=== PATIENT | male | born 1940 | race Caucasian/White ===

== ENCOUNTER 2020-02-18 14:51 | Observation (INO) | payer MEDICARE, SELFPAY ==
[2020-02-18] VITALS (15 sets, daily range): BP systolic 71–138; BP diastolic 44–76; PULSE 40–62; RESP 13–18; TEMP 36.4–36.7; O2SAT 2–100; BMI 27.1; BMI 26.9; BMI 26.0
--- NOTE | 2020-02-18 15:02 | EKG12_ITS ---
Test Reason : SWATHI Blood Pressure : / mmHG Vent. Rate : 046 BPM Atrial Rate : 046 BPM P-R Int : 220 ms QRS Dur : 070 ms QT Int : 494 ms P-R-T Axes : 012 015 018 degrees QTc Int : 432 ms Sinus bradycardia with 1st degree A-V block Otherwise normal ECG Confirmed by VINH SEGUNDO, LASHAUN ([id number]), make up editor JUAN F STAHL ([id number]) on 02/20/2020 9:18:08 AM Referred By: ANABEL Confirmed By:LASHAUN JUSTICE MD
--- NOTE | 2020-02-18 15:04 | RAD_ITS ---
STUDY: X-RAY CHEST REASON FOR EXAM: Male, 79 years old. ALTERED LOC, HYPOTENSIVE, SOB TECHNIQUE: Frontal view of the chest COMPARISON: None. FINDINGS: The lungs are clear and expanded. There is no demonstrated pleural abnormality. Normal size heart. Normal mediastinum and radhika. Normal visualized pulmonary arteries. Normal visualized aortic arch and descending thoracic aorta. Normal visualized thoracic spine. Normal visualized ribs, clavicles, and shoulders. There is no demonstrated abnormality of the visualized soft tissue structures of the upper abdomen. RAD/Chest 1 View (Portable) IMPRESSION: Normal x-ray examination of the chest. Electronically Signed: Taty Millan, at 16:02 EDT Tel , Service support ,
--- NOTE | 2020-02-18 15:05 | ED.VIS.GEN ---
History of Present Illness Chief Complaint: Alt LOC Narrative: This patient is a 79-year-old male who presents with altered mental status and hypotension. Patient states he has been in his usual state of health recently but has been helping his to can tomatoes and also had moved some big rocks. He woke this morning with right lower back pain. This is similar to his usual back pain. He takes tramadol and Lyrica twice a day. He had taken his usual medications. After jose tomatoes his back pain was worse so he took extra previously prescribed medication. He initially stated that this was a steroid but later stated that he thinks it was a muscle relaxer. He is unsure what this medication was. Not long after taking the medication he states he felt loopy he felt he was unsteady and he was unable to walk. EMS was contacted. He was bradycardic and hypotensive. Patient was started on an epinephrine infusion that was then titrated down and eventually stopped on arrival here. Patient denies any pain currently. He denies recent illness such as fevers cough vomiting diarrhea. Past Medical History - Allergies and Home Meds Allergies/Adverse Reactions: Allergies Penicillins [PCN] Allergy (Verified 02/18/20 15:02) Rash terazosin Allergy (Verified 02/18/20 15:38) PT UNSURE OF REACTION Primary Care Physician: Montana Lucas MD [Primary Care Provider] - Past Medical History: - - Hypertension, chronic back pain Smoking Status: Former smoker Review of Systems All systems negative except as indicated General: Denies: Fever Eyes: Denies: Visual changes - bilaterally ENT: Denies: Bilateral ear pain Cardiovascular: Denies: Chest pain Respiratory: Denies: Dyspnea Gastrointestinal: Denies: Abdominal pain, Nausea, Vomiting, Diarrhea Musculoskeletal: Reports: Back pain Skin: Denies: Rash Neurological: Reports: Weakness Hematologic: Denies: Easy bruising Allergy: Denies: Uticaria Physical Exam Vital Signs/Narrative: Vital Signs Temp Pulse Resp BP Pulse Ox 02/18/20 14:52 97.7 F L 46 L 13 71/44 L 97 Inital Vital Signs reviewed: Yes General: Well nourished Head: Normocephalic Eyes: EOMI ENT: Moist mucous membranes Neck: Supple Cardiovascular: Regular rhythm, Bradycardia Respiratory: No distress, CTA bilaterally Abdomen: Soft, Nontender, Nondistended Extremities: Nontender, No edema Skin: Normal color Neurological: - - Patient is drowsy but answers all questions appropriately, no focal or lateralizing neurological deficits Psychological: Normal affect Diagnostic/Tx/Re-eval Impressions Chest X-Ray 02/18/20 15:04 IMPRESSION: Normal x-ray examination of the chest. Electronically Signed: Taty Millan, at 16:02 EDT Tel , Service support , 02/18/20 15:04 CXR [Chest 1 View (Portable)] [RAD] Stat Laboratory Results 02/18/20 02/18/20 02/18/20 15:05 15:05 15:05 WBC 11.2 H RBC 3.51 L Hgb 10.3 L Hct 32.5 L MCV 92.6 MCH 29.3 MCHC 31.7 L RDW Std Deviation 44.7 H RDW Coeff of Florian 13.2 Plt Count 262 MPV 9.5 Immature Gran % (Auto) 0.400 Neut % (Auto) 70.2 H Lymph % (Auto) 21.2 [place] % (Auto) 5.5 Eos % (Auto) 2.1 Baso % (Auto) 0.6 Absolute Neuts (auto) 7.9 H Absolute Lymphs (auto) 2.37 Nucleated RBC % 0 Sodium 139 Potassium 5.1 Chloride 109 H Carbon Dioxide 27.0 Anion Gap 3 L BUN 22 H Creatinine 1.41 H Estim Creat Clear Calc 45.99 Est GFR (MDRD) Af Amer 62 Est GFR (MDRD) Non-Af 52 L BUN/Creatinine Ratio 15.6 Glucose 182 H Lactic Acid 2.0 Calcium 8.4 L Total Bilirubin 0.40 AST 21 ALT 28 Alkaline Phosphatase 76 Troponin I Total Protein 6.7 Albumin 3.1 L Globulin 3.6 Albumin/Globulin Ratio 0.9 02/18/20 15:05 WBC RBC Hgb Hct MCV MCH MCHC RDW Std Deviation RDW Coeff of Florian Plt Count MPV Immature Gran % (Auto) Neut % (Auto) Lymph % (Auto) [place] % (Auto) Eos % (Auto) Baso % (Auto) Absolute Neuts (auto) Absolute Lymphs (auto) Nucleated RBC % Sodium Potassium Chloride Carbon Dioxide Anion Gap BUN Creatinine Estim Creat Clear Calc Est GFR (MDRD) Af Amer Est GFR (MDRD) Non-Af BUN/Creatinine Ratio Glucose Lactic Acid Calcium Total Bilirubin AST ALT Alkaline Phosphatase Troponin I < 0.015 Total Protein Albumin Globulin Albumin/Globulin Ratio - Medical Decision Making Patient did present hypotensive. He was given 2 L of normal saline. His blood pressure did respond well and is normal on reevaluation. At the time my initial evaluation heart rate was in the high 40s. On reevaluation patient as low as 38. His evaluation as above is notable for mild elevation of creatinine. Additionally we did attempt a straight cath and he had no urine in the bladder. I do believe he is hypovolemic. Some of his weakness and altered mental status may be attributable to the multiple sedating medications including tramadol, Lyrica, Zanaflex. However I do feel he needs further evaluation for his bradycardia as well. She was discussed with the hospitalist, Dr. Johnson who agrees to admit. ED Disposition - Plan for ED Patient: Disposition: Acute Care Hospital [facility] Diagnosis: J CARLOS (acute kidney injury), Adverse drug reaction, Symptomatic bradycardia Referrals: Montana Lucas MD [Primary Care Provider] -
[2020-02-18] MEDS: 0.9% Normal Saline 1,000 ML 999 ML IV ×2 (15:08→16:29)
[2020-02-18 15:18] LABS: Absolute Lymphocyte Count 2.37 X10^3/uL (0.83-4.51); Absolute Neutrophil Count 7.9 X10^3/uL (2.0-7.7); Basophil# 0.07 X10^3/uL; Basophil% 0.6 % (0-1); Eosinophil# 0.24 X10^3/uL; Eosinophils% 2.1 % (0-5); Hematocrit 32.5 % (40-54); Hemoglobin 10.3 g/dL (13.0-16.5); Lymphocyte # 2.37 X10^3/ul (4.0); Lymphocyte % 21.2 % (19-41); Mean Corp Hgb Conc 31.7 g/dL (32-36); Mean Corpuscular Hgb 29.3 pg (27.0-32.0); Mean Corpuscular Volume 92.6 fL (80-94); Mean Platelet Vol. 9.5 fl (6.2-12.0); Monocyte# 0.62 X10^3/uL; Monocyte% 5.5 % (0-10); NRBC Flagged by Analyzer 0 % (0-5); Neutrophil # 7.85 X10^3/uL (2.7-7.7); Neutrophil % 70.2 % (47-70); Platelet Count 262 K/mm3 (150-450); RBC Distribution Width CV 13.2 % (11.6-14.6); RBC Distribution Width SD 44.7 fl (35.1-43.9); Red Blood Count 3.51 M/mm3 (4.6-6.2); White Blood Count 11.2 K/mm3 (4.4-11.0)
[2020-02-18 15:34] LABS: ALB/GLOB Ratio 0.9 RATIO (0.9-2.4); AST(SGOT) 21 U/L (15-37); Alanine Aminotransfer ALT/SGPT 28 U/L (16-61); Albumin, Serum 3.1 g/dL (3.2-5.0); Alkaline Phosphatase 76 U/L (45-117); Anion Gap 3 (5-15); BUN 22 mg/dL (7-18); BUN/Creat Ratio 15.6 RATIO (10-20); Calcium,Total 8.4 mg/dL (8.5-10.1); Chloride 109 mmol/L (98-107); Creatinine, Serum 1.41 mg/dL (0.70-1.30); EST Glomerular Filtration Rate 52 mL/min (>60); Est Glom Filt Rate - Afr Amer 62 mL/min (>60); Estimated Creatinine Clearance 45.99 ml/min; Globulin 3.6 g/dL (2.2-4.2); Glucose 182 mg/dL (74-106); Potassium 5.1 mmol/L (3.5-5.1); Protein, Total 6.7 g/dL (6.4-8.2); Sodium Level 139 mmol/L (136-145)
--- NOTE | 2020-02-18 16:37 | NURSING ---
THIS RN ATTEMPTED TO STRAIGHT CATH PT. UNABLE TO OBTAIN URINE. DR LITTLE NOTIFIED.
--- NOTE | 2020-02-18 18:25 | PCM.HP.STD ---
History of Present Illness Date of Admission: 02/18/20 Chief Complaint: weakness The patient is a 79 year old M who was in his normal state of health and then was doing some gardening. Patient has some chronic back issues and is on Zanaflex and tramadol. Normally, he does not take them together but he did so this afternoon. Afterwards he felt woozy and weak. Presented to the emergency room and was hypotensive at 71/44. Patient did receive IV fluids and his blood pressure did improve to 135/72. Currently patient feels better at this time but he is very cold. Patient denies any sick contacts nor any fever or chills. [] Past Medical History Medical History: Medical History (Last Updated 02/18/20 @ 18:[address] Bryce Johnson DO) Raynaud disease I73.00 HTN (hypertension) I10 Allergies Penicillins [PCN] Allergy (Verified 02/18/20 15:02) Rash terazosin Allergy (Verified 02/18/20 15:38) PT UNSURE OF REACTION Home Medications: Ambulatory Orders Medication Instructions Recorded Docusate Sodium [Colace] 100 mg PO BID 06/22/16 Glucosam/Reginaldo-Msm1/C/Uri/Bosw 1 each PO BID 06/22/16 [Osteo Bi-Flex Caplet] Lisinopril 1 tab PO DAILY 06/22/16 [place]-3S/Dha/Epa/Fish Oil [Fish 1 cap PO BID 06/22/16 Oil 1,200 mg Softgel] Pregabalin [Lyrica] 1 cap PO BID 06/22/16 Tramadol HCl 1 tab PO BID 06/22/16 Amlodipine [Norvasc] 5 mg PO BID 02/18/20 Tizanidine HCl [Zanaflex] 4 mg PO PRN PRN 02/18/20 Smoking Status: Former smoker Tobacco Use: Non-smoker Alcohol: None Drugs: None - *Family History Maternal History Items: - - no CVA Review of Systems Constitutional: Reports: Chills, Night Sweats, Weakness. Denies: Anorexia Eyes: Denies: Blurred vision, Double vision HEENT: Denies: Head Aches, Sinus Congestion, Sinus Drainage Cardiovascular: Denies: Chest Pain, Palpitations Respiratory: Denies: Cough, Shortness of breath at rest, Sputum production Gastrointestinal: Denies: Abdominal Pain, Nausea, Vomiting Genitourinary: Denies: Dysuria Musculoskeletal: Denies: Joint Pain, Joint Tenderness Skin: Reports: - - States that earlier today, his fingers did go white. His feet feel cold. Neurological: Denies: Numbness, Tingling, Focal weakness Hematologic/ Lymphatic: Denies: Easy Bruising, Easy Bleeding, Hx of blood clot Comment: All review of systems were negative except as mentioned above in the history of present illness and the other review of systems. VTE Information - Inpt Only VTE Present on Admission: No VTE Mechan Device Prophylaxis: None VTE Pharm Prophylaxis ordered?: No Reason prophylaxis not ordered:: Treatment Not Indicated Patient Problems: Active and Suspected Problems J CARLOS (acute kidney injury) (Acute) Adverse drug reaction (Acute) Symptomatic bradycardia (Acute) - Physical Exam Vitals/I&O's: Vital Signs Temp Pulse Resp BP Pulse Ox 36.5 C L 47 L 14 135/72 H 98 02/18/20 17:48 02/18/20 17:48 02/18/20 17:48 02/18/20 17:48 02/18/20 17:48 Oxygen Flow Rate (L/min) 2 Oxygen Delivery Method Nasal Cannula Weight: 87.6 kg Body Mass Index (BMI) 26.9 Intake and Output for Last 24 Hours 02/16/20 02/17/20 02/18/20 23:59 23:59 23:59 Intake Total 1999 Balance 1999 General: Alert, Cooperative, No apparent distress, - - Bundled up in numerous blankets HEENT: Atraumatic, Normocephalic Oral: - - Wearing a mask, did not remove. Neck: No Nodes, Thyroid Normal Size and Texture Lungs: Clear to auscultation, Normal air movement, No rhonchi, No wheeze Cardiovascular: Regular rate, Regular Rhythm, Normal S1, Normal S2, No murmurs Abdomen: Bowel Sounds Present, Soft, Non Tender, Non-Distended, No Hepato-splenomegaly Extremities: No edema, No Calf Tenderness Skin: No rashes, No breakdown, - - No cyanosis. No ischemic digits. Musculoskeletal: No Tenderness to Palpation of Joints or Extremities, No Muscle Wasting Psych/Mental Status: Normal Affect, Appropriate Laboratory Results 02/18/20 15:05: WBC 11.2 H, RBC 3.51 L, Hgb 10.3 L, Hct 32.5 L, MCV 92.6, MCH 29.3, MCHC 31.7 L, RDW Std Deviation 44.7 H, RDW Coeff of Florian 13.2, Plt Count 262, MPV 9.5, Immature Gran % (Auto) 0.400, Neut % (Auto) 70.2 H, Lymph % (Auto) 21.2, [place] % (Auto) 5.5, Eos % (Auto) 2.1, Baso % (Auto) 0.6, Absolute Neuts (auto) 7.9 H, Absolute Lymphs (auto) 2.37, Nucleated RBC % 0 02/18/20 15:05: Sodium 139, Potassium 5.1, Chloride 109 H, Carbon Dioxide 27.0, Anion Gap 3 L, BUN 22 H, Creatinine 1.41 H, Estim Creat Clear Calc 45.99, Est GFR (MDRD) Af Amer 62, Est GFR (MDRD) Non-Af 52 L, BUN/Creatinine Ratio 15.6, Glucose 182 H, Calcium 8.4 L, Total Bilirubin 0.40, AST 21, ALT 28, Alkaline Phosphatase 76, Total Protein 6.7, Albumin 3.1 L, Globulin 3.6, Albumin/Globulin Ratio 0.9 02/18/20 15:05: Lactic Acid 2.0 02/18/20 15:05: Troponin I < 0.015 Current Medications Sodium Chloride () 10 - 40 ml IV UD PRN PRN Reason: SALINE FLUSH Assessment/Plan All Active Problems J CARLOS (acute kidney injury) (Acute) Adverse drug reaction (Acute) Symptomatic bradycardia (Acute) 1. Hypotension: Resolved. I suspect this may be more of an exaggerated vagal episode as he was hypotensive as well as bradycardic. Unclear if him have been a vagal episode may be exacerbated with his underlying ray nods or not but patient seems to be responding appropriately at this time. Feel that was likely exacerbated by his concomitant use of Zanaflex as well as tramadol. Will give patient additional IV fluids and observe. Patient did have blood cultures drawn in the emergency room but no obvious source of infection is seen at this time. Patient denies any COVID contacts. Because of the hypotension, will hold off on the amlodipine as well as lisinopril. 2. Possible acute kidney injury: Creatinine is 1.41. Last creatinine we have available is 0.97 from 2016. Will have IV fluids and recheck BMP in the morning. 3. Raynauds phenomenon: Not active at this time but patient stated that his fingers to go white earlier. 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 But given hypotension will hold off on the amlodipine at this time but suspect it can be resumed either later point during this admission or upon discharge. 4. Chronic pain: Stable at this time. We will continue with his medication. Patient came to conclusion on his own but was just reinforced by my myself that he should not have concomitant use of the Zanaflex and tramadol. 5. VTE prophylaxis: Low risk and not indicated at this time as patient is observation status. 6. Advanced care planning: Discussed with the patient. Patient wishes to be full CODE STATUS at this time. OBSV E&M: [id number] Initial observation care L3
[2020-02-18] MEDS: 0.9% Normal Saline 1,000 ML 150 ML IV (18:50)
[2020-02-18 19:10] LABS: Reflex Lactate? Y
[2020-02-18 21:00] LABS: Mucous, Urine 0 SEEN /hpf (<or=2+); Squamous Epithelial Cells - UA 0 SEEN /hpf (0-5)
[2020-02-18 21:04] LABS: Color, Urine Straw (Yellow); Glucose, Dipstick Normal (Normal); Ketone-Dipstick Negative (Negative); Leukocyte Esterase-Dipstick Negative /ul (Negative); Nitrite-Dipstick Negative (Negative); Occult Blood-Urine 50 /ul (Negative); Protein-Dipstick Negative (Negative); Urine Bilirubin Dipstick Negative (Negative); Urine Clarity Clear (Clear); Urine Urobilinogen Normal (Normal)
[2020-02-18 21:13] LABS: Red Blood Cells-Urine 5-10 SEEN /hpf (0-5); White Blood Cells 5-10 SEEN /hpf (0-5)
[2020-02-18 21:14] LABS: Bacteria 1+ /hpf (None Seen); Hyaline Cast 5-10 SEEN /lpf (0-5)
[2020-02-18] MEDS: traMADol 50 MG Tablet PO (22:50)
[2020-02-18] MEDS: Pregabalin 75 MG Capsule 150 MG PO (22:50)
[2020-02-18] MEDS: Docusate Sodium 100 MG Capsule PO (22:51)
[2020-02-18] MEDS: Pramipexole Di-HCl 0.5 MG Tablet PO (22:51)
[2020-02-19] VITALS (7 sets, daily range): BP systolic 100–118; BP diastolic 51–62; PULSE 52–70; RESP 17–18; TEMP 36.5–36.7; O2SAT 95–99
[2020-02-19] MEDS: Acetaminophen 325 MG Tablet 650 MG PO (01:17)
--- NOTE | 2020-02-19 04:28 | EKG12_ITS ---
Test Reason : AM Blood Pressure : / mmHG Vent. Rate : 052 BPM Atrial Rate : 052 BPM P-R Int : 226 ms QRS Dur : 074 ms QT Int : 438 ms P-R-T Axes : 025 036 035 degrees QTc Int : 407 ms Sinus bradycardia with 1st degree A-V block Otherwise normal ECG When compared with ECG of 22-JUN-2016 10:55, No significant change was found Confirmed by ANDER VERGARA ([id number]), editorial clerk EUSEBIO MANNING ([id number]) on 02/22/2020 9:05:58 AM Referred By: TERESA Confirmed By:ANDER VERGARA
--- NOTE | 2020-02-19 05:17 | PN_ITS ---
Progress Note Notified on Michael on telemetric strip. Blood pressure is stable. Follow- up EKG showed first-degree AV block. Telemetry strip reviewed confirms Michael. Patient presented with hypotension and bradycardia. Discussed with nurse to put pacer pads on patient. We will keep patient n.p.o. Consult cardiology. STROKE Vital Signs/Narrative: Vital Signs Temp Pulse Resp BP Pulse Ox 02/19/20 04:40 98.0 F 55 L 18 107/53 L 95 02/19/20 03:00 70
[2020-02-19 05:39] LABS: Absolute Lymphocyte Count 2.46 X10^3/uL (0.83-4.51); Absolute Neutrophil Count 4.7 X10^3/uL (2.0-7.7); Basophil# 0.05 X10^3/uL; Basophil% 0.6 % (0-1); Eosinophil# 0.26 X10^3/uL; Eosinophils% 3.1 % (0-5); Hematocrit 30.7 % (40-54); Hemoglobin 9.8 g/dL (13.0-16.5); Lymphocyte # 2.46 X10^3/ul (4.0); Lymphocyte % 29.8 % (19-41); Mean Corp Hgb Conc 31.9 g/dL (32-36); Mean Corpuscular Volume 90.8 fL (80-94); Mean Platelet Vol. 9.8 fl (6.2-12.0); Monocyte# 0.76 X10^3/uL; Monocyte% 9.2 % (0-10); NRBC Flagged by Analyzer 0 % (0-5); Neutrophil # 4.71 X10^3/uL (2.7-7.7); Neutrophil % 57.1 % (47-70); Platelet Count 239 K/mm3 (150-450); RBC Distribution Width CV 13.1 % (11.6-14.6); RBC Distribution Width SD 43.3 fl (35.1-43.9); Red Blood Count 3.38 M/mm3 (4.6-6.2); White Blood Count 8.3 K/mm3 (4.4-11.0)
[2020-02-19 05:52] LABS: Anion Gap 4 (5-15); BUN 19 mg/dL (7-18); BUN/Creat Ratio 22.5 RATIO (10-20); Calcium,Total 7.7 mg/dL (8.5-10.1); Chloride 110 mmol/L (98-107); Creatinine, Serum 0.84 mg/dL (0.70-1.30); EST Glomerular Filtration Rate 93 mL/min (>60); Est Glom Filt Rate - Afr Amer 113 mL/min (>60); Estimated Creatinine Clearance 77.19 ml/min; Glucose 107 mg/dL (74-106); Magnesium 1.9 mg/dL (1.6-2.6); Sodium Level 139 mmol/L (136-145)
--- NOTE | 2020-02-19 06:48 | NURSING ---
Pacer pads applied to pt per order.
--- NOTE | 2020-02-19 08:04 | CON.PCM_ITS ---
Reason for Consult Date of Consultation: 02/19/20 History of Present Illness: The patient is a 79 year old M with a previous history of hypertension who presented to the emergency room not feeling well. He thinks that he may have taken more medication than usual. He was noted to be hypotensive when he prese nted to the emergency room he was given intravenous fluids and admitted to the telemetry care unit. On the telemetry unit he was noted to have Wenckebach phenomenon on his EKG and cardiology was consulted for evaluation. He had no significant pauses and no dizziness diaphoresis chest pain or syncope. [] Past Medical History Allergies/Adverse Reactions: Allergies Penicillins [PCN] Allergy (Verified 02/18/20 15:02) Rash terazosin Allergy (Verified 02/18/20 15:38) PT UNSURE OF REACTION Home Medications: Ambulatory Orders Medication Instructions Recorded Docusate Sodium [Colace] 100 mg PO BID 06/22/16 Glucosam/Reginaldo-Msm1/C/Uri/Bosw 1 each PO BID 06/22/16 [Osteo Bi-Flex Caplet] Lisinopril 1 tab PO DAILY 06/22/16 [place]-3S/Dha/Epa/Fish Oil [Fish 1 cap PO BID 06/22/16 Oil 1,200 mg Softgel] Pregabalin [Lyrica] 1 cap PO BID 06/22/16 Tramadol HCl 1 tab PO BID 06/22/16 Amlodipine [Norvasc] 5 mg PO BID 02/18/20 Ropinirole HCl 1 mg PO BID 02/18/20 Tizanidine HCl [Zanaflex] 4 mg PO QHS PRN 02/18/20 - *Family History Maternal History Items: - - no CVA Smoking Status: Former smoker Tobacco Use: Non-smoker Alcohol: None Drugs: None Review of Systems - Review of Systems General: Denies: Fever, Night Sweats, Fatigue HEENT: Denies: Vision Change Cardiovascular: Reports: Near Syncope. Denies: Chest Discomfort, Shortness of Breath, Orthopnea, PND, Peripheral Edema, Palpitations, Lightheadedness, Dizziness, Syncope Respiratory: Denies: Cough, Sputum Production, Hemoptysis Gastrointestinal: Denies: Hematemesis, Hematochezia, Melena Genitourinary: Denies: Dysuria, Hematuria Skin: Denies: Rash Neurological: Denies: Dizziness Psychiatric: Denies: Anxiety Endocrine: Denies: Unexplained Weight Loss Subjectve: Pleasant gentleman in no distress Objective: Vital Signs Temp Pulse Resp BP Pulse Ox 98.0 F 53 L 18 100/51 L 95 02/19/20 04:40 02/19/20 07:38 02/19/20 04:40 02/19/20 05:23 02/19/20 04:40 Oxygen Flow Rate (L/min) 2 Oxygen Delivery Method Room Air Weight: 193 lb 1.999 oz Body Mass Index (BMI) 26.9 Orthostatic Vital Signs Start: 02/19/20 00:04 Freq: 0600 Status: Active Protocol: Activity Type Activity Date Activity User E-Sign Co-Sign Detail Recorded Client Recorded Date Recorded By Document 02/19/20 05:23 ANGIE [id number] 02/19/20 05:29 EEA 02/19/20 05:23 Orthostatic Vitals Standing -Blood Pressure (90/60-120/80) 118/59 L -Extremity Use Left Arm -Pulse Rate (60-100) 68 Sitting -Blood Pressure (90/60-120/80) 112/62 -Extremity Use Left Arm -Pulse Rate (60-100) 64 Lying -Blood Pressure (90/60-120/80) 100/51 L -Extremity Use Left Arm -Pulse Rate (60-100) 54 L Intake and Output for Last 24 Hours 02/17/20 02/18/20 02/19/20 23:59 23:59 23:59 Intake Total 2099 1260 / 1260 Balance 2099 1260 / 1260 General: Awake, Alert, Oriented x 3 HEENT: PERRL, EOMI, Sclera Non Icteric Neck: Supple, Good ROM, No Lymph Node Enlargement Lungs: Clear to auscultation Cardiovascular: Regular Rhythm, Normal S1, Normal S2, No Murmurs, No Rubs, No Gallops Vascular: No Carotid Bruits, Normal Femoral Pulses, Normal Radial Pulses, Normal Dorsalis Pedal Pulse, Normal Posterior Tibial Pulses Abdomen: Bowel Sounds Present, Soft, Non Tender, No HSM, No Organomegaly Extremities: No Cyanosis, No Clubbing, No edema Musculoskeletal: No Erythema Skin: No Rashes Lymphatic: No Lymph Node Enlargement Neurological: No Focal Motor or Sensory Deficit Psych/Mental Status: Appropriate 02/18/20 15:05: WBC 11.2 H, RBC 3.51 L, Hgb 10.3 L, Hct 32.5 L, MCV 92.6, MCH 29.3, MCHC 31.7 L, Plt Count 262, MPV 9.5, Immature Gran % (Auto) 0.400, Neut % (Auto) 70.2 H, Lymph % (Auto) 21.2, [place] % (Auto) 5.5, Eos % (Auto) 2.1, Baso % (Auto) 0.6, Absolute Neuts (auto) 7.9 H, Nucleated RBC % 0 02/18/20 15:05: Sodium 139, Potassium 5.1, Chloride 109 H, Carbon Dioxide 27.0, Anion Gap 3 L, BUN 22 H, Creatinine 1.41 H, Est GFR (MDRD) Af Amer 62, Est GFR (MDRD) Non-Af 52 L, BUN/Creatinine Ratio 15.6, Glucose 182 H, Calcium 8.4 L, Total Bilirubin 0.40 02/18/20 15:05: Lactic Acid 2.0 02/18/20 15:05: Troponin I < 0.015 02/18/20 20:50: Urine Color Straw, Urine Clarity Clear, Urine pH 6.0, Ur Specific [place] 1.020, Urine Protein Negative, Urine Glucose (UA) Normal, Urine Ketones Negative, Urine Occult Blood 50 H, Urine Nitrite Negative, Urine Bilirubin Negative, Urine Urobilinogen Normal, Ur Leukocyte Esterase Negative, Urine RBC 5-10 SEEN, Urine WBC 5-10 SEEN 02/18/20 20:55: Lactic Acid 1.0 02/19/20 05:20: WBC 8.3, RBC 3.38 L, Hgb 9.8 L, Hct 30.7 L, MCV 90.8, MCH 29.0, MCHC 31.9 L, Plt Count 239, MPV 9.8, Immature Gran % (Auto) 0.200, Neut % (Auto) 57.1, Lymph % (Auto) 29.8, [place] % (Auto) 9.2, Eos % (Auto) 3.1, Baso % (Auto) 0.6, Absolute Neuts (auto) 4.7, Nucleated RBC % 0 02/19/20 05:20: Sodium 139, Potassium 4.0, Chloride 110 H, Carbon Dioxide 25.0, Anion Gap 4 L, BUN 19 H, Creatinine 0.84, Est GFR (MDRD) Af Amer 113, Est GFR (MDRD) Non-Af 93, BUN/Creatinine Ratio 22.5 H, Glucose 107 H, Calcium 7.7 L, Magnesium 1.9 Rhythm: EKG: ECHO: Stress Test: Cardiac Cath: PCI: CT Surgery: Holter monitor: EPS: PPM: CXR: Chest CT Scan: Assessment/Plan 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 My recommendation is to continue to observe him at this time. He does not require any treatment. An echocardiogram should be performed to assess his left ventricular function. * His other medications can be resumed. * 2. Hypertension * His blood pressure appears to be under good control at this particular time and I would not recommend we make any other changes. * * Thank you for allowing me to participate in the care of your patient. Please don't hesitate to call if any issues arise.
--- NOTE | 2020-02-19 08:11 | ECHOCS_ITS ---
Reason For Study: ARRHYTHMIA Procedure This was a 2D Doppler, Color Flow transthoracic echocardiogram. The study was technically difficult. PT scanned supine due to back pain. Contrast injection was performed. Exam performed portable in patient room. Left Ventricle Normal LV size. Left ventricular systolic function is normal. The estimated ejection fraction is 65 %. Stage 2 diastolic dysfunction. No regional wall motion abnormalities noted. Right Ventricle Normal RV size. Normal systolic function. Atria Normal left atrium. Mitral Valve Mitral valve not well visualized. Tricuspid Valve Normal tricuspid valve. Mild (1+) tricuspid valve insufficiency. Pulmonary artery systolic pressure is 30 mmHg. Aortic Valve Trisinus/trileaflet aortic valve. Pulmonic Valve The pulmonic valve is not well visualized. Great Vessels Normal aortic root. The pulmonary artery is normal size. Normal inferior vena cava. Pericardium/Pleural No pericardial effusion. Medication Diluted definity 2.0ml given slow IV push to enhance endocardial definition. MMode/2D Measurements & Calculations LVIDd: 4.1 cm IVSd: 1.2 cm Ao root diam: 3.2 cm LVIDs: 2.5 cm LVPWd: 0.77 cm RVDd: 3.6 cm FS: 38.0 % LA dimension(2D): 3.3 cm Time Measurements MV dec time: 0.21 sec Doppler Measurements & Calculations MV E max santi: 86.5 cm/sec Lat Peak E' Santi: 9.8 cm/sec Med Peak E' Santi: 8.1 cm/sec MV A max santi: 70.8 cm/sec E/E' lat: 8.8 E/E' med: 10.7 MV E/A: 1.2 PA V2 max: 61.4 cm/sec TR max santi: 254.1 cm/sec TR max P.8 mmHg Interpretation Summary Normal LV size. Left ventricular systolic function is normal. The estimated ejection fraction is 65 %. Stage 2 diastolic dysfunction. Contrast injection was performed. Ordering Physician: Julio César Sharp Referring Physician: Montana Lucas Performed By: Nona Gordon, YANCICS, RVT
[2020-02-19] MEDS: traMADol 50 MG Tablet PO (09:31)
[2020-02-19] MEDS: Docusate Sodium 100 MG Capsule PO (09:31)
[2020-02-19] MEDS: Pregabalin 75 MG Capsule 150 MG PO (09:32)
[2020-02-19] MEDS: Pramipexole Di-HCl 0.5 MG Tablet PO (09:32)
--- NOTE | 2020-02-19 10:58 | PCM.DC ---
- Discharge Diagnoses Current Active Problems: Current Active and Chronic Problems (Last Updated 02/18/20 @ 18:[address] Bryce Johnson, DO) J CARLOS (acute kidney injury) (Acute) Adverse drug reaction (Acute) Symptomatic bradycardia (Acute) You will use the following diet at home:: Cardiac Your food should be the consistency of: Regular Your liquids should be the consistency of: Regular/Thin Discharge Activity: Return to Normal Activity Allergies/Adverse Reactions: Allergies Penicillins [PCN] Allergy (Verified 02/18/20 15:02) Rash terazosin Allergy (Verified 02/18/20 15:38) PT UNSURE OF REACTION Medications to take at Discharge Docusate Sodium [Colace] 100 mg PO BID 06/22/16 Glucosam/Reginaldo-Msm1/C/Uri/Bosw [Osteo Bi-Flex Caplet] 1 each PO BID 06/22/16 [place]-3S/Dha/Epa/Fish Oil [Fish Oil 1,200 mg Softgel] 1 cap PO BID 06/22/16 Pregabalin [Lyrica] 1 cap PO BID 06/22/16 Primary Care Physician: Montana Lucas MD [Primary Care Provider] - Please follow up with your Primary Care Physician in: 1 week Test Results: Test results from this visit will be discussed in further detail at your follow-up appointment, if applicable. Please Follow Up With: Julio César Sharp MD When: as directed Proposed Discharge Date: 02/19/20
--- NOTE | 2020-02-19 11:22 | PHA.DC.MR ---
Pharmacy Service has performed discharge medication reconciliation for this patient. The patient's discharge medication list was reviewed for discrepancies and discrepancies were resolved. Home Medications Docusate Sodium [Colace] 100 mg PO BID 06/22/16 Glucosam/Reginaldo-Msm1/C/Uri/Bosw [Osteo Bi-Flex Caplet] 1 each PO BID 06/22/16 [place]-3S/Dha/Epa/Fish Oil [Fish Oil 1,200 mg Softgel] 1 cap PO BID 06/22/16 Pregabalin [Lyrica] 1 cap PO BID 06/22/16
--- NOTE | 2020-02-19 11:49 | PCM.DC.SUM ---
<Jacob Nugent - Last Filed: 02/19/20 11:49> Discharge Date and Diagnosis - Problem List Patient Problems: Active and Suspected Problems (Last Updated 02/18/20 @ 18:[address] Bryce Johnson DO) J ACRLOS (acute kidney injury) (Acute) Adverse drug reaction (Acute) Symptomatic bradycardia (Acute) Date of Admission: 02/18/20 Date of Discharge: 02/19/20 - Primary Discharge Diagnosis Acute Problems: Active Problems (Last Updated 02/18/20 @ 18:[address] Bryce Johnson DO) J CARLOS 2/2 hypotension Hypotension 2/2 Polypharmacy Hospital Course and Treatment Imaging Results: 02/19/20 08:11 Echo Complete W/ Contrast [ECHO] Routine Interpretation Summary Normal LV size. Left ventricular systolic function is normal. The estimated ejection fraction is 65 %. Stage 2 diastolic dysfunction. Contrast injection was performed. RAD/Chest 1 View (Portable) IMPRESSION: Normal x-ray examination of the chest. Consult: Cardiology - Lila Operations: None Procedures: 2-D Echocardiogram Summary of Care Provided: Hospital course: The patient is a 79 year old M with past medical history of chronic back pain, hypertension, ray nods disease, who presented to the emergency room with complaints of weakness. Patient was outside gardening was taking Zanaflex and tramadol for back pain. He developed a feeling of weakness, and wooziness, came to the emergency room. He was found to have a blood pressure of 71/44 and evidence of acute kidney injury. He also appeared to have second-degree AV block-Wenkebach. Patient was admitted to the PCU and placed on telemetry. Cardiology was consulted. His antihypertensive agents were held. Cardiology recommended obtaining an echocardiogram however did not recommend any aggressive treatment of Wenckebach phenomenon. He appears to have 1st degree AV block at baseline per EKG and tele. He had resolution of his J CARLOS and no symptoms the following day. We discontinued his antihypertensives at discharge as well as several of his sedating pain medications. He will need to follow-up with his PCP in 1 week and with cardiology as directed. This patient was seen by Jacob Nugent PA-C under the supervision of Doctor Bernal. [] Patient Problems: Active and Suspected Problems (Last Updated 02/18/20 @ 18:[address] Bryce Jopperi, DO) J CARLOS (acute kidney injury) (Acute) Adverse drug reaction (Acute) Symptomatic bradycardia (Acute) - Physical Exam Vitals/I&O's: Vital Signs Temp Pulse Resp BP Pulse Ox 97.7 F L 53 L 17 113/57 L 96 02/19/20 09:19 02/19/20 09:19 02/19/20 09:19 02/19/20 09:19 02/19/20 09:19 Oxygen Flow Rate (L/min) 2 Oxygen Delivery Method Room Air Weight: 193 lb 1.999 oz Body Mass Index (BMI) 26.9 Orthostatic Vital Signs Start: 02/19/20 00:04 Freq: 0600 Status: Active Protocol: Activity Type Activity Date Activity User E-Sign Co-Sign Detail Recorded Client Recorded Date Recorded By Document 02/19/20 05:23 [facility] [id number] 02/19/20 05:29 EEA 02/19/20 05:23 Orthostatic Vitals Standing -Blood Pressure (90/60-120/80) 118/59 L -Extremity Use Left Arm -Pulse Rate (60-100) 68 Sitting -Blood Pressure (90/60-120/80) 112/62 -Extremity Use Left Arm -Pulse Rate (60-100) 64 Lying -Blood Pressure (90/60-120/80) 100/51 L -Extremity Use Left Arm -Pulse Rate (60-100) 54 L Intake and Output for Last 24 Hours 02/17/20 02/18/20 02/19/20 23:59 23:59 23:59 Intake Total 2099 1620 / 1620 Balance 2099 1620 / 1620 General: Alert, Oriented x3, Cooperative HEENT: Atraumatic, PERRLA, EOMI, Normocephalic Neck: Supple, No JVD, Negative Carotid Bruits Lungs: Clear to auscultation, Normal air movement Cardiovascular: Regular rate, No murmurs Abdomen: Bowel Sounds Present, Soft, Non Tender Extremities: No edema, Capillary Refill Less than 3 Seconds Skin: No rashes, No breakdown Musculoskeletal: No Tenderness to Palpation of Joints or Extremities Neurological: Cranial nerves II-XII grossly intact Psych/Mental Status: Normal Affect, Appropriate, Alert and oriented to time, place, person, mood and affect Laboratory Results 02/18/20 15:05: WBC 11.2 H, RBC 3.51 L, Hgb 10.3 L, Hct 32.5 L, MCV 92.6, MCH 29.3, MCHC 31.7 L, RDW Std Deviation 44.7 H, RDW Coeff of Florian 13.2, Plt Count 262, MPV 9.5, Immature Gran % (Auto) 0.400, Neut % (Auto) 70.2 H, Lymph % (Auto) 21.2, Miner % (Auto) 5.5, Eos % (Auto) 2.1, Baso % (Auto) 0.6, Absolute Neuts (auto) 7.9 H, Absolute Lymphs (auto) 2.37, Nucleated RBC % 0 02/18/20 15:05: Sodium 139, Potassium 5.1, Chloride 109 H, Carbon Dioxide 27.0, Anion Gap 3 L, BUN 22 H, Creatinine 1.41 H, Estim Creat Clear Calc 45.99, Est GFR (MDRD) Af Amer 62, Est GFR (MDRD) Non-Af 52 L, BUN/Creatinine Ratio 15.6, Glucose 182 H, Calcium 8.4 L, Total Bilirubin 0.40, AST 21, ALT 28, Alkaline Phosphatase 76, Total Protein 6.7, Albumin 3.1 L, Globulin 3.6, Albumin/Globulin Ratio 0.9 02/18/20 15:05: Lactic Acid 2.0 02/18/20 15:05: Troponin I < 0.015 02/18/20 20:50: Urine Color Straw, Urine Clarity Clear, Urine pH 6.0, Ur Specific [place] 1.020, Urine Protein Negative, Urine Glucose (UA) Normal, Urine Ketones Negative, Urine Occult Blood 50 H, Urine Nitrite Negative, Urine Bilirubin Negative, Urine Urobilinogen Normal, Ur Leukocyte Esterase Negative, Urine RBC 5-10 SEEN, Urine WBC 5-10 SEEN, Ur Squamous Epith Cells 0 SEEN, Urine Bacteria 1+, Hyaline Casts 5-10 SEEN, Urine Mucus 0 SEEN 02/18/20 20:55: Lactic Acid 1.0 02/19/20 05:20: WBC 8.3, RBC 3.38 L, Hgb 9.8 L, Hct 30.7 L, MCV 90.8, MCH 29.0, MCHC 31.9 L, RDW Std Deviation 43.3, RDW Coeff of Florian 13.1, Plt Count 239, MPV 9.8, Immature Gran % (Auto) 0.200, Neut % (Auto) 57.1, Lymph % (Auto) 29.8, Miner % (Auto) 9.2, Eos % (Auto) 3.1, Baso % (Auto) 0.6, Absolute Neuts (auto) 4.7, Absolute Lymphs (auto) 2.46, Nucleated RBC % 0 02/19/20 05:20: Sodium 139, Potassium 4.0, Chloride 110 H, Carbon Dioxide 25.0, Anion Gap 4 L, BUN 19 H, Creatinine 0.84, Estim Creat Clear Calc 77.19, Est GFR (MDRD) Af Amer 113, Est GFR (MDRD) Non-Af 93, BUN/Creatinine Ratio 22.5 H, Glucose 107 H, Calcium 7.7 L, Magnesium 1.9 Current Medications Acetaminophen (Tylenol) 650 mg PO Q6H PRN PRN PRN Reason: Pain Score 1-10/Temp > 100.7 F Last Admin: 02/19/20 01:17 Dose: 650 mg Documented by: Docusate Sodium (Colace) 100 mg PO BID [facility] Last Admin: 02/19/20 09:31 Dose: 100 mg Documented by: Ondansetron HCl (Zofran) 4 mg IV Q8H PRN PRN PRN Reason: NAUSEA/VOMITING Pramipexole Dihydrochloride (Mirapex) 0.5 mg PO BID [facility] Last Admin: 02/19/20 09:32 Dose: 0.5 mg Documented by: Pregabalin (Lyrica) 150 mg PO BID [facility] Last Admin: 02/19/20 09:32 Dose: 150 mg Documented by: Tizanidine HCl (Zanaflex) 4 mg PO QHS PRN PRN PRN Reason: sleep deprivation Tramadol HCl (Ultram) 50 mg PO BID [facility] Last Admin: 02/19/20 09:31 Dose: 50 mg Documented by: Discharge Diet: Low fat/ Low Cholesterol, 2000 mg Sodium Diet Discharge Activity: Return to Normal Activity Home Medications: Medications to take at Discharge Docusate Sodium [Colace] 100 mg PO BID 06/22/16 Glucosam/Reginaldo-Msm1/C/Uri/Bosw [Osteo Bi-Flex Caplet] 1 each PO BID 06/22/16 [place]-3S/Dha/Epa/Fish Oil [Fish Oil 1,200 mg Softgel] 1 cap PO BID 06/22/16 Pregabalin [Lyrica] 1 cap PO BID 06/22/16 Primary Care Physician: Montana Lucas MD [Primary Care Provider] - Please follow up with your Primary Care Physician in: 1 week Please Follow Up With: Julio César Sharp MD When: as directed Disposition: Home Medical Necessity - Tobacco Use Smoking Status: Former smoker Tobacco Use: Non-smoker Meaningful Use Info Meaningful Use Diagnoses (Choose all that apply): None applicable <Puma Bernal - Last Filed: 02/19/20 13:24> Discharge Date and Diagnosis - Primary Discharge Diagnosis Acute Problems: Active Problems (Last Updated 02/18/20 @ 18:[address] Bryce Johnson DO) J CARLOS (acute kidney injury) (Acute) Adverse drug reaction (Acute) Symptomatic bradycardia (Acute) Hospital Course and Treatment Imaging Results: 02/19/20 08:11 Echo Complete W/ Contrast [ECHO] Routine Summary of Care Provided: This patient was seen in conjunction with Jacob Nugent PA-C . I have independently interviewed and examined the patient and reviewed pertinent historical, laboratory, and other data. Please refer to Jacob Nugent PA-C note for details of this patient's presentation, findings, and recommendations. I have reviewed Jacob Nugent PA-C note and concur with documented findings. In brief, patient is a 79-year-old male with multiple comorbidities admitted with profound generalized weakness. Patient was found to be hypotensive with acute kidney injury resuscitated with IV fluids and admitted to monitored bed Hospital course as documented above - Physical Exam Vitals/I&O's: Vital Signs Temp Pulse Resp BP Pulse Ox 97.7 F L 52 L 17 113/57 L 96 02/19/20 09:19 02/19/20 11:00 02/19/20 09:19 02/19/20 09:19 02/19/20 09:19 Oxygen Flow Rate (L/min) 2 Oxygen Delivery Method Room Air Weight: 87.6 kg Body Mass Index (BMI) 26.9 Orthostatic Vital Signs Start: 02/19/20 00:04 Freq: 0600 Status: Active Protocol: Activity Type Activity Date Activity User E-Sign Co-Sign Detail Recorded Client Recorded Date Recorded By Document 02/19/20 05:23 [facility] [id number] 02/19/20 05:29 NUHA 02/19/20 05:23 Orthostatic Vitals Standing -Blood Pressure (90/60-120/80) 118/59 L -Extremity Use Left Arm -Pulse Rate (60-100) 68 Sitting -Blood Pressure (90/60-120/80) 112/62 -Extremity Use Left Arm -Pulse Rate (60-100) 64 Lying -Blood Pressure (90/60-120/80) 100/51 L -Extremity Use Left Arm -Pulse Rate (60-100) 54 L Intake and Output for Last 24 Hours 02/17/20 02/18/20 02/19/20 23:59 23:59 23:59 Intake Total 2099 1620 / 1620 Balance 2099 1620 / 1620 Laboratory Results 02/18/20 15:05: WBC 11.2 H, RBC 3.51 L, Hgb 10.3 L, Hct 32.5 L, MCV 92.6, MCH 29.3, MCHC 31.7 L, RDW Std Deviation 44.7 H, RDW Coeff of Florian 13.2, Plt Count 262, MPV 9.5, Immature Gran % (Auto) 0.400, Neut % (Auto) 70.2 H, Lymph % (Auto) 21.2, Miner % (Auto) 5.5, Eos % (Auto) 2.1, Baso % (Auto) 0.6, Absolute Neuts (auto) 7.9 H, Absolute Lymphs (auto) 2.37, Nucleated RBC % 0 02/18/20 15:05: Sodium 139, Potassium 5.1, Chloride 109 H, Carbon Dioxide 27.0, Anion Gap 3 L, BUN 22 H, Creatinine 1.41 H, Estim Creat Clear Calc 45.99, Est GFR (MDRD) Af Amer 62, Est GFR (MDRD) Non-Af 52 L, BUN/Creatinine Ratio 15.6, Glucose 182 H, Calcium 8.4 L, Total Bilirubin 0.40, AST 21, ALT 28, Alkaline Phosphatase 76, Total Protein 6.7, Albumin 3.1 L, Globulin 3.6, Albumin/Globulin Ratio 0.9 02/18/20 15:05: Lactic Acid 2.0 02/18/20 15:05: Troponin I < 0.015 02/18/20 20:50: Urine Color Straw, Urine Clarity Clear, Urine pH 6.0, Ur Specific [place] 1.020, Urine Protein Negative, Urine Glucose (UA) Normal, Urine Ketones Negative, Urine Occult Blood 50 H, Urine Nitrite Negative, Urine Bilirubin Negative, Urine Urobilinogen Normal, Ur Leukocyte Esterase Negative, Urine RBC 5-10 SEEN, Urine WBC 5-10 SEEN, Ur Squamous Epith Cells 0 SEEN, Urine Bacteria 1+, Hyaline Casts 5-10 SEEN, Urine Mucus 0 SEEN 02/18/20 20:55: Lactic Acid 1.0 02/19/20 05:20: WBC 8.3, RBC 3.38 L, Hgb 9.8 L, Hct 30.7 L, MCV 90.8, MCH 29.0, MCHC 31.9 L, RDW Std Deviation 43.3, RDW Coeff of Florian 13.1, Plt Count 239, MPV 9.8, Immature Gran % (Auto) 0.200, Neut % (Auto) 57.1, Lymph % (Auto) 29.8, Miner % (Auto) 9.2, Eos % (Auto) 3.1, Baso % (Auto) 0.6, Absolute Neuts (auto) 4.7, Absolute Lymphs (auto) 2.46, Nucleated RBC % 0 02/19/20 05:20: Sodium 139, Potassium 4.0, Chloride 110 H, Carbon Dioxide 25.0, Anion Gap 4 L, BUN 19 H, Creatinine 0.84, Estim Creat Clear Calc 77.19, Est GFR (MDRD) Af Amer 113, Est GFR (MDRD) Non-Af 93, BUN/Creatinine Ratio 22.5 H, Glucose 107 H, Calcium 7.7 L, Magnesium 1.9 Current Medications Acetaminophen (Tylenol) 650 mg PO Q6H PRN PRN PRN Reason: Pain Score 1-10/Temp > 100.7 F Last Admin: 02/19/20 01:17 Dose: 650 mg Documented by: Docusate Sodium (Colace) 100 mg PO BID [facility] Last Admin: 02/19/20 09:31 Dose: 100 mg Documented by: Ondansetron HCl (Zofran) 4 mg IV Q8H PRN PRN PRN Reason: NAUSEA/VOMITING Pramipexole Dihydrochloride (Mirapex) 0.5 mg PO BID [facility] Last Admin: 02/19/20 09:32 Dose: 0.5 mg Documented by: Pregabalin (Lyrica) 150 mg PO BID [facility] Last Admin: 02/19/20 09:32 Dose: 150 mg Documented by: Tizanidine HCl (Zanaflex) 4 mg PO QHS PRN PRN PRN Reason: sleep deprivation Tramadol HCl (Ultram) 50 mg PO BID [facility] Last Admin: 02/19/20 09:31 Dose: 50 mg Documented by: OBSV E&M: [id number] Observation care discharge
== END 2020-02-19 10:59 | disposition home or self-care (01) ==
LOC: ED 17:31 → PCU 17:42
PROVIDERS: Emergency Provider Emergency Medicine; PCP Family Medicine; Visit Provider Internal Medicine
DX: I95.9 Hypotension, unspecified (principal); N17.9 Acute kidney failure, unspecified; I73.00 Raynaud's syndrome without gangrene; I44.1 Atrioventricular block, second degree; R00.1 Bradycardia, unspecified; T50.905A Adverse effect of unspecified drugs, medicaments and biological substances, initial encounter; R41.82 Altered mental status, unspecified; I10 Essential (primary) hypertension; G89.29 Other chronic pain; Z87.891 Personal history of nicotine dependence; Z79.899 Other long term (current) drug therapy
CPT/HCPCS: 36415; 71045; 80048; 80053; 81001; 83605; 83735; 84484; 85025; 87040; 93005; 93306; 96360; 96361; 99218; 99285; J7030; Q9957; A4216; C8929; G0378

== ENCOUNTER 2021-08-07 13:00 | Emergency (ER) | payer MEDICARE, SELFPAY ==
[2021-08-07] VITALS (9 sets, daily range): BP systolic 122–197; BP diastolic 68–103; PULSE 57–98; RESP 12–22; TEMP 36.8–36.9; O2SAT 93–99; BMI 28.3
--- NOTE | 2021-08-07 13:35 | EKG12_ITS ---
Test Reason : HEADACHE Blood Pressure : / mmHG Vent. Rate : 064 BPM Atrial Rate : 064 BPM P-R Int : 208 ms QRS Dur : 078 ms QT Int : 446 ms P-R-T Axes : 048 054 057 degrees QTc Int : 460 ms Normal sinus rhythm Normal ECG Confirmed by CLARIBEL SEGUNDO, ZOEY ([id number]), editor school photograph JUAN F STAHL ([id number]) on 08/08/2021 10:57:53 AM Referred By: WILL Confirmed By:ZOEY SANFORD MD
--- NOTE | 2021-08-07 13:41 | EX.ED.VIS.HA ---
HPI History of Present Illness Chief Complaint: Headache Narrative Narrative: 81-year-old male presenting with headache which started last evening. He states it feels like it is behind his eyes. He has no history of migraines. He does not have any history of head trauma. Patient states his blood pressure has been elevated when he took all of his blood pressure medications the day. He still states has been hypertensive with a headache. He has no visual complaints. No nausea or vomiting. No paresthesias. No difficulty moving extremities. PFSH PFSH Medical History (Updated 08/07/21 @ 15:04 by Anastasia Stokes) BiPAP (biphasic positive airway pressure) dependence Former smoker HTN (hypertension) Raynaud disease Sleep apnea Home Medications Fish Oil 1 cap PO BID 06/22/16 [History Last Taken 08/06/21] Osteo Bi-Flex Triple Strength 1 ea PO BID 06/22/16 [History Last Taken 08/05/21] docusate sodium [DOK] 100 mg PO BID 06/22/16 [History Last Taken 08/06/21] pregabalin [Lyrica] 1 cap PO BID 06/22/16 [History Last Taken 08/07/21] amlodipine 5 mg PO DAILY 08/07/21 [History Last Taken 08/07/21] lisinopril 20 mg PO DAILY 08/07/21 [History Last Taken 08/07/21] ropinirole 1 mg PO DAILY 08/07/21 [History Last Taken 08/07/21] ropinirole 3 mg PO QHS 08/07/21 [History Last Taken 08/06/21] tramadol 50 mg PO BID 08/07/21 [History Last Taken 08/05/21] Allergy/AdvReac Type Severity Reaction Status Date / Time Penicillins [PCN] Allergy Rash Verified 08/07/21 13:08 terazosin Allergy PT UNSURE Verified 08/07/21 13:08 OF REACTION Surgical History (Updated 08/07/21 @ 15:04 by Anastasia Stokes) History of appendectomy Social History Smoking Status: Former smoker ROS ROS ED Constitutional Constitutional ED: Denies chills or fever(s) Eyes Eyes: Denies blurry vision or diplopia ENT ENT ED: Denies rhinorrhea or sore throat Cardiovascular Cardiovascular: Denies chest pain or palpitations Respiratory/Chest Respiratory/Chest: Denies cough or dyspnea Gastrointestinal Gastrointestinal: Denies abdominal pain, nausea or vomiting Genitourinary Genitourinary ED: Denies dysuria or hematuria Musculoskeletal Musculoskeletal: Denies arthralgias, myalgias or neck pain Integumentary Denies rash Neurologic Neurologic: Reports headache(s); Denies paresthesias or weakness EXAM Physical Exam Const Vital Signs: 08/07/21 13:00 08/07/21 13:41 08/07/21 13:50 Temperature 98.2 F Temperature Source Oral Pulse Rate 57 L 67 Respiratory Rate 22 H 21 H Blood Pressure 174/86 H 158/91 H Blood Pressure Mean 115 113 Pulse Ox 97 99 Oxygen Delivery Method Room Air Room Air Room Air 08/07/21 15:31 08/07/21 15:59 08/07/21 16:10 Temperature 98.5 F Temperature Source Temporal Pulse Rate 76 82 Respiratory Rate 12 19 H Blood Pressure 197/103 H 156/68 H 172/99 H Blood Pressure Mean 134 97 123 Pulse Ox 98 97 Oxygen Delivery Method Room Air Room Air 08/07/21 16:21 Temperature Temperature Source Pulse Rate Respiratory Rate Blood Pressure 122/93 H Blood Pressure Mean 102 Pulse Ox Oxygen Delivery Method Positive well nourished General Appearance ED: NAD; Negative for pallor HEENT Reports normocephalic and TM's clear atraumatic; Negative for temporal artery tenderness Tympanic Membrane ED: Yes TM's clear Eyes PERRL and EOMs intact bilaterally Neck no lymphadenopathy, supple and no meningeal signs Resp normal respiratory effort and clear to auscultation bilaterally Cardio regular rate and regular rhythm Neuro oriented x3, CN's II-XII intact bilaterally and no sensory deficits noted Sensorium / Orientation: awake and alert Motor Exam: strength 5/5 throughout Psych Attitude: agitated Skin General Skin Exam: Negative for jaundice or pallor MDM MDM MDM Narrative Medical decision making narrative: Patient initially given Reglan, Benadryl. Patient was taken to CT. CT scan does show diffuse enlargement of the pituitary gland, and there is expansile erosive changes of the sella turcica. Radiologist does question whether this may be a pituitary adenoma, however neoplasm is not excluded. Patient's pain was not improved with Reglan and Benadryl he was given Toradol. He was still complaining of pain and was given Depakote. On reevaluation he was sleeping comfortably. His blood pressure is now 122/93 without blood pressure medication EKG on my interpretation shows a normal sinus rhythm with a ventricular of 64 bpm without sign of ischemic change. CBC and BMP are unremarkable. High-sensitivity troponin is 11. Chest x-ray my interpretation shows no acute cardiopulmonary process. Given the findings on his CT I did reach out to [facility] neurology to have the patient transferred as hospitalist here did not think it was appropriate for him to stay here. Dr. Emmanuel was the accepting neurologist. Patient was sent to ED the ED with the accepting physician being Dr. Mcgowan. Patient transported in stable condition. Impression: 1. Headache 2. Abnormal brain CT 3. Hypertension Lab Data Labs: Laboratory Results - last 24 hr 08/07/21 08/07/21 13:45 13:45 WBC 8.6 RBC 4.19 L Hgb 12.1 L Hct 36.2 L MCV 86.4 MCH 28.9 MCHC 33.4 RDW Std Deviation 39.8 RDW Coeff of Florian 12.6 Plt Count 435 MPV 9.0 Immature Gran % (Auto) 0.500 Neut % (Auto) 59.7 Lymph % (Auto) 29.0 [place] % (Auto) 6.8 Eos % (Auto) 3.4 Baso % (Auto) 0.6 Absolute Neuts (auto) 5.1 Absolute Lymphs (auto) 2.48 Nucleated RBC % 0 Sodium 137 Potassium 3.8 Chloride 104 Carbon Dioxide 27.0 Anion Gap 6 BUN 16 Creatinine 0.83 Estim Creat Clear Calc 75.60 Est GFR (MDRD) Af Amer 114 Est GFR (MDRD) Non-Af 94 BUN/Creatinine Ratio 19.2 Glucose 119 H Calcium 8.8 Troponin I High Sens 11 Radiography Diagnostic Testing: Clinical Impression(s) from Imaging Studies Brain CT 08/07/21 13:57 IMPRESSION: Diffuse enlargement of the pituitary gland. There is expansile erosive changes of the sella turcica. This may represent a pituitary adenoma. MRI with IV is recommended to evaluate. Neoplasm is not excluded. Chronic involutional changes of the brain. Electronically Signed: Kendall Wu MD at 14:27 EST , Chest X-Ray 08/07/21 14:05 IMPRESSION: There are no acute findings. Electronically Signed: Kendall Wu MD at 14:28 EST , Discharge Plan Triage Chief Complaint: Headache ED Provider: Ho Sykes Dx/Rx/DC Orders Prescriptions: No Action docusate sodium [DOK] 100 MG capsule 100 mg PO BID RF: 0 pregabalin [Lyrica] 150 MG capsule 1 cap PO BID RF: 0 Osteo Bi-Flex Triple Strength 1 EACH tablet 1 ea PO BID RF: 0 Fish Oil 1 EACH capsule 1 cap PO BID RF: 0 ropinirole 1 mg tablet 1 mg PO DAILY RF: 0 ropinirole 1 mg tablet 3 mg PO QHS RF: 0 lisinopril 20 mg tablet 20 mg PO DAILY RF: 0 amlodipine 5 mg tablet 5 mg PO DAILY RF: 0 tramadol 50 mg tablet 50 mg PO BID RF: 0 Primary Care Provider: Montana Lucas
[2021-08-07] MEDS: Metoclopramide 10 MG/2 ML Vial IV (13:47)
[2021-08-07] MEDS: DiphenhydrAMINE 50 MG/ML Syringe 25 MG IV (13:47)
[2021-08-07 13:54] LABS: Absolute Lymphocyte Count 2.48 X10^3/uL (0.83-4.51); Absolute Neutrophil Count 5.1 X10^3/uL (2.0-7.7); Basophil# 0.05 X10^3/uL; Basophil% 0.6 % (0-1); Eosinophil# 0.29 X10^3/uL; Eosinophils% 3.4 % (0-5); Hematocrit 36.2 % (40-54); Hemoglobin 12.1 g/dL (13.0-16.5); Lymphocyte # 2.48 X10^3/ul (0.83-4.51); Mean Corp Hgb Conc 33.4 g/dL (32-36); Mean Corpuscular Hgb 28.9 pg (27.0-32.0); Mean Corpuscular Volume 86.4 fL (80-94); Monocyte# 0.58 X10^3/uL; Monocyte% 6.8 % (0-10); NRBC Flagged by Analyzer 0 % (0-5); Neutrophil # 5.11 X10^3/uL (2.7-7.7); Neutrophil % 59.7 % (47-70); Platelet Count 435 K/mm3 (150-450); RBC Distribution Width CV 12.6 % (11.6-14.6); RBC Distribution Width SD 39.8 fl (35.1-43.9); Red Blood Count 4.19 M/mm3 (4.6-6.2); White Blood Count 8.6 K/mm3 (4.4-11.0)
--- NOTE | 2021-08-07 13:57 | CT_ITS ---
STUDY: CT BRAIN WITHOUT CONTRAST REASON FOR EXAM: Male, 81 years old. Pain Individualized dose optimization techniques were used for this CT. TECHNIQUE: Transaxial CT imaging of the brain was performed without administration of intravenous contrast material. COMPARISON: None FINDINGS: There are calcifications around the carotid artery. These are noted in the cavernous carotid arteries. Normal calvarium. Normal soft tissues. Diffuse enlargement of the pituitary gland. There is expansile erosive changes of the sella turcica. There is mild cerebral atrophy with widening of the extra-axial spaces and ventricular dilatation. There are areas of decreased attenuation within the white matter tracts of the supratentorial brain, consistent with microvascular disease changes. Normal basal ganglia and thalami. Normal brainstem. There is mild cerebellar atrophy. There is no intracranial hemorrhage. There are no findings of an acute ischemic infarction. There is mucoperiosteal inflammatory disease of the paranasal sinuses consistent with mild chronic sinusitis. ASPECTS Score for Acute Strokes: 04/06 CT/Brain/Head without Contrast IMPRESSION: Diffuse enlargement of the pituitary gland. There is expansile erosive changes of the sella turcica. This may represent a pituitary adenoma. MRI with IV is recommended to evaluate. Neoplasm is not excluded. Chronic involutional changes of the brain. Electronically Signed: Kendall Wu MD at 14:[address] [facility] ,
--- NOTE | 2021-08-07 14:05 | RAD_ITS ---
STUDY: XR Chest 1 View 08/07/2021 1:56 PM REASON FOR EXAM: Male, 81 years old. CHEST PAIN hypertension COMPARISON: 02/18/2020 TECHNIQUE: XR Chest 1 View FINDINGS: There is no demonstrated pleural abnormality. Normal heart size. Normal mediastinum. Normal radhika. Prominent appearing increased interstitial lung markings. Normal visualized pulmonary arteries. There is atherosclerotic calcification of the aortic arch with tortuosity. There are diffuse degenerative changes of the visualized thoracic spine. There is degenerative osteoarthritis of the bilateral shoulders. There is no demonstrated abnormality of the visualized soft tissue structures of the upper abdomen. RAD/Chest 1 View (Portable) IMPRESSION: There are no acute findings. Electronically Signed: Kendall Wu MD at 14:28 EST ,
[2021-08-07 14:12] LABS: Anion Gap 6 (5-15); BUN 16 mg/dL (7-18); BUN/Creat Ratio 19.2 RATIO (10-20); Calcium,Total 8.8 mg/dL (8.5-10.1); Chloride 104 mmol/L (98-107); Creatinine, Serum 0.83 mg/dL (0.70-1.30); EST Glomerular Filtration Rate 94 mL/min (>60); Est Glom Filt Rate - Afr Amer 114 mL/min (>60); Glucose 119 mg/dL (74-106); Potassium 3.8 mmol/L (3.5-5.1); Sodium Level 137 mmol/L (136-145); Troponin-I HS 11 pg/mL (3.0-78.0)
[2021-08-07] MEDS: Ketorolac 15 MG/ML Vial IV (14:41)
--- NOTE | 2021-08-07 15:40 | ED.RN ---
Daughter updated and told will call back when know more [phone]
--- NOTE | 2021-08-07 15:42 | NURSING ---
Dr Sykes is aware of concern with family for transport to [facility] since further away but at this time, closer hospitals are not able to take now and only other option is [facility] right now but they are 3 day holding to get patients there so [place] is where we are working now.
--- NOTE | 2021-08-07 16:50 | NURSING ---
Madelyn Lopez states they accepted the doctor report and nothing further to do
--- NOTE | 2021-08-07 16:52 | NURSING ---
Alicia, daughter called and given update on voicemail
[2021-08-07] MEDS: HYDROmorphone 0.5 MG/0.5 ML SYRINGE IV (17:16)
--- NOTE | 2021-08-07 17:53 | ED.RN ---
Daughter reports patient has leslee and uses a cpap for sleep, at home, but no aware of settings. Sees Dr Acosta.
== END 2021-08-07 18:57 | disposition short-term general hospital (02) ==
LOC: ED 13:34
PROVIDERS: Emergency Provider Student in an Organized Health Care Education/Training Program; PCP Family Medicine; Visit Provider Student in an Organized Health Care Education/Training Program
DX: I10 Essential (primary) hypertension (principal); E23.6 Other disorders of pituitary gland; Z87.891 Personal history of nicotine dependence; R51.9 Headache, unspecified; R93.0 Abnormal findings on diagnostic imaging of skull and head, not elsewhere classified; I73.00 Raynaud's syndrome without gangrene; G47.30 Sleep apnea, unspecified; Z79.899 Other long term (current) drug therapy
CPT/HCPCS: 70450; 71045; 80048; 84484; 85025; 93005; 96365; 96375; 99285; J7050; A4216

== ENCOUNTER 2021-12-21 | Observation (INO) | payer MEDICARE, SELFPAY ==
[2021-12-21] VITALS (9 sets, daily range): BP systolic 117–161; BP diastolic 64–86; PULSE 62–87; RESP 18; TEMP 36–36.7; O2SAT 94–100; BMI 27.3; BMI 27.4
--- NOTE | 2021-12-21 00:13 | CT_ITS ---
EXAM: CT ABDOMEN AND PELVIS WITH INTRAVENOUS CONTRAST CLINICAL INDICATION: lLQ abdominal pain -- IV PO Contrast TECHNIQUE: Helically acquired images were obtained of the abdomen and pelvis with intravenous contrast. This CT exam was performed using one or more of the following dose reduction techniques: automated exposure control, adjustment of the mA and/or kV according to patient size, and/or use of iterative reconstruction technique. This report was created using [employer] report generation technology. CONTRAST: 100 cc of Isovue-370 IV. RADIATION DOSE: CTDIvol = 17.15 mGy, DLP = 1168.06 mGy-cm. COMPARISON: None. FINDINGS: LOWER THORAX: Unremarkable. Lung bases are clear. No cardiomegaly. No significant pericardial effusion. ABDOMEN: LIVER: There is diffuse low-attenuation of the liver. GALLBLADDER AND BILE DUCTS: Cholelithiasis. No gallbladder distention or wall edema. No intra- or extrahepatic biliary ductal dilation. PANCREAS: Unremarkable. No focal cystic or solid mass. SPLEEN: Unremarkable. Normal size without focal cystic or solid mass. ADRENALS: Unremarkable. No nodules. KIDNEYS AND URETERS: Unremarkable. Normal renal size and position. No hydronephrosis. STOMACH AND BOWEL: Mild wall thickening of the descending colon, sigmoid colon and rectum with prominence of the mesenteric vessels. Scattered diverticula without diverticulitis. No stomach or bowel distention. PELVIS: APPENDIX: No evidence of acute appendicitis. BLADDER: Unremarkable. REPRODUCTIVE: Unremarkable as visualized. No mass. ABDOMEN and PELVIS: INTRAPERITONEAL SPACE: Unremarkable. No ascites or other fluid collection. No free air. BONES/JOINTS: Unremarkable. No suspicious lytic or blastic abnormality. SOFT TISSUES: Unremarkable. No discrete abdominal or pelvic wall hernia. VASCULATURE: See above. LYMPH NODES: Unremarkable. No enlarged lymph nodes. OTHER FINDINGS: And oral contrast. CT/Abdomen/Pelvis WITH Contrast IMPRESSION: 1. Probable colitis involving the descending colon through the rectum. This may be due to infection or inflammatory bowel disease. 2. Scattered diverticula without diverticulitis. 3. Fatty liver. 4. Cholelithiasis. Electronically Signed: Jamel Garcia MD at 2:31 EDT ,
--- NOTE | 2021-12-21 00:14 | EDS_ITS ---
HPI HPI - GI History of Present Illness Chief Complaint: GI Bleed Narrative Narrative: 81-year-old male presenting with bright red bleeding per rectum. He states he felt like he had to go to the bathroom tonight and felt like he had to go urgently. He went to the bathroom and had a bowel movement with some blood in his stool. He states he had another 1 when he arrived to the emergency room. He states he is not in significant pain. He has felt otherwise well prior to this. He is not on any blood thinners. He states he had a colonoscopy distantly and told to that polyps but also told he did not need another colonoscopy. He does not feel lightheaded or dizzy. PFSH PFS Medical History BiPAP (biphasic positive airway pressure) dependence Former smoker HTN (hypertension) Raynaud disease Sleep apnea Home Medications pregabalin 150 mg capsule (Lyrica) 1 cap PO BID pain 06/22/16 [History Last Taken 08/07/21] amlodipine 5 mg tablet 5 mg PO DAILY bp 08/07/21 [History Last Taken 08/07/21] lisinopril 20 mg tablet 20 mg PO DAILY bp 08/07/21 [History Last Taken 08/07/21] ropinirole 1 mg tablet 1 mg PO DAILY rls 08/07/21 [History Last Taken 08/07/21] ropinirole 1 mg tablet 3 mg PO QHS rls 08/07/21 [History Last Taken 08/06/21] Allergy/AdvReac Type Severity Reaction Status Date / Time Penicillins [PCN] Allergy Rash Verified 12/21/21 00:01 terazosin Allergy PT UNSURE Verified 12/21/21 00:01 OF REACTION Surgical History History of appendectomy History of surgical removal of pituitary gland Social History Smoking Status: Former smoker ROS ROS ED Constitutional Constitutional ED: Denies chills or fever(s) ENT ENT ED: Denies rhinorrhea or sore throat Cardiovascular Cardiovascular: Denies chest pain or palpitations Respiratory/Chest Respiratory/Chest: Denies cough or dyspnea Gastrointestinal Gastrointestinal: Reports diarrhea and other Details: Bright red bleeding per rectum Musculoskeletal Musculoskeletal: Denies arthralgias or back pain Integumentary Denies abscess Neurologic Neurologic: Denies headache(s) or paresthesias Psychiatric Psychiatric: Denies anxiety or depression EXAM Physical Exam Const Vital Signs: 12/21/21 00:02 Temperature 96.8 F L Temperature Source Temporal Pulse Rate 87 Respiratory Rate 18 Blood Pressure 161/84 H Blood Pressure Mean 109 Pulse Ox 98 Oxygen Delivery Method Room Air Positive well nourished and well developed General Appearance ED: well developed and NAD; Negative for pallor Eyes PERRL and EOMs intact bilaterally General Eye ED: Negative for pale conjunctiva or scleral icterus Resp normal respiratory effort and clear to auscultation bilaterally Cardio regular rate and regular rhythm GI Palpation: soft; Negative for tender, guarding or rigid Neuro CN's II-XII intact bilaterally, moves all extremities and no sensory deficits noted Sensorium / Orientation: alert, oriented to person, oriented to place and oriented to time Psych mental status grossly normal Skin General Skin Exam: Negative for jaundice or pallor MDM MDM MDM Narrative Medical decision making narrative: Patient presenting with bright red stool per rectum. He has had 2 bloody bowel movements. I did give him a liter of IV fluids but is not having any pain or nausea. I obtained a CBC and his hemoglobin is at his baseline at 12.2. No increased white blood cell count. Creatinine slightly elevated 1.35. Electrolytes are normal. LFTs within normal limits with exception of an alkaline phosphatase of 124. Coagulation studies are normal. Patient still slightly hypertensive. His pulse is 87. O2 sats are normal at 98. I did come into the room to be reevaluated him and he had another large bloody stool. He still appears to be pain-free and he is laughing and joking. CT of the abdomen pelvis shows mild bowel wall thickening of the descending colon sigmoid, rectum. I discussed the case with Dr. Dumont who felt he can manage the patient if needed. He was admitted to medicine in stable condition. Patient will have his hemoglobin is trended. He will be monitored. Impression: 1. Lower GI bleed Lab Data Labs: Laboratory Results - last 24 hr 12/21/21 12/21/21 12/21/21 00:05 00:05 00:05 WBC 10.2 RBC 4.13 L Hgb 12.2 L Hct 36.8 L MCV 89.1 MCH 29.5 MCHC 33.2 RDW Std Deviation 42.7 RDW Coeff of Florian 13.0 Plt Count 245 MPV 10.5 Immature Gran % (Auto) 0.500 Neut % (Auto) 48.0 Lymph % (Auto) 37.1 Moody % (Auto) 11.7 H Eos % (Auto) 2.2 Baso % (Auto) 0.5 Absolute Neuts (auto) 4.9 Absolute Lymphs (auto) 3.77 Nucleated RBC % 0 PT Cancelled INR Cancelled Sodium 140 Potassium 3.9 Chloride 106 Carbon Dioxide 25.0 Anion Gap 9 BUN 23 H Creatinine 1.35 H Estim Creat Clear Calc 46.48 Est GFR (MDRD) Af Amer 65 Est GFR (MDRD) Non-Af 54 L BUN/Creatinine Ratio 17.0 Glucose 176 H Calcium 9.0 Total Bilirubin 0.20 AST 29 ALT 32 Alkaline Phosphatase 124 H Total Protein 6.9 Albumin 3.5 Globulin 3.4 Albumin/Globulin Ratio 1.0 Lipase 128 Blood Type Antibody Screen 12/21/21 12/21/21 00:26 00:53 WBC RBC Hgb Hct MCV MCH MCHC RDW Std Deviation RDW Coeff of Florian Plt Count MPV Immature Gran % (Auto) Neut % (Auto) Lymph % (Auto) [place] % (Auto) Eos % (Auto) Baso % (Auto) Absolute Neuts (auto) Absolute Lymphs (auto) Nucleated RBC % PT 14.4 INR 1.2 Sodium Potassium Chloride Carbon Dioxide Anion Gap BUN Creatinine Estim Creat Clear Calc Est GFR (MDRD) Af Amer Est GFR (MDRD) Non-Af BUN/Creatinine Ratio Glucose Calcium Total Bilirubin AST ALT Alkaline Phosphatase Total Protein Albumin Globulin Albumin/Globulin Ratio Lipase Blood Type O POSITIVE Antibody Screen NEGATIVE Radiography Diagnostic Testing: Clinical Impression(s) from Imaging Studies Abdomen/Pelvis CT 12/21/21 00:13 IMPRESSION: 1. Probable colitis involving the descending colon through the rectum. This may be due to infection or inflammatory bowel disease. 2. Scattered diverticula without diverticulitis. 3. Fatty liver. 4. Cholelithiasis. Electronically Signed: Jamel Garcia MD at 2:31 EDT , Discharge Plan Triage Chief Complaint: GI Bleed ED Provider: [facility] Dx/Rx/DC Orders Prescriptions: No Action pregabalin [Lyrica] 150 MG capsule 1 cap PO BID Label Comments: ropinirole 1 mg tablet 1 mg PO DAILY Label Comments: TAKE 1 TABLET BY MOUTH EVERY MORNING AND 3 TABLETS BY MOUTH EVERY EVENING ropinirole 1 mg tablet 3 mg PO QHS Label Comments: TAKE 1 TABLET BY MOUTH EVERY MORNING AND 3 TABLETS BY MOUTH EVERY EVENING lisinopril 20 mg tablet 20 mg PO DAILY amlodipine 5 mg tablet 5 mg PO DAILY Primary Care Provider: Montana Lucas Referrals: Montana Lucas MD [Primary Care Provider] -
[2021-12-21] MEDS: 0.9% Normal Saline 1,000 ML 1000 ML IV (00:27)
[2021-12-21 00:28] LABS: Absolute Lymphocyte Count 3.77 X10^3/uL (0.83-4.51); Absolute Neutrophil Count 4.9 X10^3/uL (2.0-7.7); Basophil# 0.05 X10^3/uL; Basophil% 0.5 % (0-1); Eosinophil# 0.22 X10^3/uL; Eosinophils% 2.2 % (0-5); Hematocrit 36.8 % (40-54); Hemoglobin 12.2 g/dL (13.0-16.5); Lymphocyte # 3.77 X10^3/ul (0.83-4.51); Lymphocyte % 37.1 % (19-41); Mean Corp Hgb Conc 33.2 g/dL (32-36); Mean Corpuscular Hgb 29.5 pg (27.0-32.0); Mean Corpuscular Volume 89.1 fL (80-94); Mean Platelet Vol. 10.5 fl (6.2-12.0); Monocyte# 1.19 X10^3/uL; Monocyte% 11.7 % (0-10); NRBC Flagged by Analyzer 0 % (0-5); Neutrophil # 4.87 X10^3/uL (2.7-7.7); Platelet Count 245 K/mm3 (150-450); RBC Distribution Width SD 42.7 fl (35.1-43.9); Red Blood Count 4.13 M/mm3 (4.6-6.2); White Blood Count 10.2 K/mm3 (4.4-11.0)
[2021-12-21 01:06] LABS: AST(SGOT) 29 U/L (15-37); Alanine Aminotransfer ALT/SGPT 32 U/L (16-61); Albumin, Serum 3.5 g/dL (3.2-5.0); Alkaline Phosphatase 124 U/L (45-117); Anion Gap 9 (5-15); BUN 23 mg/dL (7-18); Chloride 106 mmol/L (98-107); Creatinine, Serum 1.35 mg/dL (0.70-1.30); EST Glomerular Filtration Rate 54 mL/min (>60); Est Glom Filt Rate - Afr Amer 65 mL/min (>60); Estimated Creatinine Clearance 46.48 ml/min; Globulin 3.4 g/dL (2.2-4.2); Glucose 176 mg/dL (74-106); Lipase 128 U/L (73-393); Potassium 3.9 mmol/L (3.5-5.1); Protein, Total 6.9 g/dL (6.4-8.2); Sodium Level 140 mmol/L (136-145)
[2021-12-21 01:09] LABS: International Normalized Ratio 1.2; Prothrombin Time (Protime)PT. 14.4 SECONDS (11.7-14.9)
--- NOTE | 2021-12-21 02:46 | HP.PCM.HOS_ITS ---
[facility] - General General Date of Admission: 12/21/21 Date of Service: 12/21/21 Chief Complaint: blood in stool. HPI Narrative BETTYE BARNETT, is a 81 M who presents with hematochezia. Patient was normal state of health and then around 11PM yesterday, patient noted to have roosevelt blood along with stool in the toilet. Had 2 more episodes at home and then presented to the emergency room. Patient continued to have further episodes with 6 total thus far. He notes that the redness is less intense now. Patient has never had any GI bleed before. Patient had a colonoscopy about 8 years ago to remove some polyps. ED reached out to Dr. Dumont, general surgery, willing to see the patient in consultation. Patient denies any lightheadedness and actually was able to go to the bathroom on his own without any difficulty. He denies any use of NSAIDs, aspirin or clopidogrel. [facility] Medical History BiPAP (biphasic positive airway pressure) dependence Former smoker HTN (hypertension) Raynaud disease Sleep apnea Home Medications pregabalin 150 mg capsule (Lyrica) 1 cap PO BID pain 06/22/16 [History Last Taken 08/07/21] amlodipine 5 mg tablet 5 mg PO DAILY bp 08/07/21 [History Last Taken 08/07/21] lisinopril 20 mg tablet 20 mg PO DAILY bp 08/07/21 [History Last Taken 08/07/21] ropinirole 1 mg tablet 1 mg PO DAILY rls 08/07/21 [History Last Taken 08/07/21] ropinirole 1 mg tablet 3 mg PO QHS rls 08/07/21 [History Last Taken 08/06/21] Allergy/AdvReac Type Severity Reaction Status Date / Time Penicillins [PCN] Allergy Rash Verified 12/21/21 00:01 terazosin Allergy PT UNSURE Verified 12/21/21 00:01 OF REACTION no significant family history Surgical History History of appendectomy History of surgical removal of pituitary gland Social History Smoking Status: Former smoker ROS ROS Narrative Does have restless legs and is restless legs are acting up. All review of systems were negative except as mentioned above in the history of present illness and the other review of systems. Vital Signs Vital Signs Vital Signs: 12/21/21 00:02 Temperature 36.0 C L Temperature Source Temporal Pulse Rate 87 Respiratory Rate 18 Blood Pressure 161/84 H Blood Pressure Mean 109 Pulse Ox 98 Oxygen Delivery Method Room Air Weight Weight: 88.813 kg Body Mass Index (BMI) 27.3 Physical Exam Const alert and no apparent distress HEENT normocephalic, head/scalp atraumatic, hearing grossly normal bilaterally and moist oral mucous membranes Eyes Eyes Narrative: No icterus Neck no lymphadenopathy Resp normal respiratory effort, no retractions, no use of accessory muscles and clear to auscultation bilaterally Cardio regular rate, regular rhythm, S1 normal heart sound and S2 normal heart sound GI normal to inspection, nondistended, normoactive bowel sounds, soft to palpation, non-tender and non-distended Extremity normal to inspection Neuro Sensorium / Orientation: awake and alert Psych affect normal Results Lab / Micro Data Result Diagrams: 12/21/21 00:05 12/21/21 00:05 Labs: Laboratory Results - last 24 hr 12/21/21 00:05: WBC 10.2, RBC 4.13 L, Hgb 12.2 L, Hct 36.8 L, MCV 89.1, MCH 29.5, MCHC 33.2, RDW Std Deviation 42.7, RDW Coeff of Florian 13.0, Plt Count 245, MPV 10.5, Immature Gran % (Auto) 0.500, Neut % (Auto) 48.0, Lymph % (Auto) 37.1, [place] % (Auto) 11.7 H, Eos % (Auto) 2.2, Baso % (Auto) 0.5, Absolute Neuts (auto) 4.9, Absolute Lymphs (auto) 3.77, Nucleated RBC % 0 12/21/21 00:05: PT Cancelled, INR Cancelled 12/21/21 00:05: Sodium 140, Potassium 3.9, Chloride 106, Carbon Dioxide 25.0, Anion Gap 9, BUN 23 H, Creatinine 1.35 H, Estim Creat Clear Calc 46.48, Est GFR (MDRD) Af Amer 65, Est GFR (MDRD) Non-Af 54 L, BUN/Creatinine Ratio 17.0, Glucose 176 H, Calcium 9.0, Total Bilirubin 0.20, AST 29, ALT 32, Alkaline Phosphatase 124 H, Total Protein 6.9, Albumin 3.5, Globulin 3.4, Albumin/Globulin Ratio 1.0, Lipase 128 12/21/21 00:26: Blood Type O POSITIVE, Antibody Screen NEGATIVE 12/21/21 00:53: PT 14.4, INR 1.2 Radiology Impression Abdomen/Pelvis CT 12/21/21 00:13 IMPRESSION: 1. Probable colitis involving the descending colon through the rectum. This may be due to infection or inflammatory bowel disease. 2. Scattered diverticula without diverticulitis. 3. Fatty liver. 4. Cholelithiasis. Electronically Signed: Jamel Garcia MD at 2:31 EDT , Assessment & Plan Assessment/Plan (1) GI bleed: PLAN: Plan 1. GI bleed Suspected diverticular versus hemorrhoidal. Patient has been having roosevelt hematochezia though this slightly improved according to the patient Plan * Will start IV pantoprazole as I cannot definitively rule out this being upper would be highly unlikely the patient is hemodynamically stable * Clear liquid diet for now * General surgery will be on consultation as GI is currently unavailable. 2. Hypertension Plan: Continue with amlodipine and lisinopril 3. Restless leg syndrome Chronic Plan: Continue with ropinirole 4. VTE prophylaxis with SCDs as chemical prophylaxis contraindicated Charges/Coding Visit Charges Inpatient E&M: 31307 Init Hosp L2
[2021-12-21] MEDS: Levothyroxine 100 MCG Tablet PO (05:08)
[2021-12-21] MEDS: Pramipexole Di-HCl 0.5 MG Tablet PO ×2 (06:15→16:46)
[2021-12-21 07:57] LABS: Absolute Lymphocyte Count 2.92 X10^3/uL (0.83-4.51); Absolute Neutrophil Count 3.8 X10^3/uL (2.0-7.7); Basophil# 0.07 X10^3/uL; Basophil% 0.9 % (0-1); Eosinophil# 0.27 X10^3/uL; Eosinophils% 3.3 % (0-5); Hematocrit 29.8 % (40-54); Hemoglobin 9.6 g/dL (13.0-16.5); Lymphocyte # 2.92 X10^3/ul (0.83-4.51); Lymphocyte % 35.6 % (19-41); Mean Corp Hgb Conc 32.2 g/dL (32-36); Mean Corpuscular Hgb 28.7 pg (27.0-32.0); Mean Corpuscular Volume 89.2 fL (80-94); Mean Platelet Vol. 10.2 fl (6.2-12.0); Monocyte# 1.08 X10^3/uL; Monocyte% 13.2 % (0-10); NRBC Flagged by Analyzer 0 % (0-5); Neutrophil % 46.3 % (47-70); Platelet Count 196 K/mm3 (150-450); RBC Distribution Width CV 13.2 % (11.6-14.6); RBC Distribution Width SD 42.5 fl (35.1-43.9); Red Blood Count 3.34 M/mm3 (4.6-6.2); White Blood Count 8.2 K/mm3 (4.4-11.0)
[2021-12-21 08:10] LABS: Anion Gap 6 (5-15); BUN 19 mg/dL (7-18); BUN/Creat Ratio 16.8 RATIO (10-20); Calcium,Total 8.2 mg/dL (8.5-10.1); Chloride 110 mmol/L (98-107); Creatinine, Serum 1.13 mg/dL (0.70-1.30); EST Glomerular Filtration Rate 66 mL/min (>60); Est Glom Filt Rate - Afr Amer 80 mL/min (>60); Estimated Creatinine Clearance 55.53 ml/min; Glucose 122 mg/dL (74-106); Potassium 3.9 mmol/L (3.5-5.1); Sodium Level 141 mmol/L (136-145)
[2021-12-21] MEDS: Hydrocortisone 10 MG Tablet 15 MG PO (09:09)
[2021-12-21] MEDS: Pregabalin 75 MG Capsule 150 MG PO ×2 (10:05→22:48)
[2021-12-21] MEDS: Lisinopril 20 MG Tablet PO (10:05)
[2021-12-21] MEDS: 0.9% Saline Lock 10 ML Syringe IV ×2 (10:10→22:51)
--- NOTE | 2021-12-21 10:19 | EX.PCM.CON.S ---
Assessment & Plan Assessment/Plan (1) GI bleed: PLAN: Patient with 12-hour history of hematochezia. No clear inciting event. Patient's episodes seem to have stopped for the moment with a normal bowel movement earlier this morning. His hemoglobin has down trended approximately 2-1/2 g. He is currently asymptomatic. Coagulation studies were normal. Patient CT imaging shows rather localized colitis picture with the left colon through the rectum. With this segmental colitis, radiology has suggested infectious versus inflammatory etiology. I would add that ischemic colitis should be included in this differential. Encouragingly, patient's exam is completely benign. Recommend the following: ? Clear liquid diet until midnight, then n.p.o. with IV fluid resuscitation ? Bowel prep for diagnostic colonoscopy tomorrow 12/22/2021 ? Stool studies ? Repeat CBC every 12h HPI Consult Data Date of Consult: 12/21/21 HPI Narrative Reason for Consultation: GI bleed HPI Narrative: BETTYE BARNETT, is a 81 M who presents to [facility] with complaints of hematochezia. He states that approximately 11 PM last evening he began with 3 bloody bowel movements that were liquid in consistency. He denies any prior episodes. He denies any initiation of blood thinners recently. He denies any recent use of NSAIDs or aspirin. He denies any periods of dehydration or feeling poorly. Denies any sick contacts. He denies any associated abdominal pains. Patient estimates his last colonoscopy was 8 to 10 years ago. At that time he was told there were colon polyps. He states he is not even sure whether or not he had these polyps removed. No formal follow-up was recommended. He does confirm a history of hemorrhoids, but states this has not been a problem for several years. He previously was constipated, but with new medications (including magnesium) he tends to run looser. 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 He states that he was in a coma-like state for approximately 8 days postoperatively. Since that surgery he states that he is half of what he was physically before the surgery. Patient also has a history of tobacco use. He states that he quit some 30 years ago after 30 years of use. 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 His daughter, is in the room and a nurse by training, reports that her father has complained of frequent episodes of weakness. She states that she has performed orthostatics on him and these have always returned normal.She does note that following his pituitary surgery he had a period of relative anemia where his hemoglobin rarely seem to be above 10 g/dL. No cause was given and she was surprised to hear that his repeat hemoglobin at admission was significantly higher than this. Lastly he denies any present lightheadedness. He states that he is fatigued, but blames this on his restless leg syndrome which kept him awake most of the night. He also states that he had a small bowel movement prior to my arrival which was nonbloody in character. This was the first bowel movement that could be described as such after a series of 6 bloody bowel movements preceeded it. PENDING SALE TO [facility] Medical History (Updated 12/21/21 @ 04:24 by Bronwyn Dean) BiPAP (biphasic positive airway pressure) dependence Brain surgery within last 3 months Former smoker HTN (hypertension) Raynaud disease Sleep apnea Home Medications pregabalin 150 mg capsule (Lyrica) 1 cap PO BID pain 06/22/16 [History Last Taken 08/07/21] lisinopril 20 mg tablet 20 mg PO DAILY blood pressure 08/07/21 [History Last Taken 08/07/21] ropinirole 1 mg tablet 1 mg PO DAILY restless leg syndrome 08/07/21 [History Last Taken 08/07/21] ropinirole 1 mg tablet 2 mg PO QHS restless leg syndrome 08/07/21 [History Last Taken 08/06/21] desmopressin 0.1 mg tablet 0.5 tab PO QHS pituitary supplement 12/21/21 [History Last Taken Unknown] hydrocortisone 5 mg tablet 3 tab PO DAILY steroid 12/21/21 [History Last Taken Unknown] hydrocortisone 5 mg tablet 7.5 mg PO QHS steroid 12/21/21 [History Last Taken Unknown] levothyroxine 100 mcg tablet 1 tab PO DAILY thyroid 12/21/21 [History Last Taken Unknown] magnesium oxide 400 mg PO QHS supplement 12/21/21 [History Last Taken Unknown] ropinirole 1 mg tablet 1 mg PO 1600 restless leg syndrome 12/21/21 [History Last Taken Unknown] Allergy/AdvReac Type Severity Reaction Status Date / Time Penicillins [PCN] Allergy Rash Verified 12/21/21 00:01 terazosin Allergy PT UNSURE Verified 12/21/21 00:01 OF REACTION Family History no significant family his Surgical History History of appendectomy History of surgical removal of pituitary gland Social History Smoking Status: Former smoker Physical Exam Const General Appearance: cooperative and well developed HEENT normocephalic Resp normal respiratory effort GI GI Narrative: Nondistended, right lower quadrant McBurney's incision well-healed. Soft, nontender x4 quadrants. Rectal exam: Patient with small skin tag present at the 6 o'clock position. Normal rectal tone. No masses palpable with digital rectal exam. No gross blood on withdrawn finger. Lab / Micro Data Result Diagrams: 12/21/21 07:48 12/21/21 07:48 Labs: Laboratory Results - last 24 hr 12/21/21 00:05: WBC 10.2, RBC 4.13 L, Hgb 12.2 L, Hct 36.8 L, MCV 89.1, MCH 29.5, MCHC 33.2, RDW Std Deviation 42.7, RDW Coeff of Florian 13.0, Plt Count 245, MPV 10.5, Immature Gran % (Auto) 0.500, Neut % (Auto) 48.0, Lymph % (Auto) 37.1, [place] % (Auto) 11.7 H, Eos % (Auto) 2.2, Baso % (Auto) 0.5, Absolute Neuts (auto) 4.9, Absolute Lymphs (auto) 3.77, Nucleated RBC % 0 12/21/21 00:05: PT Cancelled, INR Cancelled 12/21/21 00:05: Sodium 140, Potassium 3.9, Chloride 106, Carbon Dioxide 25.0, Anion Gap 9, BUN 23 H, Creatinine 1.35 H, Estim Creat Clear Calc 46.48, Est GFR (MDRD) Af Amer 65, Est GFR (MDRD) Non-Af 54 L, BUN/Creatinine Ratio 17.0, Glucose 176 H, Calcium 9.0, Total Bilirubin 0.20, AST 29, ALT 32, Alkaline Phosphatase 124 H, Total Protein 6.9, Albumin 3.5, Globulin 3.4, Albumin/Globulin Ratio 1.0, Lipase 128 12/21/21 00:26: Blood Type O POSITIVE, Antibody Screen NEGATIVE 12/21/21 00:53: PT 14.4, INR 1.2 12/21/21 07:48: WBC 8.2, RBC 3.34 L, Hgb 9.6 L, Hct 29.8 L, MCV 89.2, MCH 28.7, MCHC 32.2, RDW Std Deviation 42.5, RDW Coeff of Florian 13.2, Plt Count 196, MPV 10.2, Immature Gran % (Auto) 0.700, Neut % (Auto) 46.3 L, Lymph % (Auto) 35.6, [place] % (Auto) 13.2 H, Eos % (Auto) 3.3, Baso % (Auto) 0.9, Absolute Neuts (auto) 3.8, Absolute Lymphs (auto) 2.92, Nucleated RBC % 0 12/21/21 07:48: Sodium 141, Potassium 3.9, Chloride 110 H, Carbon Dioxide 25.0, Anion Gap 6, BUN 19 H, Creatinine 1.13, Estim Creat Clear Calc 55.53, Est GFR (MDRD) Af Amer 80, Est GFR (MDRD) Non-Af 66, BUN/Creatinine Ratio 16.8, Glucose 122 H, Calcium 8.2 L Radiology Impression Abdomen/Pelvis CT 12/21/21 00:13 IMPRESSION: 1. Probable colitis involving the descending colon through the rectum. This may be due to infection or inflammatory bowel disease. 2. Scattered diverticula without diverticulitis. 3. Fatty liver. 4. Cholelithiasis. Electronically Signed: Jamel Garcia MD at 2:31 EDT , Charges/Coding Visit Charges Inpatient E&M: 71873 Init Hosp L2
--- NOTE | 2021-12-21 12:38 | PCM.HOSP.N ---
Hospitalist Note Patient was seen and examined briefly today, his daughter was in the room, I talked with Dr. Dumont who is seeing the patient in consultation, his hemoglobin this morning had declined to 9.6, patient states he is not seeing any more rectal bleeding. Patient will undergo a colonoscopy tomorrow, I have changed his PPI over to oral.
[2021-12-21] MEDS: Bisacodyl 5 MG Tablet 10 MG PO (13:55)
[2021-12-21] MEDS: Electrolyte Solution/Peg's 4000 ML 2000 ML PO (13:56)
[2021-12-21 16:23] LABS: Hemoglobin 10.6 g/dL (13.0-16.5)
[2021-12-21] MEDS: Magnesium Chloride 64 MG Delay Rel.Tablet 128 MG PO (22:47)
[2021-12-21] MEDS: Pantoprazole Sodium 40 MG Tablet PO (22:47)
[2021-12-21] MEDS: ALPRAZolam 0.5 MG Tablet 1 MG PO (22:47)
[2021-12-21] MEDS: Pramipexole Di-HCl 0.5 MG Tablet 1.5 MG PO (22:48)
[2021-12-21] MEDS: Hydrocortisone 10 MG Tablet 7.5 MG PO (22:49)
[2021-12-21] MEDS: DESMOPRESSIN ACETATE 0.1 MG TABLET 0.05 MG PO (22:50)
[2021-12-22] VITALS (8 sets, daily range): BP systolic 118–146; BP diastolic 61–77; PULSE 62–75; RESP 16–18; TEMP 36.1–36.8; O2SAT 95–100; BMI 27.4
--- NOTE | 2021-12-22 05:00 | EKG12_ITS ---
Test Reason : AM EKG Blood Pressure : / mmHG Vent. Rate : 068 BPM Atrial Rate : 068 BPM P-R Int : 202 ms QRS Dur : 070 ms QT Int : 416 ms P-R-T Axes : 044 033 043 degrees QTc Int : 442 ms Normal sinus rhythm Normal ECG Confirmed by CLARIBEL SEGUNDO, ZOEY ([id number]), news videotape editor JUAN F STAHL ([id number]) on 12/23/2021 8:34:39 AM Referred By: TERESA Confirmed By:ZOEY SANFORD MD
[2021-12-22 06:09] LABS: Absolute Lymphocyte Count 2.37 X10^3/uL (0.83-4.51); Absolute Neutrophil Count 3.8 X10^3/uL (2.0-7.7); Basophil# 0.07 X10^3/uL; Eosinophil# 0.23 X10^3/uL; Eosinophils% 3.1 % (0-5); Hemoglobin 9.8 g/dL (13.0-16.5); Lymphocyte # 2.37 X10^3/ul (0.83-4.51); Lymphocyte % 32.2 % (19-41); Mean Corp Hgb Conc 33.8 g/dL (32-36); Mean Corpuscular Hgb 29.6 pg (27.0-32.0); Mean Corpuscular Volume 87.6 fL (80-94); Mean Platelet Vol. 10.1 fl (6.2-12.0); Monocyte# 0.81 X10^3/uL; NRBC Flagged by Analyzer 0 % (0-5); Neutrophil # 3.83 X10^3/uL (2.7-7.7); Neutrophil % 52.2 % (47-70); Platelet Count 206 K/mm3 (150-450); RBC Distribution Width CV 13.3 % (11.6-14.6); RBC Distribution Width SD 43.1 fl (35.1-43.9); Red Blood Count 3.31 M/mm3 (4.6-6.2); White Blood Count 7.4 K/mm3 (4.4-11.0)
[2021-12-22 07:20] LABS: Thyroid Stim Hormone (TSH) < 0.01 uIU/mL (0.358-3.74)
--- NOTE | 2021-12-22 08:14 | PCM.PN.SRG ---
Subjective Subjective Patient seen and examined during AM rounds. He is rather lethargic this morning and states that the Xanax that was prescribed to him yesterday had a profound effect. He does confirm that he completed a bowel prep and his output is now clear to slightly yellow tinge. He states that initially he had small amount of blood with his bowel movements, but that has cleared. He reports some persistent fatigue and lightheadedness this morning. Along with this he states that he tried to get up earlier and his balance seems somewhat off. He otherwise denies an appetite or any abdominal discomfort. Objective Data Objective Data Vital Signs: Vital Signs Temp Pulse Resp BP Pulse Ox 98.2 F 65 18 118/68 95 12/22/21 04:34 12/22/21 04:34 12/22/21 04:34 12/22/21 04:34 12/22/21 04:34 Oxygen Delivery Method Room Air Weight: 197 lb 1.492 oz Body Mass Index (BMI) 27.4 Intake & Output: Intake and Output for Last 24 Hours 12/20/21 12/21/21 12/22/21 23:59 23:59 23:59 Intake Total 2790 / 2990 200 / 200 Balance 2790 / 2990 200 / 200 Lab / Micro Data Result Diagrams: 12/22/21 05:25 12/21/21 07:48 Labs: Laboratory Results - last 24 hr 12/21/21 16:15: Hgb 10.6 L, Hct 32.0 L 12/22/21 05:25: TSH < 0.01 L 12/22/21 05:25: WBC 7.4, RBC 3.31 L, Hgb 9.8 L, Hct 29.0 L, MCV 87.6, MCH 29.6, MCHC 33.8, RDW Std Deviation 43.1, RDW Coeff of Florian 13.3, Plt Count 206, MPV 10.1, Immature Gran % (Auto) 0.500, Neut % (Auto) 52.2, Lymph % (Auto) 32.2, [place] % (Auto) 11.0 H, Eos % (Auto) 3.1, Baso % (Auto) 1.0, Absolute Neuts (auto) 3.8, Absolute Lymphs (auto) 2.37, Nucleated RBC % 0 Micro: Microbiology 12/21/21 12:07 Stool Enteric Bacteriology - Final Physical Exam Const oriented x3 and no apparent distress Constitutional Narrative: Lethargic Resp normal respiratory effort GI GI Narrative: Nondistended, soft, nontender to palpation x4 quadrants Assessment & Plan Assessment/Plan (1) GI bleed: PLAN: Patient hospital day 2 for GI bleed. Suspicion highest for lower GI bleed. Patient confirms that he has completed a bowel prep in anticipation of a diagnostic colonoscopy later today. He continues to deny any abdominal discomfort and his exam is benign. Lastly he confirms that his hematochezia seems to have stopped spontaneously as he has not noted any blood with last several bowel movements. We will plan to proceed for procedure this afternoon. Please keep patient n.p.o. and consider addition of IV fluids. Charges/Coding Visit Charges Inpatient E&M: 08992 Subs Hosp L2
[2021-12-22] MEDS: 0.9% Normal Saline 1,000 ML 30 ML IV (08:54)
[2021-12-22] MEDS: 0.9% Saline Lock 10 ML Syringe IV (08:55)
--- NOTE | 2021-12-22 10:25 | COLBX_PTH ---
PATIENT: BETTYE BARNETT LOC: MS3 U#:[id number] AGE/SX: 81/M ROOM: [facility] [place] RE12/21/[address]: Dr. Annie Zhang DO : 1940 BED: 1 DIS: 12/22/2021 SPEC #: [id number] RECD: 12/22/21 14:13 STATUS: MIGUEL BROWN #: [id number] LILIAN: 12/22/21 10:[address]: Jamel Dumont DEPT: SURGICAL PATHOLOGY RECD BY: Crispin Ibarra ENTERED: 12/23/21 07:22 SP TYPE: COLON BX OTHR DR: MD Dr. Bryce Tidwell DO Dr. Kathryn Lee, DO Dr. Mark Tereletsky, DO Tissues: A - Ascending colon B - Transverse colon C - Descending colon D - Sigmoid colon biopsy E - Sigmoid colon biopsy F - Rectum, NOS G - Rectum, NOS Procedures: Surgery Specimen Level IV HEADER OPERATION: Colonoscopy (MAC), biopsy, cauterization of lesion PRE-OP DIAGNOSIS: GI bleed TISSUE SUBMITTED: A ? Ascending colon biopsy, B ? Transverse colon biopsy, C ? Descending colon biopsy, D ? Sigmoid colon biopsy, E ? Superficial ulceration sigmoid colon biopsy, F ? Rectum biopsy, G ? Superficial ulceration rectal biopsy MICROSCOPIC DIAGNOSIS A. Ascending colon, biopsy: Focal acute colitis. See comment. B. Transverse colon, biopsy: No pathologic change. C. Descending colon, biopsy: No pathologic change. D. Sigmoid colon, biopsy: No pathologic change. E. Sigmoid colon ulceration, biopsy: Focal denudation of mucosa. F. Rectum, biopsy: No pathologic change. G. Superficial rectal ulcer, biopsy: Squamocolumnar junctional mucosa with no pathologic change. AM:mattie 12/24/2021 COMMENT A. Rare cryptitis is present. Clinical correlation is suggested. MICROSCOPIC DESCRIPTION Slides are reviewed. GROSS DESCRIPTION A - Received in fixative is one container labeled with the patient's name and designated biopsy ascending colon. The specimen consists of multiple irregular fragments of light siu soft tissue that in aggregate measure 0.6 x 0.3 x 0.1 cm. The specimen is totally submitted in one cassette. B - Received in fixative is one container labeled with the patient's name and designated biopsy transverse colon. The specimen consists of one irregular fragment of light siu soft tissue that measures 0.3 x 0.3 x 0.1 cm. The specimen is totally submitted in one cassette. C - Received in fixative is one container labeled with the patient's name and designated biopsy descending colon. The specimen consists of one irregular fragment of light siu soft tissue that measures 0.3 x 0.3 x 0.1 cm. The specimen is totally submitted in one cassette. D - Received in fixative is one container labeled with the patient's name and designated biopsy sigmoid colon. The specimen consists of one irregular fragment of light siu soft tissue that measures 0.3 x 0.3 x 0.1 cm. The specimen is totally submitted in one cassette. E - Received in fixative is one container labeled with the patient's name and designated superficial ulceration sigmoid colon biopsy. The specimen consists of one irregular fragment of light siu soft tissue that measures 0.3 x 0.3 x 0.1 cm. The specimen is totally submitted in one cassette. F - Received in fixative is one container labeled with the patient's name and designated biopsy rectum. The specimen consists of one irregular fragment of light siu soft tissue that measures 0.3 x 0.3 x 0.1 cm. The specimen is totally submitted in one cassette. G - Received in fixative is one container labeled with the patient's name and designated superficial ulceration rectal biopsy. The specimen consists of one irregular fragment of light siu soft tissue that measures 0.3 x 0.3 x 0.1 cm. The specimen is totally submitted in one cassette. / SJ:rg 12/23/2021 TC:5 CPT: 11502 x7
--- NOTE | 2021-12-22 10:30 | CASEMGMT ---
TRAN AMAYA Face to Face with patient for initial transition planning/care coordination assessment. RN CM introduced self and role at [facility]. Patient lying in bed, alert and oriented. Patient willing to participate in assessment and is able to answer all questions appropriately. Care providers, pharmacy, and demographics verified. Patient wishes to discharge home, denies need for home health at this time. Patient states he has no further needs or concerns at this time. CM to follow for discharge planning needs that may arise. PCP: Lance Specialists: none Preferred Pharmacy: [facility] Insurance: Dian[facility] Prescription Benefit: yes Living Will/HPOA: Alicia ibarra HPOA LNOK: , daughter, son Living Arrangements: Patient lives with , who has dementia, in a single story home with no steps to enter. Son is currently caring for . Patient states he is independent at home. Transportation: self, daughter DME/HHC: Patient has shower chair, raised toilet, cane, walker, grab bars, cpap at home through [employer]. No previous HHC or SNF. Disposition Plan: Patient to discharge home with family support and follow-up plans in place. Rosa Maria ESPANA, RN, CM
[2021-12-22] MEDS: Hydrocortisone 10 MG Tablet 15 MG PO (14:55)
[2021-12-22] MEDS: Pantoprazole Sodium 40 MG Tablet PO (14:56)
[2021-12-22] MEDS: Lisinopril 20 MG Tablet PO (14:57)
[2021-12-22] MEDS: Pregabalin 75 MG Capsule 150 MG PO (15:01)
[2021-12-22] MEDS: Pramipexole Di-HCl 0.5 MG Tablet PO (15:02)
--- NOTE | 2021-12-22 15:14 | PCM.DC.SUM ---
Providers Date of Admission: 12/21/21 Date of Discharge: 12/22/21 Primary Care Physician: Dr. Montana Lucas MD Consultations 12/21/21 04:09 Consult: General Surgery Routine Consulting Provider: Jamel Dumont Reason for Consult: GI bleed EMERGENT Consult: No MD Notified: Yes Date Notified: 12/21/21 Time Notified: 02:46 Method of Notification: ED Physician Initiated Reason For Visit: gi bleed Diagnosis Discharge Diagnosis (1) GI bleed: Status: Acute Code(s): K92.2 - Gastrointestinal hemorrhage, unspecified Medications at Discharge Home Medications pregabalin 150 mg capsule (Lyrica) 1 cap PO BID pain 06/22/16 lisinopril 20 mg tablet 20 mg PO DAILY blood pressure 08/07/21 ropinirole 1 mg tablet 1 mg PO DAILY restless leg syndrome 08/07/21 ropinirole 1 mg tablet 2 mg PO QHS restless leg syndrome 08/07/21 desmopressin 0.1 mg tablet 0.5 tab PO QHS pituitary supplement 12/21/21 hydrocortisone 5 mg tablet 3 tab PO DAILY steroid 12/21/21 hydrocortisone 5 mg tablet 7.5 mg PO QHS steroid 12/21/21 levothyroxine 100 mcg tablet 1 tab PO DAILY thyroid 12/21/21 magnesium oxide 400 mg PO QHS supplement 12/21/21 ropinirole 1 mg tablet 1 mg PO 1600 restless leg syndrome 12/21/21 Hospital Course Operations None Procedures Colonoscopy Summary of Care Provided Minutes Spent on Discharge: 38 Hospital Course: Mr. Fisher is an 81-year-old white male who presented to the emergency department on 12/21/2021 with hematochezia. He was evidently in his normal state of health then approximately 11 PM on the he was noted to have roosevelt bright red blood in his toilet after he had a bowel movement. He had 2 more episodes at home and then presented to the emergency department. He reported on admission he had a colonoscopy about 8 years prior to presentation where they removed some polyps but found no other pathology. He was not on any anticoagulation or antiplatelet therapy on presentation he had not been using any NSAIDs. General surgery was consulted and evaluated the patient after admission. His hematochezia had stopped prior to him being evaluated by sent general surgery and had a normal bowel movement on that morning. His hemoglobin did trend down but stabilized and was 9.8 on the day of discharge. A CT of his abdomen pelvis showed localized colitis in the left colon through the rectum and it was suggested to be infectious versus inflammatory per radiology. He was placed on clear liquid diet and colonoscopy prep was initiated. He was taken for colonoscopy on 12/22/2021 by general surgery and he was only noted to have some angiodysplastic lesions without any other pathologic etiology. Biopsies were taken and the patient was transferred back to his room in stable condition and a diet was initiated. General surgery felt that if the patient could tolerate p.o. diet without any difficulty he would be able to be discharged home. His hemoglobin was 12.2 on admission but dropped to 9.6 then 10.6 then 10.8 on the day of discharge and he had no further episodes of bloody bowel movements. He tolerated diet without any difficulty and was discharged home in stable condition. 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 Patient is on levothyroxine for supplementation follows with endocrinology. 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 Restless leg syndrome Neuropathy Hypertension Physical Exam Const alert, oriented x3, no apparent distress, healthy appearing and well nourished Constitutional Narrative: Older white male lying in bed sleeping, appears comfortable nontoxic, is groggy from Xanax last night however is appropriately interactive although a bit tired, appears younger than stated age General Appearance: cooperative, comfortable, well kempt and well developed Orientation / Consciousness: awake, oriented to person, oriented to place and oriented to time Exam Limitations: no limitations HEENT normocephalic, head/scalp atraumatic and moist oral mucous membranes HEENT Narrative: Mild hearing loss, Mallampati is 2, dentition is poor Eyes PERRL, EOMs intact bilaterally and conjunctivae normal Eyes Narrative: No scleral icterus Neck no lymphadenopathy, supple, no JVD and no carotid bruits Neck Narrative: Trachea midline, no thyroid enlargement Resp normal respiratory effort, no retractions, no use of accessory muscles and clear to auscultation bilaterally Auscultation: Negative for crackles, rales, rhonchi or wheezes Cardio regular rate, regular rhythm, S1 normal heart sound, S2 normal heart sound, no murmurs, no rub, no gallops, no clicks and no JVD GI soft to palpation, non-tender and non-distended; Negative for hepatosplenomegaly GI Narrative: Bowel sounds are hyperactive, inspection is normal Extremity no clubbing, cyanosis or edema Extremity Narrative: 2+ pedal pulses Skin no rashes or lesions noted, skin turgor normal and no jaundice Skin Narrative: Well-healing abrasions on both anterior shins, 2+ pedal pulses Neuro oriented x3, CN's II-XII intact bilaterally, moves all extremities, no focal motor deficits and no sensory deficits noted Sensorium / Orientation: awake, alert, oriented to person, oriented to place and oriented to time Psych affect normal Psych Narrative: Patient is very pleasant appropriate interactive Weight / BMI Weight Weight: 89.4 kg Body Mass Index (BMI) 27.4 ABG / Lab / Microbiology Data Result Diagrams: 12/22/21 05:25 12/21/21 07:48 Laboratory: Laboratory Results - last 24 hr 12/21/21 16:15: Hgb 10.6 L, Hct 32.0 L 12/22/21 05:25: TSH < 0.01 L 12/22/21 05:25: WBC 7.4, RBC 3.31 L, Hgb 9.8 L, Hct 29.0 L, MCV 87.6, MCH 29.6, MCHC 33.8, RDW Std Deviation 43.1, RDW Coeff of Florian 13.3, Plt Count 206, MPV 10.1, Immature Gran % (Auto) 0.500, Neut % (Auto) 52.2, Lymph % (Auto) 32.2, [place] % (Auto) 11.0 H, Eos % (Auto) 3.1, Baso % (Auto) 1.0, Absolute Neuts (auto) 3.8, Absolute Lymphs (auto) 2.37, Nucleated RBC % 0 Microbiology: Microbiology 12/21/21 12:07 Stool Enteric Bacteriology - Final D/C Instructions Discharge Diet: No restrictions Discharge Activity: Return to Normal Activity Meaningful Use Info Meaningful Use Diagnoses (Choose all that apply): None applicable Discharge Plan Admission Admit Date/Time: 12/21/21 02:42 Primary Reason for Your Visit: GI Bleeding Attending Provider: Annie Zhang Primary Care Provider: Montana Lucas Consulting Providers: Jamel Dumont ; Bryce Johnson ; Chaim Valdivia Discharge Orders/Prescriptions Prescriptions: Continued pregabalin [Lyrica] 150 MG capsule 1 cap PO BID Label Comments: ropinirole 1 mg tablet 1 mg PO DAILY Label Comments: TAKE 1 TABLET BY MOUTH EVERY MORNING AND 3 TABLETS BY MOUTH EVERY EVENING ropinirole 1 mg tablet 2 mg PO QHS Label Comments: TAKE 1 TABLET BY MOUTH EVERY MORNING AND 3 TABLETS BY MOUTH EVERY EVENING lisinopril 20 mg tablet 20 mg PO DAILY hydrocortisone 5 mg tablet 3 tab PO DAILY Label Comments: TAKE 3 TABLETS BY MOUTH EVERY MORNING AND 1 TABLET EVERY EVENING. DOUBLE DOSE WHEN SICK DIRECTED hydrocortisone 5 mg tablet 7.5 mg PO QHS Label Comments: TAKE 3 TABLETS BY MOUTH EVERY MORNING AND 1 TABLET EVERY EVENING. DOUBLE DOSE WHEN SICK DIRECTED ropinirole 1 mg tablet 1 mg PO 1600 levothyroxine 100 mcg tablet 1 tab PO DAILY Label Comments: TAKE ONE TABLET BY MOUTH EVERY MORNING BEFORE BREAKFAST desmopressin 0.1 mg tablet 0.5 tab PO QHS Label Comments: take 1/2 tablet by mouth every evening magnesium oxide 400 mg magnesium Tablet 400 mg PO QHS Referrals / Follow Up: Montana Lucas MD [Primary Care Provider] - Within 2 Weeks Disposition Disposition (needs filled in before D/C Order can be placed): Home, Self Care Charges/Coding Visit Charges Inpatient E&M: 20663 Disch Hosp
--- NOTE | 2021-12-22 15:32 | CHAPLAIN ---
Type of Pastoral Visit ___ Initial Visit ___ Follow-up Visit ___ On-call Visit ___ General Patient Visit ___ Spiritual Assessment ___ Family Conference ___ Bereavement ___ Rapid Response ___ Code Blue ___ Other (describe below) Pastoral Care Referral From ___ Patient ___ Family ___ Nurse ___ Physician ___ Doctor Of Audiology ___ Mail Rider ___ Other (describe below) Sacrament/Intervention ___ Active listening ___ Anointing ___ Alevism ___ Bereavement ___ Communion ___ Chiqui exploration ___ ___ Life review ___ Prayer ___ Reconciliation ___ Sacrament of Sick ___ Supportive presence ___ Wedding ___ Other (describe below) Pastoral Comments patient and bed are out of the room; calling card left
== END 2021-12-22 16:34 | disposition home or self-care (01) | DRG 378 ==
LOC: ED 02:48 → MS3 06:45
PROVIDERS: Anesthesiology; Internal Medicine; Surgery; Emergency Provider Student in an Organized Health Care Education/Training Program; PCP Family Medicine; Visit Provider Internal Medicine
PROC: 0DJD8ZZ Inspection of Lower Intestinal Tract, Via Natural or Artificial Opening Endoscopic (ICD-10-PCS; CPT 45378; principal; 2021-12-22 09:40)
DX: K55.21 Angiodysplasia of colon with hemorrhage (principal); K51.50 Left sided colitis without complications; K63.3 Ulcer of intestine; K62.6 Ulcer of anus and rectum; D64.9 Anemia, unspecified; G25.81 Restless legs syndrome; I10 Essential (primary) hypertension; G62.9 Polyneuropathy, unspecified; Z79.890 Hormone replacement therapy; Z79.899 Other long term (current) drug therapy; Z87.891 Personal history of nicotine dependence; K57.31 Diverticulosis of large intestine without perforation or abscess with bleeding
CPT/HCPCS: 45380; 36415; 74177; 80048; 80053; 83690; 84443; 85014; 85018; 85025; 85610; 86850; 86900; 86901; 87506; 88305; 93005; 96361; 96365; 97802; 99218; 99283; J7030; Q9967; A4216; G0378

== ENCOUNTER 2021-12-24 11:14 | Inpatient (IN) | payer MEDICARE, SELFPAY ==
[2021-12-24] VITALS (7 sets, daily range): BP systolic 107–126; BP diastolic 50–89; PULSE 65–92; RESP 16–20; TEMP 36.5–37.1; O2SAT 97–100; BMI 27.9; BMI 27.1
--- NOTE | 2021-12-24 11:39 | EDS_ITS ---
HPI HPI - GI History of Present Illness Chief Complaint: GI Bleed Detail of Chief Complaint: Rectal bleeding that started today Informant: patient Narrative Narrative: Patient presents the emergency department complaint of rectal bleeding that started middle the night. Patient states that he has had 3 bloody stools with large amount within the toilet. Patient was admitted 5 days ago for rectal bleeding and had a colonoscopy 3 days ago that really did not show anything significant. Patient had stopped bleeding while in the hospital and his hemoglobin stabilized therefore he was discharged home. Patient denies any abdominal pain. He denies feeling lightheaded or dizzy. He is not on blood thinners. Prior similar symptoms: Yes PFSH PFSH Medical History (Updated 12/24/21 @ 14:[address] Aysha Sampson, DO) BiPAP (biphasic positive airway pressure) dependence Brain surgery within last 3 months Former smoker HTN (hypertension) Raynaud disease Sleep apnea Home Medications pregabalin 150 mg capsule (Lyrica) 1 cap PO BID pain 06/22/16 [History Last Gustavo en 08/07/21] lisinopril 20 mg tablet 20 mg PO DAILY blood pressure 08/07/21 [History Last Taken 08/07/21] ropinirole 1 mg tablet 1 mg PO DAILY restless leg syndrome 08/07/21 [History Last Taken 08/07/21] ropinirole 1 mg tablet 2 mg PO QHS restless leg syndrome 08/07/21 [History Last Taken 08/06/21] desmopressin 0.1 mg tablet 0.5 tab PO QHS pituitary supplement 12/21/21 [History Last Taken Unknown] hydrocortisone 5 mg tablet 3 tab PO DAILY steroid 12/21/21 [History Last Taken Unknown] hydrocortisone 5 mg tablet 7.5 mg PO QHS steroid 12/21/21 [History Last Taken Unknown] levothyroxine 100 mcg tablet 1 tab PO DAILY thyroid 12/21/21 [History Last Taken Unknown] magnesium oxide 400 mg PO QHS supplement 12/21/21 [History Last Taken Unknown] ropinirole 1 mg tablet 1 mg PO 1600 restless leg syndrome 12/21/21 [History Last Taken Unknown] Allergy/AdvReac Type Severity Reaction Status Date / Time Penicillins [PCN] Allergy Rash Verified 12/24/21 11:15 terazosin Allergy PT UNSURE Verified 12/24/21 11:15 OF REACTION Surgical History History of appendectomy History of surgical removal of pituitary gland Social History Smoking Status: Former smoker ROS ROS ED Review of Systems ROS Unobtainable: other Constitutional Constitutional ED: Reports lethargy; Denies chills, fever(s), sweats or weight loss Eyes Eyes: Denies blurry vision, change in vision or diplopia ENT ENT ED: Denies rhinorrhea or sore throat Cardiovascular Cardiovascular: Reports chest pain and racing heartbeat; Denies orthopnea Respiratory/Chest Respiratory/Chest: Reports dyspnea and dyspnea on exertion; Denies cough, orth opnea or sputum Gastrointestinal Gastrointestinal: Reports other Details: Bright red blood per rectum ; Denies abdominal pain, diarrhea, nausea or vomiting Genitourinary Genitourinary ED: Denies dysuria, hematuria or urinary frequency Musculoskeletal Musculoskeletal: Denies arthralgias, back pain, myalgias or neck pain Integumentary Denies abscess, Abrasions or rash Neurologic Neurologic: Denies headache(s) or weakness Psychiatric Psychiatric: Denies anxiety, depression or suicidal thoughts Endocrine Endocrinology: Denies polydipsia, polyphagia or polyuria Hematologic/Lymphatic Hematologic/Lymphatic: Denies easy bleeding, easy bruising or lymphadenopathy Allergic/Immunologic Allergic/Immunologic ED: Denies mouth swelling, tongue swelling or urticaria EXAM Physical Exam Const Vital Signs: 12/24/21 11:15 12/24/21 13:22 Temperature 98.7 F Temperature Source Temporal Pulse Rate 78 Pulse Rate [Lying] 82 Pulse Rate [Sitting (for 1 minute prior to obtaining)] 88 Pulse Rate [Standing (for 1 minute prior to obtaining)] 92 Respiratory Rate 16 Blood Pressure 125/63 H Blood Pressure [Lying] 122/50 H Blood Pressure [Sitting (for 1 minute prior to obtaining)] 107/89 H Blood Pressure [Standing (for 1 minute prior to obtaining)] 108/53 L Blood Pressure Mean 83 Blood Pressure Mean [Lying] 74 Blood Pressure Mean [Sitting (for 1 minute prior to obtaining)] 95 Blood Pressure Mean [Standing (for 1 minute prior to obtaining)] 71 Pulse Ox 100 Oxygen Delivery Method Room Air Positive well nourished and well developed General Appearance ED: well developed and NAD HEENT Reports TM's clear and moist mucous membranes normocephalic and atraumatic; Negative for trauma or tenderness Tympanic Membrane ED: Yes TM's clear Eyes PERRL and EOMs intact bilaterally General Eye ED: Negative for pale conjunctiva or scleral icterus Neck no lymphadenopathy, supple and no JVD General: Negative for tenderness Chest Wall inspection of chest normal and palpation of chest normal Chest: Negative for tenderness Resp normal respiratory effort and clear to auscultation bilaterally Effort and Inspection: Negative for respiratory distress or pain with movement Auscultation: Negative for rhonchi, wheezes or diminished lung sounds Cardio regular rate, regular rhythm, S1 normal heart sound, S2 normal heart sound and no murmurs Peripheral Pulses: pulses 2+ throughout GI normal to inspection, nondistended, normoactive bowel sounds, soft to palpation, non-tender, non-distended and no masses GI Narrative: Rectal exam performed. There is no evidence of hemorrhoids or fissures noted. Patient did pass a stool while in the department and it was brown with some bright red blood associated around the stool. Back/Spine no CVA tenderness and no thoracic nor lumbar tenderness Extremity normal to inspection General Extremety ED: Negative for edema General Extremity: Negative for edema Neuro oriented x3, CN's II-XII intact bilaterally, no sensory deficits noted and gait normal Sensorium / Orientation: awake, alert, oriented to person, oriented to place and oriented to time Motor Exam: strength 5/5 throughout and strength abnormal Psych mental status grossly normal Skin no rashes or lesions noted and no wounds MDM MDM MDM Narrative Medical decision making narrative: IV line established on arrival. Patient had type and screen ordered. Patient was noted to have a drop in his hemoglobin down to 8.5 today. Case was discussed with general surgeon on-call that initially saw patient and did his colonoscopy Dr. Dumont who will consult on the case. Patient will be admitted to medicine I spoke with Dr. Zhang. Lab Data Attestation: I reviewed the patient's lab results. Labs: Laboratory Results - last 24 hr 12/24/21 12/24/21 12/24/21 11:51 11:51 11:51 WBC 7.6 RBC 2.92 L Hgb 8.5 L Hct 26.5 L MCV 90.8 MCH 29.1 MCHC 32.1 D RDW Std Deviation 43.7 RDW Coeff of Florian 13.2 Plt Count 234 MPV 10.7 Immature Gran % (Auto) 0.800 Neut % (Auto) 68.4 Lymph % (Auto) 19.8 [place] % (Auto) 9.2 Eos % (Auto) 1.3 Baso % (Auto) 0.5 Absolute Neuts (auto) 5.2 Absolute Lymphs (auto) 1.51 Nucleated RBC % 0 Sodium 137 Potassium 4.0 Chloride 106 Carbon Dioxide 24.0 Anion Gap 7 BUN 22 H Creatinine 1.41 H Estim Creat Clear Calc 43.14 Est GFR (MDRD) Af Amer 62 Est GFR (MDRD) Non-Af 51 L BUN/Creatinine Ratio 15.6 Glucose 204 H Lactic Acid 2.1 H* Calcium 8.4 L Blood Type Antibody Screen 12/24/21 11:51 WBC RBC Hgb Hct MCV MCH MCHC RDW Std Deviation RDW Coeff of Florian Plt Count MPV Immature Gran % (Auto) Neut % (Auto) Lymph % (Auto) [place] % (Auto) Eos % (Auto) Baso % (Auto) Absolute Neuts (auto) Absolute Lymphs (auto) Nucleated RBC % Sodium Potassium Chloride Carbon Dioxide Anion Gap BUN Creatinine Estim Creat Clear Calc Est GFR (MDRD) Af Amer Est GFR (MDRD) Non-Af BUN/Creatinine Ratio Glucose Lactic Acid Calcium Blood Type O POSITIVE Antibody Screen NEGATIVE Discharge Plan Triage Chief Complaint: GI Bleed ED Provider: Aysha Sampson Dx/Rx/DC Orders Clinical Impression: Acute lower gastrointestinal bleeding, Anemia Prescriptions: No Action pregabalin [Lyrica] 150 MG capsule 1 cap PO BID Label Comments: ropinirole 1 mg tablet 1 mg PO DAILY Label Comments: TAKE 1 TABLET BY MOUTH EVERY MORNING AND 3 TABLETS BY MOUTH EVERY EVENING ropinirole 1 mg tablet 2 mg PO QHS Label Comments: TAKE 1 TABLET BY MOUTH EVERY MORNING AND 3 TABLETS BY MOUTH EVERY EVENING lisinopril 20 mg tablet 20 mg PO DAILY hydrocortisone 5 mg tablet 3 tab PO DAILY Label Comments: TAKE 3 TABLETS BY MOUTH EVERY MORNING AND 1 TABLET EVERY EVENING. DOUBLE DOSE WHEN SICK DIRECTED hydrocortisone 5 mg tablet 7.5 mg PO QHS Label Comments: TAKE 3 TABLETS BY MOUTH EVERY MORNING AND 1 TABLET EVERY EVENING. DOUBLE DOSE WHEN SICK DIRECTED ropinirole 1 mg tablet 1 mg PO 1600 levothyroxine 100 mcg tablet 1 tab PO DAILY Label Comments: TAKE ONE TABLET BY MOUTH EVERY MORNING BEFORE BREAKFAST desmopressin 0.1 mg tablet 0.5 tab PO QHS Label Comments: take 1/2 tablet by mouth every evening magnesium oxide 400 mg magnesium Tablet 400 mg PO QHS Primary Care Provider: Montana Lucas Referrals: Montana Lucas MD [Primary Care Provider] - Disposition Disposition: Acute Care [facility]
[2021-12-24] MEDS: 0.9% Normal Saline 1,000 ML 125 ML IV (11:56)
[2021-12-24 12:27] LABS: Anion Gap 7 (5-15); BUN 22 mg/dL (7-18); BUN/Creat Ratio 15.6 RATIO (10-20); Calcium,Total 8.4 mg/dL (8.5-10.1); Chloride 106 mmol/L (98-107); Creatinine, Serum 1.41 mg/dL (0.70-1.30); EST Glomerular Filtration Rate 51 mL/min (>60); Est Glom Filt Rate - Afr Amer 62 mL/min (>60); Estimated Creatinine Clearance 43.14 ml/min; Glucose 204 mg/dL (74-106); Sodium Level 137 mmol/L (136-145)
[2021-12-24 12:55] LABS: Lactic Acid 2.1 mmol/L (0.4-1.9)
[2021-12-24 13:15] LABS: Absolute Lymphocyte Count 1.51 X10^3/uL (0.83-4.51); Absolute Neutrophil Count 5.2 X10^3/uL (2.0-7.7); Basophil# 0.04 X10^3/uL; Basophil% 0.5 % (0-1); Eosinophils% 1.3 % (0-5); Hematocrit 26.5 % (40-54); Hemoglobin 8.5 g/dL (13.0-16.5); Lymphocyte # 1.51 X10^3/ul (0.83-4.51); Lymphocyte % 19.8 % (19-41); Mean Corpuscular Hgb 29.1 pg (27.0-32.0); Mean Corpuscular Volume 90.8 fL (80-94); Mean Platelet Vol. 10.7 fl (6.2-12.0); Monocyte% 9.2 % (0-10); NRBC Flagged by Analyzer 0 % (0-5); Neutrophil # 5.21 X10^3/uL (2.7-7.7); Neutrophil % 68.4 % (47-70); Platelet Count 234 K/mm3 (150-450); RBC Distribution Width CV 13.2 % (11.6-14.6); RBC Distribution Width SD 43.7 fl (35.1-43.9); Red Blood Count 2.92 M/mm3 (4.6-6.2); White Blood Count 7.6 K/mm3 (4.4-11.0)
[2021-12-24 13:17] LABS: Mean Corp Hgb Conc 32.1 g/dL (32-36)
--- NOTE | 2021-12-24 14:04 | PCM.HP.STD ---
HPI - General General Date of Admission: 12/24/21 Date of Service: 12/24/21 Chief Complaint: Rectal bleeding HPI Narrative EBTTYE BARNETT, is a 81 M who presented to the emergency department [facility] on 12/24/2021 with rectal bleeding. The patient reports that he began having bleeding yesterday morning with 1 episode then and then he had 3 bloody stools with a large amount of blood in the toilet following starting in the middle of the night last evening. He has not had any lightheadedness or passing out. The patient was recently admitted here from 12/21/2021 through 12/22/2021 at which time he presented to the emergency department for hematochezia as well. General surgery evaluated the patient and did a colonoscopy. The only findings were angiodysplastic lesions and biopsies were taken. The patient had no further bleeding since the day previous and general surgery felt he was stable to be discharged home. His hemoglobin was stable. Unfortunately as noted above he had recurrent bleeding for which he pretty presented. His daughter indicated there was a large amount of blood in the toilet with clots as well. I discussed the case with Dr. Dumont and the plan is to take him back for repeat colonoscopy and an EGD. The patient's daughter did indicate he had significant issues after his last colonoscopy on Wednesday with regards to agitation and combativeness after he was discharged for about 24 hours. She is requesting that possibly anesthesia use different sedation medications. I suspect they probably use Versed and fentanyl and I discussed this with Dr. Dumont and he would relay the message to anesthesia to possibly just use propofol. Vital signs upon presentation showed a temperature of 98.7, pulse of 78, blood pressure of 125/63 with negative orthostatic vitals, respiratory rate of 16 and a pulse ox of 100% on room air. His CBC on presentation showed a normal white count with a hemoglobin of 8.5. His hemoglobin on discharge on 12/22/2021 was 9.8 and his platelet counts are normal. His chemistry panel showed an elevated BUN/creatinine with a BUN of 22 and a serum creatinine of 1.41. His serum creatinine at discharge was 1.13. His serum glucose was 204 and his initial lactic acid was 2.1 however this resolved on recheck at 1.3. [facility] Medical History BiPAP (biphasic positive airway pressure) dependence Brain surgery within last 3 months Former smoker GI bleed HTN (hypertension) Raynaud disease Sleep apnea Home Medications pregabalin 150 mg capsule (Lyrica) 150 cap PO BID pain 06/22/16 [History Last Taken 12/22/21] lisinopril 20 mg tablet 20 mg PO DAILY blood pressure 08/07/21 [History Last Taken 12/24/21] ropinirole 1 mg tablet 1 mg PO DAILY@0700 restless leg syndrome 08/07/21 [History Last Taken 12/23/21] ropinirole 1 mg tablet 2 mg PO QHS restless leg syndrome 08/07/21 [History Last Taken 12/23/21] desmopressin 0.1 mg tablet 0.5 tab PO QHS pituitary supplement 12/21/21 [History Last Taken 12/23/21] hydrocortisone 5 mg tablet 3 tab PO DAILY steroid 12/21/21 [History Last Taken 12/24/21] hydrocortisone 5 mg tablet 7.5 mg PO DAILY@1630 steroid 12/21/21 [History Last Taken 12/23/21] levothyroxine 100 mcg tablet 100 mcg PO DAILY@0600 thyroid 12/21/21 [History Last Taken 12/24/21] magnesium oxide 400 mg PO QHS supplement 12/21/21 [History Last Taken 12/23/21] ropinirole 1 mg tablet 1 mg PO DAILY@1630 restless leg syndrome 12/21/21 [History Last Taken 12/23/21] Allergy/AdvReac Type Severity Reaction Status Date / Time Penicillins [PCN] Allergy Rash Verified 12/24/21 11:15 terazosin Allergy PT UNSURE Verified 12/24/21 11:15 OF REACTION no significant family history Surgical History History of appendectomy History of surgical removal of pituitary gland Social History household members: spouse housing: house Smoking Status: Former smoker alcohol intake: never substance use type: does not use ROS Constitutional Constitutional: Reports fatigue and weakness; Denies anorexia, change in weight, chills, fever(s), malaise, night sweats or other Eyes Eyes: Denies blurry vision, change in eye color, change in vision, discharge from eye(s), double vision, erythema, eye pain, loss of vision or other ENT HEENT: Denies abnormal hearing, dysphagia, ear pain, epistaxis, headache(s), hearing loss, nasal congestion, nasal discharge, post nasal drip, sinus pressure, sore throat or other Cardiovascular Cardiovascular: Denies chest pain, claudication, dyspnea on exertion, edema, lightheadedness, orthopnea, palpitations, paroxysmal nocturnal dyspnea, rapid heart rate, syncope or other Respiratory/Chest Respiratory/Chest: Denies cough, dyspnea, excessive phlegm production, hemoptysis, productive cough, shortness of breath at rest, shortness of breath with exertion, wheezing or other Gastrointestinal Gastrointestinal: Reports hematochezia; Denies abdominal pain, coffee ground emesis, constipation, diarrhea, dyspepsia, hematemesis, loose stools, melena, nausea, vomiting or other Genitourinary Genitourinary: Denies burning urination, difficulty urinating, dysuria, hematuria, nocturia, urinary frequency, urinary hesitancy, urinary incontinence, urinary urgency or other Musculoskeletal Musculoskeletal: Reports joint pain and joint stiffness; Denies arthralgias, back pain, joint swelling, myalgias, neck pain or other Neurologic Neurologic: Reports other Details: Significant restless leg which is chronic ; Denies abnormal gait, abnormal speech, confusion, disequilibrium, dizziness, focal weakness, headache(s), numbness, paresthesias, seizure-like activity, seizures, syncope, tingling or tremor(s) Psychiatric Psychiatric: Reports anxiety and depression; Denies homicidal ideation, suicidal ideation or other Hematologic/Lymphatic Hematologic/Lymphatic: Reports anemia; Denies easy bleeding, easy bruising, lymphadenopathy or other Allergic/Immunologic Allergic/Immunologic: Denies rhinitis, hives, eczemia, asthma or other Vital Signs Vital Signs Vital Signs: 12/24/21 11:15 12/24/21 13:22 Temperature 98.7 F Temperature Source Temporal Pulse Rate 78 Pulse Rate [Lying] 82 Pulse Rate [Sitting (for 1 minute prior to obtaining)] 88 Pulse Rate [Standing (for 1 minute prior to obtaining)] 92 Respiratory Rate 16 Blood Pressure 125/63 H Blood Pressure [Lying] 122/50 H Blood Pressure [Sitting (for 1 minute prior to obtaining)] 107/89 H Blood Pressure [Standing (for 1 minute prior to obtaining)] 108/53 L Blood Pressure Mean 83 Blood Pressure Mean [Lying] 74 Blood Pressure Mean [Sitting (for 1 minute prior to obtaining)] 95 Blood Pressure Mean [Standing (for 1 minute prior to obtaining)] 71 Pulse Ox 100 Oxygen Delivery Method Room Air Weight Weight: 88.451 kg Body Mass Index (BMI) 27.9 Physical Exam Const alert, oriented x3, no apparent distress, average body habitus, healthy appearing and well nourished Constitutional Narrative: Older white male sitting up in bed, daughter at bedside, patient appears comfortable and nontoxic General Appearance: cooperative HEENT normocephalic, head/scalp atraumatic and moist oral mucous membranes HEENT Narrative: Hard of hearing, Mallampati 2, no thrush, dentures in place Eyes PERRL and EOMs intact bilaterally Eyes Narrative: Mild conjunctival pallor, no scleral icterus Neck no lymphadenopathy, supple, no JVD and no carotid bruits Neck Narrative: Trachea midline, no thyroid enlargement Resp normal respiratory effort, no retractions, no use of accessory muscles and clear to auscultation bilaterally Auscultation: Negative for crackles, rales, rhonchi or wheezes Cardio regular rate, regular rhythm, S1 normal heart sound, S2 normal heart sound, no murmurs, no rub, no gallops, no clicks and no JVD GI normal to inspection, nondistended, normoactive bowel sounds, soft to palpation, non-tender and non-distended; Negative for hepatosplenomegaly Extremity no clubbing, cyanosis or edema Extremity Narrative: 2+ pedal pulses Skin no rashes or lesions noted, no wounds, skin turgor normal, no jaundice, no petechiae and no mottling Skin Narrative: Slightly pale Neuro oriented x3, CN's II-XII intact bilaterally, moves all extremities and no focal motor deficits Neuro Narrative: Legs intermittently jump secondary to restless leg Sensorium / Orientation: awake, alert, oriented to person, oriented to place and oriented to time Speech: speech normal Psych affect normal Psych Narrative: Pleasant and appropriately interactive Results Lab / Micro Data Result Diagrams: 12/24/21 16:09 12/24/21 11:51 Labs: Laboratory Results - last 24 hr 12/24/21 11:51: WBC 7.6, RBC 2.92 L, Hgb 8.5 L, Hct 26.5 L, MCV 90.8, MCH 29.1, MCHC 32.1 D, RDW Std Deviation 43.7, RDW Coeff of Florian 13.2, Plt Count 234, MPV 10.7, Immature Gran % (Auto) 0.800, Neut % (Auto) 68.4, Lymph % (Auto) 19.8, [place] % (Auto) 9.2, Eos % (Auto) 1.3, Baso % (Auto) 0.5, Absolute Neuts (auto) 5.2, Absolute Lymphs (auto) 1.51, Nucleated RBC % 0 12/24/21 11:51: Sodium 137, Potassium 4.0, Chloride 106, Carbon Dioxide 24.0, Anion Gap 7, BUN 22 H, Creatinine 1.41 H, Estim Creat Clear Calc 43.14, Est GFR (MDRD) Af Amer 62, Est GFR (MDRD) Non-Af 51 L, BUN/Creatinine Ratio 15.6, Glucose 204 H, Calcium 8.4 L 12/24/21 11:51: Lactic Acid 2.1 H* 12/24/21 11:51: Blood Type O POSITIVE, Antibody Screen NEGATIVE Assessment & Plan Assessment/Plan (1) J CARLOS (acute kidney injury): (2) GI bleed: (3) Anemia: PLAN: Plan Hematochezia/GIB -Patient recently admitted had colonoscopy that showed angiodysplastic lesions in the colon -C-scope was done on 12/21/2021 -This is recurrent -Bleeding had stopped while he was hospitalized -Start Protonix drip in case this is upper GI bleed -N.p.o. after midnight -Full liquid diet for now -IV fluids at 75 cc/h -Consult general surgery--> Case was discussed with Dr. Dumont and he plans to do an EGD and colonoscopy repeat tomorrow -Patient had marked agitation and aggressiveness following his most recent colonoscopy and family is requesting different sedation medications be utilized--> I did discuss this request with Dr. 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 -No current need for stress dose steroids -Continue desmopressin -Continue hydrocortisone -Continue levothyroxine Severe restless leg syndrome -Continue home Mirapex Neuropathy -We will hold gabapentin while he is hospitalized per discussion with daughter as this can increase his confusion and she would like to restart this at home once he is not on any medications for anesthesia Hypertension -Hold home lisinopril until serum creatinine has improved DVT prophylaxis -SCDs -No chemoprophylaxis secondary to acute bleeding CODE STATUS -Full code verified on admission Charges/Coding Visit Charges Inpatient E&M: 82889 Init Hosp L3
--- NOTE | 2021-12-24 15:24 | EX.PCM.CON.S ---
Assessment & Plan Assessment/Plan (1) GI bleed: PLAN: This an 81-year-old male with recent hospitalization for GI bleed who underwent diagnostic colonoscopy after he seemed to have spontaneous resolution of his issue. This colonoscopy, done by me, found evidence of both colonic angiodysplasia as well as diverticulosis, but there is no stigmata of recent bleeding. I did perform random biopsies throughout the colon and most notable of these biopsies was significant for mild acute colitis of the ascending colon. There is noted that grossly there was no evidence of inflammation. I have discussed with patient at length the general natural history of GI bleeds and the lack of sensitivity for endoscopy. Have also shared with them that the majority of the small bowel is not able to be examined with endoscopy. Is my recommendation we proceed with esophagogastroduodenoscopy as well as repeat colonoscopy to assess this issue. Patient expresses understanding of all this information and willingness to proceed as described. PLAN: Plan ? Clear liquid diet for now then n.p.o. at midnight ? Bowel prep beginning now in anticipation for upper and lower endoscopy tomorrow ? Serial H&H ? Close vitals monitoring and fall precautions ? We will advise anesthesia on patient's history of combativeness/prolonged effect following recent sedation HPI Consult Data Date of Consult: 12/24/21 HPI Narrative HPI Narrative: BETTYE BARNETT, is a 81 M who presents to [facility] with complaints of GI bleed after he was recently discharged 12/22/2021 for the same. He presents with his daughter who confirms his reports. He states that he returned home and had 1 normal bowel movement, but early the next morning began with more bloody stools. This was particularly voluminous earlier this morning when he was incontinent of stool and had a bloody bowel movement on the floor. This has been also witnessed by emergency medicine who state that the stool was coated in bright red blood. Patient denies any present lightheadedness. ED work-up is notable for repeat CMP which finds his hemoglobin at 8.5 g/dL. Patient's daughter wishes to warn me that her father experienced significant amnesia following his last scope and sedation. She notes that he was also very combative with the family following discharge. For his part, patient states he does not even remember coming home from the hospital. [facility] Medical History BiPAP (biphasic positive airway pressure) dependence Brain surgery within last 3 months Former smoker GI bleed HTN (hypertension) Raynaud disease Sleep apnea Home Medications pregabalin 150 mg capsule (Lyrica) 150 cap PO BID pain 06/22/16 [History Last Taken 12/22/21] lisinopril 20 mg tablet 20 mg PO DAILY blood pressure 08/07/21 [History Last Taken 12/24/21] ropinirole 1 mg tablet 1 mg PO DAILY@0700 restless leg syndrome 08/07/21 [History Last Taken 12/23/21] ropinirole 1 mg tablet 2 mg PO QHS restless leg syndrome 08/07/21 [History Last Taken 12/23/21] desmopressin 0.1 mg tablet 0.5 tab PO QHS pituitary supplement 12/21/21 [History Last Taken 12/23/21] hydrocortisone 5 mg tablet 3 tab PO DAILY steroid 12/21/21 [History Last Taken 12/24/21] hydrocortisone 5 mg tablet 7.5 mg PO DAILY@1630 steroid 12/21/21 [History Last Taken 12/23/21] levothyroxine 100 mcg tablet 100 mcg PO DAILY@0600 thyroid 12/21/21 [History Last Taken 12/24/21] magnesium oxide 400 mg PO QHS supplement 12/21/21 [History Last Taken 12/23/21] ropinirole 1 mg tablet 1 mg PO DAILY@1630 restless leg syndrome 12/21/21 [History Last Taken 12/23/21] Allergy/AdvReac Type Severity Reaction Status Date / Time Penicillins [PCN] Allergy Rash Verified 12/24/21 11:15 terazosin Allergy PT UNSURE Verified 12/24/21 11:15 OF REACTION Family History no significant family his Surgical History History of appendectomy History of surgical removal of pituitary gland Social History household members: spouse housing: house Smoking Status: Former smoker alcohol intake: never substance use type: does not use Physical Exam Const alert, oriented x3 and no apparent distress General Appearance: cooperative GI GI Narrative: Nondistended, nontender Lab / Micro Data Result Diagrams: 12/24/21 16:09 12/24/21 11:51 Labs: Laboratory Results - last 24 hr 12/24/21 11:51: WBC 7.6, RBC 2.92 L, Hgb 8.5 L, Hct 26.5 L, MCV 90.8, MCH 29.1, MCHC 32.1 D, RDW Std Deviation 43.7, RDW Coeff of Florian 13.2, Plt Count 234, MPV 10.7, Immature Gran % (Auto) 0.800, Neut % (Auto) 68.4, Lymph % (Auto) 19.8, [place] % (Auto) 9.2, Eos % (Auto) 1.3, Baso % (Auto) 0.5, Absolute Neuts (auto) 5.2, Absolute Lymphs (auto) 1.51, Nucleated RBC % 0 12/24/21 11:51: Sodium 137, Potassium 4.0, Chloride 106, Carbon Dioxide 24.0, Anion Gap 7, BUN 22 H, Creatinine 1.41 H, Estim Creat Clear Calc 43.14, Est GFR (MDRD) Af Amer 62, Est GFR (MDRD) Non-Af 51 L, BUN/Creatinine Ratio 15.6, Glucose 204 H, Calcium 8.4 L 12/24/21 11:51: Lactic Acid 2.1 H* 12/24/21 11:51: Blood Type O POSITIVE, Antibody Screen NEGATIVE Charges/Coding Visit Charges Inpatient E&M: 16378 Init Hosp L2
[2021-12-24] MEDS: Lactated Ringers 1,000 ML 75 ML IV (16:00)
[2021-12-24 16:03] LABS: Reflex Lactate? Y
[2021-12-24 16:28] LABS: Hemoglobin 7.9 g/dL (13.0-16.5)
[2021-12-24 16:54] LABS: Lactic Acid 1.3 mmol/L (0.4-1.9)
[2021-12-24] MEDS: Pramipexole Di-HCl 0.5 MG Tablet PO ×2 (16:55→18:06)
[2021-12-24] MEDS: Electrolyte Solution/Peg's 4000 ML 2000 ML PO (20:41)
[2021-12-24] MEDS: Hydrocortisone 10 MG Tablet 7.5 MG PO (20:44)
[2021-12-24] MEDS: DESMOPRESSIN ACETATE 0.1 MG TABLET 0.05 MG PO (20:44)
[2021-12-24] MEDS: Magnesium Chloride 64 MG Delay Rel.Tablet 128 MG PO (20:45)
[2021-12-24] MEDS: Pramipexole Di-HCl 1 MG Tablet PO (20:46)
--- NOTE | 2021-12-24 21:18 | NURSING ---
phone call return to pt daughter per daughter request, message left.
[2021-12-24 22:48] LABS: Hemoglobin 7.7 g/dL (13.0-16.5)
[2021-12-25] VITALS (17 sets, daily range): BP systolic 114–161; BP diastolic 58–77; PULSE 64–89; RESP 16–20; TEMP 36–36.8; O2SAT 96–100
--- NOTE | 2021-12-25 01:01 | NURSING ---
Pt educated on importance of completing bowel prep. Pt states, he is unable to complete prep at this time.
[2021-12-25 02:31] LABS: Hemoglobin 7.1 g/dL (13.0-16.5)
--- NOTE | 2021-12-25 04:40 | NURSING ---
per envelope fold operator pt noted with liquid stool, without hard pieces in it. Miralax held.
[2021-12-25] MEDS: Pramipexole Di-HCl 0.5 MG Tablet PO (05:56)
[2021-12-25] MEDS: Lactated Ringers 1,000 ML 75 ML IV ×2 (05:56→18:30)
[2021-12-25] MEDS: Levothyroxine 100 MCG Tablet PO (05:56)
[2021-12-25 07:04] LABS: Absolute Lymphocyte Count 2.22 X10^3/uL (0.83-4.51); Absolute Neutrophil Count 2.5 X10^3/uL (2.0-7.7); Basophil# 0.03 X10^3/uL; Basophil% 0.5 % (0-1); Eosinophil# 0.23 X10^3/uL; Hematocrit 19.7 % (40-54); Hemoglobin 6.3 g/dL (13.0-16.5); Lymphocyte # 2.22 X10^3/ul (0.83-4.51); Lymphocyte % 38.5 % (19-41); Mean Corpuscular Hgb 28.6 pg (27.0-32.0); Mean Corpuscular Volume 89.5 fL (80-94); Mean Platelet Vol. 9.9 fl (6.2-12.0); Monocyte# 0.78 X10^3/uL; Monocyte% 13.5 % (0-10); NRBC Flagged by Analyzer 0 % (0-5); Neutrophil # 2.45 X10^3/uL (2.7-7.7); Neutrophil % 42.6 % (47-70); Platelet Count 204 K/mm3 (150-450); RBC Distribution Width CV 13.1 % (11.6-14.6); RBC Distribution Width SD 42.6 fl (35.1-43.9); White Blood Count 5.8 K/mm3 (4.4-11.0)
[2021-12-25 07:17] LABS: International Normalized Ratio 1.3; Prothrombin Time (Protime)PT. 15.7 SECONDS (11.7-14.9)
[2021-12-25 07:18] LABS: Partial Thromboplast Time 37.3 Seconds (24.1-36.2)
[2021-12-25 07:41] LABS: Anion Gap 4 (5-15); BUN 15 mg/dL (7-18); BUN/Creat Ratio 12.1 RATIO (10-20); Calcium,Total 7.6 mg/dL (8.5-10.1); Chloride 109 mmol/L (98-107); Creatinine, Serum 1.24 mg/dL (0.70-1.30); EST Glomerular Filtration Rate 60 mL/min (>60); Est Glom Filt Rate - Afr Amer 72 mL/min (>60); Glucose 121 mg/dL (74-106); Magnesium 2.1 mg/dL (1.6-2.6); Phosphorus 2.6 mg/dL (2.5-4.9); Potassium 3.7 mmol/L (3.5-5.1); Sodium Level 138 mmol/L (136-145)
[2021-12-25 07:48] LABS: AST(SGOT) 24 U/L (15-37); Alanine Aminotransfer ALT/SGPT 24 U/L (16-61); Albumin, Serum 2.5 g/dL (3.2-5.0); Alkaline Phosphatase 43 U/L (45-117); Bilirubin, Direct 0.09 mg/dL (0.00-0.30); Globulin 2.6 g/dL (2.2-4.2); Protein, Total 5.1 g/dL (6.4-8.2)
[2021-12-25 07:58] LABS: Hemoglobin A1c 7.1 % (3.8-5.6)
[2021-12-25] MEDS: Hydrocortisone 10 MG Tablet 15 MG PO (08:26)
[2021-12-25] MEDS: Polyethylene Glycol 3350 17 GM PACKET PO (08:26)
--- NOTE | 2021-12-25 11:03 | PCM.PROGNOTE ---
Subjective Subjective Patient is an 81 y/o M I am following in conjunction with Dr. Dumont, who has evaluated this patient. Patient noted bleeding overnight with the bowel prep. Patient tolerated the bowel prep well. He noted lightheadedness when walking to the bathroom. Serial H&H have been completed and have been trending down. Patient notes his last bowel movement had no blood however he had sediment noted. Objective Data Objective Data Vital Signs: Vital Signs Temp Pulse Resp BP Pulse Ox O2 Del Method 97.7 F L 72 20 H 117/58 L 99 Room Air 12/25/21 06:06 12/25/21 06:06 12/25/21 06:06 12/25/21 06:06 12/25/21 06:06 12/25/21 06:06 Oxygen Delivery Method Room Air Weight: 194 lb 3.2 oz Body Mass Index (BMI) 27.1 Intake & Output: Intake and Output for Last 24 Hours 12/23/21 12/24/21 12/25/21 23:59 23:59 23:59 Intake Total 1021.25 / 3521.25 4492.00 / 4492.00 Balance 1021.25 / 3521.25 4492.00 / 4492.00 Lab / Micro Data Result Diagrams: 12/25/21 06:46 12/25/21 06:46 Labs: Laboratory Results - last 24 hr 12/24/21 11:51: WBC 7.6, RBC 2.92 L, Hgb 8.5 L, Hct 26.5 L, MCV 90.8, MCH 29.1, MCHC 32.1 D, RDW Std Deviation 43.7, RDW Coeff of Florian 13.2, Plt Count 234, MPV 10.7, Immature Gran % (Auto) 0.800, Neut % (Auto) 68.4, Lymph % (Auto) 19.8, [place] % (Auto) 9.2, Eos % (Auto) 1.3, Baso % (Auto) 0.5, Absolute Neuts (auto) 5.2, Absolute Lymphs (auto) 1.51, Nucleated RBC % 0 12/24/21 11:51: Sodium 137, Potassium 4.0, Chloride 106, Carbon Dioxide 24.0, Anion Gap 7, BUN 22 H, Creatinine 1.41 H, Estim Creat Clear Calc 43.14, Est GFR (MDRD) Af Amer 62, Est GFR (MDRD) Non-Af 51 L, BUN/Creatinine Ratio 15.6, Glucose 204 H, Calcium 8.4 L 12/24/21 11:51: Lactic Acid 2.1 H* 12/24/21 11:51: Blood Type O POSITIVE, Antibody Screen NEGATIVE 12/24/21 11:51: Crossmatch See Detail 12/24/21 16:09: Hgb 7.9 L 12/24/21 16:09: Lactic Acid 1.3 12/24/21 22:30: Hgb 7.7 L 12/25/21 02:23: Hgb 7.1 L 12/25/21 06:46: Hemoglobin A1c 7.1 H 12/25/21 06:46: WBC 5.8, RBC 2.20 L, Hgb 6.3 L, Hct 19.7 L, MCV 89.5, MCH 28.6, MCHC 32.0, RDW Std Deviation 42.6, RDW Coeff of Florian 13.1, Plt Count 204, MPV 9.9, Immature Gran % (Auto) 0.900, Neut % (Auto) 42.6 L, Lymph % (Auto) 38.5, [place] % (Auto) 13.5 H, Eos % (Auto) 4.0, Baso % (Auto) 0.5, Absolute Neuts (auto) 2.5, Absolute Lymphs (auto) 2.22, Nucleated RBC % 0 12/25/21 06:46: Sodium 138, Potassium 3.7, Chloride 109 H, Carbon Dioxide 25.0, Anion Gap 4 L, BUN 15, Creatinine 1.24, Estim Creat Clear Calc 50.60, Est GFR (MDRD) Af Amer 72, Est GFR (MDRD) Non-Af 60, BUN/Creatinine Ratio 12.1, Glucose 121 H, Calcium 7.6 L, Phosphorus 2.6, Magnesium 2.1 12/25/21 06:46: PT 15.7 H, INR 1.3, APTT 37.3 H 12/25/21 06:46: Total Bilirubin 0.30, Direct Bilirubin 0.09, AST 24, ALT 24, Alkaline Phosphatase 43 L, Total Protein 5.1 L, Albumin 2.5 L, Globulin 2.6 Physical Exam GI normal to inspection, nondistended, normoactive bowel sounds, soft to palpation, non-tender and non-distended Assessment & Plan Assessment/Plan (1) GI bleed: PLAN: Patient has been reviewed with Dr. Dumont. Dr. Dumont will plan to perform an Esophagogastroduodenoscopy and colonoscopy with possible biopsies, possible cessation of bleeding. Procedure details, risks and benefits have been explained to the patient. Recommend continued H&H every 6 hours to evaluate trending. Recommend type and cross. Patient may benefit from 1 unit of PRBC. Will continue to re-evaluate for transfusion of red cells following next lab value and procedure. Appreciate hospitalist recommendations and treatment. Patient has had the opportunity to ask and have questions answered. Patient verbally understands and agrees with the plan. Charges/Coding Visit Charges Inpatient E&M: 86287 Subs Hosp L1 (No charge; procedure today)
--- NOTE | 2021-12-25 15:12 | PN.HOSP_ITS ---
Subjective Subjective Patient had ongoing bleeding through the night and hemoglobin has dropped. 2 units of packed red blood cells are pending. Patient reports some mild lightheadedness but otherwise is feeling okay. Plan is for EGD and colonoscopy this afternoon. Objective Data Objective Data Vital Signs: Vital Signs Temp Pulse Resp BP Pulse Ox O2 Del Method 97.3 F L 67 16 128/65 H 99 Room Air 12/25/21 14:10 12/25/21 14:10 12/25/21 14:10 12/25/21 14:10 12/25/21 14:10 12/25/21 14:10 Oxygen Delivery Method Room Air Weight: 88.088 kg Body Mass Index (BMI) 27.1 Intake & Output: Intake and Output for Last 24 Hours 12/23/21 12/24/21 12/25/21 23:59 23:59 23:59 Intake Total 1021.25 / 3521.25 4892.00 / 4892.00 Balance 1021.25 / 3521.25 4892.00 / 4892.00 Lab / Micro Data Result Diagrams: 12/25/21 06:46 12/25/21 06:46 Labs: Laboratory Results - last 24 hr 12/24/21 11:51: Crossmatch See Detail 12/24/21 16:09: Hgb 7.9 L 12/24/21 16:09: Lactic Acid 1.3 12/24/21 22:30: Hgb 7.7 L 12/25/21 02:23: Hgb 7.1 L 12/25/21 06:46: Hemoglobin A1c 7.1 H 12/25/21 06:46: WBC 5.8, RBC 2.20 L, Hgb 6.3 L, Hct 19.7 L, MCV 89.5, MCH 28.6, MCHC 32.0, RDW Std Deviation 42.6, RDW Coeff of Florian 13.1, Plt Count 204, MPV 9.9, Immature Gran % (Auto) 0.900, Neut % (Auto) 42.6 L, Lymph % (Auto) 38.5, [place] % (Auto) 13.5 H, Eos % (Auto) 4.0, Baso % (Auto) 0.5, Absolute Neuts (auto) 2.5, Absolute Lymphs (auto) 2.22, Nucleated RBC % 0 12/25/21 06:46: Sodium 138, Potassium 3.7, Chloride 109 H, Carbon Dioxide 25.0, Anion Gap 4 L, BUN 15, Creatinine 1.24, Estim Creat Clear Calc 50.60, Est GFR (MDRD) Af Amer 72, Est GFR (MDRD) Non-Af 60, BUN/Creatinine Ratio 12.1, Glucose 121 H, Calcium 7.6 L, Phosphorus 2.6, Magnesium 2.1 12/25/21 06:46: PT 15.7 H, INR 1.3, APTT 37.3 H 12/25/21 06:46: Total Bilirubin 0.30, Direct Bilirubin 0.09, AST 24, ALT 24, Alkaline Phosphatase 43 L, Total Protein 5.1 L, Albumin 2.5 L, Globulin 2.6 Physical Exam Const alert, oriented x3, no apparent distress, average body habitus, healthy appearing and well nourished Constitutional Narrative: Older white male sitting up in bed, nursing is at bedside, patient appears comfortable and nontoxic General Appearance: cooperative HEENT normocephalic, head/scalp atraumatic and moist oral mucous membranes HEENT Narrative: Mallampati 2-3, no thrush Resp normal respiratory effort, no retractions, no use of accessory muscles and clear to auscultation bilaterally Auscultation: Negative for crackles, rales, rhonchi or wheezes Cardio regular rate, regular rhythm, S1 normal heart sound, S2 normal heart sound, no murmurs, no rub, no gallops, no clicks and no JVD GI normal to inspection, nondistended, normoactive bowel sounds, soft to palpation, non-tender and non-distended; Negative for hepatosplenomegaly Extremity no clubbing, cyanosis or edema Extremity Narrative: 2+ pedal pulses Neuro oriented x3, CN's II-XII intact bilaterally, moves all extremities and no focal motor deficits Neuro Narrative: No current issues with restless leg Sensorium / Orientation: awake, alert, oriented to person, oriented to place and oriented to time Speech: speech normal Assessment & Plan Assessment/Plan (1) J CARLOS (acute kidney injury): (2) GI bleed: (3) Anemia: (4) New onset type 2 diabetes mellitus: PLAN: Plan Hematochezia/GIB -Patient recently admitted had colonoscopy that showed angiodysplastic lesions in the colon -C-scope was done on 12/21/2021 -This is recurrent -Bleeding had stopped while he was hospitalized -Continue Protonix drip in case this is upper GI bleed -To new n.p.o. -Continue IV fluids at 75 cc/h -Consult general surgery--> Case was discussed with Dr. Dumont and he plans to do an EGD and colonoscopy repeat tomorrow -Patient had marked agitation and aggressiveness following his most recent colonoscopy and family is requesting different sedation medications be utilized--> I did discuss this request with Dr. Dumont so he was able to related to anesthesia tomorrow -EGD and colonoscopy pending Acute anemia -Hemoglobin drop since discharge -Cycle hemoglobin every 6 hours -Hemoglobin down to 6.3 this morning--> 2 units packed red blood cells transfused on a.m. 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 -Blood pressure and labs are holding steady and still no need for stress dose steroids -Continue desmopressin -Continue hydrocortisone -Continue levothyroxine Severe restless leg syndrome -Continue home Mirapex Diabetes-new diagnosis -Hemoglobin A1c is 7.1 -We will need to consider initiating antiglycemic agent upon discharge versus diet control -We will discuss with patient tomorrow -We will need to consult dietitian for discussion about diabetes Neuropathy -We will hold gabapentin while he is hospitalized per discussion with daughter as this can increase his confusion and she would like to restart this at home once he is not on any medications for anesthesia Hypertension -Hold home lisinopril until serum creatinine has improved DVT prophylaxis -SCDs -No chemoprophylaxis secondary to acute bleeding CODE STATUS -Full code verified on admission Charges/Coding Visit Charges Inpatient E&M: 77389 Subs Hosp L2
[2021-12-25 17:29] LABS: Absolute Lymphocyte Count 2.07 X10^3/uL (0.83-4.51); Absolute Neutrophil Count 3.1 X10^3/uL (2.0-7.7); Basophil# 0.04 X10^3/uL; Basophil% 0.6 % (0-1); Eosinophil# 0.23 X10^3/uL; Eosinophils% 3.7 % (0-5); Hematocrit 24.5 % (40-54); Hemoglobin 8.3 g/dL (13.0-16.5); Lymphocyte # 2.07 X10^3/ul (0.83-4.51); Lymphocyte % 33.4 % (19-41); Mean Corp Hgb Conc 33.9 g/dL (32-36); Mean Corpuscular Hgb 29.2 pg (27.0-32.0); Mean Corpuscular Volume 86.3 fL (80-94); Mean Platelet Vol. 9.6 fl (6.2-12.0); Monocyte# 0.69 X10^3/uL; Monocyte% 11.1 % (0-10); NRBC Flagged by Analyzer 0 % (0-5); Neutrophil # 3.11 X10^3/uL (2.7-7.7); Neutrophil % 50.2 % (47-70); Platelet Count 188 K/mm3 (150-450); RBC Distribution Width CV 13.6 % (11.6-14.6); RBC Distribution Width SD 42.7 fl (35.1-43.9); Red Blood Count 2.84 M/mm3 (4.6-6.2); White Blood Count 6.2 K/mm3 (4.4-11.0)
--- NOTE | 2021-12-25 19:27 | OP.CCLET_ITS ---
12/25/2021 [place] Lucas Re : Upper GI endoscopy procedure for Hari Fisher Dear Lance This procedure was performed on November. My impressions and recommendations are as follows: Impressions : - Normal duodenal bulb, first portion of the duodenum and second portion of the duodenum. No specimens collected. - No gross lesions in the stomach. No specimens collected. - Medium-sized hiatal hernia. No specimens collected. - Normal esophagus. No specimens collected. Recommendations : - Return patient to hospital [facility] for ongoing care. - Clear liquid diet today. - Continue present medications. - The findings and recommendations were discussed with the patient's primary physician. - Observe patient's clinical course. My findings are described in the full procedure note, which is enclosed. If I can be of further assistance, please feel free to contact me at Doctor phone number(s): , Work: . Sincerely, Jamel Dumont MD 12/25/2021 7:27:04 PM This report has been signed electronically.
--- NOTE | 2021-12-25 19:27 | OP.EGD_ITS ---
Patient Name: Hari Fisher Procedure Date: 12/25/2021 5:13 PM Date of : 1940 Age: 81 Procedure: Upper GI endoscopy Indications: Hematochezia, Recent gastrointestinal bleeding Providers: Jamel Dumont MD Medicines: See the Anesthesia note for documentation of the administered medications Patient Profile: Refer to note in patient chart for documentation of history and physical. Complications: No immediate complications. Estimated blood loss: None. Procedure: Pre-Anesthesia Assessment: - The heart rate, respiratory rate, oxygen saturations, blood pressure, adequacy of pulmonary ventilation, and response to care were monitored throughout the procedure. After obtaining informed consent, the endoscope was passed under direct vision. Throughout the procedure, the patient's blood pressure, pulse, and oxygen saturations were monitored continuously. The colonoscope was introduced through the mouth, and advanced to the second part of duodenum. The upper GI endoscopy was accomplished without difficulty. The patient tolerated the procedure well. Scope In: 5:39:11 PM Scope Out: 5:46:32 PM Total Procedure Duration Time 0 hours 7 minutes 21 seconds Findings: The duodenal bulb, first portion of the duodenum and second portion of the duodenum were normal. No biopsies or other specimens were collected for this exam. No gross lesions were noted in the entire examined stomach. No biopsies or other specimens were collected for this exam. A medium-sized hiatal hernia was present. No biopsies or other specimens were collected for this exam. The examined esophagus was normal. No biopsies or other specimens were collected for this exam. Impression: - Normal duodenal bulb, first portion of the duodenum and second portion of the duodenum. No specimens collected. - No gross lesions in the stomach. No specimens collected. - Medium-sized hiatal hernia. No specimens collected. - Normal esophagus. No specimens collected. Recommendation: - Return patient to hospital [facility] for ongoing care. - Clear liquid diet today. - Continue present medications. - The findings and recommendations were discussed with the patient's primary physician. - Observe patient's clinical course. Procedure Code(s): --- Professional --- 49742, Esophagogastroduodenoscopy, flexible, transoral; diagnostic, including collection of specimen(s) by brushing or washing, when performed (separate procedure) Diagnosis Code(s): --- Professional --- K44.9, Diaphragmatic hernia without obstruction or gangrene K92.1, Melena (includes Hematochezia) K92.2, Gastrointestinal hemorrhage, unspecified CPT copyright 2017 [employer]. All rights reserved. The codes documented in this report are preliminary and upon plant guard review may be revised to meet current compliance requirements. Jamel Dumont MD 12/25/2021 7:27:04 PM This report has been signed electronically. Number of Addenda: 0 Note Initiated On: 12/25/2021 5:13 PM
--- NOTE | 2021-12-25 19:36 | OP.COLON_ITS ---
Patient Name: Hari Fisher Procedure Date: 12/25/2021 5:46 PM Date of : 1940 Age: 81 Procedure: Colonoscopy Indications: Hematochezia Providers: Jamel Dumont MD Medicines: See the Anesthesia note for documentation of the administered medications Patient Profile: Refer to note in patient chart for documentation of history and physical. Last Colonoscopy: earlier this week. Complications: No immediate complications. Estimated blood loss: None. Procedure: Pre-Anesthesia Assessment: - The heart rate, respiratory rate, oxygen saturations, blood pressure, adequacy of pulmonary ventilation, and response to care were monitored throughout the procedure. After I obtained informed consent, the scope was passed under direct vision. Throughout the procedure, the patient's blood pressure, pulse, and oxygen saturations were monitored continuously. The colonoscope was introduced through the anus and advanced to the cecum, identified by the ileocecal valve. The colonoscopy was somewhat difficult due to excessive bleeding. Successful completion of the procedure was aided by lavage. The patient tolerated the procedure well. The quality of the bowel preparation was adequate. Scope In: 5:48:29 PM Scope Withdrawal Time 0 hours 53 minutes 45 seconds Scope Out: 6:54:50 PM Total Procedure Duration Time 1 hour 6 minutes 21 seconds Findings: A few small and large-mouthed diverticula were found in the sigmoid colon. No biopsies or other specimens were collected for this exam. Clotted blood was found at 50 cm proximal to the anus. Lavage of the area was performed using a large amount of sterile water, resulting in clearance with excellent visualization. The retroflexed view of the distal rectum and anal verge was normal and showed no anal or rectal abnormalities. No active bleeding Impression: - Diverticulosis in the sigmoid colon. No specimens collected. - Blood at 50 cm proximal to the anus. Recommendation: - Return patient to hospital [facility] for ongoing care. - Clear liquid diet today. - Continue present medications. - No recommendation at this time regarding repeat colonoscopy [Reason]. Procedure Code(s): --- Professional --- 15288, Colonoscopy, flexible; diagnostic, including collection of specimen(s) by brushing or washing, when performed (separate procedure) Diagnosis Code(s): --- Professional --- K92.2, Gastrointestinal hemorrhage, unspecified K92.1, Melena (includes Hematochezia) K57.30, Diverticulosis of large intestine without perforation or abscess without bleeding CPT copyright 2017 [employer]. All rights reserved. The codes documented in this report are preliminary and upon casting tester review may be revised to meet current compliance requirements. Jamel Dumont MD 12/25/2021 7:36:11 PM This report has been signed electronically. Number of Addenda: 0 Note Initiated On: 12/25/2021 5:46 PM
--- NOTE | 2021-12-25 19:36 | OP.CCLET_ITS ---
12/25/2021 [place] Lucas Re : Colonoscopy procedure for Hari Fisher Dear Lance This procedure was performed on November. My impressions and recommendations are as follows: Impressions : - Diverticulosis in the sigmoid colon. No specimens collected. - Blood at 50 cm proximal to the anus. Recommendations : - Return patient to hospital [facility] for ongoing care. - Clear liquid diet today. - Continue present medications. - No recommendation at this time regarding repeat colonoscopy [Reason]. My findings are described in the full procedure note, which is enclosed. If I can be of further assistance, please feel free to contact me at Doctor phone number(s): , Work: . Sincerely, Jamel Dumont MD 12/25/2021 7:36:11 PM This report has been signed electronically.
--- NOTE | 2021-12-25 20:20 | NURSING ---
Pt back from endo proceedure. pt c/o having to have bm. Pt asst to [facility]sc. pad with blood and sheet. 400 cc of lux fluid with 10 big clots. notified
[2021-12-25 21:12] LABS: Hematocrit 24.1 % (40-54); Hemoglobin 7.9 g/dL (13.0-16.5); Mean Corp Hgb Conc 32.8 g/dL (32-36); Mean Corpuscular Hgb 29.2 pg (27.0-32.0); Mean Corpuscular Volume 88.9 fL (80-94); Mean Platelet Vol. 10.1 fl (6.2-12.0); Platelet Count 213 K/mm3 (150-450); RBC Distribution Width CV 13.8 % (11.6-14.6); RBC Distribution Width SD 44.6 fl (35.1-43.9); Red Blood Count 2.71 M/mm3 (4.6-6.2); White Blood Count 7.1 K/mm3 (4.4-11.0)
[2021-12-25 21:22] LABS: International Normalized Ratio 1.3; Partial Thromboplast Time 32.5 Seconds (24.1-36.2); Prothrombin Time (Protime)PT. 15.4 SECONDS (11.7-14.9)
--- NOTE | 2021-12-25 21:26 | PCM.HOSP.N ---
Hospitalist Note Patient following endoscopies with no active bleeding and per discussion with surgery noted to be likely diverticular. Patient vital signs remained stable however following procedure while in PACU patient did have episode of bright red blood and had lightheadedness/dizziness although this is since passed. Repeat H&H was obtained and noted to be 7.9. Reviewed this and patient's current status with general surgery and also with gastroenterology and decision to continue to trend every 6 hour hemoglobins and if any notable drop or recurrent bleeding would plan transfer at that time. Am requesting that patient give facility potential transfer preferences however also noted that we would have to go with what facility could take him in a more timely fashion. Patient does tolerate transfusions it seems and has remained hemodynamically stable of note.
[2021-12-25] MEDS: Hydrocortisone 10 MG Tablet 7.5 MG PO (21:56)
[2021-12-25] MEDS: Pramipexole Di-HCl 1 MG Tablet PO (21:56)
[2021-12-25] MEDS: Magnesium Chloride 64 MG Delay Rel.Tablet 128 MG PO (21:56)
[2021-12-25] MEDS: DESMOPRESSIN ACETATE 0.1 MG TABLET 0.05 MG PO (22:00)
--- NOTE | 2021-12-25 22:10 | NURSING ---
pt had another lux red stool with clots. Pt voided in it also
--- NOTE | 2021-12-25 22:48 | PCM.DC.SUM ---
Providers Date of Admission: 12/25/21 Date of Discharge: 12/25/21 Primary Care Physician: Dr. Montana Lucas MD Consultations 12/24/21 22:01 Consult: General Surgery Routine Consulting Provider: Jamel Dumont Reason for Consult: GI bleed EMERGENT Consult: No MD Notified: Yes Date Notified: 12/24/21 Time Notified: 22:01 Method of Notification: ED Physician Initiated Reason For Visit: GIB Diagnosis Discharge Diagnosis (1) GI bleed: Status: Acute Code(s): K92.2 - Gastrointestinal hemorrhage, unspecified (2) New onset type 2 diabetes mellitus: Status: Acute Code(s): E11.9 - Type 2 diabetes mellitus without complications Medications at Discharge Home Medications pregabalin 150 mg capsule (Lyrica) 150 cap PO BID pain 06/22/16 lisinopril 20 mg tablet 20 mg PO DAILY blood pressure 08/07/21 ropinirole 1 mg tablet 1 mg PO DAILY@0700 restless leg syndrome 08/07/21 ropinirole 1 mg tablet 2 mg PO QHS restless leg syndrome 08/07/21 desmopressin 0.1 mg tablet 0.5 tab PO QHS pituitary supplement 12/21/21 hydrocortisone 5 mg tablet 3 tab PO DAILY steroid 12/21/21 hydrocortisone 5 mg tablet 7.5 mg PO DAILY@1630 steroid 12/21/21 levothyroxine 100 mcg tablet 100 mcg PO DAILY@0600 thyroid 12/21/21 magnesium oxide 400 mg PO QHS supplement 12/21/21 ropinirole 1 mg tablet 1 mg PO DAILY@1630 restless leg syndrome 12/21/21 Hospital Course Procedures Blood transfusion, Colonoscopy and EGD Summary of Care Provided Minutes Spent on Discharge: 45 Hospital Course: Discharge Diagnoses: 1. Acute on chronic anemia secondary to acute blood loss secondary to lower GI bleed, presumed diverticular 2. New onset diabetes mellitus type 2 3. 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 Hypothyroidism 5. Former tobacco use 6. Restless leg syndrome 7. Chronic neuropathy 8. ESSENCE on BiPAP nightly 9. Raynaud's disease 10. Hypertension The patient is an 81 y/o M w/ PMHx: Former tobacco use, RLS, Chronic neuropathy, ESSENCE on BIPAP, Hx adenoma s/p resection pituitary gland with panhypopituitarism, Hypothyroidism, HTN, Raynaud disease who presents to the [facility] on 12/24/21 with history of rectal bleeding with symptoms beginning the day prior with several episodes and a large amount of blood with at that point no significant lightheadedness or dizziness nor any syncope with history of recent admission 12/21/2021-12/22/2021 with additionally hematochezia at that time with evaluation per general surgery with colonoscopy with evidence of angiodysplastic lesions with biopsies taken with no further bleeding and discharge at that time with stable hemoglobin however he represented with recurrent bright red blood per rectum with additionally large clots. Upon ED initial evaluation work-up included T98.7, heart rate 78, BP 125/63, negative orthostatic vital sign, respiratory rate 16, 100% on room air, CBC with hemoglobin 8.5 with recent discharge hemoglobin 9.8 with normal platelet count, chemistry with BUN/creatinine 22/1.41 with recent discharge 1.13, serum glucose 204, initial lactic acid 2.1 with repeat 1.3. Patient was admitted to the PCU with initiation of Protonix drip is some concern potentially GI upper component with reconsultation with general surgery. 12/26/2019 2 AM hemoglobin 6.3 with 2 unit PRBC administered with repeat hemoglobin 8.3 following. Patient underwent 12/25/2021 EGD and colonoscopy in conjunction with gastroenterology with evidence of diverticulosis of the sigmoid colon with noted blood at 50 cm proximal to the anus however this was removed and following this there is no evidence of any active bleeding. Upper endoscopy with no acute findings of note. Patient was transitioned out of the OR to PACU and upon increased activity had immediate onset of bright red blood per rectum with symptomatic lightheadedness and dizziness at that time. Patient was transition back to the PCU and repeat hemoglobin obtained had to be 7.9. Patient symptomatically improved and discussed with gastroenterology and surgery at that time with plan to continue obtaining serial H&H's and if drops significantly or any recurrent bouts of bleeding attempt to transfer patient for consideration tertiary facility evaluation with possible IR pending their reevaluation. Of note during patient's admission given panhypopituitary state patient was maintained on desmopressin, hydrocortisone and levothyroxine status post recent pituitary removal. Patient did not receive any stress dosing. During the admission given hyperglycemia hemoglobin A1c was obtained and noted to be 7.1% with new diagnosis of diabetes mellitus. Dietitian was consulted with plan to continue discussions for initiation of antiemetic agent upon discharge versus diet control with repeat A1c trending following lifestyle/diet interventions. Transfer request initiatied with attempts made to [facility] per family/patient initial preference with no beds, [facility] wait list, [facility] with no beds. Discussed with Marissa Dickson and patient was accepted by Hospitalist Dr. Jamal Rivas. PMSurg Hx Appendectomy Surgical Removal Pituitary Gland Family Hx Denies marked maternal or paternal family history Social Hx Lives with spouse, former tobacco use, no EtOH use, no illicit substance use. Allergies: PCN (rash) Terazosin (unsure rxn) Home medications prior to recent presentation: Requip 1 mg p.o. q. 7 AM, 1 mg p.o. q. 1630, 2 mg p.o. nightly Lyrica 150 milligrams p.o. twice daily Magnesium oxide 400 mg p.o. nightly Lisinopril 20 mg p.o. daily Levothyroxine 100 mcg p.o. q. 6 AM Hydrocortisone 50 mg p.o. every morning and 1 tablet nightly Desmopressin acetate 0.05 mg nightly Weight / BMI Weight Weight: 194 lb 3.213 oz Body Mass Index (BMI) 27.1 ABG / Lab / Microbiology Data Result Diagrams: 12/25/21 21:00 12/25/21 06:46 Laboratory: Laboratory Results - last 24 hr 12/24/21 11:51: Crossmatch See Detail 12/24/21 22:30: Hgb 7.7 L 12/25/21 02:23: Hgb 7.1 L 12/25/21 06:46: Hemoglobin A1c 7.1 H 12/25/21 06:46: WBC 5.8, RBC 2.20 L, Hgb 6.3 L, Hct 19.7 L, MCV 89.5, MCH 28.6, MCHC 32.0, RDW Std Deviation 42.6, RDW Coeff of Florian 13.1, Plt Count 204, MPV 9.9, Immature Gran % (Auto) 0.900, Neut % (Auto) 42.6 L, Lymph % (Auto) 38.5, [place] % (Auto) 13.5 H, Eos % (Auto) 4.0, Baso % (Auto) 0.5, Absolute Neuts (auto) 2.5, Absolute Lymphs (auto) 2.22, Nucleated RBC % 0 12/25/21 06:46: Sodium 138, Potassium 3.7, Chloride 109 H, Carbon Dioxide 25.0, Anion Gap 4 L, BUN 15, Creatinine 1.24, Estim Creat Clear Calc 50.60, Est GFR (MDRD) Af Amer 72, Est GFR (MDRD) Non-Af 60, BUN/Creatinine Ratio 12.1, Glucose 121 H, Calcium 7.6 L, Phosphorus 2.6, Magnesium 2.1 12/25/21 06:46: PT 15.7 H, INR 1.3, APTT 37.3 H 12/25/21 06:46: Total Bilirubin 0.30, Direct Bilirubin 0.09, AST 24, ALT 24, Alkaline Phosphatase 43 L, Total Protein 5.1 L, Albumin 2.5 L, Globulin 2.6 12/25/21 17:05: WBC 6.2, RBC 2.84 L, Hgb 8.3 L, Hct 24.5 L, MCV 86.3, MCH 29.2, MCHC 33.9 D, RDW Std Deviation 42.7, RDW Coeff of Florian 13.6, Plt Count 188, MPV 9.6, Immature Gran % (Auto) 1.000 H, Neut % (Auto) 50.2, Lymph % (Auto) 33.4, [place] % (Auto) 11.1 H, Eos % (Auto) 3.7, Baso % (Auto) 0.6, Absolute Neuts (auto) 3.1, Absolute Lymphs (auto) 2.07, Nucleated RBC % 0 12/25/21 21:00: WBC 7.1, RBC 2.71 L, Hgb 7.9 L, Hct 24.1 L, MCV 88.9, MCH 29.2, MCHC 32.8, RDW Std Deviation 44.6 H, RDW Coeff of Florian 13.8, Plt Count 213, MPV 10.1 12/25/21 21:00: PT 15.4 H, INR 1.3, APTT 32.5 Meaningful Use Info Meaningful Use Diagnoses (Choose all that apply): None applicable Discharge Plan Admission Admit Date/Time: 12/25/21 09:27 Primary Reason for Your Visit: Acute blood loss anemia on chronic anemia, GI bleed, New Onset DM Attending Provider: Annie Zhang Primary Care Provider: Montana Lucas Consulting Providers: Jamel Dumont Discharge Orders/Prescriptions Prescriptions: No Action pregabalin [Lyrica] 150 MG capsule 150 cap PO BID Label Comments: ropinirole 1 mg tablet 1 mg PO DAILY@0700 Label Comments: TAKE 1 TABLET BY MOUTH EVERY MORNING AND 3 TABLETS BY MOUTH EVERY EVENING ropinirole 1 mg tablet 2 mg PO QHS Label Comments: TAKE 1 TABLET BY MOUTH EVERY MORNING AND 3 TABLETS BY MOUTH EVERY EVENING lisinopril 20 mg tablet 20 mg PO DAILY hydrocortisone 5 mg tablet 3 tab PO DAILY Label Comments: TAKE 3 TABLETS BY MOUTH EVERY MORNING AND 1 TABLET EVERY EVENING. DOUBLE DOSE WHEN SICK DIRECTED hydrocortisone 5 mg tablet 7.5 mg PO DAILY@1630 Label Comments: TAKE 3 TABLETS BY MOUTH EVERY MORNING AND 1 TABLET EVERY EVENING. DOUBLE DOSE WHEN SICK DIRECTED ropinirole 1 mg tablet 1 mg PO DAILY@1630 levothyroxine 100 mcg tablet 100 mcg PO DAILY@0600 Label Comments: TAKE ONE TABLET BY MOUTH EVERY MORNING BEFORE BREAKFAST desmopressin 0.1 mg tablet 0.5 tab PO QHS Label Comments: take 1/2 tablet by mouth every evening magnesium oxide 400 mg magnesium Tablet 400 mg PO QHS Referrals / Follow Up: Montana Lucas MD [Primary Care Provider] - Disposition Disposition (needs filled in before D/C Order can be placed): Acute Care Hospital Charges/Coding Visit Charges Inpatient E&M: 05711 Disch Hosp
--- NOTE | 2021-12-25 23:25 | NURSING ---
braxton daughter called about transfer
[2021-12-26 00:09] VITALS: BP 134/71; PULSE 79; RESP 18; TEMP 36.6; O2SAT 99
[2021-12-26 01:04] VITALS: BP 131/113; PULSE 70; RESP 17; TEMP 37.1; O2SAT 100
[2021-12-26 01:09] VITALS: BP 139/66; PULSE 72; RESP 17; TEMP 37.1; O2SAT 100
[2021-12-26 02:46] VITALS: BP 146/78; PULSE 99; RESP 18; TEMP 37.1; O2SAT 95
== END 2021-12-26 02:49 | disposition short-term general hospital (02) | DRG 378 ==
LOC: ED 14:19 → PCU 14:33
PROVIDERS: Anesthesiology; Surgery; Admitting Provider Internal Medicine; Emergency Provider Emergency Medicine; PCP Family Medicine; Referring Provider Internal Medicine; Visit Provider Internal Medicine
PROC: 0DJD8ZZ Inspection of Lower Intestinal Tract, Via Natural or Artificial Opening Endoscopic (ICD-10-PCS; CPT 45378; principal; 2021-12-25 17:30)
DX: K57.31 Diverticulosis of large intestine without perforation or abscess with bleeding (principal); D62 Acute posthemorrhagic anemia; N17.9 Acute kidney failure, unspecified; E89.3 Postprocedural hypopituitarism; E11.40 Type 2 diabetes mellitus with diabetic neuropathy, unspecified; E03.9 Hypothyroidism, unspecified; G25.81 Restless legs syndrome; I10 Essential (primary) hypertension; K44.9 Diaphragmatic hernia without obstruction or gangrene; I73.00 Raynaud's syndrome without gangrene; G47.33 Obstructive sleep apnea (adult) (pediatric); Z79.890 Hormone replacement therapy; Z79.899 Other long term (current) drug therapy; Z87.891 Personal history of nicotine dependence
CPT/HCPCS: 36415; 80048; 80076; 83036; 83605; 83735; 84100; 85018; 85025; 85027; 85610; 85730; 86644; 86850; 86900; 86901; 86920; 86922; 99251; 99284; J7030; J7040; J7120; P9016; P9040; A4216; G0463; J2405; J3490

== ENCOUNTER → 2022-04-29 | Outpatient (CLI) | payer MEDICARE, SELFPAY ==
--- NOTE | 2022-04-29 17:05 | MRI_ITS ---
EXAM: MR RIGHT LOWER EXTREMITY WITHOUT INTRAVENOUS CONTRAST, KNEE CLINICAL INDICATION: RT KNEE OSTEOARTHRITIS, PAIN, TECHNIQUE: Multiplanar and multisequence MR images of the right knee without intravenous contrast. This report was created using [employer] report YouTab technology. COMPARISON: None. FINDINGS: BONES/JOINTS: Small suprapatellar enthesophyte. No fracture. No abnormal bone marrow signal. No synovial hypertrophy. No intra-articular body. EXTENSOR MECHANISM: Extensor mechanism is intact. MEDIAL MENISCUS: Unremarkable. LATERAL MENISCUS: Torn posterior horn and root ligament of the lateral meniscus. MEDIAL CAPSULE/SUPPORTING STRUCTURES: Unremarkable. Intact. LATERAL CAPSULE/SUPPORTING STRUCTURES: Unremarkable. Lateral collateral ligamentous complex, inclusive of the popliteal tendon, are intact. ANTERIOR CRUCIATE LIGAMENT: Unremarkable. Intact. POSTERIOR CRUCIATE LIGAMENT: Unremarkable. Intact. MUSCLES: Unremarkable. CARTILAGE: Peripheral marginal osteophytes are identified. There are also areas of full-thickness chondral loss involving the middle to posterior weightbearing portion of the lateral femoral condyle, likely related to chronic meniscal tearing. FLUID: Small Allen''s cyst without evidence of inferior leakage or rupture. No joint effusion. OTHER SOFT TISSUES: See above. OTHER FINDINGS: Medial and lateral supporting structures are intact. MRI/Lower Ext Joint Only (Routine) IMPRESSION: 1. Torn posterior horn and root ligament of the lateral meniscus. 2. Areas of full-thickness chondral loss involving the middle to posterior weightbearing portion of the lateral femoral condyle, likely related to chronic meniscal tearing. Electronically Signed: Sunil Lema MD at 3:38 EDT Reading Location ID and State: [facility] / [place] Tel , Service support ,
== END | disposition home or self-care (01) ==
LOC: MRI 16:59
PROVIDERS: PCP Family Medicine; Visit Provider Orthopaedic Surgery
DX: M17.11 Unilateral primary osteoarthritis, right knee (principal)
CPT/HCPCS: 73721

== ENCOUNTER 2023-07-18 04:17 | Observation (INO) | payer MEDICARE, SELFPAY ==
[2023-07-18] VITALS (12 sets, daily range): BP systolic 115–197; BP diastolic 55–93; PULSE 71–109; RESP 16–28; TEMP 37.6–39.2; O2SAT 95–99; BMI 27.0; BMI 27.1
--- NOTE | 2023-07-18 04:37 | EDS_ITS ---
HPI History of Present Illness Chief Complaint: Alt LOC Informant: patient and EMS Narrative Narrative: Patient presents with confusion weakness and fever. Evidently the family found him feeling weak. The exact time of onset of this is a little unclear. Patient is denying any specific symptoms. There is no focal weakness. He evidently was lethargic. EMS had a little trouble waking him up. But he is wide-awake when I see him. He does have a fever. He has no symptoms of this. History is limited. Patient is somewhat oriented but not completely. Many times when I asked some questions he answers with a ho ho ho laugh but does not actually answer the question. It will take multiple times asking before he will answer things. [facility] Medical History (Updated 07/18/23 @ 07:[address] Anoop Hinds MD) Anemia BiPAP (biphasic positive airway pressure) dependence Brain surgery within last 3 months Former smoker GI bleed HTN (hypertension) New onset type 2 diabetes mellitus Raynaud disease Sleep apnea Home Medications pregabalin 150 mg capsule (Lyrica) 150 cap PO BID pain 06/22/16 [History Last Taken 12/22/21] lisinopril 20 mg tablet 20 mg PO DAILY blood pressure 08/07/21 [History Last Taken 12/24/21] ropinirole 1 mg tablet 1 mg PO DAILY@0700 restless leg syndrome 08/07/21 [History Last Taken 12/23/21] ropinirole 1 mg tablet 2 mg PO QHS restless leg syndrome 08/07/21 [History Last Taken 12/23/21] desmopressin 0.1 mg tablet 0.5 tab PO QHS pituitary supplement 12/21/21 [History Last Taken 12/23/21] hydrocortisone 5 mg tablet 3 tab PO DAILY steroid 12/21/21 [History Last Taken 12/24/21] hydrocortisone 5 mg tablet 7.5 mg PO DAILY@1630 steroid 12/21/21 [History Last Taken 12/23/21] levothyroxine 100 mcg tablet 100 mcg PO DAILY@0600 thyroid 12/21/21 [History Last Taken 12/24/21] magnesium oxide 400 mg PO QHS supplement 12/21/21 [History Last Taken 12/23/21] ropinirole 1 mg tablet 1 mg PO DAILY@1630 restless leg syndrome 12/21/21 [History Last Taken 12/23/21] Allergy/AdvReac Type Severity Reaction Status Date / Time Penicillins [PCN] Allergy Rash Verified 07/18/23 04:55 terazosin Allergy PT UNSURE Verified 07/18/23 04:55 OF REACTION Surgical History History of appendectomy History of surgical removal of pituitary gland Social History household members: spouse housing: house Smoking Status: Former smoker alcohol intake: never substance use type: does not use ROS ROS ED ROS Narrative Patient denies most questions. Some I cannot get him to answer. But even the one that he denies I cannot be sure are true. Constitutional Constitutional ED: Reports fever(s) Cardiovascular Cardiovascular: Denies chest pain Respiratory/Chest Respiratory/Chest: Denies cough Gastrointestinal Gastrointestinal: Denies diarrhea or vomiting Genitourinary Genitourinary ED: Denies dysuria Neurologic Neurologic: Denies headache(s) Allergic/Immunologic Allergic/Immunologic ED: Denies urticaria EXAM Physical Exam Narrative Exam Narrative: CONSTITUTIONAL: Patient is nontoxic in appearance. The patient looks comfortable. Work of breathing looks normal. HEENT: No notable trauma. Mucous membranes do look dry. No erythema or swelling noted. No sinus tenderness. No indication of pain with swallowing. EYES: Minimal conjunctival injection. No proptosis. NECK:No JVD. No stridor. CARDIOVASCULAR: Borderline tachycardic rate. Regular rhythm. No notable murmur. No JVD. RESPIRATORY: No respiratory distress. Breathing is unlabored. No wheezes. He does occasionally have coarse breath sounds a little bit more on the left. But he also vocalizes and makes sounds when he breathes out. It is hard to get him to stop this. But I am suspicious there may be a few coarse breath sounds more on the left. But he is not hypoxic. His oxygen level is 97 to 98% on room air. GASTROINTESTINAL: Not distended. Bowel sounds are normal. No tenderness. No guarding. No rebound. No palpable mass. No bruit is heard. GENITOURINARY: No tenderness over the bladder. No CVA tenderness. MUSCULOSKELETAL: Atraumatic. No notable peripheral edema. No cord. No tenderness along the deep venous system. No asymmetry. No distended veins. He had a an Tushar wrap on his right lower leg. He states this is where he hit himself. When we unwrapped it there is really no wound. There may have been a small abrasion anteriorly but it looks fully healed. NEUROLOGICAL: Patient is alert and appropriate. No focal deficit noted. SKIN: No noted rashes. No diaphoresis. PSYCHIATRIC: Patient is calm. Mood is appropriate. Const Vital Signs: 07/18/23 04:17 07/18/23 04:23 07/18/23 05:17 Temperature 102.6 F H 102.6 F H Temperature Source Oral Oral Pulse Rate 102 H 100 109 H Respiratory Rate 22 H 22 H 24 H Blood Pressure 180/83 H 180/83 H 197/93 H Blood Pressure Mean 115 115 127 Pulse Ox 97 97 96 Oxygen Delivery Method Room Air 07/18/23 05:58 07/18/23 07:07 Temperature 99.9 F H Temperature Source Oral Pulse Rate 88 Respiratory Rate 28 H Blood Pressure 175/63 H 141/74 H Blood Pressure Mean 100 96 Pulse Ox 98 Oxygen Delivery Method Room Air MDM MDM MDM Narrative Medical decision making narrative: My independent interpretation the patient single AP chest x-ray shows no sign of notable infiltrate. Final reading is pending. Patient CBC shows elevated white count which is somewhat high for the patient's average. Electrolytes show mild elevation in the creatinine of 1.47. He is given IV fluids. Glucose was minimally up at 122. Magnesium was normal at 2.1. Liver function test are normal. Urinalysis shows no sign of acute infection. I checked with the patient. He is more alert. He was able to tell me the year the president and where he is and he was able to do it faster than before. We attempted to walk him and he is far too weak. He almost fell if people did not catch him. I think with his weakness, confusion and positive COVID he will need to come in the hospital. I will discuss case with the hospitalist. Lab Data Attestation: I reviewed the patient's lab results. Labs: Laboratory Results - last 24 hr 07/18/23 07/18/23 07/18/23 04:40 04:45 05:30 WBC 11.3 H RBC 4.60 Hgb 13.5 Hct 40.1 MCV 87.2 MCH 29.3 MCHC 33.7 RDW Std Deviation 40.9 RDW Coeff of Florian 13.0 Plt Count 237 MPV 9.9 Immature Gran % (Auto) 0.400 Neut % (Auto) 50.9 Lymph % (Auto) 37.2 [place] % (Auto) 10.0 Eos % (Auto) 0.7 Baso % (Auto) 0.8 Absolute Neuts (auto) 5.7 Absolute Lymphs (auto) 4.18 Nucleated RBC % 0 Sodium 136 Potassium 3.7 Chloride 103 Carbon Dioxide 26.0 Anion Gap 7 BUN 22 H Creatinine 1.47 H Estim Creat Clear Calc 41.26 Est GFR (MDRD) Af Amer 59 L Est GFR (MDRD) Non-Af 49 L BUN/Creatinine Ratio 15.0 Glucose 122 H Lactic Acid 1.2 Calcium 9.1 Magnesium 2.1 Total Bilirubin 0.70 AST 29 ALT 30 Alkaline Phosphatase 107 Total Protein 7.6 Albumin 3.9 Globulin 3.7 Albumin/Globulin Ratio 1.1 Urine Color Yellow Urine Clarity Clear Urine pH 5.0 Ur Specific [place] 1.015 Urine Protein 30 H Urine Glucose (UA) Normal Urine Ketones Negative Urine Occult Blood 25 H Urine Nitrite Negative Urine Bilirubin Negative Urine Urobilinogen Normal Ur Leukocyte Esterase 25 H Urine RBC 0 SEEN Urine WBC 0 SEEN Ur Squamous Epith Cells 0 SEEN Urine Bacteria 0 SEEN Urine Mucus 0 SEEN Radiography Diagnostic Testing: Clinical Impression(s) from Imaging Studies Chest X-Ray 07/18/23 05:00 IMPRESSION: No radiographic evidence of acute cardiopulmonary disease. Electronically Signed: Kendall Schulz MD at 5:40 EST , EKG Initial EKG: Comments: My independent interpretation of the patient's EKG shows a normal sinus rhythm with rate at 100. No ventricular ectopy. There is a lot of baseline variation and nonspecific ST and T wave change but no infarct. MA interval, QRS duration and QTc are normal. Management Discussion w/another healthcare provider: Hospitalist Discharge Plan Dx/Rx/DC Orders Clinical Impression: COVID, Fever, Confusion, Unable to ambulate Disposition Disposition: [facility]
[2023-07-18 04:54] LABS: Absolute Lymphocyte Count 4.18 X10^3/uL (0.83-4.51); Absolute Neutrophil Count 5.7 X10^3/uL (2.0-7.7); Basophil# 0.09 X10^3/uL; Basophil% 0.8 % (0-1); Eosinophil# 0.08 X10^3/uL; Eosinophils% 0.7 % (0-5); Hematocrit 40.1 % (40-54); Hemoglobin 13.5 g/dL (13.0-16.5); Lymphocyte # 4.18 X10^3/ul (0.83-4.51); Lymphocyte % 37.2 % (19-41); Mean Corp Hgb Conc 33.7 g/dL (32-36); Mean Corpuscular Hgb 29.3 pg (27.0-32.0); Mean Corpuscular Volume 87.2 fL (80-94); Mean Platelet Vol. 9.9 fl (6.2-12.0); Monocyte# 1.13 X10^3/uL; NRBC Flagged by Analyzer 0 % (0-5); Neutrophil # 5.72 X10^3/uL (2.7-7.7); Neutrophil % 50.9 % (47-70); Platelet Count 237 K/mm3 (150-450); RBC Distribution Width SD 40.9 fl (35.1-43.9); White Blood Count 11.3 K/mm3 (4.4-11.0)
[2023-07-18] MEDS: 0.9% Normal Saline (1000mL) 1,000 ML 1000 ML IV (04:55)
--- NOTE | 2023-07-18 05:00 | RAD_ITS ---
EXAM: XR CHEST, 1 VIEW CLINICAL INDICATION: ? pneumonia TECHNIQUE: Frontal view of the chest. COMPARISON: Single view chest 08/07/2021 FINDINGS: LUNGS AND PLEURAL SPACES: Unremarkable. No consolidation or edema. No pneumothorax. No effusion. HEART: Unremarkable. Cardiac silhouette not enlarged. MEDIASTINUM: Central airways and mediastinal contour are unremarkable. BONES/JOINTS: Unremarkable. No acute fracture. SOFT TISSUES: Unremarkable. RAD/Chest 1 View (Portable) IMPRESSION: No radiographic evidence of acute cardiopulmonary disease. Electronically Signed: Kendall Schulz MD at 5:40 EST ,
[2023-07-18] MEDS: Acetaminophen 500 MG Tablet 1000 MG PO (05:12)
--- OUTSIDE RECORDS SUMMARY | 2023-07-18 05:12 | XMS RPT_ITS | CCD ---
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 Name Role Phone Raudel Joyner Primary Care Provider Raudel Joyner MD Primary Care Provider Yeison Velazquez MD Unavailable Bisi Eng MD Unavailable Linda SEGUNDO, Alexander Unavailable Puma Rivera MD Unavailable Ollie SEGUNDO, MPH, Sunil Unavailable Raudel Joyner MD Primary Care Provider Raudel Joyner MD Primary Care Provider Ollie SEGUNDO, MPH, Sunil Unavailable Ollie SEGUNDO, MPH, Sunil Unavailable [phone] Raudel Joyner MD Primary Care Provider RAUDEL JOYNER Primary Care Unavailable VELASQUEZ, BISI L Referring Unavailable GHALIB, ALEXANDER Attending Unavailable RAUDEL JOYNER Primary Care Unavailable VELASQUEZ, BISI L Attending Unavailable RAUDEL JOYNER Referring Unavailable RAUDEL JOYNER Primary Care Unavailable GHALIB, ALEXANDER Attending Unavailable GHALIB, ALEXANDER Referring Unavailable YEISON VELAZQUEZ Referring Unavailable CARRDEJAN, BISI L Attending Unavailable RAUDEL JOYNER Primary Care Unavailable CARRDEJAN, BISI L Referring Unavailable GHALIB, ALEXANDER Attending Unavailable RAUDEL JOYNER Primary Care Unavailable VELASQUEZ, BISI L Referring Unavailable GHALIB, ALEXANDER Attending Unavailable AR, RAUDEL Primary Care Unavailable CARRBISI WYLIE Attending Unavailable CARRAUBEATAO L Referring Unavailable AR, RAUDEL Primary Care Unavailable YEISON VELAZQUEZ Attending Unavailable PREVEDELLOYEISON Referring Unavailable AR, RAUDEL Primary Care Unavailable PREVEDELLOYEISON M Referring Unavailable PREVEDYEISON ALEXANDRE Attending Unavailable AR, RAUDEL Primary Care Unavailable AR, RAUDEL Primary Care Unavailable CARRBEATA WYLIEO L Referring Unavailable CARRAUBEATAO Chastity Attending Unavailable PREVEDELLOYEISON Referring Unavailable AR, RAUDEL Primary Care Unavailable PREVEDYEISON ALEXANDRE Attending Unavailable Raudel Joyner MD Faraz Primary Care Provider ANDREW PATEL Attending Unavailable [facility] Unavailabl e AR, RAUDEL Primary Care Unavailable AR, RAUDEL Attending Unavailable AR, RAUDEL Primary Care Unavailable AR, RAUDEL Attending Unavailable AR, RAUDEL Primary Care Unavailable AR, RAUDEL Attending Unavailable AR, RAUDEL Primary Care Unavailable AR, RAUDEL Attending Unavailable AR, RAUDEL Primary Care Unavailable Allergies Allergy Classification Reported Allergen(s) Allergy Type Date of Onset Reaction(s) Facility (14 sources) Penicillins; Translations: [PENICILLINS] Propensity to adverse reactions to drug 07-10-2003 [place], [place] (20 sources) Terazosin Drug Allergy 12-24-2015 [place], [place] (8 sources) Penicillins Drug Intolerance 07-10-2003 [facility] Medications Current Medications Medication Drug Class(es) Dates Sig (Normalized) Sig (Original) acetaminophen 325 mg oral tablet (2 sources) Start: 03-01-2020 acetaminophen (TYLENOL) tablet 650 mg Completed/Discontinued Medications Medication Drug Class(es) Dates Sig (Normalized) Sig (Original) desmopressin acetate 0.1 mg oral tablet (19 sources) Vasopressin Analog, Factor VIII Activator Start: 10-03-2021 End: 07-05-2023 desmopressin (DDAVP) 0.1 MG tablet Take 50 mcg by mouth Nightly. 0 10/03/2021 07/05/2023 Discontinued (Therapy completed) Problems Active Problems Problem Classification Problem Date Documented Date Episodic/Chronic Deficiency and other anemia (9 sources) Iron deficiency anemia due to blood loss; Translations: [Iron deficiency anemia secondary to blood loss (chronic)] Onset: 01-02-2022 2022 Chronic Deficiency and other anemia (2 sources) Iron deficiency anemia secondary to blood loss (chronic); Translations: [Iron deficiency anemia secondary to blood loss (chronic)] Onset: 2022 Chronic Diabetes mellitus with complications (2 sources) Type 2 diabetes mellitus with hyperosmolarity without nonketotic hyperglycemic-hyperos molar coma ([facility]); Translations: [Type 2 diabetes mellitus with hyperosmolarity without nonketotic hyperglycemic-hyperos molar coma ([facility]) (HCC)] Onset: 2022 Chronic Diabetes mellitus without complication (19 sources) Type 2 diabetes mellitus; Translations: [Type 2 diabetes mellitus without complications] Onset: 01-02-2022 Resolved: 09-07-2022 2022 Chronic Disorders of lipid metabolism (20 sources) Hyperlipidemia; Translations: [Hyperlipidemia, unspecified] Onset: 12-23-2015 12-23-2015 Chronic Diverticulosis and diverticulitis (16 sources) Hemorrhage of large intestine with diverticular disease of large intestine; Translations: [Diverticulosis of large intestine without perforation or abscess with bleeding] Onset: 12-27-2021 2022 Chronic Essential hypertension (20 sources) Essential hypertension; Translations: [Essential (primary) hypertension] Onset: 12-23-2015 12-23-2015 Chronic Hyperplasia of prostate (20 sources) Benign prostatic hyperplasia; Translations: [Benign prostatic hyperplasia without lower urinary tract symptoms] Onset: 12-23-2015 12-23-2015 Chronic Inflammatory conditions of male genital organs (8 sources) Balanitis; Translations: [Balanitis] Onset: 06-04-2022 06-04-2022 Chronic Miscellaneous mental health disorders (13 sources) Primary insomnia; Translations: [Primary insomnia] Onset: 12-26-2019 12-26-2019 Chronic Osteoarthritis (20 sources) Osteoarthritis of knee; Translations: [Unilateral primary osteoarthritis, unspecified knee] Onset: 11-03-2021 11-03-2021 Chronic Other circulatory disease (1 source) Other specified symptoms and signs involving the circulatory and respiratory systems; Translations: [Other symptoms involving cardiovascular system] Episodic Other circulatory disease (1 source) Carotid bruit; Translations: [Other specified symptoms and signs involving the circulatory and respiratory systems] Episodic Other diseases of bladder and urethra (10 sources) Bladder neck obstruction; Translations: [Bladder-neck obstruction] Onset: 03-25-2010 08-21-2021 Chronic Other endocrine disorders (10 sources) Pituitary mass; Translations: [Other disorders of pituitary gland] Onset: 08-08-2021 08-20-2021 Chronic Other endocrine disorders (20 sources) Hypocortisolism secondary to another disorder; Translations: [Other adrenocortical insufficiency] Onset: 08-20-2021 09-03-2021 Chronic Other endocrine disorders (20 sources) Pituitary apoplexy; Translations: [Other disorders of pituitary gland] Onset: 08-08-2021 09-03-2021 Chronic Other endocrine disorders (20 sources) Hypopituitarism; Translations: [Hypopituitarism] Onset: 08-20-2021 09-03-2021 Chronic Other endocrine disorders (20 sources) Male hypogonadism; Translations: [Testicular hypofunction] Onset: 08-20-2021 09-03-2021 Chronic Other endocrine disorders (2 sources) Other disorders of pituitary gland; Translations: [Other disorders of pituitary gland] Onset: 08-25-2022 Chronic Other endocrine disorders (3 sources) Hypopituitarism; Translations: [Hypopituitarism] Onset: 2022 Chronic Other endocrine disorders (2 sources) Other adrenocortical insufficiency; Translations: [Other adrenocortical insufficiency] Onset: 08-25-2022 Chronic Other endocrine disorders (2 sources) Testicular hypofunction; Translations: [Testicular hypofunction] Onset: 08-25-2022 Chronic Other endocrine disorders (2 sources) Diabetes insipidus; 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] Onset: 08-25-2022 Chronic Other hereditary and degenerative nervous system conditions (13 sources) Restless legs; Translations: [Restless legs syndrome] Onset: 12-12-2018 12-12-2018 Chronic Other hereditary and degenerative nervous system conditions (2 sources) Restless legs syndrome; Translations: [Restless legs syndrome] Onset: 2022 Chronic Other lower respiratory disease (2 sources) Cough; Translations: [Cough] Onset: 11-03-2021 Episodic Other nervous system disorders (14 sources) Neuropathy; Translations: [Idiopathic progressive neuropathy] Onset: 12-23-2015 12-23-2015 Chronic Other nervous system disorders (1 source) Idiopathic progressive neuropathy; Translations: [Idiopathic progressive neuropathy] Onset: 2022 Chronic Other screening for suspected conditions (not mental disorders or infectious disease) (1 source) Patient encounter status; Translations: [Encounter for screening for malignant neoplasm of prostate] Episodic Other upper respiratory disease (1 source) Chronic rhinitis; Translations: [Chronic rhinitis] Chronic Residual codes; unclassified (11 sources) Obstructive sleep apnea syndrome; Translations: [Obstructive sleep apnea (adult) (pediatric)] Onset: 03-11-2020 03-11-2020 Chronic Residual codes; unclassified (2 sources) Obstructive sleep apnea (adult) (pediatric); Translations: [Obstructive sleep apnea (adult) (pediatric)] Onset: 2022 Chronic Residual codes; unclassified (2 sources) Dependence on other enabling machines and devices; Translations: [Dependence on other enabling machines and devices] Onset: 2022 Chronic Thyroid disorders (20 sources) Acquired hypothyroidism; Translations: [Hypothyroidism, unspecified] Onset: 08-20-2021 09-03-2021 Chronic Unclassified (1 source) Sebaceous cyst of skin; Translations: [Sebaceous cyst] Onset: 12-23-2015 12-23-2015 Past or Other Problems Problem Classification Problem Date Documented Da te Episodic/Chronic Acute posthemorrhagic anemia (8 sources) Acute posthemorrhagic anemia; Translations: [Acute posthemorrhagic anemia] Onset: 2 2022 Episodic Cancer; other and unspecified primary (2 sources) Personal history of other benign neoplasm; Translations: [Personal history of other benign neoplasm] Onset: 2 Episodic Deficiency and other anemia (19 sources) Anemia; Translations: [Anemia, unspecified] Onset: 2 08-13-2021 Episodic Deficiency and other anemia (2 sources) Anemia, unspecified; Translations: [Anemia, unspecified] Onset: 2 Episodic Fever of unknown origin (3 sources) Fever; Translations: [Fever, unspecified fever cause] Onset: 3 Episodic Fluid and electrolyte disorders (10 sources) Disorder of electrolytes; Translations: [Other disorders of electrolyte and fluid balance, not elsewhere classified] Onset: 2 08-16-2021 Episodic Gastrointestinal hemorrhage (20 sources) Gastrointestinal hemorrhage; Translations: [Gastrointestinal hemorrhage, unspecified] Onset: 2 Resolved: 3 2022 Episodic Mood disorders (10 sources) Mood disorders Onset: 2 Resolved: 2 09-09-2021 Other and unspecified benign neoplasm (20 sources) Pituitary adenoma; Translations: [Benign neoplasm of pituitary gland] Onset: 2 08-20-2021 Episodic Other and unspecified benign neoplasm (4 sources) Benign neoplasm of pituitary gland; Translations: [Benign neoplasm of pituitary gland] Onset: 2 Episodic Other connective tissue disease (11 sources) Muscle pain; Translations: [Myalgia, unspecified site] Onset: 8 10-06-2017 Episodic Other diseases of kidney and ureters (10 sources) Kidney disease; Translations: [Disorder of kidney and ureter, unspecified] Onset: 2 08-16-2021 Episodic Other lower respiratory disease (10 sources) Wheezing; Translations: [Wheezing] Onset: 2 Episodic Other skin disorders (20 sources) Actinic keratosis; Translations: [Actinic keratosis] Onset: 6 12-23-2015 Episodic Other skin disorders (10 sources) Sebaceous cyst of skin; Translations: [Sebaceous cyst] Onset: 6 12-23-2015 Episodic Residual codes; unclassified (2 sources) Other specified postprocedural states; Translations: [Other specified postprocedural states] Onset: 2 Episodic Septicemia (except in labor) (8 sources) Sepsis; Translations: [Sepsis, unspecified organism] Onset: 2 Resolved: 2 06-04-2022 Episodic Syncope (9 sources) Vasovagal syncope; Translations: [Syncope and collapse] Onset: 3 Episodic Unclassified (1 source) Onset: 2 01-13-2022 Results Test Name Value Interpretation Reference Range Facil ity Vital Signs Date Time Vital Sign Value Performing Clinician Faci lity 01-08-2024 07:58-0500 Body height 177.8 cm Raudel Joyner MD Work Phone: [employer] [facility] 07-05-2023 07:58-0500 Body mass index (BMI) [Ratio] 29.18 kg/m2 Raudel Joyner MD Work Phone: [employer] [facility] 07-05-2023 07:58-0500 Body weight 92.26 kg Raudel Joyner MD Work Phone: [employer] [facility] 07-05-2023 07:58-0500 Diastolic blood pressure 70 mm[Hg] Raudel Joyner MD Work Phone: [employer] [facility] 07-05-2023 07:58-0500 Heart rate 73 /min Raudel Joyner MD Work Phone: [employer] [facility] 07-05-2023 07:58-0500 SaO2% (BldA) [Mass fraction] 96 % Raudel Joyner MD Work Phone: [employer] [facility] 07-05-2023 07:58-0500 Systolic blood pressure 112 mm[Hg] Raudel Joyner MD Work Phone: [employer] [facility] 03-10-2023 09:10-0400 Body height 177.8 cm Raudel Joyner MD Work Phone: [employer] [facility] 03-10-2023 09:10-0400 Body mass index (BMI) [Ratio] 28.96 kg/m2 Raudel Joyner MD Work Phone: [employer] [facility] 03-10-2023 09:10-0400 Body weight 91.54 kg Raudel Joyner MD Work Phone: [employer] [facility] 03-10-2023 09:10-0400 Diastolic blood pressure 70 mm[Hg] Raudel Joyner MD Work Phone: [employer] [facility] 03-10-2023 09:10-0400 Heart rate 70 /min Raudel Joyner MD Work Phone: [employer] [facility] 03-10-2023 09:10-0400 SaO2% (BldA) [Mass fraction] 97 % Raudel Joyner MD Work Phone: [facility] 03-10-2023 09:10-0400 Systolic blood pressure 113 mm[Hg] Raudel Joyner MD Work Phone: [facility] 09-17-2022 08:27-0400 Body height 177.8 cm Raudel Joyner MD Work Phone: [facility] 09-17-2022 08:27-0400 Body mass index (BMI) [Ratio] 29.13 kg/m2 Raudel Joyner MD Work Phone: [facility] 09-17-2022 08:27-0400 Body temperature 97.9 [degF] Raudel Joyner MD Work Phone: [facility] 09-17-2022 08:27-0400 Body weight 92.08 kg Raudel Joyner MD Work Phone: [facility] 09-17-2022 08:27-0400 Diastolic blood pressure 60 mm[Hg] Raudel Joyner MD Work Phone: [facility] 09-17-2022 08:27-0400 Heart rate 89 /min Raudel Joyner MD Work Phone: [facility] 09-17-2022 08:27-0400 Systolic blood pressure 107 mm[Hg] Raudel Joyner MD Work Phone: [facility] 01-13-2022 13:27-0400 Body mass index (BMI) [Ratio] 28.42 kg/m2 Bisi Eng MD Work Phone: [facility] 01-13-2022 13:27-0400 Body temperature 97.2 [degF] Bisi Eng MD Work Phone: [facility] 01-13-2022 13:27-0400 Body weight 92.44 kg Bisi Eng MD Work Phone: [facility] 01-13-2022 13:27-0400 Diastolic blood pressure 69 mm[Hg] Bisi Eng MD Work Phone: [facility] 01-13-2022 13:27-0400 Heart rate 78 /min Bisi Eng MD Work Phone: [facility] 01-13-2022 13:27-0400 Respiratory rate 16 /min Bisi Eng MD Work Phone: [facility] 01-13-2022 13:27-0400 SaO2% (BldA) [Mass fraction] 97 % Bisi Eng MD Work Phone: [facility] 01-13-2022 13:27-0400 Systolic blood pressure 139 mm[Hg] Bisi Eng MD Work Phone: [facility] 01-13-2022 09:59-0400 Body height 180.3 cm Yeison Velazquez MD Work Phone: [facility] 01-13-2022 09:59-0400 Diastolic blood pressure 90 mm[Hg] Yeison Velazquez MD Work Phone: [facility] 01-13-2022 09:59-0400 Heart rate 80 /min Yeison Velazquez MD Work Phone: [facility] 01-13-2022 09:59-0400 Systolic blood pressure 177 mm[Hg] Yeison Velazquez MD Work Phone: [facility] 10-07-2021 15:21-0400 Body mass index (BMI) [Ratio] 26.89 kg/m2 Alexander Mckeon MD Work Phone: [facility] 10-07-2021 15:21-0400 Body temperature 98.49 [degF] Alexander Mckeon MD Work Phone: [facility] 10-07-2021 15:21-0400 Body weight 87.45 kg Alexander Mckeon MD Work Phone: [facility] 10-07-2021 15:21-0400 Diastolic blood pressure 79 mm[Hg] Alexander Mckeon MD Work Phone: [facility] 10-07-2021 15:21-0400 Heart rate 77 /min Alexander Mckeon MD Work Phone: [facility] 10-07-2021 15:21-0400 Respiratory rate 20 /min Alexander Mckeon MD Work Phone: [facility] 10-07-2021 15:21-0400 SaO2% (BldA) [Mass fraction] 97 % Alexander Mckeon MD Work Phone: [facility] Encounters Encounter Date Encounter Type Care Provider Facility Start: 07-05-2023 End: 07-05-2023 Refill Raudel Joyner MD Work Phone: [facility] Start: 07-05-2023 End: 07-05-2023 Office outpatient visit 25 minutes Raudel Joyner MD Work Phone: [facility] Procedures Date Procedure Procedure Detail Performing Clinician Start: 07-05-2023 Thyrotropin [Units/volume] in Serum or Plasma Raudel Joyner MD Work Phone: Start: 03-10-2023 Ecg routine ecg w/least 12 lds w/i&r Raudel Joyner MD Work Phone: Start: 03-10-2023 Thyrotropin [Units/volume] in Serum or Plasma Raudel Joyner MD Work Phone: Start: 09-07-2022 Adult depression screening assessment Raudel Joyner MD Work Phone: Start: 09-07-2022 Lipid 1996 panel - Serum or Plasma Raudel Joyner MD Work Phone: Start: 01-13-2022 Follow-up visit Follow-up BISI Haywood PIADEJAN Start: 01-13-2022 Assay of testosterone total Alexander Mckeon MD Work Phone: Start: 01-13-2022 Urnls dip stick/tablet rgnt non-auto w/o micrscp Alexander Mckeon MD Work Phone: Start: 10-07-2021 Assay of free thyroxine Alexander Mckeon MD Work Phone: Start: 10-07-2021 Urnls dip stick/tablet rgnt non-auto w/o micrscp Alexander Mckeon MD Work Phone: Start: 03-01-2020 Urnls dip stick/tablet rgnt auto w/o microscopy Diego Rosa Work Phone: Start: 03-01-2020 Assay of troponin quantitative Diego Rosa Work Phone: Start: 03-01-2020 Blood count complete auto&auto difrntl wbc Diego Rosa Work Phone: Start: 03-01-2020 LACTATE, SEPSIS Diego Rosa Work Phone: Start: 03-01-2020 Radiologic exam chest single view Diego Rosa Work Phone: H/O: surgery S/P selective transsphenoidal pituitary adenomectomy Yeison Velazquez MD Work Phone: Plan of Treatment Date Care Activity Detail Author Start: 12-22-2025 DTaP/Tdap/Td vaccine (2 - Td or Tdap) DTaP/Tdap/Td vaccine (2 - Td or Tdap) [facility] Start: 12-22-2025 DTaP/Tdap/Td vaccine (2 - Td) DTaP/Tdap/Td vaccine (2 - Td) [place] Start: 12-22-2025 DTaP/Tdap/Td Vaccine s (2 - Td or Tdap) DTaP/Tdap/Td Vaccines (2 - Td or Tdap) [facility] Start: 07-05-2024 Thyroid stimulating hormone measurement TSH Level [facility] Start: 03-10-2024 Thyroid stimulating hormone measurement TSH Level [facility] Start: 10-07-2023 End: 10-07-2023 Patient encounter procedure 10/07/2023 8:00 AM EDT Office Visit [place] [address] [facility] [place] [address] [place] [address] Raudel Joyner MD [address] [place] [address] [place] [address] [facility] Start: 09-09-2023 End: 09-09-2023 Patient encounter procedure [facility] Start: 09-08-2023 Depression Screening Depression Scre ening [facility] Start: 09-08-2023 Diabetic foot examination Diabetes: Foot Exam [facility] Start: 09-08-2023 Lipid panel Lipid Panel [facility] Start: 09-08-2023 Urine screening for protein Diabetes: Urine Protein Screening [facility] Start: 09-08-2023 Zoster Vaccines (3 of 3) Zoste r Vaccines (3 of 3) [facility] Immunizations Immunization Date Immunization Notes Care Provider Fa cility 07-10-2020 zoster vaccine recombinant Dharmesh García MD Work Phone: [facility] 01-25-2017 pneumococcal conjuga te vaccine, 13 valent [facility], [place] 12-27-2015 pneumococcal polysaccharide vaccine, 23 valent [facility], [place] 12-23-2015 tetanus toxoid, redu zachariah diphtheria toxoid, and acellular pertussis vaccine, adsorbed [facility], [place] 08-24-2013 zoster vaccine, live [facility], [place] Payers Date Payer Category Payer Medicare [id number] 2021 Medicare [id number] 2014 Medicare [employer] MEDICARE A ETNA MEDICARE-ADVANTAGE PPO [id number] 2014-Present [address] [place] [address] Medicare [id number] 1941 Unknown [id number] 1941 Unknown [id number] 1941 Unknown [id number] 1941 Unknown [id number] 1941 Unknown [id number] 1941 Unknown [id number] 1941 Unknown [id number] 1941 Unknown [id number] 1941 Unknown [id number] 1941 Unknown [id number] 1941 Unknown [id number] Social History Date Type Detail Facility Start: 03-01-2020 End: 05-26-2022 Tobacco smoking status NHIS Former smoker [place] Start: 06-28-1961 End: 06-28-1992 History of tobacco use Current [place]oker [place] Start: 03-01-2020 End: 05-26-2022 Tobacco use and exposure Former user [place] End: 07-05-2017 History of tobacco use Chews Tobacco [place] Start: 03-01-2020 End: 07-05-2023 Alcohol intake Current non-drinker of alcohol (finding) [place] Start: 07-31-2019 End: 09-07-2022 History SDOH Alcohol Frequency 1 [place] Start: 07-31-2019 History SDOH Physica l Activity DPW 3 [place] Start: 07-31-2019 End: 09-07-2022 History SDOH Physical Activity MPS 5 [place] Start: 07-31-2019 End: 09-07-2022 History SDOH Transport Med 2 [place] Start: 1940 Sex Assigned At Not on file [place] Start: 08-13-2021 End: 03-10-2023 Exposure to SARS-CoV-2 (event) Not sure [place] Start: 09-03-2021 End: 09-07-2022 History SDOH Physical Activity DPW [address] [facility] Work Phone: Start: 09-17-2021 Tobacco smoking stat [facility] Never smoked tobacco [facility] Start: 09-17-2021 Tobacco use and exposure Smoke less tobacco non-user [facility] Start: [birth year]-28-1961 End: 06-28-1992 History of tobacco use Cigarette Smoker [facility] End: 07-05-2017 History of tobacco use User of smokeless tobacco [facility] Start: 05-26-2022 End: 09-07-2022 History of Social function [facility] Start: 05-26-2022 End: 09-07-2022 Humiliation, Afraid, Rape, and Kick questionnaire [HARK] [facility] Within the last year , have you been afraid of your partner or ex-partner? No [facility] How often to you hav e a drink containing alcohol? Never [facility] How many standard dr inks containing alcohol do you have on a typical day? Patient does not drink [facility] (I/We) worried wheth er (my/our) food would run out before (I/we) got money to buy more. Never true [facility] Medical Equipment Procedure Code Equipment Code Equipment Origin al Text Equipment Identifier Dates Matrix Tissue 2x 2in Duragen Plus Dural Bovine Collagen Patch - [id number] Start: 08-13-2021 Clinical Notes 09-09-2021 to 07-06-2023 Telephone Encounter - Dre Gu LPN - 07/06/2023 6:46 AM ESTTelephone Encounter - Dre Gu LPN - 07/06/2023 6:46 AM Jose Kimble MA - 07/05/2023 8:00 AM ESTPatient Instructions Note Date & Type Note Facility 07-06-2023 Telephone encounter Note Prescription Request: Last medication check: 03/09/22 Last physical exam: 09/07/22 Next scheduled appointment: 09/09/23 Last date of refill on this medication 02/18/23 #90 1 refill [facility] 07-06-2023 Miscellaneous Notes Prescription Request: Last medication check: 03/09/22 Last physical exam: 09/07/22 Next scheduled appointment: 09/09/23 Last date of refill on this medication 02/18/23 #90 1 refill documented in this encounter [facility] 07-05-2023 Evaluation + Plan note Associated Problem(s): Hyperlipidemia LDL goal <100 Controlled, continue strict low-fat low-cholesterol diet [facility] 07-05-2023 Evaluation + Plan note Associated Problem(s): Idiopathic progressive neuropathy Stable, currently on pregabalin 150 mg twice a day Patient would benefit from wearing diabetic shoes [facility] 07-05-2023 Miscellaneous Notes Associated Problem(s): Hyperlipidemia LDL goal <100 Controlled, continue strict low-fat low-cholesterol diet Associated Problem(s): Idiopathic progressive neuropathy Stable, currently on pregabalin 150 mg twice a day Patient would benefit from wearing diabetic shoes Associated Problem(s): Iron deficiency anemia due to chronic blood loss Stable, we will get repeat lab work today, continue current dose of iron Associated Problem(s): Acquired hypothyroidism Stable, continue levothyroxine 100 mcg daily Associated Problem(s): Type 2 diabetes mellitus (HCC) Uncontrolled, currently on no medications we will get repeat A1c today. Patient would benefit from wearing diabetic shoes. Associated Problem(s): Arthritis of finger of right hand Will check lab work for autoimmune disorders. Associated Problem(s): Essential hypertension Controlled, continue lisinopril 20 mg daily Associated Problem(s): Restless leg syndrome Uncontrolled, since he is on a high dose for Requip already will put him on Mirapex and try to maximize that dose and see how he does documented in this encounter [facility] 07-05-2023 Evaluation + Plan note Associated Problem(s): Iron deficiency anemia due to chronic blood loss Stable, we will get repeat lab work today, continue current dose of iron [facility] 07-05-2023 Evaluation + Plan note Associated Problem(s): Acquired hypothyroidism Stable, continue levothyroxine 100 mcg daily [facility] 07-05-2023 Evaluation + Plan note Associated Problem(s): Type 2 diabetes mellitus (HCC) Uncontrolled, currently on no medications we will get repeat A1c today. Patient would benefit from wearing diabetic shoes. [facility] 07-05-2023 Evaluation + Plan note Associated Problem(s): Arthritis of finger of right hand Will check lab work for autoimmune disorders. [facility] 07-05-2023 Evaluation + Plan note Associated Problem(s): Essential hypertension Controlled, continue lisinopril 20 mg daily [facility] 07-05-2023 Evaluation + Plan note Associated Problem(s): Restless leg syndrome Uncontrolled, since he is on a high dose for Requip already will put him on Mirapex and try to maximize that dose and see how he does [facility] 07-05-2023 History of Present illness Narrative Patient verified by last name and date of . Images from the original note were not included. 07/05/2023 Hari Fisher (: 1940) is a 83 y.o. male , Established patient, here for evaluation of the following chief complaint(s): Blood Work (Pt is asking for lab work- wants to know blood count, A1c, and lipid) and Health Maintenance (Flu vaccine- refuse/Rsv vaccine- not done/Covid vaccine- not done) ASSESSMENT/PLAN: 1. Type 2 diabetes mellitus with hyperosmolarity without coma, without long-term current use of insulin ([facility]/HCC) ([facility]) Assessment & Plan: Uncontrolled, currently on no medications we will get repeat A1c today. Patient would benefit from wearing diabetic shoes. Orders: - Comprehensive metabolic panel - Hemoglobin A1c 2. Acquired hypothyroidism Assessment & Plan: Stable, continue levothyroxine 100 mcg daily Orders: - TSH 3. Essential hypertension Assessment & Plan: Controlled, continue lisinopril 20 mg daily 4. Restless leg syndrome Assessment & Plan: Uncontrolled, since he is on a high dose for Requip already will put him on Mirapex and try to maximize that dose and see how he does 5. Hyperlipidemia LDL goal <100 Assessment & Plan: Controlled, continue strict low-fat low-cholesterol diet 6. Iron deficiency anemia due to chronic blood loss Assessment & Plan: Stable, we will get repeat lab work today, continue current dose of iron Orders: - CBC 7. Arthritis of finger of right hand Assessment & Plan: Will check lab work for autoimmune disorders. Orders: - Uric acid - C-reactive protein - CHRIS - Rheumatoid factor - Sedimentation rate, automated 8. Idiopathic progressive neuropathy Assessment & Plan: Stable, currently on pregabalin 150 mg twice a day Patient would benefit from wearing diabetic shoes Follow up in about 3 months (around 10/04/2023). SUBJECTIVE/OBJECTIVE: CECILIA Mel comes in today for 6-month follow-up on his diabetes, hypothyroidism, hypertension and restless leg syndrome which she says is not well-controlled on his current medication of Requip 2 mg twice a day. Also here for follow-up on his hyperlipidemia iron deficiency anemia and he is complaining of some pain in his fingers on his right hand. Review of Systems Constitutional: Negative for activity change, appetite change, chills, fever and unexpected weight change. HENT: Negative for ear pain and sore throat. Respiratory: Negative for shortness of breath. Cardiovascular: Negative for chest pain and palpitations. Gastrointestinal: Negative for abdominal pain, blood in stool, constipation and diarrhea. Genitourinary: Negative for dysuria, frequency, hematuria and urgency. Musculoskeletal: Negative for arthralgias and back pain. Skin: Negative. Neurological: Negative for weakness and numbness. Psychiatric/Behavioral: Negative for dysphoric mood. The patient is not nervous/anxious. Vitals: 07/05/23 0758 BP: 112/70 Pulse: 73 SpO2: 96% Weight: 203 lb 6.4 oz (92.3 kg) Height: 5' 10 (1.778 m) Physical Exam Vitals and nursing note reviewed. Constitutional: General: He is not in acute distress. Appearance: Normal appearance. HENT: Right Ear: Tympanic membrane, ear canal and external ear normal. Left Ear: Tympanic membrane, ear canal and external ear normal. Mouth/Throat: Mouth: Mucous membranes are moist. Pharynx: Oropharynx is clear. Eyes: Extraocular Movements: Extraocular movements intact. Conjunctiva/sclera: Conjunctivae normal. Pupils: Pupils are equal, round, and reactive to light. Neck: Thyroid: No thyromegaly. Vascular: No carotid bruit. Cardiovascular: Rate and Rhythm: Normal rate and regular rhythm. Heart sounds: Normal heart sounds. No murmur heard. Pulmonary: Effort: Pulmonary effort is normal. Breath sounds: Normal breath sounds. Abdominal: General: Bowel sounds are normal. Palpations: Abdomen is soft. Tenderness: There is no abdominal tenderness. Musculoskeletal: General: Normal range of motion. Cervical back: Neck supple. Lymphadenopathy: Cervical: No cervical adenopathy. Skin: General: Skin is warm and dry. Neurological: General: No focal deficit present. Mental Status: He is alert and oriented to person, place, and time. Comments: Diabetic foot check: Normal strength and range of motion of toes, feet, and ankles bilaterally. No joint deformity. No cyanosis or clubbing. 100% sensation with 10 gram filament. Dorsalis pedis pulses intact bilaterally. Capillary refill at the toes was less than 2 seconds. Light touch sensation intact bilaterally. Hair growth present on feet and toes bilaterally. No skin breakdown, erythema, rub spots, blisters, scaling, or ulcers. No calluses or corns. Toenails thin and not ingrown. No evidence of fungal infection. Psychiatric: Mood and Affect: Mood normal. An electronic signature was used to authenticate this note. Raudel Joyner MD 07/05/2023 11:50 AM documented in this encounter [facility] 05-31-2023 Note HNO ID: [id number] Author: Andrew Patel Service: ? Author Type: Physician Type: Progress Notes Filed: 05/31/2023 9:08 AM Note Text: Initial Office Visit Subjective: This 83 year old male presents to clinic for diabetic foot check. Patient admits to being diabetic for several years now. Patient +B/T/N in feet at this time. Has neuropathy and this has led to balance issues. Patient -pain in legs when walking. No other pedal complaints at this time. No change in medications or medical history since last visit. PAIN EVALUATION No data found in the last 1 encounters. Hemoglobin A1C (%) Date Value 06/05/2015 6.2 PCP: Raudel Joyner MD PAST MEDICAL HISTORY Diagnosis Date Mixed hyperlipidemia Hyperlipidemia Unspecified essential hypertension Essential hypertension Current Outpatient Medications Medication Sig desmopressin acetate (DDAVP) 0.1 mg tablet Take 0.05 mg by mouth once daily. evening FEROSUL 325 mg (65 mg iron) tablet Take 1 tablet by mouth daily with breakfast. hydrocortisone (CORTEF) 5 mg tablet take 3 tablets by mouth every morning and 1 tablet every evening ... (REFER TO PRESCRIPTION NOTES). levothyroxine (SYNTHROID) 100 mcg tablet Take 100 mcg by mouth daily before breakfast. sitaGLIPtin phosphate (JANUVIA) 100 mg tablet Take 1 tablet by mouth once daily. amLODIPine (NORVASC) 5 mg tablet Take 5 mg by mouth once daily. niacin (NIACIN) 500 mg tablet Take 1 tablet by mouth twice daily with meals. potassium gluconate 550 mg (90 mg) tab Take by mouth once daily. rOPINIRole (REQUIP) 1 mg tablet Take 1 tablet by mouth twice daily. pregabalin (LYRICA) 150 mg ORAL Cap 1 tablet 2 times daily lisinopril 10 mg ORAL tablet Take one(1) tablet daily. tramadol (ULTRAM) 50 mg ORAL Tab Take one(1) tablet twice daily as needed. multivitamin (DAILY MULTIVITAMIN) ORAL Tab Take one(1) tablet daily. melatonin 1 mg tab Take by mouth daily at bedtime. (Patient not taking: Reported on 05/31/2023) terazosin (HYTRIN) 5 mg capsule Take 1 capsule by mouth once daily. (Patient not taking: Reported on 05/31/2023) COMPOUNDED PRESCRIPTION fish oil 1200mg po daily x 2 capsules (Patient not taking: Reported on 05/31/2023) COMPOUNDED PRESCRIPTION osteo bi-flex 2 tablets po daily (Patient not taking: Reported on 05/31/2023) aspirin EC (ADULT ASPIRIN EC LOW STRENGTH) 81 mg ORAL TbEC Take one(1) tablet daily. (Patient not taking: Reported on 05/31/2023) No current facility-administered medications for this visit. ALLERGIES Allergen Reactions Terazosin Other: See Comments dizzy Penicillins PAST SURGICAL HISTORY Procedure Laterality Date APPENDECTOMY PAST SURGICAL HISTORY OF 1988 Fistula RMVL LENS MATERIAL PHACOFRAGMENTATION ASPIR 2009 Cataract Extraction left SEPTOPLASTY/SUBMUCOUS RESECJ W/WO CARTILAGE GRF Septoplasty FAMILY HISTORY Problem Relation Age of Onset Cancer Mother Cancer Father Lymph nodes Social History Tobacco Use Smoking status: Former Packs/day: 1 Types: Cigarettes Quit date: 06/09/1987 Years since quittin.0 Smokeless tobacco: Current Types: Snuff Vaping Use Vaping Use: Never used Substance Use Topics Alcohol use: No Drug use: No REVIEW OF SYSTEMS GENERAL: Negative for Malaise, significant weight loss, fever RESPIRATORY: Negative for cough, wheezing and shortness of breath CARDIOVASCULAR: Negative for chest pain, leg swelling and palpitations GI: Negative for abdominal discomfort, blood in stools or black stools and change in bowel habits : Negative for dysuria, frequency and incontinence MUSCULOSKELETAL: Negative for joint pain or swelling, back pain, and muscle pain. SKIN: Negative for lesions, rash, and itching. HEMATOLOGY/LYMPHOLOGY Negative for prolonged bleeding, bruising easily, and swollen nodes. ENDOCRINE: Negative for cold or heat intolerance, polyuria, polydipsia and goiter. NEURO: negative The remainder of the review of systems is noncontributory. Objective: Patient presents to clinic ambulating in [facility] Constitutional: Pt is a well developed 83 year old male who is alert, oriented, cooperative and in no apparent distress. Eyes: Following during examination. No redness or drainage. Respiratory: RR normal and nonlabored. Even breathing. No evidence of distress. Psychology: Patient is engaged during conversation. Normal affect and mood. Does not appear depressed or anxious. Vasc: DP and PT pulses are palpable bilateral. CFT is less than 5 seconds bilateral. Skin temperature is warm to warm proximal to distal bilateral. There is mild edema or varicosities noted. Hair growth present. Neuro: Protective sensation is intact to the foot and toes when tested with the 5.07 SWM bilateral. Vibratory sensation is decreased at the hallux bilateral. + Significant neurological defecits. Derm: Inspection and palpation performed. Nails 1-5 b/l are normal in length and thickne (more content not included)... [facility] 05-31-2023 Note HNO ID: [id number] Author: Annmarie Ledezma RN Service: ? Author Type: Registered Nurse Type: Progress Notes Filed: 05/31/2023 9:08 AM Note Text: Patient presents with: Left Foot - New, Diabetic Foot Care Right Foot - New, Diabetic Foot Care Patient presents for order for diabetic shoes. KATHARINE 08/30/19. Has history of neuropathy. [facility] 03-10-2023 Evaluation + Plan note Associated Problem(s): Hyperlipidemia LDL goal <100 Stable, continue low-fat low-cholesterol diet [facility] 03-10-2023 Evaluation + Plan note Associated Problem(s): Anemia, unspecified Stable, will get repeat lab work today [facility] 03-10-2023 Miscellaneous Notes Associated Problem(s): Hyperlipidemia LDL goal <100 Stable, continue low-fat low-cholesterol diet Associated Problem(s): Anemia, unspecified Stable, will get repeat lab work today Associated Problem(s): Type 2 diabetes mellitus (HCC) Controlled, continue low-carb diet Associated Problem(s): Acquired hypothyroidism Stable, continue levothyroxine 100 mcg daily Associated Problem(s): Arthritis of right knee Stable, needs clearance for surgery Associated Problem(s): Essential hypertension Controlled, continue amlodipine 5 mg daily lisinopril 20 mg daily Associated Problem(s): Restless leg syndrome Partially controlled on his ropinirole 1 mg 4 times a day Associated Problem(s): Pituitary adenoma (HCC) Resolved, currently stable Associated Problem(s): ESSENCE on CPAP Stable, continue CPAP every night 4 hours plus. Associated Problem(s): Idiopathic progressive neuropathy Stable, continue pregabalin 150 mg twice a day documented in this encounter [facility] 03-10-2023 Evaluation + Plan note Associated Problem(s): Type 2 diabetes mellitus (HCC) Controlled, continue low-carb diet [facility] 03-10-2023 Evaluation + Plan note Associated Problem(s): Acquired hypothyroidism Stable, continue levothyroxine 100 mcg daily [facility] 03-10-2023 Evaluation + Plan note Associated Problem(s): Arthritis of right knee Stable, needs clearance for surgery [facility] 03-10-2023 Evaluation + Plan note Associated Problem(s): Essential hypertension Controlled, continue amlodipine 5 mg daily lisinopril 20 mg daily [facility] 03-10-2023 Evaluation + Plan note Associated Problem(s): Restless leg syndrome Partially controlled on his ropinirole 1 mg 4 times a day [facility] 03-10-2023 Evaluation + Plan note Associated Problem(s): Pituitary adenoma (HCC) Resolved, currently stable [facility] 03-10-2023 Evaluation + Plan note Associated Problem(s): ESSENCE on CPAP Stable, continue CPAP every night 4 hours plus. [facility] 03-10-2023 Evaluation + Plan note Associated Problem(s): Idiopathic progressive neuropathy Stable, continue pregabalin 150 mg twice a day [facility] 03-10-2023 History of Present illness Narrative Patient verified by last name and date of . Images from the original note were not included. 03/10/2023 Hari Fisher (: 1940) is a 82 y.o. male , Established patient, here for evaluation of the following chief complaint(s): Pre-op Exam (Right knee surgery- [facility] they will not sched until he has medical clearance) ASSESSMENT/PLAN: 1. Arthritis of right knee Assessment & Plan: Stable, needs clearance for surgery 2. Pre-op examination - ECG 12 lead 3. Pituitary adenoma (HCC) Assessment & Plan: Resolved, currently stable 4. ESSENCE on CPAP Assessment & Plan: Stable, continue CPAP every night 4 hours plus. 5. Idiopathic progressive neuropathy Assessment & Plan: Stable, continue pregabalin 150 mg twice a day 6. Restless leg syndrome Assessment & Plan: Partially controlled on his ropinirole 1 mg 4 times a day 7. Essential hypertension Assessment & Plan: Controlled, continue amlodipine 5 mg daily lisinopril 20 mg daily 8. Type 2 diabetes mellitus with hyperosmolarity without coma, without long-term current use of insulin ([facility]/HCC) (HCC) Assessment & Plan: Controlled, continue low-carb diet Orders: - Comprehensive metabolic panel - Hemoglobin A1c 9. Acquired hypothyroidism Assessment & Plan: Stable, continue levothyroxine 100 mcg daily Orders: - TSH 10. Hyperlipidemia LDL goal <100 Assessment & Plan: Stable, continue low-fat low-cholesterol diet Orders: - Lipid panel 11. Anemia, unspecified type Assessment & Plan: Stable, will get repeat lab work today Orders: - CBC auto differential Follow up in about 6 months (around 09/08/2023). SUBJECTIVE/OBJECTIVE: CECILIA MorinJerry comes in today for preop exam for his arthritis of his right knee, he is also here for follow-up on his multiple health issues which include a pituitary adenoma for which she had surgery obstructive sleep apnea which he uses a CPAP every night for at least 4 hours minimum, progressive neuropathy, restless leg syndrome, hypertension which seems to be controlled today, hypothyroidism, diabetes hyperlipidemia and anemia. We need to get an EKG and lab work on him so we can clear him for surgery and also for follow-up on his medications. He currently has no complaints says he has been doing well. Review of Systems Constitutional: Negative for activity change, appetite change, chills, fever and unexpected weight change. HENT: Negative for ear pain and sore throat. Respiratory: Negative for shortness of breath. Cardiovascular: Negative for chest pain and palpitations. Gastrointestinal: Negative for abdominal pain, blood in stool, constipation and diarrhea. Genitourinary: Negative for dysuria, frequency, hematuria and urgency. Musculoskeletal: Negative for arthralgias and back pain. Skin: Negative. Neurological: Negative for weakness and numbness. Psychiatric/Behavioral: Negative for dysphoric mood. The patient is not nervous/anxious. Vitals: 03/10/23 0910 BP: 113/70 Pulse: 70 SpO2: 97% Weight: 201 lb 12.8 oz (91.5 kg) Height: 5' 10 (1.778 m) Physical Exam Vitals and nursing note reviewed. Constitutional: General: He is not in acute distress. Appearance: Normal appearance. HENT: Right Ear: Tympanic membrane, ear canal and external ear normal. Left Ear: Tympanic membrane, ear canal and external ear normal. Mouth/Throat: Mouth: Mucous membranes are moist. Pharynx: Oropharynx is clear. Eyes: Extraocular Movements: Extraocular movements intact. Pupils: Pupils are equal, round, and reactive to light. Neck: Vascular: No carotid bruit. Cardiovascular: Rate and Rhythm: Normal rate and regular rhythm. Heart sounds: Normal heart sounds. No murmur heard. Pulmonary: Effort: Pulmonary effort is normal. Breath sounds: Normal breath sounds. Abdominal: General: Bowel sounds are normal. Palpations: Abdomen is soft. Tenderness: There is no abdominal tenderness. Musculoskeletal: General: Normal range of motion. Cervical back: Neck supple. Lymphadenopathy: Cervical: No cervical adenopathy. Skin: General: Skin is warm and dry. Neurological: General: No focal deficit present. Mental Status: He is alert and oriented to person, place, and time. Psychiatric: Mood and Affect: Mood normal. An electronic signature was used to authenticate this note. Raudel Joyner MD 03/10/2023 2:56 PM documented in this encounter [facility] 10-22-2022 Telephone encounter Note Reviewed chart. Refill appropriate. RX sent. [facility] 10-22-2022 Miscellaneous Notes Reviewed chart. Refill appropriate. RX sent. documented in this encounter [facility] 10-12-2022 Note Addended by: JL SHABAZZ on: 10/12/2022 09:23 AM Modules accepted: Orders [facility] 10-12-2022 Note Addended by: JL SHABAZZ on: 10/12/2022 09:23 AM Modules accepted: Orders [facility] 10-12-2022 Telephone encounter Note Rx resent. Thank you. [facility] 10-12-2022 Miscellaneous Notes Addended by: JL SHABAZZ on: 10/12/2022 09:23 AM Modules accepted: Orders Rx resent. Thank you. Addended by: KHUSHBOO PACHECO on: 10/12/2022 07:46 AM Modules accepted: Orders Both rxs pended for local and mail order. I placed another IT ticket for this issue since sending it to local pharmacy will automatically cancel the mail order RX, they had closed my initial ticket, this is the work around until issue is resolved. S: The daughter is calling the [facility] About amlodipine B: This is a new medication for him. A: He has enough medication for the weekend but the renewed prescription went to [facility] - they are telling him it will not arrive until next week. This will create a gap. R: They are looking for another short term prescription of the Amlodipine to fill the gap until [facility] is delivered. Reason for Disposition Caller has NON-URGENT medicine question about med that PCP prescribed and triager unable to answer question Protocols used: Medication Refill and Renewal [id number] documented in this encounter [facility] 10-12-2022 Note Addended by: KHUSHBOO PACHECO on: 10/12/2022 07:46 AM Modules accepted: Orders [facility] 10-12-2022 Note Addended by: KHUSHBOO PACHECO on: 10/12/2022 07:46 AM Modules accepted: Orders [facility] 10-12-2022 Telephone encounter Note Both rxs pended for local and mail order. I placed another IT ticket for this issue since sending it to local pharmacy will automatically cancel the mail order RX, they had closed my initial ticket, this is the work around until issue is resolved. [facility] 10-10-2022 Telephone encounter Note S: The daughter is calling the [facility] About amlodipine B: This is a new medication for him. A: He has enough medication for the weekend but the renewed prescription went to [facility] - they are telling him it will not arrive until next week. This will create a gap. R: They are looking for another short term prescription of the Amlodipine to fill the gap until [facility] is delivered. Reason for Disposition Caller has NON-URGENT medicine question about med that PCP prescribed and triager unable to answer question Protocols used: Medication Refill and Renewal [id number] [facility] 10-10-2022 Miscellaneous Notes S: The daughter is calling the [facility] About amlodipine B: This is a new medication for him. A: He has enough medication for the weekend but the renewed prescription went to [facility] - they are telling him it will not arrive until next week. This will create a gap. R: They are looking for another short term prescription of the Amlodipine to fill the gap until [facility] is delivered. Reason for Disposition Caller has NON-URGENT medicine question about med that PCP prescribed and triager unable to answer question Protocols used: Medication Refill and Renewal [id number] documented in this encounter [facility] 09-17-2022 Evaluation + Plan note Associated Problem(s): Essential hypertension Since he had his pituitary tumor his blood pressure has been very labile up and down. We had a long discussion on the fluctuations of blood pressure and my concern about getting too low versus too high. I explained that I would rather have his blood pressure somewhere between 120 and 160 then to have it below 120 systolic. Recommend that he check his blood pressure and if it is above 160 he is to recheck it 1 to 2 hours later and then only if it still above 160 take his amlodipine. [facility] 09-17-2022 Miscellaneous Notes Associated Problem(s): Essential hypertension Since he had his pituitary tumor his blood pressure has been very labile up and down. We had a long discussion on the fluctuations of blood pressure and my concern about getting too low versus too high. I explained that I would rather have his blood pressure somewhere between 120 and 160 then to have it below 120 systolic. Recommend that he check his blood pressure and if it is above 160 he is to recheck it 1 to 2 hours later and then only if it still above 160 take his amlodipine. Associated Problem(s): Type 2 diabetes mellitus (HCC) Stable, continue low-carb diet Associated Problem(s): Vasovagal episode This occurred while we were doing our history and review of systems, he never completely became unconscious, we attempted to call his daughter which he refused to let us do and he also refused to go to the emergency room. Before he left he was back to normal talking clearly steady on his feet and his heart rate and pulse were back to normal. documented in this encounter [facility] 09-17-2022 Evaluation + Plan note Associated Problem(s): Type 2 diabetes mellitus (HCC) Stable, continue low-carb diet [facility] 09-17-2022 Evaluation + Plan note Associated Problem(s): Vasovagal episode This occurred while we were doing our history and review of systems, he never completely became unconscious, we attempted to call his daughter which he refused to let us do and he also refused to go to the emergency room. Before he left he was back to normal talking clearly steady on his feet and his heart rate and pulse were back to normal. [facility] 09-17-2022 History of Present illness Narrative Images from the original note were not included. 09/17/2022 Hari Fisher (: 1940) is a 82 y.o. male , Established patient, here for evaluation of the following chief complaint(s): Hypertension and Fever ASSESSMENT/PLAN: 1. Vasovagal episode Assessment & Plan: This occurred while we were doing our history and review of systems, he never completely became unconscious, we attempted to call his daughter which he refused to let us do and he also refused to go to the emergency room. Before he left he was back to normal talking clearly steady on his feet and his heart rate and pulse were back to normal. 2. Essential hypertension Assessment & Plan: Since he had his pituitary tumor his blood pressure has been very labile up and down. We had a long discussion on the fluctuations of blood pressure and my concern about getting too low versus too high. I explained that I would rather have his blood pressure somewhere between 120 and 160 then to have it below 120 systolic. Recommend that he check his blood pressure and if it is above 160 he is to recheck it 1 to 2 hours later and then only if it still above 160 take his amlodipine. 3. Type 2 diabetes mellitus with hyperosmolarity without coma, without long-term current use of insulin ([facility]) ([facility]) Assessment & Plan: Stable, continue low-carb diet Follow up in about 3 months (around 12/18/2022). SUBJECTIVE/OBJECTIVE: CECILIA Leal comes in today for follow-up on his blood pressures he says they actually are doing much better on both the lisinopril and the amlodipine, he said a couple of days ago he spiked a fever to 101 point something and he says when that happens he gets confused there is no evidence of any infection anywhere and we discussed the possibility that this may be dysregulation from the pituitary. He is to ask his data compiler. During our visit he mentioned that he was getting lightheaded he then became very disoriented we were able to get him onto a exam table get his legs elevated his blood pressure at that time was significantly elevated and his pulse was thready and difficult to find. He slowly improved and he had a better pulse was able to hear his heart beat which was regular and he we checked a blood sugar which was a little high but it is okay for 9 fasting. After giving him some time and some water he was back to his normal state. Review of Systems Constitutional: Negative for chills and fever. HENT: Negative for congestion, ear pain, rhinorrhea and sinus pressure. Respiratory: Negative for cough and shortness of breath. Cardiovascular: Negative for chest pain and palpitations. Vitals: 09/17/22 0827 BP: 107/60 Pulse: 89 Temp: 36.6 C (97.9 F) Weight: 203 lb (92.1 kg) Height: 5' 10 (1.778 m) Physical Exam Vitals and nursing note reviewed. Constitutional: General: He is not in acute distress. Appearance: Normal appearance. HENT: Head: Normocephalic. Mouth/Throat: Mouth: Mucous membranes are moist. Pharynx: Oropharynx is clear. Eyes: Extraocular Movements: Extraocular movements intact. Pupils: Pupils are equal, round, and reactive to light. Cardiovascular: Rate and Rhythm: Normal rate and regular rhythm. Heart sounds: Normal heart sounds. Comments: During his episode where he was lightheaded and clammy and sweaty his heart was extremely difficult to hear and we were unable to really get a good pulse. This returned to normal within 5- 7 minutes Pulmonary: Effort: Pulmonary effort is normal. Breath sounds: Normal breath sounds. Abdominal: General: Bowel sounds are normal. Palpations: Abdomen is soft. Musculoskeletal: Cervical back: Neck supple. Neurological: Mental Status: He is alert. An electronic signature was used to authenticate this note. Raudel Joyner MD 09/17/2022 9:19 AM documented in this encounter [facility] 01-13-2022 History of Present illness Narrative [facility] Dr. Yeison Velazquez MD Professor, Department of Neurosurgery [facility] [place] [address] Phone: Fax: ESTABLISHED PATIENT VISIT NOTES I. SUMMARY OF CARE A. DIAGNOSIS: 1. 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 Visual decline B. PROCEDURES RELATED TO CARE: 1. Surgery (08/13/2021) Endoscopic endonasal transsellar and transtubercular approach Endoscopic Endonasal resection of a sellar and suprasellar lesion (anterior skull base intradural) Intraoperative use of computer assisted stereotactic neuro-navigation Intraoperative transcranial neuromonitoring of SSEPs and CN III and bilaterally Skull base reconstruction using a mucoperiosteal graft and duragen. Intraoperative use of ultrasound and interpretation. C. ORIGINAL CLINIC PRESENTATION: (09/09/2021) Hari Fisher is a 81 y.o. male that presents to [facility] for consultation related to a history of headaches and high blood pressure to the hospital. Further workup and imaging at that time demonstrated a sellar suprasellar lesion concerning for a pituitary macroadenoma with some hemorrhage. However patient was stable at that time with no visual symptoms. Yesterday, patient developed left visual decline and cranial nerve 3 palsy and repeat imaging demonstrated pituitary apoplexy and hemorrhage within the sellar suprasellar lesion. Therefore the decision was made to take the patient for surgical resection on an urgent basis. Treatment options and alternatives as well as risks and benefits of the surgery were explained to the patient. The patient consented to surgery and signed all the appropriate paperwork, understanding the risk of the procedure as CSF leak, meningitis, bleeding, hematoma, pituitary dysfunction, vision loss, double vision, damage to surrounding structures, incomplete resection of tumor, stroke, neurologic deterioration and . D. LAST CLINIC VISIT IMPRESSION/PLAN OF CARE: (09/09/2021) I have just seen Mr. Hari Fisher and he is around 6 weeks postop from an endoscopic endonasal transsellar transtubercular approach resection of a pituitary microadenoma that was causing vision loss particularly on the left side. He had an apoplexy before surgery, confirming a head CT that showed blood in the tumor. We performed a complete resection of the tumor about 6 weeks ago. Today, he comes to clinic stating that his vision completely returned on the left side very fast. He is very grateful with the surgery. He is on replacement of hydrocortisone as well as Synthroid and he has an appointment with Endocrinology today. I examined him today and he is neurologically intact with complete visual hernandez full to confrontation. I reviewed the head CT performed after surgery. It shows a complete resection of the tumor. No signs of any complication and only expected postoperative changes. Pathology showed a pituitary adenoma with a Ki-67 of 1%. 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 At this point, I would like to see him back in this clinic in 3 months' time with a pituitary MRI with and without contrast or any time before in case he develops any new symptoms. E. SURGICAL PATHOLOGY: 1. - - - Final Pathologic Diagnosis (08/13/2021) - - - A. Sellar tumor, excision: Gonadotroph-type pituitary adenoma, see Comment Background of extensive necrosis (pituitary apoplexy) at 1522 Diagnosis Comments H&E stained sections reveal an epithelioid neoplasm, growing in sheets. Tumor cells have generally round nuclei, rather prominent nucleoli, and sparsely granular to chromophobic cytoplasm. Mitotic figures are inconspicuous (<1 per 10 HPFs). The background is extensively necrotic, but with the ghostly outlines of these epithelioid cells still visible. Immunohistochemistry, performed and read on block A2 at [facility] reveals the tumor cells are positive for Chromogranin (diffuse), CAM 5.2 (diffuse), FSH (diffuse), LH (focal), and HCG alpha (scattered), and are negative for ACTH, Prolactin, HgH, TSH, and p53. A reticulin histochemical stain highlights the fragmented and disrupted acinar framework. A Ki-67 proliferation index highlights 1% of tumor cell nuclei. All controls show appropriate reactivity. All immunohistochemistry, in situ hybridization, and histochemical tests were developed by and are performed at the [facility], [address] [place] [address].All Immunofluorescent (IF) tests were developed by and are performed at the [facility], [address] [place] [address]. All tests reported here, except those addressing HER2 overexpression as a predictive marker, have not been cleared by or approved by the US Food and Drug Administration (FDA). The laboratory is regulated under CLIA as qualified to perform high-complexity testing. The tests are used for clinical purposes. They should not be regarded as investigational or for research. The histochemical tests reported here were performed at the [facility], Clinical Laboratory,[address] [place] [address], [place] [address] . II. MEDICAL/ SURGICAL HISTORY Past Medical History: Diagnosis Date Essential hypertension, benign GI bleed Migraine Raynaud disease Past Surgical History: Procedure Laterality Date EXCISION PITUITARY TUMOR TRANSNASAL APPROACH NEUROENDOSCOPIC N/A 08/13/2021 Laterality: N/A; Surgeon: Yeison Velazquez MD; Location: [facility] MAIN OR ESS SPHENOID SINUSOTOMY WITH REMOVAL TISSUE Midline 08/13/2021 Laterality: Midline; Surgeon: Bisi Eng MD; Location: [facility] MAIN OR APPENDECTOMY KNEE SURGERY Right meniscus repair SHOULDER SURGERY Left Social History Socioeconomic History Marital status: Tobacco Use Smoking status: Never Smoker Smokeless tobacco: Never Used No family history on file. III. ALLERGIES/ MEDICATIONS Allergies Allergen Reactions Penicillins As a small child; reports problems around IV site Terazosin Current Outpatient Medications Medication Sig Dispense Refill desmopressin 0.1 MG tablet Take one-half (1/2) tab by mouth daily in the evening 45 tablet 1 Ferrous Sulfate (Iron) 325 (65 Fe) MG tablet Take by mouth. levothyroxine 100 MCG tablet Take 1 tablet by mouth every morning before breakfast. 90 tablet 2 lisinopril 20 MG tablet Take 20 mg by mouth daily. magnesium oxide 400 MG tablet Take 400 mg by mouth at bedtime. METAMUCIL FIBER PO Take by mouth. mupirocin 2 % ointment Use 3-4 times daily in sinus rinses, as instructed in clinic. Approximately 3-5 gm per day 44 g 11 predniSONE 5 MG tablet Take 1.5 tablets by mouth daily. Double for 4 days if sick. Stop the HC 50 tablet 3 pregabalin 150 MG capsule 2 times daily. rOPINIRole 1 MG tablet Take 1 mg by mouth daily every morning. rOPINIRole 3 MG tablet Take 3 mg by mouth At bedtime. temazepam 15 MG capsule Take 15 mg by mouth. (Patient not taking: Reported on 01/13/2022) No current facility-administered medications for this visit. IV. IMAGING A. MRI PITUITARY WITH AND WITHOUT CONTRAST, 01/13/2022 NOTE: Imaging was completed on the day of the patient's clinic appointment and was reviewed during the clinic visit. Please see EPIC for the radiology report. V. LABS (LAST ORDERED BY [facility]) ACTH Date Value Ref Range Status 08/11/2021 <5.0 (L) 9.0 - 50.0 pg/mL Final Cortisol Date Value Ref Range Status 08/14/2021 115.58 (H) 3.09 - 22.40 mcg/dL Final Prolactin Date Value Ref Range Status 01/13/2022 0.3 ng/mL Final Comment: Reference Range: Females Non: 2.8-29.2 ng/mL : 9.7-208.5 ng/mL Postmenopausal: 1.8-20.3 ng/mL <2 years: 3.3-14.7 ng/mL 2-5 years: 1.0-12.8 ng/mL 6-10 years: 1.2-11.4 ng/mL 11-17 years: 1.4-14.3 ng/mL Males: 2.1-17.7 ng/mL Insulin-Like Growth Factor 1 Date Value Ref Range Status 08/07/2021 25.7 18.0 - 184.0 ng/mL Final FSH Date Value Ref Range Status 08/11/2021 2.0 mIU/mL Final Comment: Reference Range: Adult Male: <18.1 mIU/Ml Adult Female: Follicular: 2.5-10.2 mIU/Ml Midcycle: 3.4-33.4 mIU/Ml Luteal: 1.5-9.1 mIU/mL : <0.3 mIU/mL Post Menopausal: 23.0-116.3 mIU/mL LH Date Value Ref Range Status 08/11/2021 <0.7 mIU/mL Final Comment: Reference Range: Females: Follicular phase 1.9-12.5 mIU/Ml Midcycle peak 8.7-76.3 mIU/Ml Luteal phase 0.5-16.9 mIU/Ml <0.1-1.5 mIU/Ml Postmenopausal 15.9-54.0 mIU/Ml Contraceptives 0.7-5.6 mIU/Ml Males: 20 - 70 years 1.5-9.3 mIU/Ml > 70 years 3.1-34.6 mIU/Ml Children: <0.1-6.0 mIU/Ml Magnesium Date Value Ref Range Status 08/14/2021 2.3 1.6 - 2.6 mg/dL Final . CURRENT CLINIC VISIT EVALUATION, FINDINGS AND PLAN OF CARE I have just seen Mr. Hari Fisher, and he is around 4 months postop from an endoscopic endonasal transsellar transtubercular approach and resection of a large macroadenoma that was causing vision loss. Today, he comes to clinic doing very well. His vision is normalized. He has no complaints. Review of Systems Constitutional: Negative for weight loss, weight gain and malaise/fatigue. HENT: Negative for hearing loss, nosebleeds, congestion and rhinorrhea. Eyes: Negative for blurred vision and double vision. Neurological: Negative for dizziness, tingling, tremors, sensory change, speech change, focal weakness, seizures and headaches. Psychiatric: Negative for depression and memory loss. He is taking replacement of steroids and thyroid hormone with Endocrinology. He was also seen by ENT today, and his skull base has healed very well with no signs of any problems. I examined him, and he is neurologically intact. Physical Exam Vital Signs: Wt Readings from Last 3 Encounters: 01/13/22 92.4 kg (203 lb 12.8 oz) 11/11/21 89.5 kg (197 lb 4.8 oz) 10/07/21 87.5 kg (192 lb 12.8 oz) Temp Readings from Last 3 Encounters: 01/13/22 97.2 F (36.2 C) (Temporal) 11/11/21 97.8 F (36.6 C) (Oral) 10/07/21 98.5 F (36.9 C) (Oral) BP Readings from Last 3 Encounters: 01/13/22 177/90 01/13/22 139/69 11/11/21 (!) 190/92 Pulse Readings from Last 3 Encounters: 01/13/22 80 01/13/22 78 11/11/21 58 Physical Exam Nursing note and vitals reviewed. Constitutional: he is well-developed, well-nourished, and in no distress. HENT: Head: Normocephalic and atraumatic. Eyes: Conjunctivae and EOM are normal. Pupils are equal, round, and reactive to light. Neck: Normal range of motion. Neck supple. Pulmonary/Chest: Effort normal. No respiratory distress. Musculoskeletal: Normal range of motion. he exhibits no edema. Neurological: he is alert. he has normal strength and normal reflexes. he displays normal reflexes. No cranial nerve deficit. he exhibits normal muscle tone. Gait normal. Coordination normal. GCS score is 15. Psychiatric: Mood, affect and judgment normal. Neurologic Exam Cranial Nerves Cranial nerves II through XII intact. CN III, IV, Pupils are equal, round, and reactive to light. Extraocular motions are normal. Motor Exam Strength Strength 5/5 throughout. Gait, Coordination, and Reflexes Gait Gait: normal I reviewed the pituitary MRI with and without contrast performed today and it shows a complete resection of the tumor including the suprasellar component that was near the optic apparatus with no signs of any residual or recurrence. His pathology showed a pituitary adenoma with a Ki-67 of 1%. At this point, I would like to see him back in this clinic in 1 year's time with a pituitary MRI with and without contrast or any time before in case he develops any new symptoms. ([id number]) documented in this encounter [facility] 01-13-2022 History of Present illness Narrative [facility] Dr. Alexander Mckeon MD Tent Assembler, Department of Endocrinology [address] [place] [address] Phone: Fax: A. CLINICAL CARE TEAM: 1. Primary Care Provider: Raudel Funklópez Fisher is a 81 y.o. male who presents to [facility] for follow up of pituitary mass. BACKGROUND The patient was in usual state of health until morning of 08/07/21, when he developed severe bifrontal headache and vomiting. OSH : CT-Head showed a pituitary macroadenoma MRI confirmed a large expansile pituitary mass with suprasellar extension and some infundibular involvement, with possible blood products concerning for apoplexy The patient underwent pituitary surgery on 08/13/[address] Velazquez and Dr. Eng, pathology showed gonadotroph adenoma with background of extensive necrosis (apoplexy) and Ki-67 1% Endocrinology was consulted while the patient was inpatient Preop labs 08/19 TSH 0.9, Free T4 0.68, Cortisol 5.5 ACTH 55, Prolactin 0.4, testosterone < 7 with LH < 7, FSH 2 08/11/21 at 3:18 AM cortisol was <1.2, patient was started on IV steroid He was discharged on hydrocortisone 40mg AM/20mg x2 days then 20mg AM/10mg PM Patient was started on levothyroxine 100 mcg daily while inpatient INTERVAL HISTORY Patient presents with his daughter He is doing overall well He is weak with worsening fatigue. He continue to try to take the HC regularly but harder to get the afternoon dose. He was feeling more fatigued when tried to cut back on the dose. He has insomnia but stable . Has been getting headaches in the morning gets better after he takes the HC No changes in vision. No lightheadedness. Uses a cane when walks outside the house, but no falls, just general weakness No nausea, vomiting, diarrhea, or constipation Urinates 1x/night ( better since starting the small dose desmopressin) Pertinent current meds: HC 15 mg AM, 7.5 mg PM ( worsening fatigue with 15 mg AM 5 mg PM) Levothyroxine 100 mcg daily Desmopressin 0.05 mg HS - since 09/09/21 PITUITARY SURGERY 08/13/[address] Dr[address] Dr. Eng PATHOLOGY 08/13/21 A. Sellar tumor, excision: Gonadotroph-type pituitary adenoma, see Comment Background of extensive necrosis (pituitary apoplexy) Diagnosis Comments H&E stained sections reveal an epithelioid neoplasm, growing in sheets. Tumor cells have generally round nuclei, rather prominent nucleoli, and sparsely granular to chromophobic cytoplasm. Mitotic figures are inconspicuous (<1 per 10 HPFs). The background is extensively necrotic, but with the ghostly outlines of these epithelioid cells still visible. Immunohistochemistry, performed and read on block A2 at [facility] reveals the tumor cells are positive for Chromogranin (diffuse), CAM 5.2 (diffuse), FSH (diffuse), LH (focal), and HCG alpha (scattered), and are negative for ACTH, Prolactin, HgH, TSH, and p53. A reticulin histochemical stain highlights the fragmented and disrupted acinar framework. A Ki-67 proliferation index highlights 1% of tumor cell nuclei. PAST MEDICAL / SURGICAL HISTORY Past Medical History: Diagnosis Date Essential hypertension, benign GI bleed Migraine Raynaud disease PSHx: has a past surgical history that includes shoulder surgery (Left); appendectomy; excision pituitary tumor transnasal approach neuroendoscopic (N/A, 08/13/2021); ess sphenoid sinusotomy with removal tissue (Midline, 08/13/2021); and knee surgery (Right). Social Hx: reports that he has never smoked. He has never used smokeless tobacco. No history on file for alcohol use and drug use. Family Hx: family history is not on file. ALLERGIES/ MEDICATIONS ALLERGIES: is allergic to penicillins and terazosin. MEDICATIONS: Current Outpatient Medications Medication Sig desmopressin 0.1 MG tablet Take one-half (1/2) tab by mouth daily in the evening Ferrous Sulfate (Iron) 325 (65 Fe) MG tablet Take by mouth. levothyroxine 100 MCG tablet Take 1 tablet by mouth every morning before breakfast. lisinopril 20 MG tablet Take 20 mg by mouth daily. magnesium oxide 400 MG tablet Take 400 mg by mouth at bedtime. METAMUCIL FIBER PO Take by mouth. mupirocin 2 % ointment Use 3-4 times daily in sinus rinses, as instructed in clinic. Approximately 3-5 gm per day predniSONE 5 MG tablet Take 1.5 tablets by mouth daily. Double for 4 days if sick. Stop the HC pregabalin 150 MG capsule 2 times daily. rOPINIRole 1 MG tablet Take 1 mg by mouth daily every morning. rOPINIRole 3 MG tablet Take 3 mg by mouth At bedtime. temazepam 15 MG capsule Take 15 mg by mouth. (Patient not taking: Reported on 01/13/2022) IMAGING A. PRE-OPERATIVE IMAGING 08/08/21 MRI Brain There is mild/moderate motion artifact which degrades assessment. Expansile, heterogenous signal intensity mass replacing the pituitary gland and tracking along the infundibulum with extension into the suprasellar cistern. Lesion measures 2.0 x 2.5 x 2.5 cm in AP by TRV by CC dimension as measured on the sagittal and coronal postcontrast images. On the precontrast images, the lesion has hypointense and thin relatively hyperintense components with respect to the brain parenchyma. It is mildly hyperintense on T2 sequences. Lesion demonstrates heterogenous enhancement. The component tracking along the infundibula results in nodular thickening of the infundibulum and mass effect upon the undersurface of the optic chiasm centered to the left of midline. There is deflection of the optic chiasm superiorly in this region. Lesion demonstrates heterogenous diffusion signal abnormality which may be related to cellularity and/or internal blood products. Right lateral aspect of the lesion bulges into the right cavernous sinus region extending slightly beyond the lateral tangent line of the carotid artery (Knosp grade 3A). Left lateral aspect extends minimally beyond the medial tangent line (Knosp grade 1). the lesion abuts portions of the adjacent cavernous and supraclinoid internal carotid arteries bilaterally, abutting the right cavernous segment by slightly less than 180 degrees of its circumference and the left cavernous segment by approximately 90 degrees of its circumference. Posterior pituitary bright spot is not identified. There is expansion and chronic remodeling of the bony sella. 08/12/21 MRI Pituitary 1. Again seen is a heterogeneously enhancing sellar and suprasellar mass lesion, expanding the sella, causing mass effect on the optic chiasm asymmetrically toward the left, and likely involving the right cavernous sinus. Appearance is compatible with a pituitary adenoma. 2. Compared with recent previous pituitary MRI exam of 08/08/2021, there is no significant change in size of the tumor. However there is some interval evolution of signal characteristics. These are considered to be most compatible with evolution of subacute blood products, as discussed above. B. POST-OPERATIVE IMAGING 01/13/22 MRI IMPRESSION Interval endonasal transsphenoidal surgery for resection of a pituitary mass. Heterogeneous collection at the postoperative site is likely postoperative in nature. No focal hypoenhancing nodule is identified to suggest obvious residual or recurrent disease. Continued follow-up/monitoring is suggested. LABS Lab Results Component Value Date CORTISOL 115.58 (H) 08/14/2021 ACTH <5.0 (L) 08/11/2021 IGF1 25.7 08/07/2021 FSH 2.0 08/11/2021 LH <0.7 08/11/2021 T4FREE 0.99 01/13/2022 TSH <0.008 (L) 01/13/2022 PROLACTIN 0.3 01/13/2022 Lab Results Component Value Date SODIUM 139 01/13/2022 POTASSIUM 4.0 01/13/2022 CHLORIDE 110 (H) 01/13/2022 CO2 22 01/13/2022 BUN 18 01/13/2022 CREATSERUM 1.08 01/13/2022 GLUCOSE 192 (H) 01/13/2022 Lab Results Component Value Date GLUCOSE 192 (H) 01/13/2022 CREATSERUM 1.08 01/13/2022 Lab Results Component Value Date/Time CORTISOL 115.58 (H) 08/14/2021 12:16 AM CORTISOL <1.20 (L) 08/11/2021 03:18 AM CORTISOL 5.56 08/08/2021 09:04 AM Lab Results Component Value Date TESTOSTERONE <7 (L) 01/13/2022 Rechecked outside labs at 8 AM on 01/20/22 : still < 7 Lab Results Component Value Date OSMOLALITYUR 550 01/13/2022 SPGRVTYUR 1.025 01/13/2022 OSMOLALITY 299 01/13/2022 CURRENT CLINIC VISIT FINDINGS, EVALUATION Review of Systems: Gen: no fever, no chills, weight change as below Wt Readings from Last 3 Encounters: 01/13/22 92.4 kg (203 lb 12.8 oz) 11/11/21 89.5 kg (197 lb 4.8 oz) 10/07/21 87.5 kg (192 lb 12.8 oz) Resp: yes cough, no SOB CV: no chest pain, no palpitations GI: no abd pain, no nausea, no vomiting Headache: yes. Worse in early AM Lightheaded on standing: no Loss of peripheral vision: vision in left eye improved after surgery Diplopia: no Nocturia: improved to urinates 1x/night (was 4x/night, prior to starting desmopressin ) Polydipsia: no Weakness: more fatigue Mastalgia: no Galactorrhea: no Physical Exam: Vitals/Biometics/Pain 01/13/2022 BP 139/69 BP POSITION Sitting PULSE 78 RESP 16 TEMP 97.2 WEIGHT (IN LBS) 203 lbs 13 oz HEIGHT (IN INCHES) BSA- Body Surface Area 2.13 m2 BMI- Body Mass Index 28.42 kg/m2 SpO2 97 There were no vitals filed for this visit.There is no height or weight on file to calculate BMI. Constitutional: Well-developed, overweight, in no acute distress Head/Eyes: No frontal bossing, no jaw protrusion, Eyes normal ( has left eye defect on presentation) ENT/Neck: Normal range of motion, neck supple, no thyromegaly Cardiovascular: Regular rate and rhythm, radial pulses 2+ Respiratory: Respirations unlabored on room air, lungs CTA Musculoskeletal: Normal tone Neurological: Alert, oriented, bicep and patellar reflexes 1+ Integumentary (Skin): Skin warm, no thinning Psychiatric: Mood appropriate, good eye contact. Great memory for his age ) IMPRESSION AND PLAN Hari Fisher is a 81 y.o. 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 Slightly under treated - hypogonadism: not on replacement at this stage testosterone < 7 - mild DI : on desmopressin , small dose , doing well -- hyperglycemia: no h/o DM 1. Pituitary apoplexy 2. Hypopituitarism 3. Secondary adrenal insufficiency 4. Acquired hypothyroidism 5. Hypogonadism male 6. Encounter for screening for malignant neoplasm of prostate Overall he is slowly getting better. The main complaint today: feeling fatigued His daughter help out with hormone replacement. He is having early AM headaches, can be sign of relative adrenal insufficieny Hormone status and plan as below. Hormonal status Adrenal: he is on HC 15 mg AM, 7.5 mg pm. With on going fatigue and AM headaches, we discussed other options: plan to try once daily prednisone ( longer acting steroid) will start with 7.5 mg AM , will try to wean to 5 mg if possible ( stop the HC) Aware of the sick day rules Growth hormone: IGF-1 in normal range Thyroid hormone: central hypothyroidism, follow T4 instead of TSH: T4 is a bit on the low side: 0.9. but he is 81 yrs old. Worry about over treatment : continue on levothyroxine 100 mcg for now Gonadal hormone: very low testosterone < 7. Recheck in AM : done. I called the patient after the results: We discussed risk and benefit of replacement : may have some Muscle/skeletal Benefit. The plan to continue to hold off testosterone for now ( he is already feeling better with the steroid change) Monitor : we will need to overweight the risk and benefit for 81 yr old Prolactin: low, another axis affected Diabetes insipidus: mild DI. Na normal, urine are great. He is doing well. Urinary symptoms controlled. Continue on small dose desmopressin 0.05 mg at bedtime. Re: pituitary adenoma: presented with apoplexy. S/p surgery on 08/13/21. F/up MRI 01/13/22 this morning looks stable. Patient f/up with ENT and NS Orders Placed This Encounter CHEM 7 (LYTES,BUN,CREA,GLUC) T4 FREE TESTOSTERONE PROLACTIN TSH CBC,PLATELETS PSA, SCREENING predniSONE 5 MG tablet OSMOLALITY, URINE SPECIFIC GRAVITY, URINE Return in about 3 months (around 04/15/2022) for In Person, With Lab Appointment. Alexander Mckeon MD documented in this encounter [facility] 01-13-2022 Instructions Valentina Bassett RN - 01/13/2022 2:08 PM EDT Please call Dr. Eng's nurse, Valentina at [phone], if you notice any new lumps in head or neck, persistent ear, throat pain or new pains in head and neck that don't go away for 2 weeks. documented in this encounter [facility] 01-13-2022 History of Present illness Narrative Problem and/or Diagnosis: 81 y.o. male s/p EEA for a gonadotroph-type pituitary adenoma on 08/13/[address] Eng and Dr. Velazquez. Subjective (symptoms):Doing well Examination: Smoking Status Never Smoker Ears: eacs clear, TM mobile and w/o lesions Oral: tongue is mobile and without lesions Oropharynx: Uvula at midline, no lesions of palate tosils or BOT (visualization & palpation) Nose: anterior rhinoscopy reveals no lesions, septum with mild but clinically insignificant deviation Neck: no masses, adenopathies, tenderness Cranial Nerves: no motor or sensory deficit II-XII PROCEDURE NOTE Procedure: Bilateral Nasal Endoscopy with Debridement of Sinonasal Cavity Indication: Pituitary adenoma, status post endonasal approach with post-op crusting Informed consent obtained. Entire procedure performed by ut Anesthesia: oxymetazoline & 1% lidocaine topical Middle meatus / ethmoid cavity: No crusting in sphenoid cavity bilaterally Well healed Underlying ethmoid mucosa normal for this stage of healing. Maxillary sinus ostium patent Frontal recesses not visualized bilaterally Inferior and Middle turbinates and meati patent and without lesions or secretions bilaterally Sphenoethmoid reccesess patent and cleanbilaterally The patient tolerated this well. IMPRESSION: Well healed PLAN: RTC prn Irrigate BID x 1 mo then qd documented in this encounter [facility] 12-28-2021 Note [facility] Discharge Summary and Transition Note Hari Fisher : 1940 ADMIT DATE: 12/26/2021 DISCHARGE DATE: 12/28/2021 PRIMARY CARE PHYSICIAN: Raudel Joyner MD VISIT STATUS: Admission CODE STATUS: Full Code DISCHARGE DIAGNOSES: Active Problems: Gastrointestinal hemorrhage Acute blood loss anemia Diverticular hemorrhage Resolved Problems: * No resolved hospital problems. * HOSPITAL COURSE: This is an 81 yo male with the PMHx of recent brain tumor s/p resection (on Solu-Cortef/Desmopressin therapy chronically) who presents to the hospital from an outside facility in [place] secondary to the chief complaint of multiple episodes of bright red bleeding/hematochezia. He was evaluated in [place] by gastroenterology who took him for a colonoscopy but did not find any source of bleeding at that time. The patient received 3 units of blood over the course of <72 hrs for noted Hb drop from 10g to 6g. CTA abdomen pelvis using GI bleeding protocol was unable to identify the source of bleeding thus did not require IR intervention but was presumed to be diverticular bleed. Patient was discharged home following resolution of bleeding and instructed to stop taking home aspirin and follow up with PCP in 5-7 days for repeat H/H. Recommended patient also follow up with his GI. ? # Acute blood loss anemia due to diverticular bleed, likely related aspirin us, requiring transfusion # Hx Recent Pituitary Tumor s/p Resection # Essential Hypertension # Restless Leg Syndrome -s/p 3U pRBC at outside facility and 1U at [facility] ? PROCEDURES: none CONSULTANTS: GI DISCHARGE MEDICATIONS: Significant Medication Changes: Medication List START taking these medications ferrous sulfate 325 (65 Fe) MG tablet Commonly known as: IRON 325 Take 1 tablet by mouth daily (with breakfast) CHANGE how you take these medications desmopressin 0.1 MG tablet Commonly known as: DDAVP TAKE ONE-HALF TABLET BY MOUTH EVERY EVENING What changed: ? when to take this ? additional instructions CONTINUE taking these medications hydrocortisone 5 MG tablet Commonly known as: CORTEF levothyroxine 100 MCG tablet Commonly known as: SYNTHROID Take 1 tablet by mouth every morning (before breakfast) lisinopril 20 MG tablet Commonly known as: PRINIVIL;ZESTRIL Take 1 tablet by mouth daily magnesium 250 MG Tabs tablet Commonly known as: MAGNESIUM-OXIDE pregabalin 150 MG capsule Commonly known as: Lyrica Take 1 capsule by mouth 2 times daily for 180 days. Respiratory Therapy Supplies Lashawn Mask and tube for c-pap rOPINIRole 1 MG tablet Commonly known as: REQUIP take 1 tablet by mouth every morning and 3 tablets by mouth every evening therapeutic multivitamin-minerals tablet STOP taking these medications aspirin 81 MG EC tablet Where to Get Your Medications These medications were sent to [address] [phone] - [phone] [place] [phone] ? ferrous sulfate 325 (65 Fe) MG tablet DIET: regular ACTIVITY: resume regular activity COMPLEXITY OF FOLLOW UP: [] Moderate Complexity: follow up within 7-14 calendar days (10909) [x] Severe Complexity: follow up within 7 calendar days (68974) FOLLOW UP TESTING, PENDING RESULTS OR REFERRALS AT TRANSITIONAL CARE VISIT: [x] Yes F/u with PCP and GI. CBC in5-7 days [] No DISPOSITION: Home FACILITY/HOME CARE AGENCY NAME: Follow up with Raudel Joyner MD to be scheduled . Notification (telephone encounter) to PCP initiated: [] Yes [] No INSTRUCTIONS TO MA/SW: Please call patient on day after discharge (must document patient contacted within 2 business days of discharge). FOLLOW UP QUESTIONS FOR MA/SW: 1. Did you get medications filled and taking them as instructed from discharge? 2. Are you following your discharge instructions from your hospital stay? 3. Please confirm patient is scheduled for a follow up appointment within the above time frame. DISCHARGE TIME: > 30 minutes [facility] 10-07-2021 History of Present illness Narrative Problem and/or Diagnosis: 81 y.o. male s/p EEA for a gonadotroph-type pituitary adenoma on 08/13/[address] Eng and Dr. Velazquez. Subjective (symptoms): Doing well overall since surgery but does note that he has a recurrence of insomnia (he has had this in the past). He has even tried Ambien in the past, says that didn't help. Examination: Smoking Status Never Smoker Ears: eacs clear, TM mobile and w/o lesions Oral: tongue is mobile and without lesions Oropharynx: Uvula at midline, no lesions of palate tosils or BOT (visualization & palpation) Nose: anterior rhinoscopy reveals no lesions, septum with mild but clinically insignificant deviation Neck: no masses, adenopathies, tenderness Cranial Nerves: no motor or sensory deficit II-XII PROCEDURE NOTE Procedure: Bilateral Nasal Endoscopy with Debridement of Sinonasal Cavity Indication: Pituitary adenoma, status post endonasal approach with post-op crusting Informed consent obtained. Entire procedure performed by Dr. Dennison under my supervision (Velasquez) Anesthesia: oxymetazoline & 1% lidocaine topical Middle meatus / ethmoid cavity: Crusting in sphenoid cavity bilaterally This was debrided using forceps and suction. Underlying ethmoid mucosa normal for this stage of healing. Maxillary sinus ostium patent Frontal recesses not visualized bilaterally Inferior and Middle turbinates and meati patent and without lesions or secretions bilaterally Sphenoethmoid reccesess patent and cleanbilaterally The patient tolerated this well. IMPRESSION: Healing well PLAN: RTC 4 weeks Attestation: I interviewed and examined Hari Fisher with Dr. Samantha Dennison ([facility] PGY-5 resident). I discussed the differential diagnosis and plan and reviewed all his notes. I agree with the documentation. I also reviewed the medication list, and social,family, medical, surgical and allergy history. Problem and/or Diagnosis: 81 y.o. male s/p EEA for a gonadotroph-type pituitary adenoma on 08/13/[address] Eng and Dr. Velazquez. Subjective (symptoms): Doing well overall since surgery. Examination: Smoking Status Never Smoker Ears: eacs clear, TM mobile and w/o lesions Oral: tongue is mobile and without lesions Oropharynx: Uvula at midline, no lesions of palate tosils or BOT (visualization & palpation) Nose: anterior rhinoscopy reveals no lesions, septum with mild but clinically insignificant deviation Neck: no masses, adenopathies, tenderness Cranial Nerves: no motor or sensory deficit II-XII PROCEDURE NOTE Procedure: Bilateral Nasal Endoscopy with Debridement of Sinonasal Cavity Indication: Pituitary adenoma, status post endonasal approach with post-op crusting Informed consent obtained. Entire procedure performed by Dr. Dennison under the guidance of Dr. Eng Anesthesia: oxymetazoline & 1% lidocaine topical Middle meatus / ethmoid cavity: Crusting in sphenoid cavity bilaterally This was debrided using forceps and suction. Underlying ethmoid mucosa normal for this stage of healing. Maxillary sinus ostium patent Frontal recesses not visualized bilaterally Inferior and Middle turbinates and meati patent and without lesions or secretions bilaterally Sphenoethmoid reccesess patent and cleanbilaterally The patient tolerated this well. IMPRESSION: Healing well PLAN: RTC 5 weeks Bactroban re-ordered documented in this encounter [facility] 10-07-2021 History of Present illness Narrative [facility] Dr. Alexander Mckeon MD [employer]ent [employer]sembler, Department of Endocrinology [address] [place] [address] Phone: Fax: A. CLINICAL CARE TEAM: 1. Primary Care Provider: Raudel Joyner SAMIR Fisher is a 81 y.o. male who presents to [facility] for follow up of pituitary mass. BACKGROUND The patient was in usual state of health until morning of 08/07/21, when he developed severe bifrontal headache and vomiting. OSH : CT-Head showed a pituitary macroadenoma MRI confirmed a large expansile pituitary mass with suprasellar extension and some infundibular involvement, with possible blood products concerning for apoplexy The patient underwent pituitary surgery on 08/13/[address] Velazquez and Dr. Eng, pathology showed gonadotroph adenoma with background of extensive necrosis (apoplexy) and Ki-67 1% Endocrinology was consulted while the patient was inpatient Preop labs 08/19 TSH 0.9, Free T4 0.68, Cortisol 5.5 ACTH 55, Prolactin 0.4, testosterone < 7 with LH < 7, FSH 2 08/11/21 at 3:18 AM cortisol was <1.2, patient was started on IV steroid He was discharged on hydrocortisone 40mg AM/20mg x2 days then 20mg AM/10mg PM Patient was started on levothyroxine 100 mcg daily while inpatient INTERVAL HISTORY Patient presents with his daughter Per patient and patient's daughter: Energy level is a little better Still has insomnia, is sleeping 3-4 hours consecutively Has had a dry cough No fever or chills Has been getting headaches in the morning No changes in vision No lightheadedness with going from sitting to standing Uses a cane when walks outside the house No nausea, vomiting, diarrhea, or constipation Urinates about 6x during the day Urinates 1x/night (last visit said 4x/night) Had half a cup of coffee before labs today Pertinent current meds: HC 15 mg AM, 7.5 mg PM - after visit on 09/09/21 patient was advised to try 15/5 but daughter did 15/7.5 Levothyroxine 100 mcg daily Desmopressin 0.05 mg HS - this was started after visit on 09/09/21 PITUITARY SURGERY 08/13/[address] Dr[address] and Dr. Eng PATHOLOGY 08/13/21 A. Sellar tumor, excision: Gonadotroph-type pituitary adenoma, see Comment Background of extensive necrosis (pituitary apoplexy) Diagnosis Comments H&E stained sections reveal an epithelioid neoplasm, growing in sheets. Tumor cells have generally round nuclei, rather prominent nucleoli, and sparsely granular to chromophobic cytoplasm. Mitotic figures are inconspicuous (<1 per 10 HPFs). The background is extensively necrotic, but with the ghostly outlines of these epithelioid cells still visible. Immunohistochemistry, performed and read on block A2 at [facility] reveals the tumor cells are positive for Chromogranin (diffuse), CAM 5.2 (diffuse), FSH (diffuse), LH (focal), and HCG alpha (scattered), and are negative for ACTH, Prolactin, HgH, TSH, and p53. A reticulin histochemical stain highlights the fragmented and disrupted acinar framework. A Ki-67 proliferation index highlights 1% of tumor cell nuclei. PAST MEDICAL / SURGICAL HISTORY Past Medical History: Diagnosis Date Essential hypertension, benign Migraine Raynaud disease PSHx: has a past surgical history that includes shoulder surgery (Left); appendectomy; excision pituitary tumor transnasal approach neuroendoscopic (N/A, 08/13/2021); and ess sphenoid sinusotomy with removal tissue (Midline, 08/13/2021). Social Hx: reports that he has never smoked. He has never used smokeless tobacco. No history on file for alcohol use and drug use. Family Hx: family history is not on file. ALLERGIES/ MEDICATIONS ALLERGIES: is allergic to penicillins and terazosin. MEDICATIONS: Current Outpatient Medications Medication Sig hydrocortisone 5 MG tablet Take 3 tabs (15 mg) by mouth every AM and 1 tab (5 mg) every PM. Double dose when sick as directed. amLODIPine 5 MG tablet Take 5 mg by mouth daily. (Patient not taking: No sig reported) desmopressin 0.1 MG tablet Take one-half (1/2) tab by mouth daily in the evening docusate 100 MG capsule Take 100 mg by mouth daily. (Patient not taking: Reported on 10/07/2021) levothyroxine 100 MCG tablet Take 1 tablet by mouth every morning before breakfast. lisinopril 20 MG tablet Take 20 mg by mouth daily. magnesium oxide 400 MG tablet Take 250 mg by mouth daily. mupirocin 2 % ointment Use 3-4 times daily in sinus rinses, as instructed in clinic. Approximately 3-5 gm per day pregabalin 150 MG capsule 1 cap(s) rOPINIRole 1 MG tablet Take 1 mg by mouth daily every morning. rOPINIRole 3 MG tablet Take 3 mg by mouth At bedtime. temazepam 15 MG capsule Take 15 mg by mouth. IMAGING A. PRE-OPERATIVE IMAGING 08/08/21 MRI Brain There is mild/moderate motion artifact which degrades assessment. Expansile, heterogenous signal intensity mass replacing the pituitary gland and tracking along the infundibulum with extension into the suprasellar cistern. Lesion measures 2.0 x 2.5 x 2.5 cm in AP by TRV by CC dimension as measured on the sagittal and coronal postcontrast images. On the precontrast images, the lesion has hypointense and thin relatively hyperintense components with respect to the brain parenchyma. It is mildly hyperintense on T2 sequences. Lesion demonstrates heterogenous enhancement. The component tracking along the infundibula results in nodular thickening of the infundibulum and mass effect upon the undersurface of the optic chiasm centered to the left of midline. There is deflection of the optic chiasm superiorly in this region. Lesion demonstrates heterogenous diffusion signal abnormality which may be related to cellularity and/or internal blood products. Right lateral aspect of the lesion bulges into the right cavernous sinus region extending slightly beyond the lateral tangent line of the carotid artery (Knosp grade 3A). Left lateral aspect extends minimally beyond the medial tangent line (Knosp grade 1). the lesion abuts portions of the adjacent cavernous and supraclinoid internal carotid arteries bilaterally, abutting the right cavernous segment by slightly less than 180 degrees of its circumference and the left cavernous segment by approximately 90 degrees of its circumference. Posterior pituitary bright spot is not identified. There is expansion and chronic remodeling of the bony sella. 08/12/21 MRI Pituitary 1. Again seen is a heterogeneously enhancing sellar and suprasellar mass lesion, expanding the sella, causing mass effect on the optic chiasm asymmetrically toward the left, and likely involving the right cavernous sinus. Appearance is compatible with a pituitary adenoma. 2. Compared with recent previous pituitary MRI exam of 08/08/2021, there is no significant change in size of the tumor. However there is some interval evolution of signal characteristics. These are considered to be most compatible with evolution of subacute blood products, as discussed above. B. POST-OPERATIVE IMAGING LABS Lab Results Component Value Date CORTISOL 115.58 (H) 08/14/2021 ACTH <5.0 (L) 08/11/2021 IGF1 25.7 08/07/2021 FSH 2.0 08/11/2021 LH <0.7 08/11/2021 T4FREE 1.18 10/07/2021 TSH <0.008 (L) 09/09/2021 PROLACTIN <0.3 08/14/2021 Lab Results Component Value Date SODIUM 139 10/07/2021 POTASSIUM 4.1 10/07/2021 CHLORIDE 105 10/07/2021 CO2 27 10/07/2021 BUN 22 10/07/2021 CREATSERUM 1.09 10/07/2021 GLUCOSE 134 (H) 10/07/2021 Lab Results Component Value Date/Time CORTISOL 115.58 (H) 08/14/2021 12:16 AM CORTISOL <1.20 (L) 08/11/2021 03:18 AM CORTISOL 5.56 08/08/2021 09:04 AM Lab Results Component Value Date TESTOSTERONE <7 (L) 08/09/2021 Lab Results Component Value Date OSMOLALITYUR 311 10/07/2021 SPGRVTYUR <=1.005 10/07/2021 OSMOLALITY 297 10/07/2021 CURRENT CLINIC VISIT FINDINGS, EVALUATION Review of Systems: Gen: no fever, no chills, weight change as below Wt Readings from Last 3 Encounters: 10/07/21 87.5 kg (192 lb 12.8 oz) 09/09/21 83.3 kg (183 lb 11.2 oz) 09/09/21 83.3 kg (183 lb 11.2 oz) Resp: yes cough, no SOB CV: no chest pain, no palpitations GI: no abd pain, no nausea, no vomiting Headache: yes Seizure: no Loss of consciousness: no Lightheaded on standing: no Loss of peripheral vision: in past patient stated has decreased vision in left eye from pituitary issue, stated vision in left eye improved after surgery Diplopia: no Polyuria: states urinates about 6x during the day Nocturia: states urinates 1x/night (last visit said 4x/night) Polydipsia: no Weakness: no Mastalgia: no Galactorrhea: no All of the above documented by Kathe Davis PA-C. Physical exam and impression and plan below by Dr. Alexander Mckeon. I, the attending, saw and personally examined the patient on 10/07/2021 I have personally performed a face to face diagnostic evaluation on this patient The case was discussed with Kathe Davis PA-C We discussed the findings and therapeutic plan with the patient, all questions were answered. I agree with the history, physical examination. I discussed and formulated the medical decisions as outlined with the team. Physical Exam: Vitals: 10/07/21 1517 10/07/21 1521 BP: 168/79 168/79 Pulse: 77 77 Resp: 20 20 Temp: 98.5 degrees F (36.9 degrees C) 98.5 degrees F (36.9 degrees C) TempSrc: Oral Oral SpO2: 97% 97% Weight: 87.5 kg (192 lb 12.8 oz) 87.5 kg (192 lb 12.8 oz) Body mass index is 26.89 kg/m . Constitutional: Well-developed, overweight, in no acute distress Head/Eyes: No frontal bossing, no jaw protrusion, no exophthalmos, globes soft. Eyes normal ENT/Neck: Normal range of motion, neck supple, no thyromegaly Cardiovascular: Regular rate and rhythm, radial pulses 2+ Respiratory: Respirations unlabored on room air, lungs CTA Musculoskeletal: Normal tone Neurological: Alert, oriented, bicep and patellar reflexes 2+ Integumentary (Skin): Skin warm, no thinning Psychiatric: Mood appropriate, good eye contact IMPRESSION AND PLAN Hari Fisher is a 81 y.o. 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 Pituitary apoplexy 2. Hypopituitarism 3. Secondary adrenal insufficiency 4. Acquired hypothyroidism Overall he is slowly recovering. Doing well. His daughter help out with hormone replacement. Hormone status and plan as below. Hormonal status Adrenal: patient was able to decrease the dose to HC 15 mg AM, 7.5 mg pm. The plan if possible to decrease further to HC to 15 mg AM, 5 mg PM Aware of the sick day rules Growth hormone: IGF-1 in normal range Thyroid hormone: central hypothyroidism, follow T4 instead of TSH: continue on levothyroxine 100 mcg Gonadal hormone: very low testosterone, the plan to hold off testosterone replacement for now, will monitor. Need to overweight the risk and benefit for 81 yr old Prolactin: low, another axis affected Diabetes insipidus: mild DI. Na normal, urine still Dilute. Under treated, but it is safer than over treat. Continue on small dose desmopressin 0.05 mg at bedtime. Re: pituitary adenoma: presented with apoplexy. S/p surgery on 08/13/21. Patient has an MRI scheduled in 12/17. Orders Placed This Encounter CHEM 7 (LYTES,BUN,CREA,GLUC) T4 FREE hydrocortisone 5 MG tablet SPECIFIC GRAVITY, URINE OSMOLALITY, URINE Return in about 4 months (around 02/06/2022) for In Person, With Lab Appointment. Alexander Mckeon MD documented in this encounter [facility] 09-09-2021 History of Present illness Narrative [facility] Kathe Davis PA-C with Dr. Alexander Mckeon MD Tent Assembler, Department of Endocrinology [address] [place] [address] Phone: Fax: A. CLINICAL CARE TEAM: 1. Primary Care Provider: Raudel Joyner SAMIR Fisher is a 81 y.o. male who presents to [facility] for follow up of pituitary mass. BACKGROUND The patient was in usual state of health until morning of 08/07/21, when he developed severe bifrontal headache and vomiting. OSH : CT-Head showed a pituitary macroadenoma MRI confirmed a large expansile pituitary mass with suprasellar extension and some infundibular involvement, with possible blood products concerning for apoplexy The patient underwent pituitary surgery on 08/13/[address] Velazquez and Dr. Eng, pathology showed gonadotroph adenoma with background of extensive necrosis (apoplexy) and Ki-67 1% Endocrinology was consulted while the patient was inpatient Preop labs: (Per inpatient endocrine team it did not appear that patient received preceding steroids though not able to see outside hospital MAR). (Prolactin dilutional testing negative) Latest Reference Range & Units 08/07/21 21:38 08/07/21 23:23 08/08/21 09:04 TSH 0.550 - 4.780 uIU/mL 0.955 T4 FREE 0.89 - 1.76 ng/dL 0.68 (L) ACTH 9.0 - 50.0 pg/mL 55.5 (H) PROLACTIN ng/mL 0.4 (C) [1] CORTISOL 3.09 - 22.40 mcg/dL 5.56 IGF-1 18.0 - 184.0 ng/mL 25.7 Latest Reference Range & Units 08/07/21 23:23 08/09/21 04:13 FSH mIU/mL 2.3 [1] LH mIU/mL <0.7 [2] TESTOSTERONE 87 - 814 ng/dL <7 (L) On 08/11/21 at 3:18 AM cortisol was <1.2, patient was started on IV steroid At discharge steroid plan was PO hydrocortisone 40mg AM/20mg x2 days then 20mg AM/10mg PM Patient was started on levothyroxine 100 mcg daily while inpatient INTERVAL HISTORY Patient presents with his daughter Per patient and patient's daughter: Energy level is a little better since last visit Still has insomnia Has been more physically active since last visit Has had a dry cough No fever or chills No headaches Has a little lightheadedness at times when stands up, uses a cane when walks outside the house Vision in left eye has improved No nausea, vomiting, or constipation Had diarrhea once, stool is loose Level of thirst has increased Urinates about 6-8x during the day Urinates 4x/night (last visit said 2x/night) Pertinent current meds: HC 20 mg AM, 10 mg PM Levothyroxine 100 mcg daily PITUITARY SURGERY 08/13/[address] Dr[address] Dr. Eng PATHOLOGY 08/13/21 A. Sellar tumor, excision: Gonadotroph-type pituitary adenoma, see Comment Background of extensive necrosis (pituitary apoplexy) Diagnosis Comments H&E stained sections reveal an epithelioid neoplasm, growing in sheets. Tumor cells have generally round nuclei, rather prominent nucleoli, and sparsely granular to chromophobic cytoplasm. Mitotic figures are inconspicuous (<1 per 10 HPFs). The background is extensively necrotic, but with the ghostly outlines of these epithelioid cells still visible. Immunohistochemistry, performed and read on block A2 at [facility] reveals the tumor cells are positive for Chromogranin (diffuse), CAM 5.2 (diffuse), FSH (diffuse), LH (focal), and HCG alpha (scattered), and are negative for ACTH, Prolactin, HgH, TSH, and p53. A reticulin histochemical stain highlights the fragmented and disrupted acinar framework. A Ki-67 proliferation index highlights 1% of tumor cell nuclei. PAST MEDICAL / SURGICAL HISTORY Past Medical History: Diagnosis Date Essential hypertension, benign Migraine Raynaud disease PSHx: has a past surgical history that includes shoulder surgery (Left); appendectomy; excision pituitary tumor transnasal approach neuroendoscopic (N/A, 08/13/2021); and ess sphenoid sinusotomy with removal tissue (Midline, 08/13/2021). Social Hx: reports that he has never smoked. He does not have any smokeless tobacco history on file. No history on file for alcohol use and drug use. Family Hx: family history is not on file. ALLERGIES/ MEDICATIONS ALLERGIES: is allergic to penicillins and terazosin. MEDICATIONS: Current Outpatient Medications Medication Sig amLODIPine 5 MG tablet Take 5 mg by mouth daily. (Patient not taking: No sig reported) docusate 100 MG capsule Take 100 mg by mouth daily. hydrocortisone 5 MG tablet Take 3 tabs (15 mg) by mouth every AM and 2 tabs (10 mg) every PM. Double dose when sick as directed. levothyroxine 100 MCG tablet Take 1 tablet by mouth every morning before breakfast. lisinopril 20 MG tablet Take 20 mg by mouth daily. mupirocin 2 % ointment Use 3-4 times daily in sinus rinses, as instructed in clinic. Approximately 3-5 gm per day pregabalin 150 MG capsule Take 150 mg by mouth 2 times daily. (Patient not taking: Reported on 08/21/2021) rOPINIRole 1 MG tablet Take 1 mg by mouth daily every morning. rOPINIRole 3 MG tablet Take 3 mg by mouth At bedtime. traMADol 50 MG tablet Take 50 mg by mouth 2 times daily. (Patient not taking: Reported on 08/21/2021) IMAGING A. PRE-OPERATIVE IMAGING 08/12/21 MRI Pituitary 1. Again seen is a heterogeneously enhancing sellar and suprasellar mass lesion, expanding the sella, causing mass effect on the optic chiasm asymmetrically toward the left, and likely involving the right cavernous sinus. Appearance is compatible with a pituitary adenoma. 2. Compared with recent previous pituitary MRI exam of 08/08/2021, there is no significant change in size of the tumor. However there is some interval evolution of signal characteristics. These are considered to be most compatible with evolution of subacute blood products, as discussed above. B. POST-OPERATIVE IMAGING LABS Lab Results Component Value Date CORTISOL 115.58 (H) 08/14/2021 ACTH <5.0 (L) 08/11/2021 IGF1 25.7 08/07/2021 FSH 2.0 08/11/2021 LH <0.7 08/11/2021 T4FREE 1.33 09/09/2021 TSH <0.008 (L) 09/09/2021 PROLACTIN <0.3 08/14/2021 Lab Results Component Value Date SODIUM 139 09/09/2021 POTASSIUM 4.4 09/09/2021 CHLORIDE 109 (H) 09/09/2021 CO2 25 09/09/2021 BUN 23 09/09/2021 CREATSERUM 1.04 09/09/2021 GLUCOSE 103 (H) 09/09/2021 Lab Results Component Value Date/Time CORTISOL 115.58 (H) 08/14/2021 12:16 AM CORTISOL <1.20 (L) 08/11/2021 03:18 AM CORTISOL 5.56 08/08/2021 09:04 AM Lab Results Component Value Date TESTOSTERONE <7 (L) 08/09/2021 Lab Results Component Value Date TSH <0.008 (L) 09/09/2021 TSH <0.008 (L) 08/21/2021 TSH 0.955 08/07/2021 T4FREE 1.33 09/09/2021 T4FREE 1.28 08/21/2021 T4FREE 0.77 (L) 08/12/2021 Lab Results Component Value Date OSMOLALITYUR 304 09/09/2021 SPGRVTYUR <=1.005 09/09/2021 OSMOLALITY 296 09/09/2021 CURRENT CLINIC VISIT FINDINGS, EVALUATION Review of Systems: Gen: no fever, no chills, weight change as below Wt Readings from Last 3 Encounters: 09/09/21 83.3 kg (183 lb 11.2 oz) 09/09/21 83.3 kg (183 lb 11.2 oz) 08/21/21 82.4 kg (181 lb 11.2 oz) Resp: yes cough, no SOB CV: no chest pain, no palpitations GI: no abd pain, no nausea, no vomiting Headache: no Seizure: no Loss of consciousness: no Lightheaded on standing: yes Loss of peripheral vision: in past patient stated has decreased vision in left eye from pituitary issue, stated vision in left eye improved after surgery Diplopia: no Polyuria: states urinates about 6-8x during the day Nocturia: states urinates 4x/night (last visit said 2x/night) Polydipsia: states level of thirst has increased Weakness: no Mastalgia: no Galactorrhea: no Physical Exam: Vitals/Biometics/Pain 09/09/2021 09/09/2021 SYSTOLIC BP 139 139 DIASTOLIC BP 73 73 BP 139/73 139/73 BP POSITION Sitting Sitting PULSE 70 70 RESP 16 16 TEMP 96.4 96.4 WEIGHT (IN LBS) 183 lbs 11 oz 183 lbs 11 oz HEIGHT (IN INCHES) BSA- Body Surface Area 2.03 m2 2.03 m2 BMI- Body Mass Index 25.62 kg/m2 25.62 kg/m2 SpO2 99 99 Constitutional: Well-developed, overweight, in no acute distress Head/Eyes: No frontal bossing, no jaw protrusion, no exophthalmos, globes soft ENT/Neck: Normal range of motion, neck supple, no thyromegaly Cardiovascular: Regular rate and rhythm, radial pulses 2+ Respiratory: Respirations unlabored on room air, lungs CTA Musculoskeletal: Normal tone Neurological: Alert, oriented, bicep and patellar reflexes 2+ Integumentary (Skin): Skin warm, no thinning Psychiatric: Mood appropriate, good eye contact IMPRESSION AND PLAN Hari Fisher is a 81 y.o. male who presents with - pituitary apoplexy: s/p surgery on 08/13/21, gonadotroph-type pituitary adenoma, Ki-67 1% - hypopituitarism 1. Pituitary adenoma 2. Pituitary apoplexy 3. Hypopituitarism 4. Secondary adrenal insufficiency 5. Acquired hypothyroidism 6. Hypogonadism male Hormone status and plan as below. Hormonal status Adrenal: patient to try decreasing dose of HC to 15 mg AM, 5 mg PM Growth hormone: IGF-1 in normal range Thyroid hormone: central hypothyroidism, follow T4 instead of TSH, no change to dose of levothyroxine Gonadal hormone: very low testosterone, the plan to hold off testosterone replacement for now, will monitor Prolactin: low, another axis affected Diabetes insipidus: Na normal, urine dilute, patient with symptoms, patient to start taking desmopressin 0.05 mg at bedtime and get labs this Wednesday09/12/21 at a local lab Re: pituitary adenoma: presented with apoplexy. S/p surgery on 08/13/21. Patient has an MRI scheduled in 12/17. Orders Placed This Encounter TSH T4 FREE CHEM 7 (LYTES,BUN,CREA,GLUC) CBC, EDIF, PLATELET desmopressin 0.1 MG tablet OSMOLALITY, URINE SPECIFIC GRAVITY, URINE Return in about 3 months (around 12/10/2021) for In Person, With Lab Appointment. Kathe Davis PA-C documented in this encounter [facility] 09-09-2021 Instructions Kathe Davis PA-C - 09/09/2021 11:57 AM EDT Instructions from Kathe Davis PA-C: -You can try decreasing the dose of hydrocortisone to 15 mg AM, 5 mg PM -No change to the dose of levothyroxine -Start taking desmopressin 0.05 mg (half of a 0.1 mg tab) at bedtime -Get labs this Wednesday09/12/21 at a local lab -Follow up with Dr. Mckeon in 3 months (same day as Dr. 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 Glucocorticoid deficiency Acquired hypothyroidism Unspecified hypothyroidism Hypogonadism male Other testicular hypofunction 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 Glucocorticoid deficiency Acquired hypothyroidism Unspecified hypothyroidism [facility] Pituitary adenoma- Primary Benign neoplasm of pituitary gland and craniopharyngeal duct (pouch) [facility] Cough Wheezing documented in this encounter [facility] Work Phone: Evaluation note* Diagnosis 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 Glucocorticoid deficiency Acquired hypothyroidism Unspecified hypothyroidism [facility] 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 Glucocorticoid deficiency Acquired hypothyroidism Unspecified hypothyroidism Hypogonadism male Other testicular hypofunction [facility] Chronic rhinitis- Primary Pituitary adenoma Benign neoplasm of pituitary gland and craniopharyngeal duct (pouch) [facility] Diagnosis S/P selective transsphenoidal pituitary adenomectomy Other postprocedural status [facility] Diagnosis 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 Glucocorticoid deficiency Acquired hypothyroidism Unspecified hypothyroidism Hypogonadism male Other testicular hypofunction Encounter for screening for malignant neoplasm of prostate Special screening for malignant neoplasm of prostate [facility] Pituitary adenoma- Primary Benign neoplasm of pituitary gland and craniopharyngeal duct (pouch) [facility] Vasovagal episode- Primary Syncope and collapse Essential hypertension Unspecified essential hypertension Type 2 diabetes mellitus with hyperosmolarity without coma, without long-term current use of insulin (CMS/HCC) ([facility]) [facility] Arthritis of right knee- Primary Pre-op examination Pituitary adenoma (HCC) Benign neoplasm of pituitary gland and craniopharyngeal duct (pouch) ESSENCE on CPAP Idiopathic progressive neuropathy Restless leg syndrome Restless legs syndrome (RLS) Essential hypertension Unspecified essential hypertension Type 2 diabetes mellitus with hyperosmolarity without coma, without long-term current use of insulin (CMS/HCC) (HCC) Acquired hypothyroidism Unspecified hypothyroidism Hyperlipidemia LDL goal <100 Other and unspecified hyperlipidemia Anemia, unspecified type [facility] Diagnosis Type 2 diabetes mellitus with hyperosmolarity without coma, without long-term current use of insulin (CMS/HCC) (HCC)- Primary Acquired hypothyroidism Unspecified hypothyroidism Essential hypertension Unspecified essential hypertension Restless leg syndrome Restless legs syndrome (RLS) Hyperlipidemia LDL goal <100 Other and unspecified hyperlipidemia Iron deficiency anemia due to chronic blood loss Iron deficiency anemia secondary to blood loss (chronic) 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 * Fever: General Info (Lithuanian) documented in this encounter Assessments Diagnosis Fever, unspecified fever cause Advance Directives No Advanced Directives Records FoundDocuments on File Type Date Recorded Patient Printing Services Coordinator Expl anation ACP-Advance Directive ACP-Power of Bone Grinder Documents on File Type Date Recorded Patient Printing Services Coordinator Expl anation ACP-Advance Directive ACP-Power of Bone Grinder Documents on File Type Date Recorded Patient Printing Services Coordinator Expl anation HealthCare Power of Bone Grinder 08/15/2021 Latest Code Status on File Code Status Date Activated Date Inactivated Comments Full Code 08/08/2021 8:00 PM [facility]-ARREST 08/08/2021 3:01 PM 08/08/2021 8:00 PM I hav e discussed Hari Fisher's Do Not Resuscitate wishes with patient. They are in agreement with this code status. Documents on File Type Date Recorded Patient Printing Services Coordinator Expl anation HealthCare Power of Bone Grinder 08/15/2021 Latest Code Status on File Code Status Date Activated Date Inactivated Comments Full Code 08/08/2021 8:00 PM [facility] 08/08/2021 3:01 PM 08/08/2021 8:00 PM I hav e discussed Hari Fisher's Do Not Resuscitate wishes with patient. They are in agreement with this code status. Latest Code Status on File Code Status Date Activated Date Inactivated Comments Full Code 05/26/2022 4:40 PM 05/28/2022 3:06 PM Reason for Referral Specialty Diagnoses / Procedures Referred By Contac t Referred To Contact Vascular Lab Diagnoses Essential hypertension Bilateral carotid bruits Procedures VL DUP CAROTID BILATERAL Dharmesh García MD [address] [place] [address] Referral ID Status Reason Start Date Expiration Date Visits Re quested Visits Authorized [id number] Closed 09/01/2021 09/01/2022 1 1 Specialty Diagnoses / Procedures Referred By Contac t Referred To Contact Diagnoses S/P selective transsphenoidal pituitary adenomectomy Procedures MRI PITUITARY WITH AND WITHOUT CONTRAST PA MRI BRAIN COMBO Yeison Velazquez MD [address] [place] [address] Referral ID Status Reason Start Date Expiration Date Visits Re quested Visits Authorized [id number] Closed 09/09/2021 10/04/2022 1 1 Specialty Diagnoses / Procedures Referred By Contac t Referred To Contact Diagnoses Pituitary adenoma Procedures MRI PITUITARY WITH AND WITHOUT CONTRAST PA MRI BRAIN COMBO Nicole Byrne, PA-C [address] [place] [address] Referral ID Status Reason Start Date Expiration Date V isits Requested Visits Authorized [id number] Auth Not Needed 01/13/2022 02/07/2023 1 1 Summary Purpose Family History No Family History Records FoundNo Family History Records FoundNo Family History Records FoundNo Family History Records FoundNo Family History Records Found Additional Source Comments Reason for Visit (unrecogniz ed section and content) Reason Comments Follow-up Post Op Visit Reason Comments Venipuncture Reason Comments Follow-up Specialty Diagnoses / Procedures Referred By Contac t Referred To Contact Diagnoses S/P selective transsphenoidal pituitary adenomectomy Procedures MRI PITUITARY WITH AND WITHOUT CONTRAST PA MRI BRAIN COMBO Yeison Velazquez MD [address] [place] [address] Referral ID Status Reason Start Date Expiration Date V isits Requested Visits Authorized [id number] Auth Not Needed 09/09/2021 10/04/2022 1 1 Reason Comments Labs Only Venipuncture Referral ID Status Reason Start Date Expiration Date Visits Re quested Visits Authorized [id number] Closed 09/09/2021 10/04/2022 1 1 Reason Comments Follow-up Reason Comments Hypertension Fever Reason Onset Date Comments Med Refill 10/10/2022 Reason Comments Med Refill Reason Comments Pre-op Exam Right knee surgery- [facility] they will not sched until he has medical clearance Reason Comments Blood Work Pt is asking for lab work- wants to know blood count, A1c, and lipid Health Maintenance Flu vaccine- refuseR sv vaccine- not doneCovid vaccine- not done Reason Onset Date Comments Med Refill 07/05/2023 Care Teams (unrecognized sec tion and content) Tire Worker Relationship Specialty Start Date End Date Raudel Joyner MD [address] [facility], [address] [place], [place] [phone] PCP - General Family Medicine 08/08/21 Yeison Velazquez MD [address] [place] [address] Neurosurgeon Neurological Surgery 08/14/21 Bisi Eng MD [address] [place] [address] Branding Specialist Otolaryngology 08/14/21 Alexander Mckeon MD [address] [place] [address] Business Office Director Endocrinology, Diabetes & Metabolism 08/15/21 Puma Rivera MD [address] [place] [address] [address] [place] [address] Opthalmologist Ophthalmology Neuro-ophthalmology 08/15/21 Sunil Levin MD, MPH [address] [phone] Cardiovascular Medicine 08/15/21 Tire Worker Relationship Specialty Start Date End Date Raudel Joyner MD [address] [place] [address], [facility] [address] [place], [place] [phone] PCP - General Family Medicine 08/08/21 Yeison Velazquez MD [address] [place] [address] Neurosurgeon Neurological Surgery 08/14/21 Bisi Eng MD [address] [place] [address] Branding Specialist Otolaryngology 08/14/21 Alexander Mckeon MD [address] [place] [address] Business Office Director Endocrinology, Diabetes & Metabolism 08/15/21 Puma Rivera MD [address] [facility] [address] [place] [address] Opthalmologist Ophthalmology Neuro-ophthalmology 08/15/21 Sunil Levin MD, MPH [address] [facility] [address] [place] [address] Cardiovascular Medicine 08/15/21 Tire Worker Relationship Specialty Start Date End Date Raudel Joyner MD [address] [place] [address], [facility] [address] [place], [place] [phone] PCP - General Family Medicine 12/23/15 Tire Worker Relationship Specialty Start Date End Date Raudel Joyner MD PCP - General Family Medicine 08/08/21 Yeison Velazquez MD [address] [place] [address] Neurosurgeon Neurological Surgery 08/14/21 Bisi Eng MD [address] [place] [address] Branding Specialist Otolaryngology 08/14/21 Alexander Mckeon MD [address] [place] [address] Business Office Director Endocrinology, Diabetes & Metabolism 08/15/21 Puma Rivera MD [address] [place] [address] [address] [place] [address] Opthalmologist Ophthalmology Neuro-ophthalmology 08/15/21 Sunil Levin MD, MPH Cardiovascular Medicine 08/15/21 Tire Worker Relationship Specialty Start Date End Date Raudel Joyner MD PCP - General Family Medicine 08/08/21 Yeison Velazquez MD [address] [place] [address] Neurosurgeon Neurological Surgery 08/14/21 Bisi Eng MD [address] [place] [address] Branding Specialist Otolaryngology 08/14/21 Alexander Mckeon MD [address] [place] [address] Business Office Director Endocrinology, Diabetes & Metabolism 08/15/21 Puma Rivera MD [address] [facility] [address] [place] [address] Opthalmologist Ophthalmology Neuro-ophthalmology 08/15/21 Sunil Levin MD, MPH Cardiovascular Medicine 08/15/21 Tire Worker Relationship Specialty Start Date End Date Raudel Joyner MD PCP - General Family Medicine 08/08/21 Yeison Velazquez MD [address] [place] [address] Neurosurgeon Neurological Surgery 08/14/21 Bisi Eng MD [address] [place] [address] Branding Specialist Otolaryngology 08/14/21 Alexander Mckeon MD [address] [place] [address] Business Office Director Endocrinology, Diabetes & Metabolism 08/15/21 Puma Rivera MD [address] [facility] [address] [place] [address] Opthalmologist Ophthalmology Neuro-ophthalmology 08/15/21 Sunil Levin MD, MPH Cardiovascular Medicine 08/15/21 Tire Worker Relationship Specialty Start Date End Date Raudel Joyner MD PCP - General Family Medicine 08/08/21 Yeison Velazquez MD [address] [place] [address] Neurosurgeon Neurological Surgery 08/14/21 Bisi Eng MD [address] [place] [address] Branding Specialist Otolaryngology 08/14/21 Alexander Mckeon MD [address] [place] [place] [address] Business Office Director Endocrinology, Diabetes & Metabolism 08/15/21 Puma Rivera MD [address] [facility] [address] [place] [phone] Opthalmologist Ophthalmology Neuro-ophthalmology 08/15/21 Sunil Levin MD, MPH Cardiovascular Medicine 08/15/21 Tire Worker Relationship Specialty Start Date End Date Raudel Joyner MD PCP - General Family Medicine 08/08/21 Yeison Velazquez MD [address] [place] [address] Neurosurgeon Neurological Surgery 08/14/21 Bisi Eng MD [address] [place] [address] Branding Specialist Otolaryngology 08/14/21 Alexander Mckeon MD [address] [place] [address] Business Office Director Endocrinology, Diabetes & Metabolism 08/15/21 Puma Rivera MD [address] [facility] [address] [place] [phone] Opthalmologist Ophthalmology Neuro-ophthalmology 08/15/21 Sunil Levin MD, MPH Cardiovascular Medicine 08/15/21 Tire Worker Relationship Specialty Start Date End Date Raudel Joyner MD PCP - General Family Medicine 08/08/21 Yeison Velazquez MD [address] [place] [address] Neurosurgeon Neurological Surgery 08/14/21 Bisi Eng MD [address] [place] [address] Branding Specialist Otolaryngology 08/14/21 Alexander Mckeon MD [address] [place] [address] Business Office Director Endocrinology, Diabetes & Metabolism 08/15/21 Puma Rivera MD [address] [facility] [address] [place] [phone] Opthalmologist Ophthalmology Neuro-ophthalmology 08/15/21 Sunil Levin MD, MPH Cardiovascular Medicine 08/15/21 Tire Worker Relationship Specialty Start Date End Date Raudel Joyner MD PCP - General Family Medicine 08/08/21 Yeison Velazquez MD [address] [place] [address] Neurosurgeon Neurological Surgery 08/14/21 Bisi Eng MD [address] [place] [address] Branding Specialist Otolaryngology 08/14/21 Alexander Mckeon MD [address] [place] [address] Business Office Director Endocrinology, Diabetes & Metabolism 08/15/21 Puma Rivera MD [address] [facility] [address] [place] [address] Opthalmologist Ophthalmology Neuro-ophthalmology 08/15/21 Sunil Levin MD, MPH Cardiovascular Disease 08/15/21 Tire Worker Relationship Specialty Start Date End Date Raudel Joyner MD [address] [place] [id number] PCP - General 12/23/15 Tire Worker Relationship Specialty Start Date End Date Raudel Joyner MD [address] [place] [id number] PCP - General 12/23/15 Tire Worker Relationship Specialty Start Date End Date Raudel Joyner MD [address] [place] [id number] PCP - General 12/23/15 Tire Worker Relationship Specialty Start Date End Date Raudel Joyner MD [address] [place] [id number] PCP - General 12/23/15 Tire Worker Relationship Specialty Start Date End Date Raudel Joyner MD [address] [place] [id number] PCP - General 12/23/15 Tire Worker Relationship Specialty Start Date End Date Raudel Joyner MD [address] [place] [id number] PCP - General 12/23/15 (unrecognized sect ion and content) No Status Records FoundNo Status Records FoundNo Status Records FoundNo Status Records FoundNo Status Records Found INFORMATION SOURCE (unrecogn ized section and content) DATE CREATED AUTHOR AUTHOR'S ORGANIZ ATION 01/22/2022 [employer] DATE CREATED AUTHOR AUTHOR'S ORGANIZ ATION 10/02/2022 [facility] DATE CREATED AUTHOR AUTHOR'S ORGANIZ ATION 06/01/2023 [facility] DATE CREATED AUTHOR AUTHOR'S ORGANIZ ATION 07/08/2023 [employer] [facility] FOR RECORDS PERTAINING TO PATIENTS WHO ARE OR HAVE BEEN ENROLLED IN A CHEMICAL DEPENDENCY/SUBSTANCEABUSE PROGRAM, SOME INFORMATION MAY BE OMITTED. This clinical summary was aggregated from multiple sources. Caution should be exercised in using it in the provision of clinical care. This summary normalizes information from multiple sources, and as a consequence, information in this document may materially change the coding, format and clinical context of patient data. In addition, data may be omitted in some cases. CLINICAL DECISIONS SHOULD BE BASED ON THE PRIMARY CLINICAL RECORDS. [employer] [facility] provides no warranty or guarantee of the accuracy or completeness of information in this document.
[2023-07-18 05:16] LABS: ALB/GLOB Ratio 1.1 RATIO (0.9-2.4); AST(SGOT) 29 U/L (15-37); Alanine Aminotransfer ALT/SGPT 30 U/L (16-61); Albumin, Serum 3.9 g/dL (3.2-5.0); Alkaline Phosphatase 107 U/L (45-117); Anion Gap 7 (5-15); BUN 22 mg/dL (7-18); Calcium,Total 9.1 mg/dL (8.5-10.1); Chloride 103 mmol/L (98-107); Creatinine, Serum 1.47 mg/dL (0.70-1.30); EST Glomerular Filtration Rate 49 mL/min (>60); Est Glom Filt Rate - Afr Amer 59 mL/min (>60); Estimated Creatinine Clearance 41.26 ml/min; Globulin 3.7 g/dL (2.2-4.2); Glucose 122 mg/dL (74-106); Magnesium 2.1 mg/dL (1.6-2.6); Potassium 3.7 mmol/L (3.5-5.1); Protein, Total 7.6 g/dL (6.4-8.2); Sodium Level 136 mmol/L (136-145)
[2023-07-18 05:32] LABS: Bacteria 0 SEEN /hpf (None Seen); Mucous, Urine 0 SEEN /hpf (<or=2+); Red Blood Cells-Urine 0 SEEN /hpf (0-5); Squamous Epithelial Cells - UA 0 SEEN /hpf (0-5); White Blood Cells 0 SEEN /hpf (0-5)
[2023-07-18 06:04] LABS: Lactic Acid 1.2 mmol/L (0.4-1.9)
[2023-07-18 06:23] LABS: Color, Urine Yellow (Yellow); Glucose, Dipstick Normal (Normal); Ketone-Dipstick Negative (Negative); Leukocyte Esterase-Dipstick 25 /ul (Negative); Nitrite-Dipstick Negative (Negative); Occult Blood-Urine 25 /ul (Negative); Protein-Dipstick 30 mg/dl (Negative); Specific Gravity, Urine 1.015 (1.002-1.030); Urine Bilirubin Dipstick Negative (Negative); Urine Clarity Clear (Clear); Urine Urobilinogen Normal (Normal)
--- NOTE | 2023-07-18 07:23 | ED.RN ---
attempted to ambulate pt and once pt was able to stand, pt lost his balance and this nurse was able to sit pt down on bed. pt unable to ambulate due to weakness.
--- NOTE | 2023-07-18 07:27 | HP.PCM.HOS_ITS ---
HPI - General General Date of Admission: 07/18/23 Date of Service: 07/18/23 Chief Complaint: Fevers, confusion and weakness HPI Narrative BETTYE BARNETT, is a 83 M who presented to [facility] ED on 07/18/2023 with fevers, confusion and worsening weakness. Patient seen at bedside in the ED. Patient was alert and sitting up in bed, and he was answering questions appropriately for me. He was breathing comfortably on room air. Patient's main concern at that time was that he felt cold, and he was asking for more blankets. Patient somewhat remembered feeling tired and fatigued at home, remembered his daughter coming to help him and calling EMS. He does not ever feeling very weak in the ED and not being able to walk well. He currently reports a nonproductive cough but otherwise denies any shortness of breath. Denies any chest pain. Denies any abdominal pain or discomfort. His breakfast had just been delivered when I arrived to the room, but he stated he did not feel like eating much at this time. He denied any other acute pain or discomfort. No other acute concerns at this time. Spoke with patient's daughter Alicia over the phone to gather more information. Alicia states that the patient lives with his and has a fairly good functional status at home. 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 She states that they will typically double his home dosing of hydrocortisone and he will recover in a few days. When she saw him at his home this morning, she noticed that he was much weaker than his baseline and very confused and called EMS for this reason. 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 The patient is unable to care for his , she is the one who will care for her instead. Notably, daughter states that she and her family have been heavily affected by the COVID pandemic and the misinformation spread because of this. States that her is a pharmacist, and they prefer to treat COVID with medication such as ivermectin and other alternative therapies. She understands that these are not medications that we would offer in hospital and she is okay with this. She is also okay with coming to the hospital to see the patient and wearing a mask while she is here. Daughter was asking if the patient to be discharged soon given that we will not be doing much to treat his COVID since he is on room air, but she understands that given his significant weakness that she would not be able to take care of him at home at this time. FORMERLY [facility], [facility] Medical History (Updated 07/18/23 @ 15:[address] Nghia Britt DO) Anemia BiPAP (biphasic positive airway pressure) dependence Brain surgery within last 3 months Former smoker GI bleed HTN (hypertension) New onset type 2 diabetes mellitus Raynaud disease Sleep apnea Home Medications pregabalin 150 mg capsule (Lyrica) 150 cap PO BID pain 06/22/16 [History Last Taken 12/22/21] lisinopril 20 mg tablet 20 mg PO DAILY blood pressure 08/07/21 [History Last Taken 12/24/21] ropinirole 1 mg tablet 1 mg PO DAILY@0700 restless leg syndrome 08/07/21 [History Last Taken 12/23/21] ropinirole 1 mg tablet 2 mg PO QHS restless leg syndrome 08/07/21 [History Last Taken 12/23/21] desmopressin 0.1 mg tablet 0.5 tab PO QHS pituitary supplement 12/21/21 [History Last Taken 12/23/21] hydrocortisone 5 mg tablet 3 tab PO DAILY steroid 12/21/21 [History Last Taken 12/24/21] hydrocortisone 5 mg tablet 7.5 mg PO DAILY@1630 steroid 12/21/21 [History Last Taken 12/23/21] levothyroxine 100 mcg tablet 100 mcg PO DAILY@0600 thyroid 12/21/21 [History Last Taken 12/24/21] magnesium oxide 400 mg PO QHS supplement 12/21/21 [History Last Taken 12/23/21] ropinirole 1 mg tablet 1 mg PO DAILY@1630 restless leg syndrome 12/21/21 [History Last Taken 12/23/21] Allergy/AdvReac Type Severity Reaction Status Date / Time Penicillins [PCN] Allergy Rash Verified 07/18/23 04:55 terazosin Allergy PT UNSURE Verified 07/18/23 04:55 OF REACTION Surgical History History of appendectomy History of surgical removal of pituitary gland Social History household members: spouse housing: house Smoking Status: Former smoker alcohol intake: never substance use type: does not use ROS Constitutional Constitutional: Reports chills, fatigue, fever(s) and weakness; Denies malaise Eyes Eyes: Denies change in vision ENT HEENT: Denies dysphagia Cardiovascular Cardiovascular: Denies chest pain or edema Respiratory/Chest Respiratory/Chest: Reports cough; Denies productive cough, shortness of breath at rest or wheezing Gastrointestinal Gastrointestinal: Denies abdominal pain, constipation, diarrhea, nausea or vomiting Genitourinary Genitourinary: Denies dysuria Musculoskeletal Musculoskeletal: Reports myalgias; Denies arthralgias or back pain Neurologic Neurologic: Denies dizziness, focal weakness or headache(s) Vital Signs Vital Signs Vital Signs: 07/18/23 04:17 07/18/23 04:23 07/18/23 05:17 Temperature 102.6 F H 102.6 F H Temperature Source Oral Oral Pulse Rate 102 H 100 109 H Respiratory Rate 22 H 22 H 24 H Blood Pressure 180/83 H 180/83 H 197/93 H Blood Pressure Mean 115 115 127 Pulse Ox 97 97 96 Oxygen Delivery Method Room Air 07/18/23 05:58 07/18/23 07:07 Temperature 99.9 F H Temperature Source Oral Pulse Rate 88 Respiratory Rate 28 H Blood Pressure 175/63 H 141/74 H Blood Pressure Mean 100 96 Pulse Ox 98 Oxygen Delivery Method Room Air Weight Weight: 88 kg Body Mass Index (BMI) 27.0 Physical Exam Const alert, no apparent distress and average body habitus Constitutional Narrative: Elderly male, sitting up in bed, appears fatigued but alert and answering questions appropriately, in no acute distress. General Appearance: cooperative and comfortable HEENT normocephalic, head/scalp atraumatic, hearing grossly normal bilaterally and nasal mucous membranes and turbinates normal Eyes PERRL, EOMs intact bilaterally and conjunctivae normal Neck full ROM, no lymphadenopathy and supple Lymph Lymphatic: no lymphadenopathy noted Chest inspection of chest normal Resp normal respiratory effort and no use of accessory muscles Resp Narrative: Mild crackles noted in bilateral lung bases. Otherwise good air movement throughout. No wheezing noted. Satting well on room air, no increased work of breathing noted. Cardio regular rate, regular rhythm, no murmurs and peripheral pulses 2+ throughout GI normal to inspection, nondistended, normoactive bowel sounds, soft to palpation, non-tender and non-distended Back/Spine normal ROM Extremity normal to inspection, full ROM and no pedal edema Skin no rashes or lesions noted Neuro moves all extremities and no focal motor deficits Speech: speech normal Psych mental status grossly normal Results Lab / Micro Data 07/18/23 04:45 07/18/23 04:45 Labs: Laboratory Results - last 24 hr 07/18/23 04:40: Lactic Acid 1.2 07/18/23 04:45: WBC 11.3 H, RBC 4.60, Hgb 13.5, Hct 40.1, MCV 87.2, MCH 29.3, MCHC 33.7, RDW Std Deviation 40.9, RDW Coeff of Florain 13.0, Plt Count 237, MPV 9.9, Immature Gran % (Auto) 0.400, Neut % (Auto) 50.9, Lymph % (Auto) 37.2, Dillon % (Auto) 10.0, Eos % (Auto) 0.7, Baso % (Auto) 0.8, Absolute Neuts (auto) 5.7, Absolute Lymphs (auto) 4.18, Nucleated RBC % 0, Sodium 136, Potassium 3.7, Chloride 103, Carbon Dioxide 26.0, Anion Gap 7, BUN 22 H, Creatinine 1.47 H, Estim Creat Clear Calc 41.26, Est GFR (MDRD) Af Amer 59 L, Est GFR (MDRD) Non-Af 49 L, BUN/Creatinine Ratio 15.0, Glucose 122 H, Calcium 9.1, Magnesium 2.1, Total Bilirubin 0.70, AST 29, ALT 30, Alkaline Phosphatase 107, Total Protein 7. 6, Albumin 3.9, Globulin 3.7, Albumin/Globulin Ratio 1.1 07/18/23 05:30: Urine Color Yellow, Urine Clarity Clear, Urine pH 5.0, Ur Specific [place] 1.015, Urine Protein 30 H, Urine Glucose (UA) Normal, Urine Ketones Negative, Urine Occult Blood 25 H, Urine Nitrite Negative, Urine Bilirubin Negative, Urine Urobilinogen Normal, Ur Leukocyte Esterase 25 H, Urine RBC 0 SEEN, Urine WBC 0 SEEN, Ur Squamous Epith Cells 0 SEEN, Urine Bacteria 0 SEEN, Urine Mucus 0 SEEN Micro: Microbiology 07/18/23 04:45 Mucosa - Nasopharyngeal SARS-CoV-2, Influenza & RSV (PCR) - Final SARS-CoV-2 (COVID 19) Imagaing Radiology Impression Chest X-Ray 07/18/23 05:00 IMPRESSION: No radiographic evidence of acute cardiopulmonary disease. Electronically Signed: Kendall Schulz MD at 5:40 EST , Assessment & Plan Assessment/Plan (1) COVID-19 virus infection: (2) Debility: PLAN: Plan Patient is an 83-year-old male who presented to [facility] ED on 07/18/2023 with fevers, confusion and worsening weakness. 1. COVID-19 infection COVID-19 positive in the ED. Presumed etiology of his fevers, confusion and weakness. Stable on room air. Chest x-ray on admit showed no acute cardiopulmonary disease. Mildly elevated WBC count of 11.3 but labs appear hemoconcentrated and patient quite dry on admission. ? Admit under observation status to [facility]. No COVID specific treatments indicated as patient is on room air. Doubled home hydrocortisone dosing as noted below. PT/OT following as below. Supportive care as needed. 2. Acute weakness and debility ? Presumed secondary to COVID infection, worsened by panhypopituitarism. PT/OT/case management consulted. 3. 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 Doubled home hydrocortisone dosing to 30 mg with breakfast and 15 mg with dinner. Continue home desmopressin, Synthroid. 4. Elevated creatinine ? Creatinine 1.47 on admit, baseline creatinine appears to be around 1.1-1.3. Patient's labs appear hemoconcentrated and he appears very dry on admission. Received 1 L of normal saline in the ED, will give another 1 L of LR now. Encouraged p.o. intake. Follow-up a.m. BMP. Chronic medical conditions: ? Hypertension: Holding home lisinopril. ? Restless leg syndrome: Continue home ropinirole. ? Neuropathy: Continue home Lyrica. DVT prophylaxis: Heparin subcu CODE STATUS: Full code, verified Expected disposition: Home with home health care versus SNF, 1 to 2 days Total clinical time spent by myself addressing the patient's medical issues, reviewing all the data, and collaborating with patient's care team: 55 minutes. Charges/Coding Visit Charges Inpatient E&M: 49932 Init Hosp L2
--- OUTSIDE RECORDS SUMMARY | 2023-07-18 07:49 | XMS RPT_ITS | CCD ---
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 Name Role Phone Raudel Joyner Primary Care Provider Raudel Joyner MD Primary Care Provider Yeison Velazquez MD Unavailable Bisi Eng MD Unavailable [phone] Linda SEGUNDO, Alexander Unavailable Puma Rivera MD Unavailable Ollie SEGUNDO, MPH, Sunil Unavailable [phone] Raudel Joyner MD Primary Care Provider Raudel Joyner MD Primary Care Provider Ollie SEGUNDO, MPH, Sunil Unavailable Ollie SEGUNDO, MPH, Sunil Unavailable [phone] Raudel Joyner MD Primary Care Provider [...] Care Provider ANDREW PATEL Attending Unavailable [place] Care Unavailabl e [place], RAUDEL Primary [...] Propensity to adverse reactions to drug 07-10-2003 [place], [place] (20 sources) Terazosin Drug Allergy 12-24-2015 [place], [place] (8 sources) Penicillins Drug Intolerance 07-10-2003 [facility] Medications Current Medications Medication Drug Class(es) Dates [...] 177.8 cm Raudel Joyner MD Work Phone: [employer] [place] 07-05-2023 07:58-0500 Body mass index (BMI) [Ratio] 29.18 kg/m2 Raudel Joyner MD Work Phone: [employer] [place] 07-05-2023 07:58-0500 Body weight 92.26 kg Raudel Joyner MD Work Phone: [employer] [place] 07-05-2023 07:58-0500 Diastolic blood pressure 70 mm[Hg] Raudel Joyner MD Work Phone: [employer] [place] 07-05-2023 07:58-0500 Heart rate 73 /min Raudel Joyner MD Work Phone: [employer] [place] 07-05-2023 07:58-0500 SaO2% (BldA) [Mass fraction] 96 % Raudel Joyner MD Work Phone: [employer] [place] 07-05-2023 07:58-0500 Systolic blood pressure 112 mm[Hg] Raudel Joyner MD Work Phone: [employer] [place] 03-10-2023 09:10-0400 Body height 177.8 cm Raudel Joyner MD Work Phone: [employer] [place] 03-10-2023 09:10-0400 Body mass index (BMI) [Ratio] 28.96 kg/m2 Raudel Joyner MD Work Phone: [employer] [place] 03-10-2023 09:10-0400 Body weight 91.54 kg Raudel Joyner MD Work Phone: [employer] [place] 03-10-2023 09:10-0400 Diastolic blood pressure 70 mm[Hg] Raudel Joyner MD Work Phone: [employer] [place] 03-10-2023 09:10-0400 Heart rate 70 /min Raudel Joyner MD Work Phone: [employer] [place] 03-10-2023 09:10-0400 SaO2% (BldA) [Mass fraction] 97 % Raudel Joyner MD Work Phone: [facility] 03-10-2023 09:10-0400 Systolic blood pressure 113 mm[Hg] Raudel Joyner MD Work Phone: [facility] 09-17-2022 08:27-0400 Body height 177.8 cm Raudel Joyner MD Work Phone: [facility] 09-17-2022 08:27-0400 Body mass index (BMI) [Ratio] 29.13 kg/m2 Raudel Joyner MD Work Phone: [facility] 09-17-2022 08:27-0400 Body temperature 97.9 [degF] Raudel Joyner MD Work Phone: [facility] 09-17-2022 08:27-0400 Body weight 92.08 kg Raudel Joyner MD Work Phone: [facility] 09-17-2022 08:27-0400 Diastolic blood pressure 60 mm[Hg] Raudel Joyner MD Work Phone: [facility] 09-17-2022 08:27-0400 Heart rate 89 /min Raudel Joyner MD Work Phone: [facility] 09-17-2022 08:27-0400 Systolic blood pressure 107 mm[Hg] Raudel Joyner MD Work Phone: [facility] 01-13-2022 13:27-0400 Body mass index (BMI) [Ratio] 28.42 kg/m2 Bisi Eng MD Work Phone: [facility] 01-13-2022 13:27-0400 Body temperature 97.2 [degF] Bisi Eng MD Work Phone: [facility] 01-13-2022 13:27-0400 Body weight 92.44 kg Bisi Eng MD Work Phone: [facility] 01-13-2022 13:27-0400 Diastolic blood pressure 69 mm[Hg] Bisi Eng MD Work Phone: [facility] 01-13-2022 13:27-0400 Heart rate 78 /min Bisi Eng MD Work Phone: [facility] 01-13-2022 13:27-0400 Respiratory rate 16 /min Bisi Eng MD Work Phone: [facility] 01-13-2022 13:27-0400 SaO2% (BldA) [Mass fraction] 97 % Bisi Eng MD Work Phone: [facility] 01-13-2022 13:27-0400 Systolic blood pressure 139 mm[Hg] Bisi Eng MD Work Phone: [facility] 01-13-2022 09:59-0400 Body height 180.3 cm Yeison Velazquez MD Work Phone: [facility] 01-13-2022 09:59-0400 Diastolic blood pressure 90 mm[Hg] Yeison Velazquez MD Work Phone: [facility] 01-13-2022 09:59-0400 Heart rate 80 /min Yeison Velazquez MD Work Phone: [facility] 01-13-2022 09:59-0400 Systolic blood pressure 177 mm[Hg] Yeison Velazquez MD Work Phone: [facility] 10-07-2021 15:21-0400 Body mass index (BMI) [Ratio] 26.89 kg/m2 Alexander Mckeon MD Work Phone: [facility] 10-07-2021 15:21-0400 Body temperature 98.49 [degF] Alexander Mckeon MD Work Phone: [facility] 10-07-2021 15:21-0400 Body weight 87.45 kg Alexander Mckeon MD Work Phone: [facility] 10-07-2021 15:21-0400 Diastolic blood pressure 79 mm[Hg] Alexander Mckeon MD Work Phone: [facility] 10-07-2021 15:21-0400 Heart rate 77 /min Alexander Mckeon MD Work Phone: [facility] 10-07-2021 15:21-0400 Respiratory rate 20 /min Alexander Mckeon MD Work Phone: [facility] 10-07-2021 15:21-0400 SaO2% (BldA) [Mass fraction] 97 % Alexander Mckeon MD Work Phone: [facility] Encounters Encounter Date Encounter Type Care Provider Facility Start: 07-05-2023 End: 07-05-2023 Refill Raudel Joyner MD Work Phone: [facility] Start: 07-05-2023 End: 07-05-2023 Office outpatient visit 25 minutes Raudel Joyner MD Work Phone: [facility] Procedures Date Procedure Procedure Detail [...] DTaP/Tdap/Td vaccine (2 - Td or Tdap) [facility] Start: 12-22-2025 DTaP/Tdap/Td vaccine (2 - Td) DTaP/Tdap/Td vaccine (2 - Td) [place] Start: 12-22-2025 DTaP/Tdap/Td Vaccine s (2 - Td or Tdap) DTaP/Tdap/Td Vaccines (2 - Td or Tdap) [facility] Start: 07-05-2024 Thyroid stimulating hormone measurement TSH Level [facility] Start: 03-10-2024 Thyroid stimulating hormone measurement TSH Level [facility] Start: 10-07-2023 End: 10-07-2023 Patient encounter procedure 10/07/2023 8:00 AM EDT Office Visit [place] [address] [place] [address] [place] [address] Raudel Joyner MD [address] [place] [address] [place] [address] [facility] Start: 09-09-2023 End: 09-09-2023 Patient encounter procedure [facility] Start: 09-08-2023 Depression Screening Depression Scre ening [facility] Start: 09-08-2023 Diabetic foot examination Diabetes: Foot Exam [facility] Start: 09-08-2023 Lipid panel Lipid Panel [facility] Start: 09-08-2023 Urine screening for protein Diabetes: Urine Protein Screening [facility] Start: 09-08-2023 Zoster Vaccines (3 of 3) Zoste r Vaccines (3 of 3) [facility] Immunizations Immunization Date Immunization Notes Care Provider Fa cility 07-10-2020 zoster vaccine recombinant Dharmesh García MD Work Phone: [facility] 01-25-2017 pneumococcal conjuga te vaccine, 13 valent [facility] [place] 12-27-2015 pneumococcal polysaccharide vaccine, 23 valent [facility] [place] 12-23-2015 tetanus toxoid, redu zachariah diphtheria toxoid, and acellular pertussis vaccine, adsorbed [facility] [place] 08-24-2013 zoster vaccine, live [facility], [place] Payers Date Payer Category Payer Medicare [id number] 2021 Medicare [id number] 2014 Medicare [employer] MEDICARE A ETNA MEDICARE-ADVANTAGE PPO [id number] 2014-Present [address] [place] [address] Medicare [id number] 1941 Unknown [id number] 1941 Unknown [id number] 1941 Unknown [id number] 1941 Unknown [id number] 1941 Unknown [id number] 1941 Unknown [id number] 1941 Unknown [id number] 1941 Unknown [id number] 1941 Unknown [id number] 1941 Unknown [id number] 1941 Unknown [id number] Social History Date Type Detail Facility Start: 03-01-2020 End: 05-26-2022 Tobacco smoking status NHIS Former smoker [place] Start: [birth year]-28-1961 End: 06-28-1992 History of tobacco use Current smoker [place] Start: 03-01-2020 End: 05-26-2022 Tobacco use and exposure Former user [place], [place] End: 07-05-2017 History of tobacco use Chews Tobacco [place] Start: 03-01-2020 End: 07-05-2023 Alcohol intake Current non-drinker of alcohol (finding) [place] Start: 07-31-2019 End: 09-07-2022 History SDOH Alcohol Frequency 1 [place] Start: 07-31-2019 History SDOH Physica l Activity DPW 3 [place] Start: 07-31-2019 End: 09-07-2022 History SDOH Physical Activity MPS 5 [place] Start: 07-31-2019 End: 09-07-2022 History SDOH Transport Med 2 [place], [place] Start: 1940 Sex Assigned At Not on file [place] Start: 08-13-2021 End: 03-10-2023 Exposure to SARS-CoV-2 (event) Not sure [place] Start: 09-03-2021 End: 09-07-2022 History SDOH Physical Activity DPW 0 [facility] Work Phone: Start: 09-17-2021 Tobacco smoking stat [facility] Never smoked tobacco [facility] Start: 09-17-2021 Tobacco use and exposure Smoke less tobacco non-user [facility] Start: 06-28-1961 End: 06-28-1992 History of tobacco use Cigarette Smoker [facility] End: 07-05-2017 History of tobacco use User of smokeless tobacco [facility] Start: 05-26-2022 End: 09-07-2022 History of Social function [facility] Start: 05-26-2022 End: 09-07-2022 Humiliation, Afraid, Rape, and Kick questionnaire [HARK] [facility] Within the last year , have you been afraid of your partner or ex-partner? No [facility] How often to you hav e a drink containing alcohol? Never [facility] How many standard dr inks containing alcohol do you have on a typical day? Patient does not drink [facility] (I/We) worried wheth er (my/our) food would run out before (I/we) got money to buy more. Never true [facility] Medical Equipment Procedure Code Equipment Code Equipment Origin al Text Equipment Identifier Dates Matrix Tissue 2x 2in Duragen Plus Dural Bovine Collagen Patch - [id number] Start: 08-13-2021 Clinical Notes 09-09-2021 to [...] on this medication 02/18/23 #90 1 refill [facility] 07-06-2023 Miscellaneous Notes Prescription Request: Last medication check: 03/09/22 Last physical exam: 09/07/22 Next scheduled appointment: 09/09/23 Last date of refill on this medication 02/18/23 #90 1 refill documented in this encounter [facility] 07-05-2023 Evaluation + Plan note Associated Problem(s): Hyperlipidemia LDL goal <100 Controlled, continue strict low-fat low-cholesterol diet [facility] 07-05-2023 Evaluation + Plan note Associated Problem(s): Idiopathic progressive neuropathy Stable, currently on pregabalin 150 mg twice a day Patient would benefit from wearing diabetic shoes [facility] 07-05-2023 Miscellaneous Notes Associated Problem(s): Hyperlipidemia [...] how he does documented in this encounter [facility] 07-05-2023 Evaluation + Plan note Associated Problem(s): Iron deficiency anemia due to chronic blood loss Stable, we will get repeat lab work today, continue current dose of iron [facility] 07-05-2023 Evaluation + Plan note Associated Problem(s): Acquired hypothyroidism Stable, continue levothyroxine 100 mcg daily [facility] 07-05-2023 Evaluation + Plan note Associated Problem(s): Type 2 diabetes mellitus (HCC) Uncontrolled, currently on no medications we will get repeat A1c today. Patient would benefit from wearing diabetic shoes. [facility] 07-05-2023 Evaluation + Plan note Associated Problem(s): Arthritis of finger of right hand Will check lab work for autoimmune disorders. [facility] 07-05-2023 Evaluation + Plan note Associated Problem(s): Essential hypertension Controlled, continue lisinopril 20 mg daily [facility] 07-05-2023 Evaluation + Plan note Associated Problem(s): Restless leg syndrome Uncontrolled, since he is on a high dose for Requip already will put him on Mirapex and try to maximize that dose and see how he does [facility] 07-05-2023 History of Present illness Narrative Patient [...] coma, without long-term current use of insulin ([facility]/HCC) ([facility]) Assessment & Plan: Uncontrolled, currently on no [...] 07/05/2023 11:50 AM documented in this encounter [facility] 05-31-2023 Note HNO ID: [id number] Author: Andrew Patel Service: ? Author Type: [...] [facility] Constitutional: Pt is a well developed 83 [...] length and thickne (more content not included)... [facility] 05-31-2023 Note HNO ID: [id number] Author: Annmarie Ledezma RN Service: ? Author Type: Registered Nurse Type: Progress Notes Filed: 05/31/2023 9:08 AM Note Text: Patient presents with: Left Foot - New, Diabetic Foot Care Right Foot - New, Diabetic Foot Care Patient presents for order for diabetic shoes. KATHARINE 08/30/19. Has history of neuropathy. [facility] 03-10-2023 Evaluation + Plan note Associated Problem(s): Hyperlipidemia LDL goal <100 Stable, continue low-fat low-cholesterol diet [facility] 03-10-2023 Evaluation + Plan note Associated Problem(s): Anemia, unspecified Stable, will get repeat lab work today [facility] 03-10-2023 Miscellaneous Notes Associated Problem(s): Hyperlipidemia [...] twice a day documented in this encounter [facility] 03-10-2023 Evaluation + Plan note Associated Problem(s): Type 2 diabetes mellitus (HCC) Controlled, continue low-carb diet [facility] 03-10-2023 Evaluation + Plan note Associated Problem(s): Acquired hypothyroidism Stable, continue levothyroxine 100 mcg daily [facility] 03-10-2023 Evaluation + Plan note Associated Problem(s): Arthritis of right knee Stable, needs clearance for surgery [facility] 03-10-2023 Evaluation + Plan note Associated Problem(s): Essential hypertension Controlled, continue amlodipine 5 mg daily lisinopril 20 mg daily [facility] 03-10-2023 Evaluation + Plan note Associated Problem(s): Restless leg syndrome Partially controlled on his ropinirole 1 mg 4 times a day [facility] 03-10-2023 Evaluation + Plan note Associated Problem(s): Pituitary adenoma (HCC) Resolved, currently stable [facility] 03-10-2023 Evaluation + Plan note Associated Problem(s): ESSENCE on CPAP Stable, continue CPAP every night 4 hours plus. [facility] 03-10-2023 Evaluation + Plan note Associated Problem(s): Idiopathic progressive neuropathy Stable, continue pregabalin 150 mg twice a day [facility] 03-10-2023 History of Present illness Narrative [...] coma, without long-term current use of insulin ([facility]/HCC) (HCC) Assessment & Plan: Controlled, continue low-carb [...] 03/10/2023 2:56 PM documented in this encounter [facility] 10-22-2022 Telephone encounter Note Reviewed chart. Refill appropriate. RX sent. [facility] 10-22-2022 Miscellaneous Notes Reviewed chart. Refill appropriate. RX sent. documented in this encounter [facility] 10-12-2022 Note Addended by: JL SHABAZZ on: 10/12/2022 09:23 AM Modules accepted: Orders [facility] 10-12-2022 Note Addended by: JL SHABAZZ on: 10/12/2022 09:23 AM Modules accepted: Orders [facility] 10-12-2022 Telephone encounter Note Rx resent. Thank you. [facility] 10-12-2022 Miscellaneous Notes Addended by: JL [...] resolved. S: The daughter is calling the [facility] About amlodipine B: This is a new [...] question Protocols used: Medication Refill and Renewal [id number] documented in this encounter [facility] 10-12-2022 Note Addended by: KHUSHBOO PACHECO on: 10/12/2022 07:46 AM Modules accepted: Orders [facility] 10-12-2022 Note Addended by: KHUSHBOO PACHECO on: 10/12/2022 07:46 AM Modules accepted: Orders [facility] 10-12-2022 Telephone encounter Note Both rxs pended for local and mail order. I placed another IT ticket for this issue since sending it to local pharmacy will automatically cancel the mail order RX, they had closed my initial ticket, this is the work around until issue is resolved. [facility] 10-10-2022 Telephone encounter Note S: The daughter is calling the [facility] About amlodipine B: This is a new [...] question Protocols used: Medication Refill and Renewal [id number] [facility] 10-10-2022 Miscellaneous Notes S: The daughter is calling the [facility] About amlodipine B: This is a new [...] question Protocols used: Medication Refill and Renewal [id number] documented in this encounter [facility] 09-17-2022 Evaluation + Plan note Associated [...] it still above 160 take his amlodipine. [facility] 09-17-2022 Miscellaneous Notes Associated Problem(s): Essential [...] back to normal. documented in this encounter [facility] 09-17-2022 Evaluation + Plan note Associated Problem(s): Type 2 diabetes mellitus (HCC) Stable, continue low-carb diet [facility] 09-17-2022 Evaluation + Plan note Associated [...] rate and pulse were back to normal. [facility] 09-17-2022 History of Present illness [...] coma, without long-term current use of insulin ([facility]) ([facility]) Assessment & Plan: Stable, continue low-carb diet [...] the pituitary. He is to ask his glass glazier. During our visit he mentioned that he [...] 09/17/2022 9:19 AM documented in this encounter [facility] 01-13-2022 History of Present illness Narrative [facility] [place] Dr. Yeison Velazquez MD Professor, Department of Neurosurgery [facility] [place] [address] Phone: Fax: ESTABLISHED PATIENT VISIT NOTES I. [...] 81 y.o. male that presents to [facility] for consultation [...] performed and read on block A2 at [facility] reveals the tumor cells are positive for [...] developed by and are performed at the [facility] Laboratory, [address] [place] [address].All Immunofluorescent (IF) tests were developed by and are performed at the [facility], [address] [place] [address]. All tests reported here, except those addressing [...] tests reported here were performed at the [facility], Clinical Laboratory,[address] [place] [address], [place] [address] . II. MEDICAL/ SURGICAL HISTORY Past Medical History: Diagnosis Date Essential hypertension, benign GI bleed Migraine Raynaud disease Past Surgical History: Procedure Laterality Date EXCISION PITUITARY TUMOR TRANSNASAL APPROACH NEUROENDOSCOPIC N/A 08/13/2021 Laterality: N/A; Surgeon: Yeison Velazquez MD; Location: [facility] MAIN OR ESS SPHENOID SINUSOTOMY WITH REMOVAL TISSUE Midline 08/13/2021 Laterality: Midline; Surgeon: Bisi Eng MD; Location: [facility] MAIN OR APPENDECTOMY KNEE SURGERY Right meniscus [...] report. V. LABS (LAST ORDERED BY [facility]) ACTH Date Value Ref Range Status 08/11/2021 [...] in case he develops any new symptoms. (DOC:[id number]) documented in this encounter [facility] [place] 01-13-2022 History of Present illness Narrative [facility] Dr. Alexander Mckeon MD Wastewater Analyst, Department of Endocrinology [address] [place] [address] Phone: Fax: A. CLINICAL CARE TEAM: 1. Primary Care Provider: Raudel Funklópez Fisher is a 81 y.o. male who presents to [facility] for follow [...] performed and read on block A2 at [facility] reveals the tumor cells are positive for [...] Alexander Mckeon MD documented in this encounter [facility] 01-13-2022 Instructions Valentina Bassett RN - 01/13/2022 2:08 PM EDT Please call Dr. Eng's nurse, Valentina at [phone], if you notice any new lumps in head or neck, persistent ear, throat pain or new pains in head and neck that don't go away for 2 weeks. documented in this encounter [facility] 01-13-2022 History of Present illness Narrative Problem [...] Informed consent obtained. Entire procedure performed by [place] Anesthesia: oxymetazoline & 1% lidocaine topical Middle [...] then qd documented in this encounter [facility] [place] 12-28-2021 Note [facility] Discharge Summary and Transition Note Hari Fisher [...] the hospital from an outside facility in [place] secondary to the chief complaint of multiple episodes of bright red bleeding/hematochezia. He was evaluated in [place] by gastroenterology who took him for a [...] pRBC at outside facility and 1U at [facility] ? PROCEDURES: none CONSULTANTS: GI DISCHARGE [...] Your Medications These medications were sent to [address] [phone] - [phone] [place] [phone] ? ferrous sulfate 325 (65 Fe) MG tablet DIET: regular ACTIVITY: resume regular activity COMPLEXITY OF FOLLOW UP: [] Moderate Complexity: follow up within 7-14 calendar days (85694) [x] Severe Complexity: follow up within 7 calendar days (30186) FOLLOW UP TESTING, PENDING RESULTS OR REFERRALS [...] time frame. DISCHARGE TIME: > 30 minutes [facility] 10-07-2021 History of Present illness Narrative Problem [...] Bactroban re-ordered documented in this encounter [facility] [place] 10-07-2021 History of Present illness Narrative [facility] Dr. Alexander Mckeon MD Wastewater Analyst, Department of Endocrinology [address] [place] [address] Phone: Fax: A. CLINICAL CARE TEAM: 1. Primary Care Provider: Raudel Joyner SAMIR Fisher is a 81 y.o. male who presents to [facility] for follow [...] performed and read on block A2 at [facility] reveals the tumor cells are positive for [...] Mckeon MD documented in this encounter [facility] [place] 09-09-2021 History of Present illness Narrative [facility] Kathe Davis PA-C with Dr. Alexander Mckeon MD Wastewater Analyst, Department of Endocrinology [address] [place] [address] Phone: Fax: A. CLINICAL CARE TEAM: 1. Primary Care Provider: Raudel Joyner SAMIR Fisher is a 81 y.o. male who presents to [facility] for follow [...] performed and read on block A2 at [facility] reveals the tumor cells are positive for [...] good eye contact IMPRESSION AND PLAN Hari Fishre is a 81 y.o. male who presents [...] Kathe Davis PA-C documented in this encounter [facility] 09-09-2021 Instructions Kathe Davis PA-C - 09/09/2021 [...] as Dr. 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 Glucocorticoid deficiency Acquired hypothyroidism Unspecified hypothyroidism Hypogonadism male Other testicular hypofunction [facility] [place] 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 Glucocorticoid deficiency Acquired hypothyroidism Unspecified hypothyroidism [facility] [place] Diagnosis Pituitary adenoma- Primary Benign neoplasm of pituitary gland and craniopharyngeal duct (pouch) [facility] Cough Wheezing documented in this encounter [facility] Work Phone: Evaluation note* Diagnosis 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 Glucocorticoid deficiency Acquired hypothyroidism Unspecified hypothyroidism [facility] [place] 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 Glucocorticoid deficiency Acquired hypothyroidism Unspecified hypothyroidism Hypogonadism male Other testicular hypofunction [facility] [place] Diagnosis Chronic rhinitis- Primary Pituitary adenoma Benign neoplasm of pituitary gland and craniopharyngeal duct (pouch) [facility] [place] Diagnosis S/P selective transsphenoidal pituitary adenomectomy Other postprocedural status [facility] 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 Glucocorticoid deficiency Acquired hypothyroidism Unspecified hypothyroidism Hypogonadism male Other testicular hypofunction Encounter for screening for malignant neoplasm of prostate Special screening for malignant neoplasm of prostate [facility] Pituitary adenoma- Primary Benign neoplasm of pituitary gland and craniopharyngeal duct (pouch) [facility] [place] Diagnosis Vasovagal episode- Primary Syncope and collapse Essential hypertension Unspecified essential hypertension Type 2 diabetes mellitus with hyperosmolarity without coma, without long-term current use of insulin (CMS/HCC) ([facility]) [facility] Diagnosis Arthritis of right knee- [...] Anemia, unspecified type [facility] Diagnosis Type 2 diabetes mellitus [...] Idiopathic progressive neuropathy documented in this encounter [facility] Discharge Instructions * Attachments The following attachments cannot be sent through Care Everywhere. * Fever: General Info (Chinese) documented in this encounter Assessments Diagnosis Fever, unspecified fever cause Advance Directives No Advanced Directives Records FoundDocuments on File Type Date Recorded Patient Screen Maker Expl anation ACP-Advance Directive ACP-Power of Treasury Management Sales Consultant Documents on File Type Date Recorded Patient Screen Maker Expl anation ACP-Advance Directive ACP-Power of Treasury Management Sales Consultant Documents on File Type Date Recorded Patient Screen Maker Expl anation [facility] Power of Treasury Management Sales Consultant 08/15/2021 Latest Code Status on File Code Status Date Activated Date Inactivated Comments Full Code 08/08/2021 8:00 PM [id number] 08/08/2021 3:01 PM 08/08/2021 8:00 PM I hav e discussed Hari Fisher's Do Not Resuscitate wishes with patient. They are in agreement with this code status. Documents on File Type Date Recorded Patient Screen Maker Expl anation HealthCare Power of Treasury Management Sales Consultant 08/15/2021 Latest Code Status on File Code [...] DUP CAROTID BILATERAL Dharmesh García MD [address] [facility] [address] [place] [address] Referral ID Status Reason Start Date Expiration Date Visits Re quested Visits Authorized [id number] Closed 09/01/2021 09/01/2022 1 1 Specialty Diagnoses / Procedures Referred By Contac t Referred To Contact Diagnoses S/P selective transsphenoidal pituitary adenomectomy Procedures MRI PITUITARY WITH AND WITHOUT CONTRAST MO MRI BRAIN COMBO Yeison Velazquez MD [address] [place] [address] Referral ID Status Reason Start Date Expiration Date Visits Re quested Visits Authorized [id number] Closed 09/09/2021 10/04/2022 1 1 Specialty Diagnoses / Procedures Referred By Contac t Referred To Contact Diagnoses Pituitary adenoma Procedures MRI PITUITARY WITH AND WITHOUT CONTRAST MO MRI BRAIN COMBO Nicole Byrne, PA-C [address] [place] [address] Referral ID Status Reason Start Date Expiration Date V isits Requested Visits Authorized [id number] Auth Not Needed 01/13/2022 02/07/2023 1 1 [...] Procedures MRI PITUITARY WITH AND WITHOUT CONTRAST MO MRI BRAIN COMBO Yeison Velazquez MD [address] [place] [address] Referral ID Status Reason Start Date Expiration Date V isits Requested Visits Authorized [id number] Auth Not Needed 09/09/2021 10/04/2022 1 1 Reason Comments Labs Only Venipuncture Referral ID Status Reason Start Date Expiration Date Visits Re quested Visits Authorized [id number] Closed 09/09/2021 10/04/2022 1 1 Reason Comments [...] Care Teams (unrecognized sec tion and content) Powerhouse Mechanic Apprentice Relationship Specialty Start Date End Date Raudel Joyner MD [address] [facility], [address] [place], [place] [id number] PCP - General Family Medicine 08/08/21 Yeison Velazquez MD [address] [place] [address] Neurosurgeon Neurological Surgery 08/14/21 Bisi Eng MD [address] [place] [address] Gear Coding Machine Operator Otolaryngology 08/14/21 Alexander Mckeon MD [address] [place] [address] Community Services Coordinator Endocrinology, Diabetes & Metabolism 08/15/21 Puma Rivera MD [address] [place] [address] [address] [place] [phone] Opthalmologist Ophthalmology Neuro-ophthalmology 08/15/21 Sunil Levin MD, MPH [address] [address] Cardiovascular Medicine 08/15/21 Powerhouse Mechanic Apprentice Relationship Specialty Start Date End Date Raudel Joyner MD [address] [place] [address], [facility] [address] [place], [place] [phone] PCP - General Family Medicine 08/08/21 Yeison Velazquez MD [address] [place] [address] Neurosurgeon Neurological Surgery 08/14/21 Bisi Eng MD [address] [place] [address] Gear Coding Machine Operator Otolaryngology 08/14/21 Alexander Mckeon MD [address] [place] [address] Community Services Coordinator Endocrinology, Diabetes & Metabolism 08/15/21 Puma Rivera MD [address] [facility] [address] [place] [phone] Opthalmologist Ophthalmology Neuro-ophthalmology 08/15/21 Sunil Levin MD, MPH [address] [facility] [address] [place] [address] Cardiovascular Medicine 08/15/21 Powerhouse Mechanic Apprentice Relationship Specialty Start Date End Date Raudel Joyner MD [address] [place] [address], [facility] [place], [place] [phone] PCP - General Family Medicine 12/23/15 Powerhouse Mechanic Apprentice Relationship Specialty Start Date End Date Raudel Joyner MD PCP - General Family Medicine 08/08/21 Yeison Velazquez MD [address] [place] [address] Neurosurgeon Neurological Surgery 08/14/21 Bisi Eng MD [address] [place] [address] Gear Coding Machine Operator Otolaryngology 08/14/21 Alexander Mckeon MD [address] [place] [address] Community Services Coordinator Endocrinology, Diabetes & Metabolism 08/15/21 Puma Rivera MD [address] [place] [address] [address] [place] [address] Opthalmologist Ophthalmology Neuro-ophthalmology 08/15/21 Sunil Levin MD, MPH Cardiovascular Medicine 08/15/21 Powerhouse Mechanic Apprentice Relationship Specialty Start Date End Date Raudel Joyner MD PCP - General Family Medicine 08/08/21 Yeison Velazquez MD [address] [place] [address] Neurosurgeon Neurological Surgery 08/14/21 Bisi Eng MD [address] [place] [address] Gear Coding Machine Operator Otolaryngology 08/14/21 Alexander Mckeon MD [address] [place] [address] Community Services Coordinator Endocrinology, Diabetes & Metabolism 08/15/21 Puma Rivera MD [address] [facility] [address] [place] [address] Opthalmologist Ophthalmology Neuro-ophthalmology 08/15/21 Sunil Levin MD, MPH Cardiovascular Medicine 08/15/21 Powerhouse Mechanic Apprentice Relationship Specialty Start Date End Date Raudel Joyner MD PCP - General Family Medicine 08/08/21 Yeison Velazquez MD [address] [place] [address] Neurosurgeon Neurological Surgery 08/14/21 Bisi Eng MD [address] [place] [address] Gear Coding Machine Operator Otolaryngology 08/14/21 Alexander Mckeon MD [address] [place] [address] Community Services Coordinator Endocrinology, Diabetes & Metabolism 08/15/21 Puma Rivera MD [address] [facility] [address] [place] [address] Opthalmologist Ophthalmology Neuro-ophthalmology 08/15/21 Sunil Levin MD, MPH Cardiovascular Medicine 08/15/21 Powerhouse Mechanic Apprentice Relationship Specialty Start Date End Date Raudel Joyner MD PCP - General Family Medicine 08/08/21 Yeison Velazquez MD [address] [place] [address] Neurosurgeon Neurological Surgery 08/14/21 Bisi Eng MD [address] [place] [address] Gear Coding Machine Operator Otolaryngology 08/14/21 Alexander Mckeon MD [address] [place] [address] Community Services Coordinator Endocrinology, Diabetes & Metabolism 08/15/21 Puma Rivera MD [address] [facility] [address] [place] [phone] Opthalmologist Ophthalmology Neuro-ophthalmology 08/15/21 Sunil Levin MD, MPH Cardiovascular Medicine 08/15/21 Powerhouse Mechanic Apprentice Relationship Specialty Start Date End Date Raudel Joyner MD PCP - General Family Medicine 08/08/21 Yeison Velazquez MD [address] [place] [address] Neurosurgeon Neurological Surgery 08/14/21 Bisi Eng MD [address] [place] [address] Gear Coding Machine Operator Otolaryngology 08/14/21 Alexander Mckeon MD [address] [place] [address] Community Services Coordinator Endocrinology, Diabetes & Metabolism 08/15/21 Puma Rivera MD [address] [facility] [address] [place] [address] Opthalmologist Ophthalmology Neuro-ophthalmology 08/15/21 Sunil Levin MD, MPH Cardiovascular Medicine 08/15/21 Powerhouse Mechanic Apprentice Relationship Specialty Start Date End Date Raudel Joyner MD PCP - General Family Medicine 08/08/21 Yeison Velazquez MD [address] [place] [address] Neurosurgeon Neurological Surgery 08/14/21 Bisi Eng MD [address] [place] [address] Gear Coding Machine Operator Otolaryngology 08/14/21 Alexander Mckeon MD [address] [place] [address] Community Services Coordinator Endocrinology, Diabetes & Metabolism 08/15/21 Puma Rivera MD [address] [facility] [address] [place] [address] Opthalmologist Ophthalmology Neuro-ophthalmology 08/15/21 Sunil Levin MD, MPH Cardiovascular Medicine 08/15/21 Powerhouse Mechanic Apprentice Relationship Specialty Start Date End Date Raudel Joyner MD PCP - General Family Medicine 08/08/21 Yeison Velazquez MD [address] [place] [address] Neurosurgeon Neurological Surgery 08/14/21 Bisi Eng MD [address] [place] [address] Gear Coding Machine Operator Otolaryngology 08/14/21 Alexander Mckeon MD [address] [place] [address] Community Services Coordinator Endocrinology, Diabetes & Metabolism 08/15/21 Puma Rivera MD [address] [facility] [address] [place] [address] Opthalmologist Ophthalmology Neuro-ophthalmology 08/15/21 Sunil Levin MD, MPH Cardiovascular Disease 08/15/21 Powerhouse Mechanic Apprentice Relationship Specialty Start Date End Date Ruadel Joyner MD [address] [place] [address] PCP - General 12/23/15 Powerhouse Mechanic Apprentice Relationship Specialty Start Date End Date Raudel Joyner MD [address] [place] [address] PCP - General 12/23/15 Powerhouse Mechanic Apprentice Relationship Specialty Start Date End Date Raudel Joyner MD [address] [place] [address] PCP - General 12/23/15 Powerhouse Mechanic Apprentice Relationship Specialty Start Date End Date Raudel Joyner MD [address] [place] [address] PCP - General 12/23/15 Powerhouse Mechanic Apprentice Relationship Specialty Start Date End Date Raudel Joyner MD [address] [place] [address] PCP - General 12/23/15 Powerhouse Mechanic Apprentice Relationship Specialty Start Date End Date Raudel Joyner MD [address] [place] [address] PCP - General 12/23/15 (unrecognized sect ion and content) No Status Records FoundNo Status Records FoundNo Status Records FoundNo Status Records FoundNo Status Records Found INFORMATION SOURCE (unrecogn ized section and content) DATE CREATED AUTHOR AUTHOR'S ORGANIZ ATION 01/22/2022 [employer] DATE CREATED AUTHOR AUTHOR'S ORGANIZ ATION 10/02/2022 [facility] DATE CREATED AUTHOR AUTHOR'S ORGANIZ ATION 06/01/2023 [facility] DATE CREATED AUTHOR AUTHOR'S ORGANIZ ATION 07/08/2023 [employer] [facility] FOR RECORDS PERTAINING TO PATIENTS WHO [...] BE BASED ON THE PRIMARY CLINICAL RECORDS. [facility]. provides no warranty or guarantee of the accuracy or completeness of information in this document.
[2023-07-18 08:04] LABS: Urine Sodium 174 mmol/L (Not Establ.)
[2023-07-18] MEDS: Lactated Ringers 1,000 ML 250 ML IV ×2 (09:14→12:42)
[2023-07-18] MEDS: Hydrocortisone 10 MG Tablet 30 MG PO (09:45)
[2023-07-18] MEDS: Heparin Injection (Vial) 5,000 UNIT/ML VIAL 5000 UNIT SC ×2 (09:45→21:23)
[2023-07-18] MEDS: Acetaminophen 325 MG Tablet 650 MG PO (10:40)
[2023-07-18] MEDS: Pramipexole Di-HCl 0.5 MG Tablet PO (15:07)
[2023-07-18] MEDS: Hydrocortisone 10 MG Tablet 15 MG PO (16:49)
[2023-07-18] MEDS: Magnesium Chloride 64 MG Delay Rel.Tablet 128 MG PO (21:23)
[2023-07-18] MEDS: DESMOPRESSIN ACETATE 0.1 MG TABLET 0.0500000000000000028 MG PO (21:23)
[2023-07-18] MEDS: Pramipexole Di-HCl 1 MG Tablet PO (21:24)
[2023-07-18] MEDS: Pregabalin 75 MG Capsule 150 MG PO (21:25)
[2023-07-19 03:00] VITALS: BP 137/66; PULSE 77; RESP 16; TEMP 37.7; O2SAT 98
[2023-07-19] MEDS: Acetaminophen 325 MG Tablet 650 MG PO (03:19)
[2023-07-19] MEDS: Levothyroxine 100 MCG Tablet PO (03:19)
[2023-07-19 05:50] LABS: Hematocrit 31.7 % (40-54); Hemoglobin 10.7 g/dL (13.0-16.5); Mean Corp Hgb Conc 33.8 g/dL (32-36); Mean Corpuscular Volume 85.9 fL (80-94); Platelet Count 195 K/mm3 (150-450); RBC Distribution Width CV 12.9 % (11.6-14.6); RBC Distribution Width SD 40.1 fl (35.1-43.9); Red Blood Count 3.69 M/mm3 (4.6-6.2); White Blood Count 7.2 K/mm3 (4.4-11.0)
[2023-07-19 06:53] LABS: Anion Gap 7 (5-15); BUN 16 mg/dL (7-18); BUN/Creat Ratio 15.1 RATIO (10-20); Calcium,Total 8.7 mg/dL (8.5-10.1); Chloride 106 mmol/L (98-107); Creatinine, Serum 1.06 mg/dL (0.70-1.30); EST Glomerular Filtration Rate 71 mL/min (>60); Est Glom Filt Rate - Afr Amer 86 mL/min (>60); Estimated Creatinine Clearance 57.22 ml/min; Glucose 101 mg/dL (74-106); Potassium 3.6 mmol/L (3.5-5.1); Sodium Level 136 mmol/L (136-145)
--- NOTE | 2023-07-19 08:13 | PN.HOSP_ITS ---
Reason for Visit Reason for Visit: Diagnoses Other malaise (07/18/23) COVID-19 (07/18/23) Subjective Subjective Patient is an 83-year-old male who presented to [facility] ED on 07/18/2023 with fevers, confusion and worsening weakness. Objective Data Objective Data Vital Signs: Vital Signs Temp Pulse Resp BP Pulse Ox O2 Del Method 99.9 F H 77 16 137/66 H 98 Room Air 07/19/23 03:00 07/19/23 03:00 07/19/23 03:00 07/19/23 03:00 07/19/23 03:00 07/19/23 03:00 Oxygen Delivery Method Room Air Weight: 88.451 kg Body Mass Index (BMI) 27.1 Intake & Output: Intake and Output for Last 24 Hours 07/17/23 07/18/23 07/19/23 23:59 23:59 23:59 Intake Total 3566.67 / 3866.67 550 / 550 Output Total 1400 / 1400 400 / 400 Balance 2166.67 / 2466.67 150 / 150 Lab / Micro Data 07/19/23 05:14 07/19/23 05:14 Labs: Laboratory Results - last 24 hr 07/19/23 05:14: WBC 7.2, RBC 3.69 L, Hgb 10.7 L, Hct 31.7 L, MCV 85.9, MCH 29.0, MCHC 33.8, RDW Std Deviation 40.1, RDW Coeff of Florian 12.9, Plt Count 195, MPV 10.0, Sodium 136, Potassium 3.6, Chloride 106, Carbon Dioxide 23.0, Anion Gap 7, BUN 16, Creatinine 1.06, Estim Creat Clear Calc 57.22, Est GFR (MDRD) Af Amer 86, Est GFR (MDRD) Non-Af 71, BUN/Creatinine Ratio 15.1, Glucose 101, Calcium 8.7 Micro: Microbiology 07/18/23 04:45 Mucosa - Nasopharyngeal SARS-CoV-2, Influenza & RSV (PCR) - Final SARS-CoV-2 (COVID 19) Physical Exam Narrative GENERAL: cooperative HEENT: Atraumatic; normocephalic EYES; Anicteric, Normal Conjunctiva NECK; supple, normal thyroid, RESPIRATORY: Diminished to auscultation CARDIOVASCULAR: Regular S1 S2, GI: soft, normoactive bowel sounds, : No Renal angle tenderness; EXTREMITIES: No edema, no clubbing, MUSCULOSKELETAL: no muscle wasting NEURO: Awake; no lateralizing signs. SKIN: No Rash PSYCH; Flat affect Assessment & Plan Assessment/Plan (1) COVID-19 virus infection: (2) Debility: PLAN: Plan Patient is an 83-year-old male who presented to [facility] ED on 07/18/2023 with fevers, confusion and worsening weakness. 1. Acute COVID-19 infection ? Patient presented with progressive generalized weakness. Patient has improved 2. Physical deconditioning - Requested for PT OT eval and social sciences lecturer to assist with discharge planning 3. 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 Doubled home hydrocortisone dosing to 30 mg with breakfast and 15 mg with dinner. Continue home desmopressin, Synthroid. 4. Acute kidney injury ? Resolved with rehydration 5. Essential hypertension ? Lisinopril was held in view of impaired kidney function 6. Peripheral neuropathy ? Patient is on Lyrica continue 7.Restless leg syndrome - Continue home ropinirole. 8. DVT prophylaxis ? SC heparin Time spent in the patient's overall evaluation,decision-making process, review of diagnostic data, adjustment of management, discussion with other providers, nursing nursing and ancillary staff involved in patient's care documentation, 35 Minutes Charges/Coding Visit Charges Inpatient E&M: 06489 Subs Hosp L2
[2023-07-19 08:17] VITALS: O2SAT 94
--- NOTE | 2023-07-19 09:37 | CASEMGMT ---
PT states that he has a BGM and enough supplies. Pt states his is a diabetic. Pt also states he is completely independent at home and also that his daughter and GD are nurses so pt denies the need for any HHC at this time. Pt states that his daughter will drive him home at time of DC. Pt states that he lives at home with his and that his daughter will be staying with them after DC. Pt states he does drive. Pt denies any further needs at this time. WCTM.
[2023-07-19] MEDS: Hydrocortisone 10 MG Tablet 30 MG PO (10:28)
[2023-07-19] MEDS: Heparin Injection (Vial) 5,000 UNIT/ML VIAL 5000 UNIT SC (10:28)
[2023-07-19] MEDS: Pramipexole Di-HCl 0.5 MG Tablet PO (10:29)
[2023-07-19 10:36] VITALS: BP 143/78; PULSE 77; RESP 16; TEMP 36.6; O2SAT 98
--- NOTE | 2023-07-19 11:47 | PCM.DC.SUM ---
Providers Date of Admission: 07/18/23 Date of Discharge: 07/19/23 Primary Care Physician: Dr. Montana Lucas MD Reason For Visit: COVID-19 INFECTION, WEAKNESS Diagnosis Discharge Diagnosis (1) COVID-19 virus infection: Status: Acute Code(s): U07.1 - COVID-19 (2) Debility: Status: Acute Code(s): R53.81 - Other malaise Plan Patient is an 83-year-old male who presented to [facility] ED on 07/18/2023 with fevers, confusion and worsening weakness. 1. Acute COVID-19 infection ? Patient presented with progressive generalized weakness. Patient has improved 2. Physical deconditioning - Requested for PT OT eval and vp digital marketing social media and crm to assist with discharge planning 3. 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 Doubled home hydrocortisone dosing to 30 mg with breakfast and 15 mg with dinner. Continue home desmopressin, Synthroid. 4. Acute kidney injury ? Resolved with rehydration 5. Essential hypertension ? Lisinopril was held in view of impaired kidney function 6. Peripheral neuropathy ? Patient is on Lyrica continue 7.Restless leg syndrome - Continue home ropinirole. 8. DVT prophylaxis ? SC heparin Time spent in the patient's overall evaluation,decision-making process, review of diagnostic data, adjustment of management, discussion with other providers, nursing nursing and ancillary staff involved in patient's care documentation, 35 Minutes Medications at Discharge Home Medications pregabalin 150 mg capsule (Lyrica) 150 cap PO BID pain 06/22/16 lisinopril 20 mg tablet 20 mg PO DAILY blood pressure 08/07/21 ropinirole 1 mg tablet 1 mg PO DAILY@0700 restless leg syndrome 08/07/21 ropinirole 1 mg tablet 2 mg PO QHS restless leg syndrome 08/07/21 desmopressin 0.1 mg tablet 0.5 tab PO QHS pituitary supplement 12/21/21 hydrocortisone 5 mg tablet 3 tab PO DAILY steroid 12/21/21 hydrocortisone 5 mg tablet 7.5 mg PO DAILY@1630 steroid 12/21/21 levothyroxine 100 mcg tablet 100 mcg PO DAILY@0600 thyroid 12/21/21 magnesium oxide 400 mg PO QHS supplement 12/21/21 ropinirole 1 mg tablet 1 mg PO DAILY@1630 restless leg syndrome 12/21/21 Hospital Course Summary of Care Provided Minutes Spent on Discharge: 35 Physical Exam Narrative GENERAL: cooperative HEENT: Atraumatic; normocephalic EYES; Anicteric, Normal Conjunctiva NECK; supple, normal thyroid, RESPIRATORY: Diminished to auscultation CARDIOVASCULAR: Regular S1 S2, GI: soft, normoactive bowel sounds, : No Renal angle tenderness; EXTREMITIES: No edema, no clubbing, MUSCULOSKELETAL: no muscle wasting NEURO: Awake; no lateralizing signs. SKIN: No Rash PSYCH; Flat affect Weight / BMI Weight Weight: 88.451 kg Body Mass Index (BMI) 27.1 ABG / Lab / Microbiology Data 07/19/23 05:14 07/19/23 05:14 Laboratory: Laboratory Results - last 24 hr 07/19/23 05:14: WBC 7.2, RBC 3.69 L, Hgb 10.7 L, Hct 31.7 L, MCV 85.9, MCH 29.0, MCHC 33.8, RDW Std Deviation 40.1, RDW Coeff of Florian 12.9, Plt Count 195, MPV 10.0, Sodium 136, Potassium 3.6, Chloride 106, Carbon Dioxide 23.0, Anion Gap 7, BUN 16, Creatinine 1.06, Estim Creat Clear Calc 57.22, Est GFR (MDRD) Af Amer 86, Est GFR (MDRD) Non-Af 71, BUN/Creatinine Ratio 15.1, Glucose 101, Calcium 8.7 Microbiology: Microbiology 07/18/23 04:45 Mucosa - Nasopharyngeal SARS-CoV-2, Influenza & RSV (PCR) - Final SARS-CoV-2 (COVID 19) D/C Instructions Discharge Diet: No restrictions Discharge Activity: Return to Normal Activity Call your doctor if you observe: Fever of 101 or Higher, Shortness of breath, Fainting spells and Chest pain Meaningful Use Info Meaningful Use Diagnoses (Choose all that apply): None applicable Discharge Plan Admission Admit Date/Time: 07/18/23 07:32 Attending Provider: Puma Bernal Primary Care Provider: Montana Lucas Consulting Providers: Nghia Britt Instructions Patient Instructions: Coronavirus Disease 2019 (COVID-19): Caring for Yourself or Others Discharge Orders/Prescriptions Prescriptions: Continued pregabalin [Lyrica] 150 MG capsule 150 cap PO BID Patient Comments: ropinirole 1 mg tablet 1 mg PO DAILY@0700 Patient Comments: TAKE 1 TABLET BY MOUTH EVERY MORNING AND 3 TABLETS BY MOUTH EVERY EVENING ropinirole 1 mg tablet 2 mg PO QHS Patient Comments: TAKE 1 TABLET BY MOUTH EVERY MORNING AND 3 TABLETS BY MOUTH EVERY EVENING lisinopril 20 mg tablet 20 mg PO DAILY hydrocortisone 5 mg tablet 3 tab PO DAILY Patient Comments: TAKE 3 TABLETS BY MOUTH EVERY MORNING AND 1 TABLET EVERY EVENING. DOUBLE DOSE WHEN SICK DIRECTED hydrocortisone 5 mg tablet 7.5 mg PO DAILY@1630 Patient Comments: TAKE 3 TABLETS BY MOUTH EVERY MORNING AND 1 TABLET EVERY EVENING. DOUBLE DOSE WHEN SICK DIRECTED ropinirole 1 mg tablet 1 mg PO DAILY@1630 levothyroxine 100 mcg tablet 100 mcg PO DAILY@0600 Patient Comments: TAKE ONE TABLET BY MOUTH EVERY MORNING BEFORE BREAKFAST desmopressin 0.1 mg tablet 0.5 tab PO QHS Patient Comments: take 1/2 tablet by mouth every evening magnesium oxide 400 mg magnesium Tablet 400 mg PO QHS Referrals / Follow Up: Montana Lucas MD [Primary Care Provider] - Within 1 Week Disposition Disposition (needs filled in before D/C Order can be placed): Home, Self Care Charges/Coding Visit Charges Inpatient E&M: 52322 Disch Hosp >30min
[2023-07-19 12:14] VITALS: O2SAT 99
--- NOTE | 2023-07-19 13:25 | CASEMGMT ---
Met with patient to complete GROVE form. GROVE form explained to patient who voiced understanding and signed form. Original form placed in pt?s chart and copy provided to?patient. Codi Zheng, Discharge Planning Asst
== END 2023-07-19 13:14 | disposition home or self-care (01) ==
LOC: ED 07:35 → MS3 07:46
PROVIDERS: Admitting Provider Hospitalist; Emergency Provider Emergency Medicine; PCP Family Medicine; Visit Provider Internal Medicine
DX: U07.1 COVID-19 (principal); C75.1 Malignant neoplasm of pituitary gland; E11.42 Type 2 diabetes mellitus with diabetic polyneuropathy; R41.0 Disorientation, unspecified; Z87.891 Personal history of nicotine dependence; I10 Essential (primary) hypertension; Z79.899 Other long term (current) drug therapy; G25.81 Restless legs syndrome
CPT/HCPCS: 36415; 71045; 80048; 80053; 81001; 82570; 83605; 83735; 84300; 85025; 85027; 87040; 87086; 87631; 93005; 94668; 96360; 96361; 96372; 97162; 97166; 99221; 99285; J7030; J7120; P9612; A4216; G0378

== ENCOUNTER 2023-09-02 17:11 | Observation (INO) | payer MEDICARE, SELFPAY ==
[2023-09-02] VITALS (21 sets, daily range): BP systolic 140–177; BP diastolic 71–89; PULSE 69–89; RESP 16–32; TEMP 36.8–39; O2SAT 91–99; BMI 27.8
--- NOTE | 2023-09-02 17:52 | EKG12_ITS ---
Test Reason : Blood Pressure : / mmHG Vent. Rate : 074 BPM Atrial Rate : 074 BPM P-R Int : 190 ms QRS Dur : 084 ms QT Int : 398 ms P-R-T Axes : 035 045 085 degrees QTc Int : 441 ms Normal sinus rhythm Normal ECG Confirmed by Jamel Sarabia ([id number]), publications editor BAUTISTA AGUILAR ([id number]) on 09/06/2023 2:08:46 PM Referred By: Confirmed By:Jamel Sarabia
--- NOTE | 2023-09-02 17:58 | EDS_ITS ---
HPI History of Present Illness Chief Complaint: Confusion Informant: patient, family and EMS Narrative Narrative: Initial history is limited given the patient's mental status/confusion. Reportedly the patient has had a history of pituitary tumor removal and is on hydrocortisone and desmopressin. The patient states his last surgery was 3 years ago. She reported that he had the flu a week ago and now is having increased confusion and difficulty urinating and fever. He notes a cough which he states has been there a while. He tells me that he had blood work at the online content editor's office which came back fine. He tells me that his blood pressure and heart rate were fine but his daughter wanted him to be evaluated and called the ambulance. He states he is not having any pain. There is no family with him at the time of my initial examination but we will have nursing call to see if they are coming. Nursing was able to get a hold of the daughter. Daughter states that she came to see her parents today and they were both on the floor and he was very conf used. The mother has dementia as well. Both have had a fever since Wednesday. She states is not uncommon that when he gets sick he gets very encephalopathic. She will be coming up to see the patient and to be with him. [facility] Medical History Anemia BiPAP (biphasic positive airway pressure) dependence Brain surgery within last 3 months Former smoker GI bleed HTN (hypertension) New onset type 2 diabetes mellitus Raynaud disease Sleep apnea Home Medications pregabalin 150 mg capsule (Lyrica) 150 cap PO BID pain 06/22/16 [History Last Taken 12/22/21] lisinopril 20 mg tablet 20 mg PO DAILY blood pressure 08/07/21 [History Last Taken 12/24/21] ropinirole 1 mg tablet 1 mg PO DAILY@0700 restless leg syndrome 08/07/21 [History Last Taken 12/23/21] ropinirole 1 mg tablet 2 mg PO QHS restless leg syndrome 08/07/21 [History Last Taken 12/23/21] desmopressin 0.1 mg tablet 0.5 tab PO QHS pituitary supplement 12/21/21 [History Last Taken 12/23/21] hydrocortisone 5 mg tablet 3 tab PO DAILY steroid 12/21/21 [History Last Taken 12/24/21] hydrocortisone 5 mg tablet 7.5 mg PO DAILY@1630 steroid 12/21/21 [History Last Taken 12/23/21] levothyroxine 100 mcg tablet 100 mcg PO DAILY@0600 thyroid 12/21/21 [History Last Taken 12/24/21] magnesium oxide 400 mg PO QHS supplement 12/21/21 [History Last Taken 12/23/21] ropinirole 1 mg tablet 1 mg PO DAILY@1630 restless leg syndrome 12/21/21 [History Last Taken 12/23/21] Allergy/AdvReac Type Severity Reaction Status Date / Time Penicillins [PCN] Allergy Rash Verified 09/02/23 17:17 terazosin Allergy PT UNSURE Verified 09/02/23 17:17 OF REACTION Surgical History History of appendectomy History of surgical removal of pituitary gland Social History household members: spouse housing: house Smoking Status: Former smoker alcohol intake: never substance use type: does not use ROS ROS ED Review of Systems ROS Unobtainable: due to mental status Constitutional Constitutional ED: Reports fever(s) ENT ENT ED: Reports rhinorrhea and other Details: Dry mouth Respiratory/Chest Respiratory/Chest: Reports cough EXAM Physical Exam Narrative Exam Narrative: Patient is in no acute distress. Const Vital Signs: 09/02/23 17:17 09/02/23 17:21 09/02/23 17:48 Temperature 100 F H 102.1 F H Temperature Source Temporal Oral Pulse Rate 77 76 Respiratory Rate 20 H 18 Blood Pressure 177/83 H 155/88 H Blood Pressure Mean 114 110 Pulse Ox 94 93 95 Oxygen Delivery Method Room Air Room Air Room Air 09/02/23 18:20 09/02/23 19:00 09/02/23 18:32 Temperature 102.2 F H 99.8 F H Temperature Source Oral Oral Pulse Rate 74 69 73 Respiratory Rate 18 25 H 27 H Blood Pressure 175/78 H 150/74 H Blood Pressure Mean 110 99 Pulse Ox 94 93 94 Oxygen Delivery Method Room Air Room Air 09/02/23 18:40 09/02/23 18:50 09/02/23 19:00 Temperature Temperature Source Pulse Rate 75 69 Respiratory Rate 21 H 25 H Blood Pressure 150/74 H Blood Pressure Mean 97 Pulse Ox 96 95 93 Oxygen Delivery Method Room Air 09/02/23 19:10 09/02/23 19:20 09/02/23 19:30 Temperature Temperature Source Pulse Rate 72 78 81 Respiratory Rate 32 H 24 H 27 H Blood Pressure Blood Pressure Mean Pulse Ox 92 94 92 Oxygen Delivery Method Positive well nourished and well developed General Appearance ED: well developed HEENT Reports normocephalic, head/scalp atraumatic and dry mucous membranes Mouth ED: Yes dry mucous membranes Mouth: dry mucous membranes Eyes PERRL and EOMs intact bilaterally Neck no lymphadenopathy, supple and no JVD Resp normal respiratory effort and clear to auscultation bilaterally Resp Narrative: Dry cough Cardio regular rate, regular rhythm and no murmurs GI normal to inspection, nondistended, normoactive bowel sounds and non-tender Palpation: soft Back/Spine no CVA tenderness and normal ROM Extremity Extremity Narrative: There is mild edema to the bilateral lower extremities nonpitting. Does appear left greater than right slightly. Neuro CN's II-XII intact bilaterally Neuro Narrative: Patient is clearly confused. Sensorium / Orientation: alert and orientation impaired Motor Exam: strength 5/5 throughout Psych mental status grossly normal Mood & Affect: Negative for depressed or tearful Skin no rashes or lesions noted and no wounds MDM MDM MDM Narrative Medical decision making narrative: Patient is influenza A positive. I do not see obvious infiltrate on chest x- ray. White count 7.5 with hemoglobin 12.3. Platelet count 177. Lactic acid normal. Glucose 107. Urinalysis liver panel showed alk phos of 133 AST 58. Patient received IV fluids and Tylenol. He also received some hydrocortisone. He is doing better on repeat examination plan is admission to hospital History & Record Review Discussion w/independent historian: EMS personnel, Patient and Family Lab Data Attestation: I reviewed the patient's lab results. Labs: Laboratory Results - last 24 hr 09/02/23 09/02/23 18:02 18:30 WBC 7.5 RBC 4.12 L Hgb 12.3 L Hct 35.9 L MCV 87.1 MCH 29.9 MCHC 34.3 RDW Std Deviation 43.3 RDW Coeff of Florian 13.6 Plt Count 177 MPV 10.3 Immature Gran % (Auto) 0.300 Neut % (Auto) 57.9 Lymph % (Auto) 34.0 [place] % (Auto) 6.3 Eos % (Auto) 1.2 Baso % (Auto) 0.3 Absolute Neuts (auto) 4.4 Absolute Lymphs (auto) 2.55 Nucleated RBC % 0 PT 14.7 INR 1.2 APTT 35.0 Sodium 138 Potassium 4.3 Chloride 107 Carbon Dioxide 23.0 Anion Gap 8 BUN 27 H Creatinine 1.32 H Est GFR (MDRD) Af Amer 67 Est GFR (MDRD) Non-Af 55 L BUN/Creatinine Ratio 20.5 H Glucose 107 H Lactic Acid 1.0 Calcium 8.2 L Magnesium 2.1 Total Bilirubin 0.20 AST 58 H ALT 58 Alkaline Phosphatase 133 H Troponin I High Sens 12 Total Protein 6.9 Albumin 3.4 Globulin 3.5 Albumin/Globulin Ratio 1.0 Urine Color Yellow Urine Clarity Clear Urine pH 5.0 Ur Specific [place] 1.015 Urine Protein 30 H Urine Glucose (UA) Normal Urine Ketones Negative Urine Occult Blood 10 H Urine Nitrite Negative Urine Bilirubin Negative Urine Urobilinogen Normal Ur Leukocyte Esterase Negative Urine RBC 0 SEEN Urine WBC 0 SEEN Ur Squamous Epith Cells 0 SEEN Urine Bacteria 0 SEEN Urine Mucus 0 SEEN Radiography Diagnostic Testing: Clinical Impression(s) from Imaging Studies Chest X-Ray 09/02/23 18:18 IMPRESSION: Mild prominence of interstitial markings in right lower lobe possibly inflammatory. Electronically Signed: Miguel Angel Pike MD at 19:10 EST Reading Location ID and State: [address] [place] [address] Tel , Service support , EKG Initial EKG: Attestation: I personally reviewed and interpreted this EKG as follows: Comments: Normal sinus rhythm with a ventricular of 74 bpm Discharge Plan Dx/Rx/DC Orders Clinical Impression: Encephalopathy acute, Influenza A, Adrenal insufficiency, Acute dehydration Disposition Disposition: Acute Care [facility]
[2023-09-02] MEDS: 0.9% Normal Saline (1000mL) 1,000 ML 150 ML IV (18:01)
[2023-09-02] MEDS: Acetaminophen 500 MG Tablet 1000 MG PO (18:01)
--- NOTE | 2023-09-02 18:18 | RAD_ITS ---
STUDY: X-RAY CHEST REASON FOR EXAM: Male, 83 years old. fever and cough TECHNIQUE: AP portable COMPARISON: July 18, 2023 FINDINGS: There is mild interstitial thickening seen at the right base which is new since previous study possibly inflammatory.. There is no demonstrated pleural abnormality. Normal size heart. Normal mediastinum and radhika. Normal visualized pulmonary arteries. Normal visualized aortic arch and descending thoracic aorta. Dorsal spine demonstrates scoliosis and degenerative change. Normal visualized ribs, and clavicles. There are degenerative changes of left shoulder There is no demonstrated abnormality of the visualized soft tissue structures of the upper abdomen. RAD/Chest 1 View (Portable) IMPRESSION: Mild prominence of interstitial markings in right lower lobe possibly inflammatory. Electronically Signed: Miguel Angel Pike MD at 19:10 EST ,
[2023-09-02 18:35] LABS: Bacteria 0 SEEN /hpf (None Seen); Mucous, Urine 0 SEEN /hpf (<or=2+); Red Blood Cells-Urine 0 SEEN /hpf (0-5); Squamous Epithelial Cells - UA 0 SEEN /hpf (0-5); White Blood Cells 0 SEEN /hpf (0-5)
[2023-09-02 18:35] LABS: Absolute Lymphocyte Count 2.55 X10^3/uL (0.83-4.51); Absolute Neutrophil Count 4.4 X10^3/uL (2.0-7.7); Basophil# 0.02 X10^3/uL; Basophil% 0.3 % (0-1); Eosinophil# 0.09 X10^3/uL; Eosinophils% 1.2 % (0-5); Hematocrit 35.9 % (40-54); Hemoglobin 12.3 g/dL (13.0-16.5); Lymphocyte # 2.55 X10^3/ul (0.83-4.51); Mean Corp Hgb Conc 34.3 g/dL (32-36); Mean Corpuscular Hgb 29.9 pg (27.0-32.0); Mean Corpuscular Volume 87.1 fL (80-94); Mean Platelet Vol. 10.3 fl (6.2-12.0); Monocyte# 0.47 X10^3/uL; Monocyte% 6.3 % (0-10); NRBC Flagged by Analyzer 0 % (0-5); Neutrophil # 4.35 X10^3/uL (2.7-7.7); Neutrophil % 57.9 % (47-70); Platelet Count 177 K/mm3 (150-450); RBC Distribution Width CV 13.6 % (11.6-14.6); RBC Distribution Width SD 43.3 fl (35.1-43.9); Red Blood Count 4.12 M/mm3 (4.6-6.2); White Blood Count 7.5 K/mm3 (4.4-11.0)
[2023-09-02] MEDS: Hydrocortisone Sod Succinate 100 MG/2 ML Vial IV (18:36)
[2023-09-02 18:49] LABS: Color, Urine Yellow (Yellow); Glucose, Dipstick Normal (Normal); Ketone-Dipstick Negative (Negative); Leukocyte Esterase-Dipstick Negative /ul (Negative); Nitrite-Dipstick Negative (Negative); Occult Blood-Urine 10 /ul (Negative); Protein-Dipstick 30 mg/dl (Negative); Specific Gravity, Urine 1.015 (1.002-1.030); Urine Bilirubin Dipstick Negative (Negative); Urine Clarity Clear (Clear); Urine Urobilinogen Normal (Normal)
[2023-09-02 18:51] LABS: AST(SGOT) 58 U/L (15-37); Alanine Aminotransfer ALT/SGPT 58 U/L (16-61); Albumin, Serum 3.4 g/dL (3.2-5.0); Alkaline Phosphatase 133 U/L (45-117); Anion Gap 8 (5-15); BUN 27 mg/dL (7-18); BUN/Creat Ratio 20.5 RATIO (10-20); Calcium,Total 8.2 mg/dL (8.5-10.1); Chloride 107 mmol/L (98-107); Creatinine, Serum 1.32 mg/dL (0.70-1.30); EST Glomerular Filtration Rate 55 mL/min (>60); Est Glom Filt Rate - Afr Amer 67 mL/min (>60); Globulin 3.5 g/dL (2.2-4.2); Glucose 107 mg/dL (74-106); Magnesium 2.1 mg/dL (1.6-2.6); Potassium 4.3 mmol/L (3.5-5.1); Protein, Total 6.9 g/dL (6.4-8.2); Sodium Level 138 mmol/L (136-145); Troponin-I HS 12 pg/mL (3.0-78.0)
[2023-09-02 19:07] LABS: International Normalized Ratio 1.2; Prothrombin Time (Protime)PT. 14.7 SECONDS (11.7-14.9)
--- NOTE | 2023-09-02 19:50 | PCM.HP.STD ---
HPI - General General Date of Admission: 09/02/23 Date of Service: 09/02/23 Chief Complaint: Fever, increased confusion, malaise, mild cough. 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 Workup in the ED included Tmax 102.2, most recent repeat 99.8, heart rate 76, BP 125 or 88, respiratory rate 18, 95% on room air however most recent repeat respiratory rate 25, 93% on room air, CBC with WC 7.5, hemoglobin 12.3, MCV 87.1, platelets 177 without marked shift, unremarkable coags, CMP with BUN/2027/1.32, glucose 107, lactic acid 1.0, hepatic profile with AST/ALT 58/58, alk phos 133 otherwise not marked appearing, troponin 12, urinalysis with no obvious evidence of UTI, chest x-ray with mild prominence interstitial markings right lower lobe possibly inflammatory, rapid SARS COVID/influenza/RSV PCR with influenza A, blood culture x 2 pending per ED, urine culture pending per ED. In the ED patient ministered maintenance IV fluids, Tylenol 1000 mg p.o. x 1 and hydrocortisone 100 mg IV x 1. Patient in the ED did seem to clinically improve and could eventually answer some questions appropriately and there is a chance that he has been missing his regimen including his hydrocortisone of note as well as his Requip. [facility] Medical History (Updated 09/02/23 @ 20:[address] Monica Tabor MD) Anemia Former smoker GI bleed History of pituitary tumor HTN (hypertension) Hypothyroidism New onset type 2 diabetes mellitus ESSENCE treated with BiPAP Raynaud disease Home Medications pregabalin 150 mg capsule (Lyrica) 150 cap PO BID pain 06/22/16 [History Last Taken 12/22/21] lisinopril 20 mg tablet 20 mg PO DAILY blood pressure 08/07/21 [History Last Taken 12/24/21] ropinirole 1 mg tablet 1 mg PO DAILY@0700 restless leg syndrome 08/07/21 [History Last Taken 12/23/21] ropinirole 1 mg tablet 2 mg PO QHS restless leg syndrome 08/07/21 [History Last Taken 12/23/21] desmopressin 0.1 mg tablet 0.5 tab PO QHS pituitary supplement 12/21/21 [History Last Taken 12/23/21] hydrocortisone 5 mg tablet 3 tab PO DAILY steroid 12/21/21 [History Last Taken 12/24/21] hydrocortisone 5 mg tablet 7.5 mg PO DAILY@1630 steroid 12/21/21 [History Last Taken 12/23/21] levothyroxine 100 mcg tablet 100 mcg PO DAILY@0600 thyroid 12/21/21 [History Last Taken 12/24/21] magnesium oxide 400 mg PO QHS supplement 12/21/21 [History Last Taken 12/23/21] ropinirole 1 mg tablet 1 mg PO DAILY@1630 restless leg syndrome 12/21/21 [History Last Taken 12/23/21] Allergy/AdvReac Type Severity Reaction Status Date / Time Penicillins [PCN] Allergy Rash Verified 09/02/23 17:17 terazosin Allergy PT UNSURE Verified 09/02/23 17:17 OF REACTION Family History Mother Multiple myeloma Father Cancer Surgical History History of appendectomy History of surgical removal of pituitary gland Social History household members: spouse housing: house Smoking Status: Former smoker alcohol intake: never substance use type: does not use ROS Review of Systems ROS Unobtainable: due to encephalopathy Vital Signs Vital Signs Vital Signs: 09/02/23 17:17 09/02/23 17:21 09/02/23 17:48 Temperature 100 F H 102.1 F H Temperature Source Temporal Oral Pulse Rate 77 76 Respiratory Rate 20 H 18 Blood Pressure 177/83 H 155/88 H Blood Pressure Mean 114 110 Pulse Ox 94 93 95 Oxygen Delivery Method Room Air Room Air Room Air 09/02/23 18:20 09/02/23 19:00 09/02/23 18:32 Temperature 102.2 F H 99.8 F H Temperature Source Oral Oral Pulse Rate 74 69 73 Respiratory Rate 18 25 H 27 H Blood Pressure 175/78 H 150/74 H Blood Pressure Mean 110 99 Pulse Ox 94 93 94 Oxygen Delivery Method Room Air Room Air 09/02/23 18:40 09/02/23 18:50 09/02/23 19:00 Temperature Temperature Source Pulse Rate 75 69 Respiratory Rate 21 H 25 H Blood Pressure 150/74 H Blood Pressure Mean 97 Pulse Ox 96 95 93 Oxygen Delivery Method Room Air 09/02/23 19:10 09/02/23 19:20 09/02/23 19:30 Temperature Temperature Source Pulse Rate 72 78 81 Respiratory Rate 32 H 24 H 27 H Blood Pressure Blood Pressure Mean Pulse Ox 92 94 92 Oxygen Delivery Method Physical Exam Narrative Physical Examination: General: Awake, alert, oriented to self, location, month and year, notably improved from initial arrival, but had recently been telling the ED physician that he had his labs checked at the deputy director of finance's office and several other nonsensical observations, appears fatigued and ill-appearing. Skin: Normal color, normal turgor, no icterus, no cyanosis except occasional staged ecchymoses. HEENT: AT/NC, EOMI, PERRLA, moderately dry MM, no carotid bruits or JVD noted. Lungs: Diminished, greater bases, mildly increased respiratory rate but no distress, no rales, ronchi or wheezing. Heart: Currently regular rate and rhythm; no gallop, rub audible. Abdomen: Soft, overweight, NTTP, ND, mildly hyperactive BS, no markedly appreciated HSM. Extremities: No cyanosis, no clubbing, no marked peripheral edema. Neurological: Patient awake, alert, oriented as noted, cognitive function improving, still mild decreased from baseline secondary to acute presentation, pupils equally reactive to light and accommodation, cranial nerves grossly normal, moving all 4 extremities, no focal deficits, strength severely globally decreased secondary to acute presentation. Psychiatric: Affect appears flat, fatigued, ill-appearing, no acute evidence of depressive or anxiety feelings. Results Lab / Micro Data 09/02/23 18:02 09/02/23 18:02 Labs: Laboratory Results - last 24 hr 09/02/23 18:02: WBC 7.5, RBC 4.12 L, Hgb 12.3 L, Hct 35.9 L, MCV 87.1, MCH 29.9, MCHC 34.3, RDW Std Deviation 43.3, RDW Coeff of [place] 13.6, Plt Count 177, MPV 10.3, Immature Gran % (Auto) 0.300, Neut % (Auto) 57.9, Lymph % (Auto) 34.0, [place] % (Auto) 6.3, Eos % (Auto) 1.2, Baso % (Auto) 0.3, Absolute Neuts (auto) 4.4, Absolute Lymphs (auto) 2.55, Nucleated RBC % 0, PT 14.7, INR 1.2, APTT 35.0, Sodium 138, Potassium 4.3, Chloride 107, Carbon Dioxide 23.0, Anion Gap 8, BUN 27 H, Creatinine 1.32 H, Est GFR (MDRD) Af Amer 67, Est GFR (MDRD) Non-Af 55 L, BUN/Creatinine Ratio 20.5 H, Glucose 107 H, Lactic Acid 1.0, Calcium 8.2 L, Magnesium 2.1, Total Bilirubin 0.20, AST 58 H, ALT 58, Alkaline Phosphatase 133 H, Troponin I High Sens 12, Total Protein 6.9, Albumin 3.4, Globulin 3.5, Albumin/Globulin Ratio 1.0 09/02/23 18:30: Urine Color Yellow, Urine Clarity Clear, Urine pH 5.0, Ur Specific [place] 1.015, Urine Protein 30 H, Urine Glucose (UA) Normal, Urine Ketones Negative, Urine Occult Blood 10 H, Urine Nitrite Negative, Urine Bilirubin Negative, Urine Urobilinogen Normal, Ur Leukocyte Esterase Negative, Urine RBC 0 SEEN, Urine WBC 0 SEEN, Ur Squamous Epith Cells 0 SEEN, Urine Bacteria 0 SEEN, Urine Mucus 0 SEEN Micro: Microbiology 09/02/23 18:02 Mucosa - Nose SARS-CoV-2, Influenza & RSV (PCR) - Final Influenzae A Imaging Radiology Impression Chest X-Ray 09/02/23 18:18 IMPRESSION: Mild prominence of interstitial markings in right lower lobe possibly inflammatory. 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 #1. Acute Encephalopathy secondary to Adult FTT secondary to Acute General Malaise, Cough, Fever, General Debility secondary to Influenza A Viral Syndrome: Will admit to MS, maintain on oxygen with wean as tolerated, continue ATC budesonide, PRN albuterol, HOB, IS parameters w/ pending Bld cx x 2 from ED, PT/OT/case management consulted for discharge planning, primarily conservative and symptomatic interventions, given timeline patient is outside of the range for influenza tamiflu regimen. #2. Chronic adrenal insufficiency following pituitary gland resection with history of pituitary tumor: Patient stress dosed in the ED, likely missed doses of note, patient significantly clinically improved even upon evaluation in the ED from initial arrival, at this point we will attempt to resume his oral home hydrocortisone but double the dose given his current acute illness and continue home desmopressin regimen but low threshold to resume IV stress dosing if needed. #3. Hypothyroidism: We will continue patient home levothyroxine regimen. #4. Chronic normocytic anemia: Admission hemoglobin 12.3, MCV 87.1, baseline more recently 10 range, 07/19/2023 hemoglobin 10.7, will continue to trend CBC. #5. Chronic Kidney Disease Stage II suspected however during prior admissions he has vacillated to the stage III GFR but suspect this is an acute situation: Admission BUN/Cr 27/1.32, baseline renal function primarily 1.1-1.2 but during acute presentations he has gone up to 1.4, will judiciously hydrate, repeat BMP in AM. #6. Restless leg syndrome: We will continue patient home Requip regimen with dose now as significant restless leg syndrome symptoms. #7. Diabetes mellitus type II, chart reported with chronic neuropathy: Per current list not on regimen, will obtain hemoglobin A1c to be cautious, admission glucose only 107, until further clarified will maintain on ADA diet, accu checks w/ ISS, continue home Lyrica regimen. #8. Hypertension: Continue home regimen including lisinopril, PRN hydralazine. #9. History of previous GI bleed: Per current list not on any chronic regimen, encourage continued outpatient evaluation and follow-up with GI as previously arranged. #10. Former tobacco use: Encourage continued tobacco cessation. #11. ESSENCE: BiPAP nightly. #12. DVT prophylaxis: Lovenox. #13. CODE status: Full Code. Charges/Coding Visit Charges Inpatient E&M: 61768 Init Hosp L3
[2023-09-02] MEDS: 0.9% Normal Saline (1000mL) 1,000 ML 200 ML IV (20:00)
[2023-09-02] MEDS: 0.9% Normal Saline (1000mL) 1,000 ML 100 ML IV (21:52)
[2023-09-02] MEDS: Pregabalin 75 MG Capsule 150 MG PO (23:27)
[2023-09-02] MEDS: Magnesium Chloride 64 MG Delay Rel.Tablet 128 MG PO (23:27)
[2023-09-02] MEDS: Pramipexole Di-HCl 1 MG Tablet PO (23:27)
[2023-09-02] MEDS: Insulin Lispro 100 UNIT/ML INSULN.PEN SC (23:33)
[2023-09-03] MEDS: 0.9% Saline Lock 10 ML Syringe IV
[2023-09-03 00:22] LABS: Bedside Glucose 200 mg/dL (74-106)
[2023-09-03 01:36] VITALS: BP 122/67; PULSE 68; RESP 18; TEMP 36.9; O2SAT 94
[2023-09-03] MEDS: guaiFENesin 10 ML UDC (200MG/10ML) 20 ML PO ×4 (01:37→19:53)
[2023-09-03 05:13] VITALS: BP 142/72; PULSE 61; RESP 20; TEMP 36.3; O2SAT 96
[2023-09-03] MEDS: Levothyroxine 100 MCG Tablet PO (05:14)
[2023-09-03] MEDS: Pramipexole Di-HCl 0.5 MG Tablet PO ×2 (05:15→16:29)
[2023-09-03 05:30] VITALS: BMI 27.8
[2023-09-03 06:23] LABS: Absolute Lymphocyte Count 2.39 X10^3/uL (0.83-4.51); Absolute Neutrophil Count 4.6 X10^3/uL (2.0-7.7); Basophil# 0.03 X10^3/uL; Basophil% 0.4 % (0-1); Hematocrit 36.4 % (40-54); Hemoglobin 11.9 g/dL (13.0-16.5); Lymphocyte # 2.39 X10^3/ul (0.83-4.51); Mean Corp Hgb Conc 32.7 g/dL (32-36); Mean Corpuscular Hgb 28.7 pg (27.0-32.0); Mean Corpuscular Volume 87.9 fL (80-94); Mean Platelet Vol. 11.1 fl (6.2-12.0); Monocyte# 0.45 X10^3/uL; NRBC Flagged by Analyzer 0 % (0-5); Neutrophil # 4.58 X10^3/uL (2.7-7.7); Neutrophil % 61.2 % (47-70); Platelet Count 159 K/mm3 (150-450); RBC Distribution Width CV 13.7 % (11.6-14.6); RBC Distribution Width SD 44.1 fl (35.1-43.9); Red Blood Count 4.14 M/mm3 (4.6-6.2); White Blood Count 7.5 K/mm3 (4.4-11.0)
[2023-09-03 06:46] LABS: AST(SGOT) 55 U/L (15-37); Alanine Aminotransfer ALT/SGPT 52 U/L (16-61); Albumin, Serum 3.4 g/dL (3.2-5.0); Alkaline Phosphatase 108 U/L (45-117); Anion Gap 7 (5-15); BUN 24 mg/dL (7-18); BUN/Creat Ratio 21.6 RATIO (10-20); Calcium,Total 8.4 mg/dL (8.5-10.1); Chloride 112 mmol/L (98-107); Creatinine, Serum 1.11 mg/dL (0.70-1.30); EST Glomerular Filtration Rate 67 mL/min (>60); Est Glom Filt Rate - Afr Amer 82 mL/min (>60); Estimated Creatinine Clearance 57.39 ml/min; Globulin 3.5 g/dL (2.2-4.2); Glucose 149 mg/dL (74-106); Potassium 4.5 mmol/L (3.5-5.1); Protein, Total 6.9 g/dL (6.4-8.2); Sodium Level 140 mmol/L (136-145)
--- NOTE | 2023-09-03 07:14 | PCM.PN.HOSP ---
Reason for Visit Reason for Visit: Diagnoses Encephalopathy, unspecified (09/02/23) Influenza due to other identified influenza virus with other respiratory manifestations (09/02/23) Subjective Subjective Patient is an 83-year-old woman with multiple comorbidities brought in with progressive generalized weakness diagnosed with acute influenza A infection admitted to regular nursing floor for further management Objective Data Objective Data Vital Signs: Vital Signs Temp Pulse Resp BP Pulse Ox O2 Del Method FiO2 97.3 F L 61 20 H 142/72 H 96 Room Air 21 09/03/23 05:13 09/03/23 05:13 09/03/23 05:13 09/03/23 05:13 09/03/23 05:13 09/03/23 05:13 09/02/23 23:23 Oxygen Delivery Method Room Air Weight: 88.2 kg Body Mass Index (BMI) 27.8 Intake & Output: Intake and Output for Last 24 Hours 09/01/23 09/02/23 09/03/23 23:59 23:59 23:59 Intake Total 1335.83 / 1335.83 400 / 400 Output Total 375 / 375 800 / 800 Balance 960.83 / 960.83 -400 / -400 Lab / Micro Data 09/03/23 05:50 09/03/23 05:50 Labs: Laboratory Results - last 24 hr 09/02/23 18:02: WBC 7.5, RBC 4.12 L, Hgb 12.3 L, Hct 35.9 L, MCV 87.1, MCH 29.9, MCHC 34.3, RDW Std Deviation 43.3, RDW Coeff of Florian 13.6, Plt Count 177, MPV 10.3, Immature Gran % (Auto) 0.300, Neut % (Auto) 57.9, Lymph % (Auto) 34.0, [place] % (Auto) 6.3, Eos % (Auto) 1.2, Baso % (Auto) 0.3, Absolute Neuts (auto) 4.4, Absolute Lymphs (auto) 2.55, Nucleated RBC % 0, PT 14.7, INR 1.2, APTT 35.0, Sodium 138, Potassium 4.3, Chloride 107, Carbon Dioxide 23.0, Anion Gap 8, BUN 27 H, Creatinine 1.32 H, Est GFR (MDRD) Af Amer 67, Est GFR (MDRD) Non-Af 55 L, BUN/Creatinine Ratio 20.5 H, Glucose 107 H, Lactic Acid 1.0, Calcium 8.2 L, Magnesium 2.1, Total Bilirubin 0.20, AST 58 H, ALT 58, Alkaline Phosphatase 133 H, Troponin I High Sens 12, Total Protein 6.9, Albumin 3.4, Globulin 3.5, Albumin/Globulin Ratio 1.0 09/02/23 18:30: Urine Color Yellow, Urine Clarity Clear, Urine pH 5.0, Ur Specific [place] 1.015, Urine Protein 30 H, Urine Glucose (UA) Normal, Urine Ketones Negative, Urine Occult Blood 10 H, Urine Nitrite Negative, Urine Bilirubin Negative, Urine Urobilinogen Normal, Ur Leukocyte Esterase Negative, Urine RBC 0 SEEN, Urine WBC 0 SEEN, Ur Squamous Epith Cells 0 SEEN, Urine Bacteria 0 SEEN, Urine Mucus 0 SEEN 09/02/23 23:17: POC Glucose 200 H 09/03/23 05:50: WBC 7.5, RBC 4.14 L, Hgb 11.9 L, Hct 36.4 L, MCV 87.9, MCH 28.7, MCHC 32.7, RDW Std Deviation 44.1 H, RDW Coeff of Florian 13.7, Plt Count 159, MPV 11.1, Immature Gran % (Auto) 0.400, Neut % (Auto) 61.2, Lymph % (Auto) 32.0, [place] % (Auto) 6.0, Eos % (Auto) 0.0, Baso % (Auto) 0.4, Absolute Neuts (auto) 4.6, Absolute Lymphs (auto) 2.39, Nucleated RBC % 0, Sodium 140, Potassium 4.5, Chloride 112 H, Carbon Dioxide 21.0, Anion Gap 7, BUN 24 H, Creatinine 1.11, Estim Creat Clear Calc 57.39, Est GFR (MDRD) Af Amer 82, Est GFR (MDRD) Non-Af 67, BUN/Creatinine Ratio 21.6 H, Glucose 149 H, Calcium 8.4 L, Total Bilirubin 0.40, AST 55 H, ALT 52, Alkaline Phosphatase 108, Total Protein 6.9, Albumin 3.4, Globulin 3.5, Albumin/Globulin Ratio 1.0 Micro: Microbiology 09/02/23 18:02 Mucosa - Nose SARS-CoV-2, Influenza & RSV (PCR) - Final Influenzae A Radiography Diagnostic Testing: Radiology Impression Chest X-Ray 09/02/23 18:18 IMPRESSION: Mild prominence of interstitial markings in right lower lobe possibly inflammatory. Electronically Signed: Miguel Angel Pike MD at 19:10 EST Reading Location ID and State: [address] [place] [address] Tel , Service support , Physical Exam Narrative GENERAL: cooperative HEENT: Atraumatic; normocephalic EYES; Anicteric, Normal Conjunctiva NECK; supple, normal thyroid, RESPIRATORY: Diminished to auscultation CARDIOVASCULAR: Regular S1 S2, GI: soft, normoactive bowel sounds, : No Renal angle tenderness; EXTREMITIES: No edema, no clubbing, MUSCULOSKELETAL: no muscle wasting NEURO: Awake; no lateralizing signs. SKIN: No Rash PSYCH; Flat affect Assessment & Plan Assessment/Plan (1) Encephalopathy acute: (2) Influenza A: PLAN: Plan Patient is an 83-year-old woman with multiple comorbidities brought in with progressive generalized weakness diagnosed with acute influenza A infection admitted to regular nursing floor for further management 1. Acute influenza A infection ? Admitted to regular nursing floor for symptom management patient was started on Tamiflu. 2. Physical deconditioning - Requested for PT OT eval and social service agency director to assist with discharge planning 3. 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 Patient is on hydrocortisone, desmopressin, Synthroid; continued 4. Anemia - Secondary to chronic disorder monitoring H&H and transfuse if patient becomes symptomatic or hemoglobin falls below 7 5. Hypertension - Blood pressure controlled, home medications continued with dose adjustment as needed 6. Diabetes mellitus type II -patient's oral hypoglycemics held. Placed onAccu-Cheks a.c. and at bedtime and covered with sliding scale insulin 7. Peripheral neuropathy ? Patient is on Lyrica continue 8.Restless leg syndrome - Continue home ropinirole. 9. Obstructive sleep apnea ? PAP therapy at night 10. DVT prophylaxis ? SC enoxaparin Time spent in the patient's overall evaluation,decision-making process, review of diagnostic data, adjustment of management, discussion with other providers, nursing nursing and ancillary staff involved in patient's care documentation, 50 Minutes Charges/Coding Visit Charges Inpatient E&M: 67549 Subs Hosp L3
[2023-09-03 07:16] LABS: Bedside Glucose 137 mg/dL (74-106)
[2023-09-03 07:34] LABS: Hemoglobin A1c 7.2 % (3.8-5.6)
[2023-09-03 09:00] VITALS: BP 144/77; PULSE 69; RESP 18; TEMP 37.3; O2SAT 94
[2023-09-03] MEDS: Hydrocortisone 10 MG Tablet 15 MG PO (09:09)
[2023-09-03] MEDS: Lisinopril 20 MG Tablet PO (09:09)
[2023-09-03] MEDS: Pregabalin 75 MG Capsule 150 MG PO ×2 (09:09→19:53)
[2023-09-03] MEDS: Enoxaparin 40 MG/0.4 ML Syringe SC (09:10)
[2023-09-03 09:16] VITALS: O2SAT 96
[2023-09-03] MEDS: Oseltamivir Phosphate 75 MG Capsule PO ×2 (11:06→20:05)
[2023-09-03 11:32] LABS: Bedside Glucose 114 mg/dL (74-106)
--- NOTE | 2023-09-03 11:40 | CASEMGMT ---
Discharge Planning A list of SNF providers including quality and resource use data and consistent with the patient's preferred geographic region, medical needs, and insurance network was created in [employer] Guide.? This list was provided to the RN MONIQUE. Codi Zheng, Discharge Planning Asst.
[2023-09-03 15:00] VITALS: BP 138/85; PULSE 78; RESP 18; TEMP 36.7; O2SAT 94
--- NOTE | 2023-09-03 15:30 | CASEMGMT ---
Addendum entered by Nan Mitchell 09/03/23 18:24: 1710: TRAN CM to room to follow-up with pt and to discuss discharge planning. Pt sitting up in chair in room. DtrKandaceAlicia, in room visiting. She voices much concern w/pt's mentation and does not think he is anywhere near his baseline. She feels he is still confused and has decreased safety awareness. Nel MAYFIELD,made aware. Alicia states pt does not typically use a walker, unless he is ill and the one he has @ home is just a standard walker. She states if therapy recommends a WW she would like for him to get one. Alicia states she would like to be present @ time of discharge to go over discharge instructions w/nurse. Nel MAYFIELD,made aware and will place this in handoff. Dr Bernal made aware dtr voicing much concern and does not feel he is close to his baseline. Plan: Follow therapy and pt's progress and for any recommendations. Pt may need script for OP therapy and/or WW. Colby ESPANA RN CM Original Note: RN?CM?ORTHOPEDIC SHOE FITTER?CM?to room to meet with patient for initial transition planning/care coordination?assessment.?Pt sleeping soundly in recliner chair. RN?CM?introduced self and role at [facility].? Pt's Wilma AGUILAR, @ bedside. She states pt was really tired and she was just able to get pt comfortable enough to be able to go to sleep and would be willing to answer questions for RN CM so he can get some rest. Care providers, pharmacy, and demographics verified/updated at this time w/GD. Pt remained asleep during assessment. PCP: Dr Montana Lucas Specialists:pt sees a neurologist in [place] and she thinks he may also see an powder blender in [place], but she is not certain Preferred Pharmacy: [facility] Insurance: [employer] [facility] Prescription Benefit:?yes LNOK: daughterAlicia. Wilma AGUILAR. , Vero (has dementia) Living Arrangements: Lives w/his in one-story home w/a basement and no steps to enter. Per Wilma, pt is independent w/ADL's and takes care of his . Dtr lives about 1 mile away and goes to pt's home daily. She manages pt's and his 's medications. Dtr is currently with pt's , taking care of her. Transportation:?Pt, daughter DME: ?States has the following DME:?shower chair, BSC, RTS, cane, grab bars, and walker are all available. Pt does not use any DME to ambulate except for when he is ill. He has a CPAP from [employer] and glucometer. Wilma states no need for further DME at this time.? HHC/SNF: No hx of either. Pt ambulated 200 ft with PT today and no therapy recommended. Wilma states she does not anticipate pt will not need HHC or OP therapy or have any discharge needs, stating he is almost back to his baseline. RN CM to f/u with pt once he awakens, to confirm discharge plan. PLAN:??Home Colby ESPANA?RN?CM
[2023-09-03] MEDS: Hydrocortisone 10 MG Tablet 5 MG PO (16:29)
[2023-09-03 16:48] LABS: Bedside Glucose 121 mg/dL (74-106)
--- NOTE | 2023-09-03 17:30 | CASEMGMT ---
Social Work SW met with pt to verify advance directives. Pt states he does not have documents and would like to complete. SW reviewed living will and health care POA with pt and pt is understanding. Pt wishing to name dgt Alicia as primary decision maker and granddgt Wilmamarzena Harrison as secondary. Pt would like to list a third person, but does not have his phone and address. Pt to obtain from family. SW entered room later in the day with granddgt present. Pt and granddgt do not have name and number of third choice. SW explained that documents cannot be completed until information is obtained. SW will remain available should pt get information. Pt and grand dgt educated on outpt program for advance directives and pt had AD rack card. ART Lauren
[2023-09-03] MEDS: Acetaminophen 325 MG Tablet 650 MG PO (19:53)
[2023-09-03] MEDS: MELATONIN 3 MG TABLET PO (19:53)
[2023-09-03] MEDS: Pramipexole Di-HCl 1 MG Tablet PO (20:05)
[2023-09-03] MEDS: DESMOPRESSIN ACETATE 0.1 MG TABLET 0.05 MG PO (20:05)
[2023-09-03] MEDS: Magnesium Chloride 64 MG Delay Rel.Tablet 128 MG PO (20:05)
[2023-09-03 20:10] VITALS: BP 147/78; PULSE 72; RESP 18; TEMP 37.6; O2SAT 95
[2023-09-03 20:30] LABS: Bedside Glucose 126 mg/dL (74-106)
[2023-09-04] VITALS (8 sets, daily range): BP systolic 121–159; BP diastolic 59–95; PULSE 61–65; RESP 15–16; TEMP 36.4–36.8; O2SAT 93–100; BMI 27.8
[2023-09-04] MEDS: Pramipexole Di-HCl 0.5 MG Tablet PO ×2 (05:17→16:48)
[2023-09-04] MEDS: Levothyroxine 100 MCG Tablet PO (05:17)
[2023-09-04] MEDS: Acetaminophen 325 MG Tablet 650 MG PO (05:18)
[2023-09-04] MEDS: guaiFENesin 10 ML UDC (200MG/10ML) 20 ML PO (05:18)
[2023-09-04 06:20] LABS: Bedside Glucose 107 mg/dL (74-106)
--- NOTE | 2023-09-04 07:08 | PN.HOSP_ITS ---
Reason for Visit Reason for Visit: Diagnoses Encephalopathy, unspecified (09/02/23) Influenza due to other identified influenza virus with other respiratory manifestations (09/02/23) Subjective Subjective Patient seen clinical condition continues to improve. He however remains deconditioned and plan is to advance activity as tolerated Objective Data Objective Data Vital Signs: Vital Signs Temp Pulse Resp BP Pulse Ox O2 Del Method FiO2 98.2 F 62 16 145/95 H 95 Room Air 21 09/04/23 05:27 09/04/23 05:27 09/04/23 05:27 09/04/23 05:27 09/04/23 05:27 09/04/23 05:27 09/02/23 23:23 Oxygen Delivery Method Room Air Weight: 88.2 kg Body Mass Index (BMI) 27.8 Intake & Output: Intake and Output for Last 24 Hours 09/02/23 09/03/23 09/04/23 23:59 23:59 23:59 Intake Total 1335.83 / 1335.83 1400 / 1400 Output Total 375 / 375 1175 / 1175 400 / 400 Balance 960.83 / 960.83 225 / 225 -400 / -400 Lab / Micro Data 09/03/23 05:50 09/03/23 05:50 Labs: Laboratory Results - last 24 hr 09/03/23 05:50: Hemoglobin A1c 7.2 H 09/03/23 06:57: POC Glucose 137 H 09/03/23 11:10: POC Glucose 114 H 09/03/23 16:24: POC Glucose 121 H 09/03/23 20:07: POC Glucose 126 H 09/04/23 05:21: POC Glucose 107 H Micro: Microbiology 09/02/23 18:02 Mucosa - Nose SARS-CoV-2, Influenza & RSV (PCR) - Final Influenzae A Physical Exam Narrative GENERAL: cooperative HEENT: Atraumatic; normocephalic EYES; Anicteric, Normal Conjunctiva NECK; supple, normal thyroid, RESPIRATORY: Diminished to auscultation CARDIOVASCULAR: Regular S1 S2, GI: soft, normoactive bowel sounds, : No Renal angle tenderness; EXTREMITIES: No edema, no clubbing, MUSCULOSKELETAL: no muscle wasting NEURO: Awake; no lateralizing signs. SKIN: No Rash PSYCH; Flat affect Assessment & Plan Assessment/Plan (1) Encephalopathy acute: (2) Influenza A: PLAN: Plan Patient is an 83-year-old woman with multiple comorbidities brought in with progressive generalized weakness diagnosed with acute influenza A infection admitted to regular nursing floor for further management 1. Acute influenza A infection ? Admitted to regular nursing floor for symptom management patient was started on Tamiflu. ? 09/04/2023 patient improving clinically 2. Physical deconditioning - Requested for PT OT eval and director of social media marketing to assist with discharge planning 3. 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 Patient is on hydrocortisone, desmopressin, Synthroid; continued 4. Anemia - Secondary to chronic disorder monitoring H&H and transfuse if patient becomes symptomatic or hemoglobin falls below 7 5. Hypertension - Blood pressure controlled, home medications continued with dose adjustment as needed 6. Diabetes mellitus type II -patient's oral hypoglycemics held. Placed onAccu-Cheks a.c. and at bedtime and covered with sliding scale insulin 7. Peripheral neuropathy ? Patient is on Lyrica continue 8.Restless leg syndrome - Continue home ropinirole. 9. Obstructive sleep apnea ? PAP therapy at night 10. DVT prophylaxis ? SC enoxaparin 11. Physical deconditioning - Requested for PT OT eval and director of social media marketing to assist with discharge planning Charges/Coding Visit Charges Inpatient E&M: 15421 Subs Hosp L2
[2023-09-04] MEDS: Oseltamivir Phosphate 75 MG Capsule PO ×2 (08:17→21:54)
[2023-09-04] MEDS: Hydrocortisone 10 MG Tablet 15 MG PO (08:17)
[2023-09-04] MEDS: Lisinopril 20 MG Tablet PO (08:17)
[2023-09-04] MEDS: Pregabalin 75 MG Capsule 150 MG PO ×2 (08:17→21:57)
[2023-09-04] MEDS: Enoxaparin 40 MG/0.4 ML Syringe SC (08:18)
--- NOTE | 2023-09-04 11:03 | CASEMGMT ---
Addendum entered by Ginny Esteves 09/04/23 12:56: Social Work Pt asked to speak w/SW. SW met again w/pt, he spoke to his daughter and states his daughter did the POA paperwork already, so wants to get rid of the paperwork we completed. SW pt the copies off the chart that SW had placed on the chart. Pt's daughter is going to be here later, SW advised pt to review w/daughter, if he would still like the document he just completed to be his new Healthcare POA form, give the copies back to the staff and they can put them back on the chart. If he does not want the new forms, SW advised pt to shred them. CLEMENCIA White Original Note: Social Work SW assisted pt in completing LW/POA forms, SW gave pt originals and copies, and copies placed on chart. Pt listed daughter Alicia as Healthcare POA. CLEMENCIA White
[2023-09-04] MEDS: Insulin Lispro 100 UNIT/ML INSULN.PEN SC ×2 (11:10→15:50)
[2023-09-04 11:28] LABS: Bedside Glucose 178 mg/dL (74-106)
[2023-09-04 16:10] LABS: Bedside Glucose 209 mg/dL (74-106)
[2023-09-04] MEDS: Hydrocortisone 10 MG Tablet 5 MG PO (17:00)
[2023-09-04] MEDS: DESMOPRESSIN ACETATE 0.1 MG TABLET 0.05 MG PO (21:52)
[2023-09-04] MEDS: Magnesium Chloride 64 MG Delay Rel.Tablet 128 MG PO (21:53)
[2023-09-04] MEDS: Pramipexole Di-HCl 1 MG Tablet PO (21:54)
[2023-09-04 22:17] LABS: Bedside Glucose 109 mg/dL (74-106)
[2023-09-05 00:16] VITALS: BMI 27.9
[2023-09-05 04:00] VITALS: BP 174/96; PULSE 81; RESP 15; RESP 16; TEMP 37.7; O2SAT 91; O2SAT 93
[2023-09-05] MEDS: Acetaminophen 325 MG Tablet 650 MG PO (04:30)
[2023-09-05 06:00] VITALS: PULSE 80; RESP 15; TEMP 37.2; O2SAT 93
[2023-09-05] MEDS: Levothyroxine 100 MCG Tablet PO (06:46)
[2023-09-05 07:04] LABS: Bedside Glucose 116 mg/dL (74-106)
[2023-09-05] MEDS: Pramipexole Di-HCl 0.5 MG Tablet PO (07:48)
[2023-09-05] MEDS: Pregabalin 75 MG Capsule 150 MG PO (07:48)
[2023-09-05 07:49] VITALS: O2SAT 95
[2023-09-05] MEDS: Oseltamivir Phosphate 75 MG Capsule PO (07:49)
[2023-09-05] MEDS: Enoxaparin 40 MG/0.4 ML Syringe SC (07:49)
[2023-09-05] MEDS: Hydrocortisone 10 MG Tablet 15 MG PO (07:49)
[2023-09-05] MEDS: Lisinopril 20 MG Tablet PO (07:50)
--- NOTE | 2023-09-05 08:43 | PCM.DC.SUM ---
Providers Date of Admission: 09/02/23 Date of Discharge: 09/05/23 Primary Care Physician: Dr. Montana Lucas MD Reason For Visit: ENCEPHALOPATHY, ADULT FTT, INFLUENZA Diagnosis Discharge Diagnosis (1) Encephalopathy acute: Status: Acute Code(s): G93.40 - Encephalopathy, unspecified (2) Influenza A: Status: Acute Code(s): J10.1 - Influenza due to other identified influenza virus with other respiratory manifestations Plan Patient is an 83-year-old woman with multiple comorbidities brought in with progressive generalized weakness diagnosed with acute influenza A infection admitted to regular nursing floor for further management 1. Acute influenza A infection ? Admitted to regular nursing floor for symptom management patient was started on Tamiflu. ? 09/04/2023 patient improving clinically ?09/05/2023 [place] 2. Physical deconditioning - Requested for PT OT eval and health care social worker to assist with discharge planning 3. 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 Patient is on hydrocortisone, desmopressin, Synthroid; continued 4. Anemia - Secondary to chronic disorder monitoring H&H and transfuse if patient becomes symptomatic or hemoglobin falls below 7 5. Hypertension - Blood pressure controlled, home medications continued with dose adjustment as needed 6. Diabetes mellitus type II -patient's oral hypoglycemics held. Placed onAccu-Cheks a.c. and at bedtime and covered with sliding scale insulin 7. Peripheral neuropathy ? Patient is on Lyrica continue 8.Restless leg syndrome - Continue home ropinirole. 9. Obstructive sleep apnea ? PAP therapy at night 10. DVT prophylaxis ? SC enoxaparin 11. Physical deconditioning - Requested for PT OT eval and health care social worker to assist with discharge planning Medications at Discharge Home Medications pregabalin 150 mg capsule (Lyrica) 150 cap PO BID pain 06/22/16 lisinopril 20 mg tablet 20 mg PO DAILY blood pressure 08/07/21 desmopressin 0.1 mg tablet 0.5 tab PO QHS pituitary supplement 12/21/21 hydrocortisone 5 mg tablet 3 tab PO DAILY steroid 12/21/21 hydrocortisone 5 mg tablet 7.5 mg PO Q12H steroid 12/21/21 levothyroxine 100 mcg tablet 100 mcg PO DAILY@0600 thyroid 12/21/21 amlodipine 5 mg tablet 5 mg PO DAILY HTN 09/02/23 empagliflozin 10 mg tablet (Jardiance) 10 mg PO DAILY blood sugar 09/02/23 ferrous sulfate 325 mg (65 mg iron) tablet (FeroSul) 325 mg PO DAILY anemia 09/02/23 pramipexole 1 mg tablet 1 mg PO BID restless legs 09/02/23 sitagliptin phosphate 100 mg tablet (Januvia) 100 mg PO DAILY blood sugar 09/02/23 tramadol 50 mg tablet 50 mg PO Q6H pain 09/02/23 oseltamivir 75 mg capsule 75 mg PO BID #6 caps 09/05/23 Hospital Course Summary of Care Provided Minutes Spent on Discharge: 32 Physical Exam Narrative GENERAL: cooperative HEENT: Atraumatic; normocephalic EYES; Anicteric, Normal Conjunctiva NECK; supple, normal thyroid, RESPIRATORY: Diminished to auscultation CARDIOVASCULAR: Regular S1 S2, GI: soft, normoactive bowel sounds, : No Renal angle tenderness; EXTREMITIES: No edema, no clubbing, MUSCULOSKELETAL: no muscle wasting NEURO: Awake; no lateralizing signs. SKIN: No Rash PSYCH; Flat affect Weight / BMI Weight Weight: 88.3 kg Body Mass Index (BMI) 27.9 ABG / Lab / Microbiology Data 09/03/23 05:50 09/03/23 05:50 Laboratory: Laboratory Results - last 24 hr 09/04/23 11:06: POC Glucose 178 H 09/04/23 15:49: POC Glucose 209 H 09/04/23 21:48: POC Glucose 109 H 09/05/23 06:42: POC Glucose 116 H Microbiology: Microbiology 09/02/23 18:30 Urine, Clean Catch Urine Culture - Final Culture exhibits no growth. 09/02/23 18:02 Mucosa - Nose SARS-CoV-2, Influenza & RSV (PCR) - Final Influenzae A D/C Instructions Discharge Diet: No restrictions Discharge Activity: Return to Normal Activity Call your doctor if you observe: Fever of 101 or Higher, Shortness of breath, Fainting spells and Chest pain Meaningful Use Info Meaningful Use Diagnoses (Choose all that apply): None applicable Discharge Plan Admission Admit Date/Time: 09/02/23 20:01 Attending Provider: Puma Bernal Primary Care Provider: Montana Lucas Consulting Providers: Monica Tabor Discharge Orders/Prescriptions Prescriptions: New oseltamivir 75 mg Capsule 75 mg PO BID Qty: 6 0RF Continued pregabalin [Lyrica] 150 MG capsule 150 cap PO BID Patient Comments: lisinopril 20 mg tablet 20 mg PO DAILY hydrocortisone 5 mg tablet 3 tab PO DAILY Patient Comments: TAKE 3 TABLETS BY MOUTH EVERY MORNING AND 1 TABLET EVERY EVENING. DOUBLE DOSE WHEN SICK DIRECTED hydrocortisone 5 mg tablet 7.5 mg PO Q12H Patient Comments: TAKE 3 TABLETS BY MOUTH EVERY MORNING AND 1 TABLET EVERY EVENING. DOUBLE DOSE WHEN SICK DIRECTED; takes 5mg normally but double when he gets sick levothyroxine 100 mcg tablet 100 mcg PO DAILY@0600 Patient Comments: TAKE ONE TABLET BY MOUTH EVERY MORNING BEFORE BREAKFAST desmopressin 0.1 mg tablet 0.5 tab PO QHS Patient Comments: take 1/2 tablet by mouth every evening tramadol 50 mg tablet 50 mg PO Q6H Patient Comments: take 1 tablet by mouth every 6 hours if needed for severe pain pramipexole 1 mg tablet 1 mg PO BID Patient Comments: take 1 tablet by mouth twice a day Jardiance 10 mg tablet 10 mg PO DAILY Patient Comments: has not been taking because of episodes of hypoglycemia ferrous sulfate [FeroSul] 325 mg (65 mg iron) tablet 325 mg PO DAILY Patient Comments: take 1 tablet by mouth once daily with breakfast Januvia 100 mg tablet 100 mg PO DAILY amlodipine 5 mg tablet 5 mg PO DAILY Patient Comments: HAS NOT BEEN TAKING BECAUSE OF NORMOTENSIVE AT HOME Referrals / Follow Up: Montana Lucas MD [Primary Care Provider] - Within 1 Week Disposition Disposition (needs filled in before D/C Order can be placed): Home, Self Care Charges/Coding Visit Charges Inpatient E&M: 83649 Disch Hosp >30min
[2023-09-05 09:03] VITALS: BP 129/74; PULSE 82; RESP 16; TEMP 36.4; O2SAT 93
== END 2023-09-05 11:27 | disposition home or self-care (01) | DRG 865 ==
LOC: ED 19:48 → MS3 20:26
PROVIDERS: Admitting Provider Family Medicine; Emergency Provider Emergency Medicine; PCP Family Medicine; Visit Provider Internal Medicine
DX: J10.81 Influenza due to other identified influenza virus with encephalopathy (principal); E11.22 Type 2 diabetes mellitus with diabetic chronic kidney disease; E11.42 Type 2 diabetes mellitus with diabetic polyneuropathy; G93.41 Metabolic encephalopathy; E27.40 Unspecified adrenocortical insufficiency; R62.7 Adult failure to thrive; G25.81 Restless legs syndrome; I12.9 Hypertensive chronic kidney disease with stage 1 through stage 4 chronic kidney disease, or unspecified chronic kidney disease; E03.9 Hypothyroidism, unspecified; E86.0 Dehydration; G47.33 Obstructive sleep apnea (adult) (pediatric); N18.2 Chronic kidney disease, stage 2 (mild); I73.00 Raynaud's syndrome without gangrene; Z68.27 Body mass index [BMI] 27.0-27.9, adult; Z79.890 Hormone replacement therapy; Z79.899 Other long term (current) drug therapy; Z87.891 Personal history of nicotine dependence; D63.8 Anemia in other chronic diseases classified elsewhere
CPT/HCPCS: 36415; 71045; 80053; 81001; 82962; 83036; 83605; 83735; 84484; 85025; 85610; 85730; 87040; 87086; 87631; 93005; 94002; 94003; 94660; 94668; 96361; 96372; 96374; 97116; 97162; 97166; 97530; 97535; 99221; 99285; J7030; P9612; A4216; G0378

== ENCOUNTER 2024-08-06 10:45 | Inpatient (IN) | payer MEDICARE, SELFPAY ==
[2024-08-06] VITALS (39 sets, daily range): BP systolic 82–133; BP diastolic 51–66; PULSE 94–110; RESP 18–32; TEMP 38.1–39.4; O2SAT 88–100; BMI 28.9; BMI 29.1
--- NOTE | 2024-08-06 11:07 | EKG12_ITS ---
Test Reason : SYNCOPE Blood Pressure : */* mmHG Vent. Rate : 109 BPM Atrial Rate : 109 BPM P-R Int : 154 ms QRS Dur : 80 ms QT Int : 334 ms P-R-T Axes : 41 32 61 degrees QTcB Int : 449 ms Sinus tachycardia Otherwise normal ECG Confirmed by VINH SEGUNDO, LASHAUN ([id number]), assistant editor BAUTISTA AGUILAR ([id number]) on 08/07/2024 10:50:14 AM Referred By: RAMÍREZ/LAURA Confirmed By: LASHAUN JUSTICE MD
--- NOTE | 2024-08-06 11:07 | RAD_ITS ---
PROCEDURE: CHEST 1 VIEW (PORTABLE) REASON FOR EXAM: Cough TECHNIQUE: Frontal view of the chest. COMPARISON: Reviewed FINDINGS: The heart size is normal. The lungs are clear. RAD/Chest 1 View (Portable) IMPRESSION: NEGATIVE CHEST. Reading Location: [facility]
--- NOTE | 2024-08-06 11:14 | EX.ED.DYSGE1 ---
HPI <RICARDO Saba - Last Filed: 08/06/24 15:16> History of Present Illness Chief Complaint: Alt LOC Narrative Narrative: Patient presenting today due to an episode of vomiting dark-colored emesis that occurred this morning. Per family, he appeared confused and was sent in for evaluation. Patient is able to state his name and birthdate, he is not sure where he is, he is aware that it is 2023. He does not have any acute complaints. 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 PFSH <RICARDO Saba - Last Filed: 08/06/24 15:16> [facility] Medical History Hypothyroidism ESSENCE treated with BiPAP History of pituitary tumor New onset type 2 diabetes mellitus GI bleed Anemia Former smoker HTN (hypertension) Raynaud disease Home Medications ?Medication ?Instructions ?Recorded ?Last Taken ?Type pregabalin 150 mg capsule (Lyrica) 150 cap PO BID pain 06/22/16 12/22/21 History lisinopril 20 mg tablet 20 mg PO PRN blood pressure 08/07/21 12/24/21 History desmopressin 0.1 mg tablet 0.5 tab PO QHS pituitary supplement 12/21/21 12/23/21 History hydrocortisone 5 mg tablet 3 tab PO DAILY steroid 12/21/21 12/24/21 History hydrocortisone 5 mg tablet 7.5 mg PO Q12H steroid 12/21/21 12/23/21 History levothyroxine 100 mcg tablet 100 mcg PO DAILY@0600 thyroid 12/21/21 12/24/21 History amlodipine 5 mg tablet 5 mg PO DAILY HTN 09/02/23 Unknown History empagliflozin 10 mg tablet 10 mg PO DAILY blood sugar 09/02/23 Unknown History (Jardiance) ferrous sulfate 325 mg (65 mg 325 mg PO DAILY anemia 09/02/23 Unknown History iron) tablet (FeroSul) pramipexole 1 mg tablet 1 mg PO BID restless legs 09/02/23 Unknown History sitagliptin phosphate 100 mg 100 mg PO DAILY blood sugar 09/02/23 Unknown History tablet (Januvia) tramadol 50 mg tablet 50 mg PO Q6H pain 09/02/23 Unknown History oseltamivir 75 mg capsule 75 mg PO BID #6 caps 09/05/23 Unknown Rx ascorbic acid (vitamin C) 500 mg 400 mg PO 08/06/24 Unknown History capsule glimepiride 2 mg tablet 2 mg PO DAILY 08/06/24 Unknown History levothyroxine 100 mcg tablet 100 mcg PO DAILY 08/06/24 Unknown History (Euthyrox) pramipexole 1 mg tablet 1 mg PO DAILY 08/06/24 Unknown History Allergy/AdvReac Type Severity Reaction Status Date / Time Penicillins (PCN) Allergy Rash Verified 09/02/23 17:17 terazosin Allergy PT UNSURE Verified 09/02/23 17:17 OF REACTION Family History Mother Multiple myeloma Father Cancer Surgical History History of surgical removal of pituitary gland History of appendectomy Social History household members: spouse housing: house Smoking Status: Former smoker alcohol intake: never substance use type: does not use ROS <RICARDO Saba - Last Filed: 08/06/24 15:16> ROS ED Review of Systems ROS Unobtainable: other Details: Limited due to mental status, he was able to deny having fevers, chest pain, abdominal pain, shortness of breath, and recent flulike symptoms. EXAM <RICARDO Saba - Last Filed: 08/06/24 15:16> Physical Exam Const Vital Signs: 08/06/24 10:46 08/06/24 10:57 08/06/24 11:11 Temperature 103 F H Temperature Source Axillary Pulse Rate 110 H Respiratory Rate 31 H Blood Pressure 84/59 L Blood Pressure Mean 67 Pulse Ox 96 Oxygen Delivery Method Room Air Room Air Oxygen Flow Rate (L/min) 08/06/24 11:45 08/06/24 12:05 08/06/24 12:07 Temperature Temperature Source Pulse Rate 107 H 106 H Respiratory Rate 32 H 30 H Blood Pressure 113/66 117/63 Blood Pressure Mean 81 81 Pulse Ox 93 88 93 Oxygen Delivery Method Room Air Room Air Nasal Cannula Oxygen Flow Rate (L/min) 2 08/06/24 12:49 08/06/24 13:00 08/06/24 13:19 Temperature 101.6 F H 101.9 F H Temperature Source Core Pulse Rate 101 H 101 H 101 H Respiratory Rate 28 H 18 25 H Blood Pressure 93/52 L 93/52 L 112/60 Blood Pressure Mean 65 65 77 Pulse Ox 95 94 100 Oxygen Delivery Method Nasal Cannula Nasal Cannula Oxygen Flow Rate (L/min) 2 2 08/06/24 13:20 08/06/24 13:27 08/06/24 13:42 Temperature 101.9 F H 101.9 F H 101.5 F H Temperature Source Core Core Core Pulse Rate 101 H 104 H 101 H Respiratory Rate 29 H 27 H 27 H Blood Pressure 112/60 112/60 103/54 L Blood Pressure Mean 77 77 70 Pulse Ox 99 100 100 Oxygen Delivery Method Nasal Cannula Nasal Cannula Nasal Cannula Oxygen Flow Rate (L/min) 2 2 2 08/06/24 13:57 08/06/24 14:00 08/06/24 14:12 Temperature 101.3 F H 101.2 F H Temperature Source Core Core Pulse Rate 102 H 102 H 104 H Respiratory Rate 27 H 25 H 22 H Blood Pressure 100/55 L 100/55 L 101/63 Blood Pressure Mean 70 70 75 Pulse Ox 100 100 99 Oxygen Delivery Method Nasal Cannula Nasal Cannula Nasal Cannula Oxygen Flow Rate (L/min) 2 2 08/06/24 14:27 08/06/24 15:00 Temperature 101.3 F H Temperature Source Core Pulse Rate 100 102 H Respiratory Rate 26 H 26 H Blood Pressure 101/51 L 107/63 Blood Pressure Mean 67 77 Pulse Ox 100 98 Oxygen Delivery Method Nasal Cannula Nasal Cannula Oxygen Flow Rate (L/min) 2 2 Positive well nourished, well developed and no apparent distress General Appearance ED: well developed HEENT Reports normocephalic, head/scalp atraumatic and dry mucous membranes Mouth ED: Yes dry mucous membranes Mouth: dry mucous membranes Eyes PERRL and EOMs intact bilaterally Neck full ROM and supple Chest Wall inspection of chest normal Resp clear to auscultation bilaterally Resp Narrative: Tachypneic Cardio regular rate and regular rhythm GI soft to palpation, non-tender, non-distended and no masses Back/Spine normal ROM and normal to inspection Extremity normal to inspection and full ROM Neuro moves all extremities, no focal motor deficits and no sensory deficits noted Neuro Narrative: Patient is somnolent, he is easily arousable and oriented to person and time, not place. Sensorium / Orientation: awake and alert Skin no rashes or lesions noted and no wounds <Dr. Alex Fierro MD - Last Filed: 08/06/24 12:52> Physical Exam Const Vital Signs: 08/06/24 10:46 08/06/24 10:57 08/06/24 11:11 Temperature 103 F H Temperature Source Axillary Pulse Rate 110 H Respiratory Rate 31 H Blood Pressure 84/59 L Blood Pressure Mean 67 Pulse Ox 96 Oxygen Delivery Method Room Air Room Air Oxygen Flow Rate (L/min) 08/06/24 11:45 08/06/24 12:05 08/06/24 12:07 Temperature Temperature Source Pulse Rate 107 H 106 H Respiratory Rate 32 H 30 H Blood Pressure 113/66 117/63 Blood Pressure Mean 81 81 Pulse Ox 93 88 93 Oxygen Delivery Method Room Air Room Air Nasal Cannula Oxygen Flow Rate (L/min) 2 08/06/24 12:49 08/06/24 13:00 08/06/24 13:19 Temperature 101.6 F H 101.9 F H Temperature Source Core Pulse Rate 101 H 101 H 101 H Respiratory Rate 28 H 18 25 H Blood Pressure 93/52 L 93/52 L 112/60 Blood Pressure Mean 65 65 77 Pulse Ox 95 94 100 Oxygen Delivery Method Nasal Cannula Nasal Cannula Oxygen Flow Rate (L/min) 2 2 08/06/24 13:20 08/06/24 13:27 08/06/24 13:42 Temperature 101.9 F H 101.9 F H 101.5 F H Temperature Source Core Core Core Pulse Rate 101 H 104 H 101 H Respiratory Rate 29 H 27 H 27 H Blood Pressure 112/60 112/60 103/54 L Blood Pressure Mean 77 77 70 Pulse Ox 99 100 100 Oxygen Delivery Method Nasal Cannula Nasal Cannula Nasal Cannula Oxygen Flow Rate (L/min) 2 2 2 08/06/24 13:57 08/06/24 14:00 08/06/24 14:12 Temperature 101.3 F H 101.2 F H Temperature Source Core Core Pulse Rate 102 H 102 H 104 H Respiratory Rate 27 H 25 H 22 H Blood Pressure 100/55 L 100/55 L 101/63 Blood Pressure Mean 70 70 75 Pulse Ox 100 100 99 Oxygen Delivery Method Nasal Cannula Nasal Cannula Nasal Cannula Oxygen Flow Rate (L/min) 2 2 08/06/24 14:27 08/06/24 15:00 Temperature 101.3 F H Temperature Source Core Pulse Rate 100 102 H Respiratory Rate 26 H 26 H Blood Pressure 101/51 L 107/63 Blood Pressure Mean 67 77 Pulse Ox 100 98 Oxygen Delivery Method Nasal Cannula Nasal Cannula Oxygen Flow Rate (L/min) 2 2 Sepsis Attestation <RICARDO Saba - Last Filed: 08/06/24 15:16> Sepsis Note Sepsis Attestation: Sepsis re-evaluation was performed Response to fluids: Fluid responsive hypotension <Dr. Alex Fierro MD - Last Filed: 08/06/24 12:52> Sepsis Alert: Yes Sepsis Attestation: Agree w/Sepsis Date exam was performed: 08/06/24 Possible Source of Sepsis: Unknown Sepsis Organ Dysfunction Criteria Present: SBP < 90 mmHg or MAP < 65 mmHg, Creatinine > 2.0 mg/dL, Lactic Acid > 2 mmol/L and New/Unexplained change in mental status Supportive Findings: Fever. Hypotension. Lactic acidosis. Tachycardia. Fluid Resuscitation Fluid resuscitation indicated?: Yes Fluid Resuscitation ordered: 30 ml/kg fluid bolus ordered Amount of fluid ordered: 3,000 MDM <RICARDO Saba - Last Filed: 08/06/24 15:16> [facility] MDM Narrative Medical decision making narrative: Patient presenting today due to altered mental status and having an episode of dark-colored emesis that occurred this morning. He does appear significantly dry on exam. He is tachycardic, tachypneic, hypotensive, and febrile, therefore sepsis order set initiated. He is ill-appearing. Patient initially started on 1 L IV fluids via squad, I added an additional 2 L to give a total of 3L. His blood pressure is improving and is now 117/63. He does have a leukocytosis of 14.2, he also has an J CARLOS with a creatinine of 2.56 and BUN of 49. UA negative for UTI, chest x-ray negative for pneumonia. COVID/influenza/RSV swab was negative. Blood cultures obtained. At this time we do not have a source, we will speak with the hospitalist. Hospitalist requested CT scan of the chest, abdomen, and pelvis. This was obtained and shows cholelithiasis, 6 mm distal left ureteral calculus at the UVJ with no hydronephrosis, mesenteric adenitis versus panniculitis suspected due to mesenteric Stranding in the left hemiabdomen. He was started on Rocephin due to penicillin allergy. On reexamination he remains stable, his vital signs are improving. He will be admitted in stable condition. I have personally performed a face to face assessment of the patient and have reviewed the [facility]ST[facility] Note. I performed a substantive portion of the visit including all aspects of the following. My jean-baptiste findings include: History is 84-year-old male from home with altered level consciousness with a fever. Patient currently is a very limited informant he was brought in by squad. Presents hypotensive and febrile. Exam is [84-year-old male initial blood pressure 84/59 pulse 110 respirations 31 temperature 103. Pulse ox 96% on room air no hypoxia. He looks dehydrated. He may or may not be septic. H EENT exam pupils round reactive light. No facial droop. No trauma. Very dry mucous membranes. Neck nontender no lymphadenopathy. No meningismus. Lungs clear to auscultation bilaterally. Heart tachycardic rate of 110 no murmur. Chest wall ribs nontender. Abdomen soft, nontender, nondistended normal bowel sounds without peritoneal signs. Patient moving all 4 extremities. Nontender. No edema. Skin no rashes. No petechiae appropriate. No cellulitis. Back nontender. Neurologically he is awake. He does answer limited questions. He is generally and diffusely and symmetrically weak.] Medical Decision Making [patient will be placed in the sepsis protocol given 2 to 3 L of IV fluids. Workup with labs and cultures. Tylenol for his fever.] Other additions or changes: [Repeat exam at 12:51 PM. Patient did show improvement IV fluids. We do not have a specific source. We spoke to the hospitalist. They wanted CT of his chest abdomen pelvis. Were limited we cannot give him IV contrast due to his acute kidney injury creatinine 2.56. CAT scans are being obtained. Will be admitted. Currently we have not given any IV antibiotics due to unknown source.] Lab Data Labs: Laboratory Results - last 24 hr 08/06/24 08/06/24 08/06/24 11:05 11:19 12:01 WBC 14.2 H RBC 5.69 Hgb 16.7 H Hct 52.3 MCV 91.9 MCH 29.3 MCHC 31.9 L RDW Std Deviation 47.8 H RDW Coeff of Florian 14.2 Plt Count 183 MPV 9.9 Immature Gran % (Auto) 1.500 H Neut % (Auto) 69.2 Lymph % (Auto) 23.5 [place] % (Auto) 5.0 Eos % (Auto) 0.4 Baso % (Auto) 0.4 Absolute Neuts (auto) 9.8 H Absolute Lymphs (auto) 3.32 Nucleated RBC % 0 PT 17.3 H INR 1.4 APTT 33.6 Sodium 140 Potassium 4.1 Chloride 112 H Carbon Dioxide 16.0 L Anion Gap 12 BUN 49 H Creatinine 2.56 H Estim Creat Clear Calc 24.85 Est GFR (MDRD) Af Amer 31 L Est GFR (MDRD) Non-Af 26 L BUN/Creatinine Ratio 19.1 Glucose 118 H Lactic Acid 4.6 H* Calcium 8.8 Total Bilirubin 0.50 AST 50 H ALT 49 Alkaline Phosphatase 120 H Total Protein 7.8 Albumin 3.6 Globulin 4.2 Albumin/Globulin Ratio 0.9 Urine Color Yellow Urine Clarity Clear Urine pH 5.0 Ur Specific [place] 1.010 Urine Protein 15 H Urine Glucose (UA) 1000 H Urine Ketones Negative Urine Occult Blood 150 H Urine Nitrite Negative Urine Bilirubin Negative Urine Urobilinogen Normal Ur Leukocyte Esterase 25 H Urine RBC 5-10 SEEN Urine WBC 0-5 SEEN Ur Squamous Epith Cells 0-5 SEEN Urine Bacteria 1+ Urine Mucus 0 SEEN POC Glucose 73 L Radiography Diagnostic Testing: Clinical Impression(s) from Imaging Studies Chest X-Ray 08/06/24 11:07 IMPRESSION: NEGATIVE CHEST. Reading Location: [facility] Chest/Abdomen/Pelvis CT 08/06/24 12:29 IMPRESSION: Minimal primarily peripherally based interstitial airspace opacities noted bilaterally. No lobar consolidation. Mild paraseptal emphysematous change. Mesenteric fat stranding in the slightly inferior left-sided hemiabdomen most conspicuous axial series image 59 with reactive subcentimeter lymph nodes. Mesenteric adenitis or panniculitis can have this appearance. 6 mm distal left ureteral calculus at the level of the ureterovesicular junction with no appreciable upstream hydronephrosis. Cholelithiasis. Other chronic findings as detailed above. One or more dose reduction techniques were used (e.g., Automated exposure control, adjustment of the mA and/or kV according to patient size, use of iterative reconstruction technique). Reading Location: [facility] <Dr. Alex Fierro MD - Last Filed: 08/06/24 12:52> [facility] Narrative Medical decision making narrative: Patient presenting today due to altered mental status and having an episode of dark-colored emesis that occurred this morning. He does appear significantly dry on exam. He is tachycardic, tachypneic, hypotensive, and febrile, therefore sepsis order set initiated. He is ill-appearing. Patient initially started on 1 L IV fluids via squad, I added an additional 2 L to give a total of 3L. His blood pressure is improving and is now 117/63. He does have a leukocytosis of 14.2, he also has an J CARLOS with a creatinine of 2.56 and BUN of 49. UA negative for UTI, chest x-ray negative for pneumonia. COVID/influenza/RSV swab was negative. At this time we do not have a source, we will speak with the hospitalist. I have personally performed a face to face assessment of the patient and have reviewed the [facility]ST[facility] Note. I performed a substantive portion of the visit including all aspects of the following. My jean-baptiste findings include: History is 84-year-old male from home with altered level consciousness with a fever. Patient currently is a very limited informant he was brought in by squad. Presents hypotensive and febrile. Exam is [84-year-old male initial blood pressure 84/59 pulse 110 respirations 31 temperature 103. Pulse ox 96% on room air no hypoxia. He looks dehydrated. He may or may not be septic. H EENT exam pupils round reactive light. No facial droop. No trauma. Very dry mucous membranes. Neck nontender no lymphadenopathy. No meningismus. Lungs clear to auscultation bilaterally. Heart tachycardic rate of 110 no murmur. Chest wall ribs nontender. Abdomen soft, nontender, nondistended normal bowel sounds without peritoneal signs. Patient moving all 4 extremities. Nontender. No edema. Skin no rashes. No petechiae appropriate. No cellulitis. Back nontender. Neurologically he is awake. He does answer limited questions. He is generally and diffusely and symmetrically weak.] Medical Decision Making [patient will be placed in the sepsis protocol given 2 to 3 L of IV fluids. Workup with labs and cultures. Tylenol for his fever.] Other additions or changes: [Repeat exam at 12:51 PM. Patient did show improvement IV fluids. We do not have a specific source. We spoke to the hospitalist. They wanted CT of his chest abdomen pelvis. Were limited we cannot give him IV contrast due to his acute kidney injury creatinine 2.56. CAT scans are being obtained. Will be admitted. Currently we have not given any IV antibiotics due to unknown source.] History & Record Review Discussion w/independent historian: EMS personnel and Patient Additional record(s) reviewed:: Prior inpatient record, Prior outpatient record, Prior ED visit and Prior labs Lab Data Attestation: I reviewed the patient's lab results. Lab results narrative: CBC shows a white count of 14.2. H&H is 16.7 and 52. Platelets 183. Labs: Laboratory Results - last 24 hr 08/06/24 08/06/24 08/06/24 11:05 11:19 12:01 WBC 14.2 H RBC 5.69 Hgb 16.7 H Hct 52.3 MCV 91.9 MCH 29.3 MCHC 31.9 L RDW Std Deviation 47.8 H RDW Coeff of Florian 14.2 Plt Count 183 MPV 9.9 Immature Gran % (Auto) 1.500 H Neut % (Auto) 69.2 Lymph % (Auto) 23.5 [place] % (Auto) 5.0 Eos % (Auto) 0.4 Baso % (Auto) 0.4 Absolute Neuts (auto) 9.8 H Absolute Lymphs (auto) 3.32 Nucleated RBC % 0 PT 17.3 H INR 1.4 APTT 33.6 Sodium 140 Potassium 4.1 Chloride 112 H Carbon Dioxide 16.0 L Anion Gap 12 BUN 49 H Creatinine 2.56 H Estim Creat Clear Calc 24.85 Est GFR (MDRD) Af Amer 31 L Est GFR (MDRD) Non-Af 26 L BUN/Creatinine Ratio 19.1 Glucose 118 H Lactic Acid 4.6 H* Calcium 8.8 Total Bilirubin 0.50 AST 50 H ALT 49 Alkaline Phosphatase 120 H Total Protein 7.8 Albumin 3.6 Globulin 4.2 Albumin/Globulin Ratio 0.9 Urine Color Yellow Urine Clarity Clear Urine pH 5.0 Ur Specific [place] 1.010 Urine Protein 15 H Urine Glucose (UA) 1000 H Urine Ketones Negative Urine Occult Blood 150 H Urine Nitrite Negative Urine Bilirubin Negative Urine Urobilinogen Normal Ur Leukocyte Esterase 25 H Urine RBC 5-10 SEEN Urine WBC 0-5 SEEN Ur Squamous Epith Cells 0-5 SEEN Urine Bacteria 1+ Urine Mucus 0 SEEN POC Glucose 73 L Radiography Chest X-Ray - ED: 1 View, Read by ED Physician, Heart, Lungs, Mediastinum, Bony Structures and Chronic Changes Diagnostic Testing: Clinical Impression(s) from Imaging Studies Chest X-Ray 08/06/24 11:07 IMPRESSION: NEGATIVE CHEST. Reading Location: [facility] Chest/Abdomen/Pelvis CT 08/06/24 12:29 IMPRESSION: Minimal primarily peripherally based interstitial airspace opacities noted bilaterally. No lobar consolidation. Mild paraseptal emphysematous change. Mesenteric fat stranding in the slightly inferior left-sided hemiabdomen most conspicuous axial series image 59 with reactive subcentimeter lymph nodes. Mesenteric adenitis or panniculitis can have this appearance. 6 mm distal left ureteral calculus at the level of the ureterovesicular junction with no appreciable upstream hydronephrosis. Cholelithiasis. Other chronic findings as detailed above. One or more dose reduction techniques were used (e.g., Automated exposure control, adjustment of the mA and/or kV according to patient size, use of iterative reconstruction technique). Reading Location: [facility] Chest x-ray, portable, single view interpreted by myself there is some haziness of the left lower lung. This could all be chronic changes versus a subtle pneumonia. Normal cardiac silhouette. No effusions. Rhythm Strip Rhythm Strip: Sinus Tach Rate: 109 Ectopy: None EKG Initial EKG: Attestation: I personally reviewed and interpreted this EKG as follows: Interpretation: No Acute Injury Pattern and Sinus Tachycardia Comments: Sinus tachycardia rate of 109. No acute signs of SD or ischemia. <Dr. Alex Fierro MD - Last Filed: 08/06/24 12:52> Critical Care Time Critical Care Time: Yes Critical care time (excluding procedures): 30-74 minutes, Including time spent:, Discussing w/Patient &/or Family/[employer], Discussing w/Consultants, Arranging Admission or Transfer, Performing Direct Patient Care at Bedside and - (41 minutes) Discharge Plan Dx/Rx/DC Orders Clinical Impression: Sepsis, Fever, Acute dehydration, Acute kidney injury, Leukocytosis, Altered level of consciousness, Acute hypotension Disposition Disposition: [facility]
[2024-08-06] MEDS: 0.9% Normal Saline (1000mL) 1,000 ML 999 ML IV (11:16)
[2024-08-06] MEDS: 0.9% Normal Saline (500mL Bag) 500 ML 999 ML IV ×3 (11:16→12:31)
[2024-08-06] MEDS: Ondansetron 4 MG/2 ML Vial IV (11:16)
[2024-08-06 11:22] LABS: Absolute Lymphocyte Count 3.32 X10^3/uL (0.83-4.51); Absolute Neutrophil Count 9.8 X10^3/uL (2.0-7.7); Basophil# 0.06 X10^3/uL; Basophil% 0.4 % (0-1); Eosinophil# 0.05 X10^3/uL; Eosinophils% 0.4 % (0-5); Hematocrit 52.3 % (40-54); Hemoglobin 16.7 g/dL (13.0-16.5); Lymphocyte # 3.32 X10^3/ul (0.83-4.51); Lymphocyte % 23.5 % (19-41); Mean Corp Hgb Conc 31.9 g/dL (32-36); Mean Corpuscular Hgb 29.3 pg (27.0-32.0); Mean Corpuscular Volume 91.9 fL (80-94); Mean Platelet Vol. 9.9 fl (6.2-12.0); Monocyte# 0.71 X10^3/uL; NRBC Flagged by Analyzer 0 % (0-5); Neutrophil % 69.2 % (47-70); Platelet Count 183 K/mm3 (150-450); RBC Distribution Width CV 14.2 % (11.6-14.6); RBC Distribution Width SD 47.8 fl (35.1-43.9); Red Blood Count 5.69 M/mm3 (4.6-6.2); White Blood Count 14.2 K/mm3 (4.4-11.0)
[2024-08-06 11:26] LABS: International Normalized Ratio 1.4; Prothrombin Time (Protime)PT. 17.3 SECONDS (11.7-14.9)
[2024-08-06 11:27] LABS: Color, Urine Yellow (Yellow); Glucose, Dipstick 1000 mg/dl (Normal); Ketone-Dipstick Negative (Negative); Leukocyte Esterase-Dipstick 25 /ul (Negative); Mucous, Urine 0 SEEN /hpf (<or=2+); Nitrite-Dipstick Negative (Negative); Occult Blood-Urine 150 /ul (Negative); Protein-Dipstick 15 mg/dl (Negative); Urine Bilirubin Dipstick Negative (Negative); Urine Clarity Clear (Clear); Urine Urobilinogen Normal (Normal)
[2024-08-06 11:32] LABS: Partial Thromboplast Time 33.6 Seconds (24.1-36.2)
[2024-08-06] MEDS: Acetaminophen 650 MG Suppository RC (11:35)
[2024-08-06 11:36] LABS: Red Blood Cells-Urine 5-10 SEEN /hpf (0-5); Squamous Epithelial Cells - UA 0-5 SEEN /hpf (0-5); White Blood Cells 0-5 SEEN /hpf (0-5)
[2024-08-06 11:37] LABS: Bacteria 1+ /hpf (None Seen)
[2024-08-06 11:56] LABS: ALB/GLOB Ratio 0.9 RATIO (0.9-2.4); AST(SGOT) 50 U/L (15-37); Alanine Aminotransfer ALT/SGPT 49 U/L (16-61); Albumin, Serum 3.6 g/dL (3.2-5.0); Alkaline Phosphatase 120 U/L (45-117); Anion Gap 12 (5-15); BUN 49 mg/dL (7-18); BUN/Creat Ratio 19.1 RATIO (10-20); Calcium,Total 8.8 mg/dL (8.5-10.1); Chloride 112 mmol/L (98-107); Creatinine, Serum 2.56 mg/dL (0.70-1.30); EST Glomerular Filtration Rate 26 mL/min (>60); Est Glom Filt Rate - Afr Amer 31 mL/min (>60); Estimated Creatinine Clearance 24.85 ml/min; Globulin 4.2 g/dL (2.2-4.2); Glucose 118 mg/dL (74-106); Potassium 4.1 mmol/L (3.5-5.1); Protein, Total 7.8 g/dL (6.4-8.2); Sodium Level 140 mmol/L (136-145)
[2024-08-06 12:18] LABS: Bedside Glucose 73 mg/dL (74-106)
[2024-08-06 12:18] LABS: Lactic Acid 4.6 mmol/L (0.4-1.9)
--- NOTE | 2024-08-06 12:19 | NURSING ---
Dr Fierro notified of lactic acid 4.6.
--- NOTE | 2024-08-06 12:25 | HP.PCM.HOS_ITS ---
HPI - General General Date of Service: 08/06/24 HPI Narrative BETTYE BARNETT, is a 84 M with a PMH as outlined who presents via the ED on 08/06/2024 with a complaint of nausea, vomiting and dark colored emesis which starte don the day of admission. He was also noted to be confused so family sent him to the ED. Unable to get any further history due to confusion. Patient was very weak and lethargic and just moaning, though he was able to say he was having diarrhea. Vitals in the ED were temp of 103F, KS of 106, BP was initiall 84/59 and came up to 117/63.He was initially on room air but subsequently required 2L of oxygen. CBC showed WBC of 14.2 with hemoglobin of 16.7 and platelets of 183. INR is 1.4. Chemistry shows sodium of 140 with bicarb of 16 and creatinine of 2.56. Anion gap was 12. Lactic acid was 4.6. Total bilirubin 0.5 with AST mildly elevated at 50. ALT was normal but ALP was also mildly elevated at 120. Urinalysis showed 1+ bacteria with 0-5 WBC and 25 leukocyte esterase. CXR showed no acute cardiopulmonary pathology. [facility] Medical History Hypothyroidism ESSENCE treated with BiPAP History of pituitary tumor New onset type 2 diabetes mellitus GI bleed Anemia Former smoker HTN (hypertension) Raynaud disease Home Medications ?Medication ?Instructions ?Recorded ?Last Taken ?Type pregabalin 150 mg capsule (Lyrica) 150 cap PO BID pain 06/22/16 12/22/21 History lisinopril 20 mg tablet 20 mg PO PRN blood pressure 08/07/21 12/24/21 History desmopressin 0.1 mg tablet 0.5 tab PO QHS pituitary melo pplement 12/21/21 12/23/21 History hydrocortisone 5 mg tablet 3 tab PO DAILY steroid 11/2712/24/21 History hydrocortisone 5 mg tablet 7.5 mg PO Q12H steroid 11/2712/23/21 History levothyroxine 100 mcg tablet 100 mcg PO DAILY@0600 thy roid 12/21/21 12/24/21 History amlodipine 5 mg tablet 5 mg PO DAILY HTN 09/02/23 U nknown History empagliflozin 10 mg tablet 10 mg PO DAILY blood sugar 09/02/23 Unknown History (Jardiance) ferrous sulfate 325 mg (65 mg 325 mg PO DAILY anemia 0 09/02/23 Unknown History iron) tablet (FeroSul) pramipexole 1 mg tablet 1 mg PO BID restless legs Unknown History sitagliptin phosphate 100 mg 100 mg PO DAILY blood sug ar 09/02/23 Unknown History tablet (Januvia) tramadol 50 mg tablet 50 mg PO Q6H pain 09/02/23 U nknown History oseltamivir 75 mg capsule 75 mg PO BID #6 caps 4 Unknown Rx ascorbic acid (vitamin C) 500 mg 400 mg PO 08/06/24 Un known History capsule glimepiride 2 mg tablet 2 mg PO DAILY 08/06/24 Unkno wn History levothyroxine 100 mcg tablet 100 mcg PO DAILY 08/06/24 Unknown History (Euthyrox) pramipexole 1 mg tablet 1 mg PO DAILY 08/06/24 Unkno wn History Allergy/AdvReac Type Severity Reaction Status Date / Time Penicillins (PCN) Allergy Rash Verified 09/02/23 17:17 terazosin Allergy PT UNSURE Verified 09/02/23 17:17 OF REACTION Family History Mother Multiple myeloma Father Cancer Surgical History History of surgical removal of pituitary gland History of appendectomy Social History household members: spouse housing: house Smoking Status: Former smoker alcohol intake: never substance use type: does not use ROS Review of Systems ROS Unobtainable: due to encephalopathy Vital Signs Vital Signs Vital Signs: 08/06/24 10:46 08/06/24 10:57 08/06/24 11:11 Temperature 103 F H Temperature Source Axillary Pulse Rate 110 H Respiratory Rate 31 H Blood Pressure 84/59 L Blood Pressure Mean 67 Pulse Ox 96 Oxygen Delivery Method Room Air Room Air Oxygen Flow Rate (L/min) 08/06/24 11:45 08/06/24 12:05 08/06/24 12:07 Temperature Temperature Source Pulse Rate 107 H 106 H Respiratory Rate 32 H 30 H Blood Pressure 113/66 117/63 Blood Pressure Mean 81 81 Pulse Ox 93 88 93 Oxygen Delivery Method Room Air Room Air Nasal Cannula Oxygen Flow Rate (L/min) 2 Weight Weight: 201 lb 8.04 oz Body Mass Index (BMI) 28.9 Physical Exam Const Constitutional Narrative: patient very weak and lethargic HEENT normocephalic and head/scalp atraumatic HEENT Narrative: dry oral mucosa Eyes PERRL, EOMs intact bilaterally and conjunctivae normal Neck no lymphadenopathy and supple Resp Resp Narrative: mildly diminished breath sounds bibasally, no wheezes or crackles. On 2L of oxygen by nasal canula Cardio regular rhythm, S1 normal heart sound, S2 normal heart sound and no murmurs Cardio Narrative: tachycardic GI normal to inspection, nondistended, normoactive bowel sounds, soft to palpation, non-tender and non-distended GI Narrative: patient having diarrhea Extremity normal to inspection and no clubbing, cyanosis or edema Neuro Neuro Narrative: patient very confused and lethargic. Had some movements of all extremities spontaneously Results Lab / Micro Data 08/06/24 11:05 08/06/24 11:05 Labs: Laboratory Results - last 24 hr 08/06/24 11:05: WBC 14.2 H, RBC 5.69, Hgb 16.7 H, Hct 52.3, MCV 91.9, MCH 29.3, MCHC 31.9 L, RDW Std Deviation 47.8 H, RDW Coeff of Florian 14.2, Plt Count 183, MPV 9.9, Immature Gran % (Auto) 1.500 H, Neut % (Auto) 69.2, Lymph % (Auto) 23.5, [place]uel % (Auto) 5.0, Eos % (Auto) 0.4, Baso % (Auto) 0.4, Absolute Neuts (auto) 9.8 H, Absolute Lymphs (auto) 3.32, Nucleated RBC % 0, PT 17.3 H, INR 1.4, APTT 33.6, Sodium 140, Potassium 4.1, Chloride 112 H, Carbon Dioxide 16.0 L, Anion Gap 12, BUN 49 H, Creatinine 2.56 H, Estim Creat Clear Calc 24.85, Est GFR (MDRD) Af Amer 31 L, Est GFR (MDRD) Non-Af 26 L, BUN/Creatinine Ratio 19.1, G lucose 118 H, Lactic Acid 4.6 H*, Calcium 8.8, Total Bilirubin 0.50, AST 50 H, ALT 49, Alkaline Phosphatase 120 H, Total Protein 7.8, Albumin 3.6, Globulin 4.2, Albumin/Globulin Ratio 0.9 08/06/24 11:19: Urine Color Yellow, Urine Clarity Clear, Urine pH 5.0, Ur Specific [place] 1.010, Urine Protein 15 H, Urine Glucose (UA) 1000 H, Urine Ketones Negative, Urine Occult Blood 150 H, Urine Nitrite Negative, Urine Bilirubin Negative, Urine Urobilinogen Normal, Ur Leukocyte Esterase 25 H, Urine RBC 5-10 SEEN, Urine WBC 0-5 SEEN, Ur Squamous Epith Cells 0-5 SEEN, Urine Bacteria 1+, Urine Mucus 0 SEEN 08/06/24 12:01: POC Glucose 73 L Micro: Microbiology 08/06/24 10:50 Mucosa - Nose SARS-CoV-2, Influenza & RSV (PCR) - Final Rhythm Strip Rhythm Strip: Sinus Tach Rate: 109 Ectopy: None Imaging Radiology Impression Chest X-Ray 08/06/24 11:07 IMPRESSION: NEGATIVE CHEST. Reading [facility] Assessment & Plan Assessment/Plan (1) Acute hypotension: (2) Altered level of consciousness: (3) Leukocytosis: (4) Acute kidney injury: (5) Acute dehydration: (6) Fever: (7) Sepsis: (8) Adrenal insufficiency: PLAN: Plan #Acute encephalopathy * Patient admitted with a complaint of confusion. * admit to ICU * Patient very confused and lethargic and unable to give any significant history. Will get CT of the brain * . Hold all neurotoxic meds such as Lyrica and tramadol. * check TSH #Sepsis due to acute gastroenteritis and UTI versus possible acute cholecystitis * Patient admitted with a complaint of altered mental status. Patient very confused and lethargic. He is febrile and tachypneic as well as tachycardic. He is on 2 L of oxygen. * Lactic acid elevated at 4.6. Patient is having diarrhea and did complain of diarrhea. It is unclear how long he has had diarrhea for. WBC is also elevated at 14.2. * CT of the chest abdomen and pelvis showed no evidence of PE and showed minimal primarily peripherally based interstitial airspace opacities bilaterally with no lobar consolidation. Abdominal pelvic CT showed steatosis of the liver and tiny stones versus sludge noted layering dependently. There was also a 6 mm distal left ureteral calculus at the level of the ureterovesical junction with no appreciable upstream hydronephrosis. There was also mesenteric fat stranding in the slightly inferior left sided hemiabdomen with reactive subcentimeter lymph nodes with mesenteric adenitis with pancolitis being able to have this appearance. * Will admit to ICU. Hydrate aggressively with IV fluids per sepsis protocol. Patient not hypotensive. * Started on IV cefepime and vancomycin. Get blood and urine cultures. Check stool for C. difficile and enteric panel * Consult ID. Also consult general surgery as he is having sludge in the gallbladder and this could also be the etiology. Also get right upper quadrant ultrasound. * Urinalysis also did show 1+ bacteria so this could be a source. * consult critical care * #J CARLOS with non anion gap metabolic acidosis: * Creatinine is 2.56 with baseline of around 1. * Likely prerenal due to diarrhea and decreased oral intake. Lactic acid is also elevated at 4.6. * Hydrate aggressively with IV fluids. If creatinine does not improve consider getting further workup with Fe urea and also get nephrology consult and renal ultrasound. * # History of adrenal insufficiency: On hydrocortisone p.o. Will switch to IV hydrocortisone. #Hypothyroidism: On Synthroid #Type 2 diabetes mellitus, hold oral meds. Insulin sliding scale. Accuhecks ACHS. #Hypertension: Hold amlodipine and lisinopril. IV hydralazine as needed DVT prophylaxis: heparin COde status: * Unable to do have CODE STATUS discussion with patient's will put in as presumptive full code for now until he is more alert and able to partake in code status discussion. * * Charges/Coding Visit Charges Inpatient E&M: 39668 Init Hosp L3
--- NOTE | 2024-08-06 12:29 | CT_ITS ---
PROCEDURE: CT CHEST, ABD, PELVIS WO CONT REASON FOR EXAM: Sepsis. TECHNIQUE: Chest CTA with intravenous contrast and 3D reconstructions. Abdomen and pelvis CT using the same contrast dose. COMPARISON: Remote imaging from 2021. FINDINGS: CHEST: Lines and tubes: None. Mediastinum: No evidence of mediastinal hemorrhage. Heart: Normal heart size. No pericardial effusion. Thoracic Aorta: No evidence of acute traumatic aortic injury. Lungs and Airways: Minimal primarily peripherally based interstitial airspace opacities noted bilaterally. No lobar consolidation. Mild paraseptal emphysematous change.. Pleura: No pleural effusion. No pneumothorax. Bones: No acute osseous abnormality identified. ABDOMEN AND PELVIS: Liver: Steatosis. Gallbladder: Tiny stones versus sludge noted layering dependently. Spleen: Unremarkable. Pancreas: Unremarkable. Adrenals: Unremarkable. Kidneys: 6 mm distal left ureteral calculus at the level of the ureterovesicular junction with no appreciable upstream hydronephrosis.. Bladder: Rodriguez in place. Reproductive Organs: Unremarkable. Bowel: Unremarkable. Vasculature: Major vascular structures are unremarkable. Mesenteric fat stranding in the slightly inferior left-sided hemiabdomen most conspicuous axial series image 59 with reactive subcentimeter lymph nodes. Mesenteric adenitis or panniculitis can have this appearance. Bones: No acute osseous abnormality identified. Multilevel degenerative changes. Bone loss. CT/CT Chest, Abd, Pelvis WO Cont IMPRESSION: Minimal primarily peripherally based interstitial airspace opacities noted bila terally. No lobar consolidation. Mild paraseptal emphysematous change. Mesenteric fat stranding in the slightly inferior left-sided hemiabdomen most c onspicuous axial series image 59 with reactive subcentimeter lymph nodes. Mesenteric adenitis or panniculitis can have this a ppearance. 6 mm distal left ureteral calculus at the level of the ureterovesicular junctio n with no appreciable upstream hydronephrosis. Cholelithiasis. Other chronic findings as detailed above. One or more dose reduction techniques were used (e.g., Automated exposure contr ol, adjustment of the mA and/or kV according to patient size, use of iterative reconstruction technique). Reading Location: [facility]
[2024-08-06] MEDS: Ceftriaxone 1 GM/50 ML BAG IV (14:24)
[2024-08-06] MEDS: Dextrose 10%-Water 250 ML 999 ML IV (15:09)
[2024-08-06 15:12] LABS: Reflex Lactate? Y
[2024-08-06 15:23] LABS: Bedside Glucose 58 mg/dL (74-106)
--- NOTE | 2024-08-06 15:33 | CT_ITS ---
EXAM: BRAIN/HEAD WITHOUT CONTRAST CLINICAL HISTORY: Altered COMPARISON: None. TECHNIQUE: Noncontrast images of the head with multiplanar reconstructions. Dose reduction techniques were used including intermediate exposure control (AEC),iterative reconstruction technique, and/or mA and/or KV dose adjustments based on patient's size. FINDINGS: CT HEAD FINDINGS: No acute intracranial hemorrhage, mass, mass effect, midline shift or pathologic extra-axial fluid collection. No hydrocephalus. Age- appropriate cerebral volume and white matter. Visualized paranasal sinuses and mastoid air cells are clear. The calvarium is grossly intact. CT/Brain/Head without Contrast IMPRESSION: No CT evidence of acute intracranial pathology. Reading Location: [facility]
[2024-08-06] MEDS: Dextrose 50%-Water 25 GM/50 ML DISP.SYRIN IV (15:50)
[2024-08-06 16:03] LABS: Lactic Acid 4.1 mmol/L (0.4-1.9)
[2024-08-06 16:15] LABS: Bedside Glucose 54 mg/dL (74-106)
[2024-08-06 16:15] LABS: Bedside Glucose 48 mg/dL (74-106)
[2024-08-06 16:56] LABS: Bedside Glucose 129 mg/dL (74-106)
[2024-08-06] MEDS: Vancomycin HCl 2,000 MG in 0.9% Normal Saline (500mL Bag) 500 ML 250 MG IV (17:51)
[2024-08-06] MEDS: Hydrocortisone Sod Succinate 100 MG/2 ML Vial 50 MG IV (18:39)
[2024-08-06] MEDS: 0.9% Normal Saline (1000mL) 1,000 ML 150 ML IV (18:39)
--- NOTE | 2024-08-06 18:50 | PCM.RX.CS ---
Consult Antibiotic Management Pharmacy has been consulted to manage selected antibiotic: Vancomycin Type of Intervention Type of Consult: New start Suspected Infection Suspected Infection: Sepsis Labs Labs: Sodium 140 mmol/L (136-145) 08/06/24 11:05 Potassium 4.1 mmol/L (3.5-5.1) 08/06/24 11:05 Chloride 112 mmol/L (98-107) H 08/06/24 11:05 Carbon Dioxide 16.0 mmol/L (21.0-32.0) L 08/06/24 11:05 Anion Gap 12 (5-15) 08/06/24 11:05 BUN 49 mg/dL (7-18) H 08/06/24 11:05 Creatinine 2.56 mg/dL (0.70-1.30) H 08/06/24 11:05 Est GFR (MDRD) Af Amer 31 mL/min (>60) L 08/06/24 11:05 Est GFR (MDRD) Non-Af 26 mL/min (>60) L 08/06/24 11:05 BUN/Creatinine Ratio 19.1 RATIO (10-20) 08/06/24 11:05 Glucose 118 mg/dL (74-106) H 08/06/24 11:05 Microbiology Microbiology: Microbiology 08/06/24 15:20 Stool Clostridioides difficile (PCR) - Final 08/06/24 10:50 Mucosa - Nose SARS-CoV-2, Influenza & RSV (PCR) - Final Dosing Weight Weight used for dosin.4 kg Estimated Creatinine Clearance Estimated Creatinine Clearance: 25ml/min Goal Trough Goal Trough: 15-20 mcg/mL Pharmacy Plan for Drug Dosing Pharmacy Plan for Drug Dosing: NEW START IV VANCOMYCIN Consulting Physician: Dr. Escobar Indication: Sepsis Goal Trough: 15-20 SrCr: 2.56 (on 08/06/24) CrCl: 24.85 ml/min Comments: pt received a 2000mg loading dose on 08/06/24 at 1751 Vancomycin Dose: based on patients weight and renal function, recommend an initial dose of 750mg q24h starting 08/07/24 at 1800. trough prior to the 3rd dose Note: dose and trough calculation from clinical pharmacology Pending Level: 08/08/24 at 1730 Pharmacy Service will continue to monitor and adjust dosing as required. Follow-Up Labs Follow-Up Labs: Trough: Vancomycin (08/08/24 at 1730)
--- NOTE | 2024-08-06 19:58 | PCM.HOSP.N ---
Hospitalist Note Enteric with + norovirus, negative c-diff. Noted additionally concern for UTI thus will not D/C abx. Will add loperamide.
--- NOTE | 2024-08-06 21:29 | CON.PCM.CC_ITS ---
HPI Consult Data Date of Consult: 08/06/24 HPI Narrative Reason for Consultation: Severe sepsis HPI Narrative: BETTYE BARNETT, is a 84yo former smoker with h/o secondary panhypopituitarism with chronic adrenal insufficiency who presents with confusion and CC of nausea/vomiting/diarrhea. May have been some dark stools/melena as well. Found to have norovirus (+). Was initially hypotensive in ED and was admitted to ICU for concern of elevated LA, acute metabolic encephalopathy as signs of severe sepsis. PAtient appears to have had Flu and COVID infection in early 2023 as well, but is currently testing negative for those. Patient mostly moaning, but oriented to person and place. Great granddaughter had diarrhea recently. He is otherwise appropriate and cooperative. He denies dysuria, but reports fever, chills, muscle aches. [facility] Medical History Hypothyroidism ESSENCE treated with BiPAP History of pituitary tumor New onset type 2 diabetes mellitus GI bleed Anemia Former smoker HTN (hypertension) Raynaud disease Home Medications ?Medication ?Instructions ?Recorded ?Last Taken ?Type pregabalin 150 mg capsule (Lyrica) 150 cap PO BID pain 06/22/16 12/22/21 History lisinopril 20 mg tablet 20 mg PO PRN blood pressure 08/07/21 12/24/21 History desmopressin 0.1 mg tablet 0.5 tab PO QHS pituitary melo pplement 12/21/21 12/23/21 History hydrocortisone 5 mg tablet 3 tab PO DAILY steroid 11/2712/24/21 History hydrocortisone 5 mg tablet 7.5 mg PO Q12H steroid 11/2712/23/21 History levothyroxine 100 mcg tablet 100 mcg PO DAILY@0600 thy roid 12/21/21 12/24/21 History amlodipine 5 mg tablet 5 mg PO DAILY HTN 09/02/23 U nknown History empagliflozin 10 mg tablet 10 mg PO DAILY blood sugar 09/02/23 Unknown History (Jardiance) ferrous sulfate 325 mg (65 mg 325 mg PO DAILY anemia 0 09/02/23 Unknown History iron) tablet (FeroSul) pramipexole 1 mg tablet 1 mg PO BID restless legs Unknown History sitagliptin phosphate 100 mg 100 mg PO DAILY blood sug ar 09/02/23 Unknown History tablet (Januvia) tramadol 50 mg tablet 50 mg PO Q6H pain 09/02/23 U nknown History oseltamivir 75 mg capsule 75 mg PO BID #6 caps 4 Unknown Rx ascorbic acid (vitamin C) 500 mg 400 mg PO 08/06/24 Un known History capsule glimepiride 2 mg tablet 2 mg PO DAILY 08/06/24 Unkno wn History levothyroxine 100 mcg tablet 100 mcg PO DAILY 08/06/24 Unknown History (Euthyrox) pramipexole 1 mg tablet 1 mg PO DAILY 08/06/24 Unkno wn History Allergy/AdvReac Type Severity Reaction Status Date / Time Penicillins (PCN) Allergy Rash Verified 09/02/23 17:17 terazosin Allergy PT UNSURE Verified 09/02/23 17:17 OF REACTION Family History Mother Multiple myeloma Father Cancer Surgical History History of surgical removal of pituitary gland History of appendectomy Social History household members: spouse housing: house Smoking Status: Former smoker alcohol intake: never substance use type: does not use ROS ROS Narrative Fever Chills Muscle aches Pain all over Diarrhea x10d Nausea Denies all else in a 10 or more systematic review. Objective Data Objective Data Vital Signs: Vital Signs Last response 3 Temperature 38.2 C H 08/06/24 17:46 Temperature Source Core 08/06/24 17:46 Pulse Rate 97 08/06/24 18:30 Respiratory Rate 23 H 08/06/24 18:30 Respiratory Effort Normal, Non-Labored 08/06/24 18:00 Respiratory Depth Normal 08/06/24 18:00 Respiratory Pattern Normal 08/06/24 18:00 Blood Pressure 100/55 L 08/06/24 18:30 Blood Pressure Mean 70 08/06/24 18:30 Blood Pressure Source Monitor 08/06/24 18:30 Blood Pressure Position Semi-Fowlers 08/06/24 18:30 Blood Pressure Location Left Arm 08/06/24 18:30 Pulse Ox 99 08/06/24 18:30 Oxygen Delivery Method Nasal Cannula 08/06/24 18:30 Oxygen Flow Rate (L/min) 3 08/06/24 18:00 Fraction of Inspired Oxygen (FIO2) 3 08/06/24 18:30 I&O: I&O Last 24 Hours 3 08/05/24 08/06/24 08/06/24 23:59 11:59 23:59 Intake Total 1100 / 3940 2840 / 3940 Balance 1100 / 3940 2840 / 3940 I&O: Total Stay 3 08/06/24 10:45 thru 08/06/24 20:04 Intake Total 3940 Balance 3940 Current Meds Ordered / Administered: Current meds ordered / Administered 3 Generic Name Dose Route Start Last Admin Trade Name Freq PRN Reason Stop Dose Admin Acetaminophen 650 mg 08/06/24 14:53 Acetaminophen 325 Mg Tablet PO Q6H PRN PRN Pain 1-10 Or Fever >100.7 Glucagon 1 mg 08/06/24 14:58 Glucagon 1 Mg/Ml Syringe IM X1 PRN Hypoglycemia Protocol Heparin Sodium (Porcine) 5,000 unit 08/06/24 22:00 Heparin Injection (Vial) 5,000 Unit/Ml Vial SC Q8 GILDARDO Hydrocortisone Sodium Succinate 50 mg 08/06/24 18:00 08/06/24 18:39 Hydrocortisone Sod Succinate 100 Mg/2 Ml Vial IV 50 mg Q6 GILDARDO Administration Cefepime HCl 2 gm/ Sodium 100 mls @ 200 mls/hr 08/06/24 22:00 Chloride IV Q24H GILDARDO Dextrose 250 mls @ 0 mls/hr 08/06/24 14:58 08/06/24 15:40 Dextrose 10%-Water IV Infused .Q0M PRN Infusion HYPOGLYCEMIA Protocol As Directed Vancomycin IV-PHARMACY TO DOSE 500 mls @ 250 mls/hr 08/06/24 17:29 1 each/ Sodium Chloride IV X1 PRN Rx to Dose Protocol Sodium Chloride 1,000 mls @ 150 mls/hr 08/06/24 18:05 08/06/24 18:39 IV 08/07/24 07:24 150 mls/hr .Q6H40M GILDARDO Administration Protocol Vancomycin HCl 750 mg/ Sodium 265 mls @ 250 mls/hr 08/07/24 18:00 Chloride IV Q24H GILDARDO Insulin Human Lispro 0 unit 08/06/24 18:00 08/06/24 17:45 Insulin Lispro 100 Unit/Ml Insuln.Pen SC Not Given Q6 [facility] Protocol Levothyroxine Sodium 100 mcg 08/07/24 06:00 Levothyroxine 100 Mcg Tablet PO DAILY@0600 [facility] Loperamide HCl 2 mg 08/06/24 19:57 Loperamide 2 Mg Capsule PO Q2H PRN PRN DIARRHEA/LOOSE STOOLS Ondansetron HCl 4 mg 08/06/24 14:53 Ondansetron 4 Mg/2 Ml Vial IV Q8H PRN PRN NAUSEA/VOMITING Oxycodone HCl 5 mg 08/06/24 14:53 Oxycodone 5 Mg Tablet PO Q4H PRN PRN Pain Score 4-10 Pramipexole Dihydrochloride 1 mg 08/07/24 10:00 Pramipexole Di-Hcl 1 Mg Tablet PO DAILY [facility] Sodium Chloride 10 - 40 ml 08/06/24 18:58 0.9% Saline Lock 10 Ml Syringe IV UD PRN SALINE FLUSH Vancomycin Protocol 1 lab 08/08/24 16:30 Vancomycin Trough/Random Due 08/08/24 18:30 DAILY [facility] Physical Exam Const alert, oriented x3 and no apparent distress Constitutional Narrative: But clearly uncomofrtable General Appearance: cooperative, well developed and ill appearing HEENT normocephalic, head/scalp atraumatic and moist oral mucous membranes Mouth: oral and palatal mucosa normal Eyes PERRL, EOMs intact bilaterally, conjunctivae normal and no scleral icterus Neck full ROM and no JVD Lymph Lymphatic: no lymphadenopathy noted Chest inspection of chest normal Resp normal respiratory effort and no use of accessory muscles Effort and Inspection: able to speak in complete sentences Auscultation: clear to auscultation bilaterally Cardio regular rate and regular rhythm GI normal to inspection, nondistended, normoactive bowel sounds no CVA tenderness Skin no rashes or lesions noted Neuro oriented x3, CN's II-XII intact bilaterally and moves all extremities Psych cooperative and affect normal Lab / Micro Data Attestation: I reviewed the patient's lab results. Lab results narrative: LA 4.1 and trending down 08/06/24 11:05 08/06/24 11:05 Labs: Laboratory Results - last 24 hr 08/06/24 11:05: WBC 14.2 H, RBC 5.69, Hgb 16.7 H, Hct 52.3, MCV 91.9, MCH 29.3, MCHC 31.9 L, RDW Std Deviation 47.8 H, RDW Coeff of Florian 14.2, Plt Count 183, MPV 9.9, Immature Gran % (Auto) 1.500 H, Neut % (Auto) 69.2, Lymph % (Auto) 23.5, [place] % (Auto) 5.0, Eos % (Auto) 0.4, Baso % (Auto) 0.4, Absolute Neuts (auto) 9.8 H, Absolute Lymphs (auto) 3.32, Nucleated RBC % 0, PT 17.3 H, INR 1.4, APTT 33.6, Sodium 140, Potassium 4.1, Chloride 112 H, Carbon Dioxide 16.0 L, Anion Gap 12, BUN 49 H, Creatinine 2.56 H, Estim Creat Clear Calc 24.85, Est GFR (MDRD) Af Amer 31 L, Est GFR (MDRD) Non-Af 26 L, BUN/Creatinine Ratio 19.1, G lucose 118 H, Lactic Acid 4.6 H*, Calcium 8.8, Total Bilirubin 0.50, AST 50 H, ALT 49, Alkaline Phosphatase 120 H, Total Protein 7.8, Albumin 3.6, Globulin 4.2, Albumin/Globulin Ratio 0.9 08/06/24 11:19: Urine Color Yellow, Urine Clarity Clear, Urine pH 5.0, Ur Specific [place] 1.010, Urine Protein 15 H, Urine Glucose (UA) 1000 H, Urine Ketones Negative, Urine Occult Blood 150 H, Urine Nitrite Negative, Urine Bilirubin Negative, Urine Urobilinogen Normal, Ur Leukocyte Esterase 25 H, Urine RBC 5-10 SEEN, Urine WBC 0-5 SEEN, Ur Squamous Epith Cells 0-5 SEEN, Urine Bacteria 1+, Urine Mucus 0 SEEN 08/06/24 12:01: POC Glucose 73 L 08/06/24 15:04: POC Glucose 58 L 08/06/24 15:24: POC Glucose 54 L 08/06/24 15:25: Lactic Acid 4.1 H* 08/06/24 15:43: POC Glucose 48 L 08/06/24 16:38: POC Glucose 129 H Micro: Microbiology 08/06/24 15:20 Stool Enteric Bacteriology - Final Norovirus 08/06/24 15:20 Stool Clostridioides difficile (PCR) - Final 08/06/24 10:50 Mucosa - Nose SARS-CoV-2, Influenza & RSV (PCR) - Final Rhythm Strip Rhythm Strip: Sinus Tach Rate: 109 Ectopy: None Imaging Radiology Impression Chest X-Ray 08/06/24 11:07 IMPRESSION: NEGATIVE CHEST. Reading Location: [facility] Chest/Abdomen/Pelvis CT 08/06/24 12:29 IMPRESSION: Minimal primarily peripherally based interstitial airspace opacities noted bilaterally. No lobar consolidation. Mild paraseptal emphysematous change. Mesenteric fat stranding in the slightly inferior left-sided hemiabdomen most conspicuous axial series image 59 with reactive subcentimeter lymph nodes. Mesenteric adenitis or panniculitis can have this appearance. 6 mm distal left ureteral calculus at the level of the ureterovesicular junction with no appreciable upstream hydronephrosis. Cholelithiasis. Other chronic findings as detailed above. One or more dose reduction techniques were used (e.g., Automated exposure control, adjustment of the mA and/or kV according to patient size, use of iterative reconstruction technique). Reading Location: [facility] Brain CT 08/06/24 15:33 IMPRESSION: No CT evidence of acute intracranial pathology. Reading Location: [facility] Assessment and Plan . Assessment and plan: ICU Problem List: Severe sepsis Hypotension Lactic acidosis Acute metabolic encephalopathy Plan: repeat LA x1 now given normotension to evaluate/prognosticate trend Agree with hydrocortisone 50mg q6h IV for stress dose will add H2 kayley BID Luckily, appears to have symptoms with identified pathogenic organism and vector and not on pressors at this time and reasonably good prognosis May remain ICU level o/n for obs and will re-triage in AM for step down or med/surg delirium precautions given ICU, age of patient and steroid use D5-1/2NS or D5-LR at 50cc/hr appropriate 2/2 NPO status and some hypoglycemia on fingerstick earlier Sunil Hernandez MD [facility] Access Tele[facility] Critical Care Time: 60 min inclusive of coordination of care, communication with onsite staff and formulation of POC The entirety of this encounter was done via Telemedicine
[2024-08-06] MEDS: Heparin Injection (Vial) 5,000 UNIT/ML VIAL 5000 UNIT SC (21:34)
[2024-08-06] MEDS: Cefepime HCl 2 GM in 0.9% Normal Saline (100mL MB+) 100 ML IV (21:34)
[2024-08-06] MEDS: Loperamide 2 MG Capsule PO (21:47)
[2024-08-06] MEDS: oxyCODONE 5 MG Tablet PO (22:00)
[2024-08-06 22:53] LABS: Lactic Acid 2.2 mmol/L (0.4-1.9)
[2024-08-07] VITALS (22 sets, daily range): BP systolic 89–154; BP diastolic 58–87; PULSE 80–108; RESP 16–24; TEMP 37.5–38.4; O2SAT 92–100; BMI 28.7
[2024-08-07] MEDS: Hydrocortisone Sod Succinate 100 MG/2 ML Vial 50 MG IV ×5 (00:19→23:08)
[2024-08-07] MEDS: Famotidine 200 MG/20 ML MDV 20 MG in 0.9% Normal Saline (Pres. free 8 ML 300 MG IV ×2 (00:20→10:13)
[2024-08-07] MEDS: 0.9% Saline Lock 10 ML Syringe IV (00:20)
[2024-08-07 00:44] LABS: Bedside Glucose 142 mg/dL (74-106)
[2024-08-07] MEDS: 0.9% Normal Saline (1000mL) 1,000 ML 150 ML IV (01:06)
[2024-08-07 02:13] LABS: Reflex Lactate? Y
[2024-08-07 04:19] LABS: Absolute Lymphocyte Count 1.28 X10^3/uL (0.83-4.51); Absolute Neutrophil Count 15.5 X10^3/uL (2.0-7.7); Basophil# 0.07 X10^3/uL; Basophil% 0.4 % (0-1); Eosinophil# 0.01 X10^3/uL; Eosinophils% 0.1 % (0-5); Hematocrit 42.5 % (40-54); Hemoglobin 13.7 g/dL (13.0-16.5); Lymphocyte # 1.28 X10^3/ul (0.83-4.51); Lymphocyte % 7.1 % (19-41); Mean Corp Hgb Conc 32.2 g/dL (32-36); Mean Corpuscular Hgb 29.6 pg (27.0-32.0); Mean Corpuscular Volume 91.8 fL (80-94); Mean Platelet Vol. 9.6 fl (6.2-12.0); Monocyte# 0.92 X10^3/uL; Monocyte% 5.1 % (0-10); NRBC Flagged by Analyzer 0 % (0-5); Neutrophil # 15.54 X10^3/uL (2.7-7.7); Platelet Count 124 K/mm3 (150-450); RBC Distribution Width CV 14.4 % (11.6-14.6); RBC Distribution Width SD 48.4 fl (35.1-43.9); Red Blood Count 4.63 M/mm3 (4.6-6.2); White Blood Count 18.1 K/mm3 (4.4-11.0)
[2024-08-07 04:49] LABS: AST(SGOT) 68 U/L (15-37); Alanine Aminotransfer ALT/SGPT 46 U/L (16-61); Albumin, Serum 2.5 g/dL (3.2-5.0); Alkaline Phosphatase 68 U/L (45-117); Anion Gap 7 (5-15); BUN 41 mg/dL (7-18); BUN/Creat Ratio 22.7 RATIO (10-20); Calcium,Total 7.3 mg/dL (8.5-10.1); Chloride 120 mmol/L (98-107); Creatinine, Serum 1.81 mg/dL (0.70-1.30); EST Glomerular Filtration Rate 38 mL/min (>60); Est Glom Filt Rate - Afr Amer 46 mL/min (>60); Estimated Creatinine Clearance 35.27 ml/min; Globulin 3.1 g/dL (2.2-4.2); Glucose 165 mg/dL (74-106); Potassium 4.7 mmol/L (3.5-5.1); Protein, Total 5.6 g/dL (6.4-8.2); Sodium Level 144 mmol/L (136-145)
--- NOTE | 2024-08-07 05:55 | US_ITS ---
PROCEDURE: ABDOMEN LIMITED REASON FOR EXAM: Biliary sludge. COMPARISON: Comparison is made with prior CT scan of the abdomen dated August 06, 2024. FINDINGS: Liver: Diffusely echogenic suggesting fatty infiltration. Hepatomegaly. The liver measures 21.2 cm. There is a 9 mm x 5 mm x 5 mm cyst in the left lobe. Gallbladder: Sludge is seen within the dependent portion of the gallbladder lumen. Common bile duct: Normal measuring it measures 4.5 mm. Pancreas: Visualized portions are sonographically unremarkable. Visualized portions of the right kidney are unremarkable. No right upper quadrant ascites. US/Abdomen Limited IMPRESSION: Hepatomegaly and fatty infiltration of the liver. Sludge is seen in the gallbladder lumen. [facility]
[2024-08-07] MEDS: Heparin Injection (Vial) 5,000 UNIT/ML VIAL 5000 UNIT SC ×3 (06:29→23:07)
[2024-08-07 06:56] LABS: Bedside Glucose 140 mg/dL (74-106)
--- NOTE | 2024-08-07 07:30 | PCM.RX.CS ---
Consult Antibiotic Management Pharmacy has been consulted to manage selected antibiotic: Vancomycin Type of Intervention Type of Consult: Follow-up Labs Labs: Sodium 144 mmol/L (136-145) 08/07/24 03:55 Potassium 4.7 mmol/L (3.5-5.1) 08/07/24 03:55 Chloride 120 mmol/L (98-107) H 08/07/24 03:55 Carbon Dioxide 17.0 mmol/L (21.0-32.0) L 08/07/24 03:55 Anion Gap 7 (5-15) 08/07/24 03:55 BUN 41 mg/dL (7-18) H 08/07/24 03:55 Creatinine 1.81 mg/dL (0.70-1.30) H 08/07/24 03:55 Est GFR (MDRD) Af Amer 46 mL/min (>60) L 08/07/24 03:55 Est GFR (MDRD) Non-Af 38 mL/min (>60) L 08/07/24 03:55 BUN/Creatinine Ratio 22.7 RATIO (10-20) H 08/07/24 03:55 Glucose 165 mg/dL (74-106) H 08/07/24 03:55 Microbiology Microbiology: Microbiology 08/06/24 15:20 Stool Enteric Bacteriology - Final Norovirus 08/06/24 15:20 Stool Clostridioides difficile (PCR) - Final 08/06/24 10:50 Mucosa - Nose SARS-CoV-2, Influenza & RSV (PCR) - Final Goal Trough Goal Trough: 15-20 mcg/mL Pharmacy Plan for Drug Dosing Pharmacy Plan for Drug Dosing: DAILY ASSESSMENT Current Vancomycin Dose: 750MG IV Q24H Number of Doses Received: No scheduled doses yet Current Renal Function: 1.81/ CrCl 35 ml/min Renal Function Trend: significant improvement (SCr 2.56 yesterday) Lab/Micro: pending Any Change in Vanc Plan: Patient with significant improvement in renal function from yesterday. Will change vancomycin to 1250mg IV Q24hr to start 08/07/24 @1800 Pending Level: 08/08/24 @1730 Pharmacy Service will continue to monitor and adjust dosing as required.
[2024-08-07] MEDS: Pramipexole Di-HCl 1 MG Tablet PO (10:14)
--- NOTE | 2024-08-07 11:23 | PN.HOSP_ITS ---
Subjective Subjective Doing well, no issues overnight, continues to have loose stools has a rectal tube in place Objective Data Objective Data Vital Signs: Vital Signs Temp Pulse Resp BP Pulse Ox O2 Del Method O2 Flow Rate 99.5 F H 81 16 134/75 H 98 Room Air 1 08/07/24 06:00 08/07/24 07:00 08/07/24 07:00 08/07/24 07:00 08/07/24 07:00 08/07/24 07:00 08/06/24 23:00 FiO2 21 08/06/24 22:59 Oxygen Flow Rate (L/min) 1 Oxygen Delivery Method Room Air Weight: 200 lb 9.93 oz Body Mass Index (BMI) 28.7 Intake & Output: Intake and Output for Last 24 Hours 08/06/24 08/07/24 08/08/24 03:59 03:59 03:59 Intake Total 5267.5 / 5267.5 1010 / 1010 Output Total 850 / 850 1050 / 1050 Balance 4417.5 / 4417.5 -40 / -40 Lab / Micro Data 08/07/24 03:55 08/07/24 03:55 Labs: Laboratory Results - last 24 hr 08/06/24 11:05: PT 17.3 H, INR 1.4, APTT 33.6, Sodium 140, Potassium 4.1, C hloride 112 H, Carbon Dioxide 16.0 L, Anion Gap 12, BUN 49 H, Creatinine 2.56 H, Estim Creat Clear Calc 24.85, Est GFR (MDRD) Af Amer 31 L, Est GFR (MDRD) Non-Af 26 L, BUN/Creatinine Ratio 19.1, Glucose 118 H, Lactic Acid 4.6 H*, Calcium 8.8, Total Bilirubin 0.50, AST 50 H, ALT 49, Alkaline Phosphatase 120 H, Total Protein 7.8, Albumin 3.6, Globulin 4.2, Albumin/Globulin Ratio 0.9 08/06/24 11:19: Urine Color Yellow, Urine Clarity Clear, Urine pH 5.0, Ur Specific [place] 1.010, Urine Protein 15 H, Urine Glucose (UA) 1000 H, Urine Ketones Negative, Urine Occult Blood 150 H, Urine Nitrite Negative, Urine Bilirubin Negative, Urine Urobilinogen Normal, Ur Leukocyte Esterase 25 H, Urine RBC 5-10 SEEN, Urine WBC 0-5 SEEN, Ur Squamous Epith Cells 0-5 SEEN, Urine Bacteria 1+, Urine Mucus 0 SEEN 08/06/24 12:01: POC Glucose 73 L 08/06/24 15:04: POC Glucose 58 L 08/06/24 15:24: POC Glucose 54 L 08/06/24 15:25: Lactic Acid 4.1 H* 08/06/24 15:43: POC Glucose 48 L 08/06/24 16:38: POC Glucose 129 H 08/06/24 22:09: Lactic Acid 2.2 H* 08/07/24 00:18: POC Glucose 142 H 08/07/24 03:55: WBC 18.1 H, RBC 4.63, Hgb 13.7, Hct 42.5, MCV 91.8, MCH 29.6, MCHC 32.2, RDW Std Deviation 48.4 H, RDW Coeff of Florian 14.4, Plt Count 124 L, MPV 9.6, Immature Gran % (Auto) 1.300 H, Neut % (Auto) 86.0 H, Lymph % (Auto) 7.1 L, [place] % (Auto) 5.1, Eos % (Auto) 0.1, Baso % (Auto) 0.4, Absolute Neuts (auto) 15.5 H, Absolute Lymphs (auto) 1.28, Nucleated RBC % 0, Sodium 144, Potassium 4.7, Chloride 120 H, Carbon Dioxide 17.0 L, Anion Gap 7, BUN 41 H, Creatinine 1.81 H, Estim Creat Clear Calc 35.27, Est GFR (MDRD) Af Amer 46 L, Est GFR (MDRD) Non-Af 38 L, BUN/Creatinine Ratio 22.7 H, Glucose 165 H, Calcium 7.3 L, Total Bilirubin 0.50, Direct Bilirubin 0.20, AST 68 H, ALT 46, Alkaline Phosphatase 68, Total Protein 5.6 L, Albumin 2.5 L, Globulin 3.1 08/07/24 06:30: POC Glucose 140 H Micro: Microbiology 08/06/24 11:19 Urine, Catheterized Urine Culture - Preliminary Culture exhibits no growth. 08/06/24 15:20 Stool Enteric Bacteriology - Final Norovirus 08/06/24 15:20 Stool Clostridioides difficile (PCR) - Final 08/06/24 10:50 Mucosa - Nose SARS-CoV-2, Influenza & RSV (PCR) - Final Radiography Diagnostic Testing: Radiology Impression Chest X-Ray 08/06/24 11:07 IMPRESSION: NEGATIVE CHEST. Reading Location: [facility] Chest/Abdomen/Pelvis CT 08/06/24 12:29 IMPRESSION: Minimal primarily peripherally based interstitial airspace opacities noted bilaterally. No lobar consolidation. Mild paraseptal emphysematous change. Mesenteric fat stranding in the slightly inferior left-sided hemiabdomen most conspicuous axial series image 59 with reactive subcentimeter lymph nodes. Mesenteric adenitis or panniculitis can have this appearance. 6 mm distal left ureteral calculus at the level of the ureterovesicular junction with no appreciable upstream hydronephrosis. Cholelithiasis. Other chronic findings as detailed above. One or more dose reduction techniques were used (e.g., Automated exposure control, adjustment of the mA and/or kV according to patient size, use of iterative reconstruction technique). Reading Location: [facility] Brain CT 08/06/24 15:33 IMPRESSION: No CT evidence of acute intracranial pathology. Reading Location: [facility] Abdomen Ultrasound 08/07/24 05:55 IMPRESSION: Hepatomegaly and fatty infiltration of the liver. Sludge is seen in the gallbladder lumen. [facility] R[facility] Rhythm Strip: Sinus Tach Rate: 109 Ectopy: None Physical Exam Narrative General: Sleepy, Oriented x2, Cooperative, No apparent distress HEENT: Atraumatic, PERRLA, EOMI, Normocephalic Oral: Dry mucosa Neck: Supple, No JVD Lungs: Diminished, Normal air movement, No rhonchi, No wheeze, No rales Cardiovascular: Regular rate, Regular Rhythm, Normal S1, Normal S2, No murmurs Abdomen: Soft, Non Tender, Non-Distended, No Hepato-splenomegaly Extremities: No edema, Capillary Refill Less than 3 Seconds Skin: No rashes, No breakdown Musculoskeletal: No Tenderness to Palpation of Joints or Extremities Neurological: No focal neurological deficits, moves all extremities Psych/Mental Status: Flat Assessment & Plan Assessment/Plan (1) Altered level of consciousness: (2) Acute kidney injury: (3) Sepsis: (4) Adrenal insufficiency: PLAN: Plan 1. Acute metabolic encephalopathy secondary to sepsis from gastroenteritis/J CARLOS ? Ultrasound demonstrates sludge in the gallbladder but no acute signs of cholecystitis ? Stool sample indicates positive norovirus, will not provide any antidiarrheal medications as this can worsen symptoms ? Urine culture is negative as is C. difficile, will stop antibiotics ? Continue with IV fluids, renal function is improving 2. History of adrenal insufficiency ? He is currently on hydrocortisone at home, will increase this to 50 mg IV every 6 3. Hypothyroidism ? Stable ? On Synthroid ? Will check TSH 4. DM2 ? Hold his oral medications ? Accu-Cheks ACHS ? Sliding scale insulin ? Will monitor make adjustments as necessary 5. Essential HTN ? Hold his home medications, hydralazine as needed ? Will monitor make adjustments as necessary DVT: Heparin Charges/Coding Visit Charges Inpatient E&M: 43288 Subs Hosp L2
[2024-08-07] MEDS: Insulin Lispro 100 UNIT/ML INSULN.PEN SC ×2 (12:52→18:54)
[2024-08-07] MEDS: 0.9% Normal Saline (1000mL) 1,000 ML 75 ML IV (12:52)
[2024-08-07] MEDS: oxyCODONE 5 MG Tablet PO (12:53)
[2024-08-07 13:16] LABS: Bedside Glucose 163 mg/dL (74-106)
[2024-08-07 13:24] LABS: Thyroid Stim Hormone (TSH) 0.011 uIU/mL (0.358-3.740)
--- NOTE | 2024-08-07 14:54 | CASEMGMT ---
TRAN AMAYA Assessment Face to Face with patient for initial transition planning/care coordination assessment. TRAN AMAYA introduced self and role at [facility], pt voices understanding. Pt is A&Ox4 and is resting comfortably in bed and is calm. Care providers, pharmacy, and demographics verified. Admitting dx: Sepsis, Acute Gastroenteritis LACE Strata: 2 PCP: [place] [facility] Specialists: [facility] Preferred Pharmacy: Pt states that he normally uses a mail-in service. Pt states that his daughter handles his medications and is unsure of what physical pharmacy they utilize. Pt states to call his daughter and ask. TC to Alicia at this time, no answer. VM left. Insurance: [facility] Prescription Benefit: Yes LNOK: Alicia Schroeder (Daughter), Wilma Harrison (GD) Living Arrangements: Pt lives alone in a single story home with a basement and a flat entrance. Pt states that his is now in a chcf. ADLs/IADLs: States independent. Transportation: Self, daughter. Denies concerns DME: CPAP but does not use. BGM with sufficient supplies. Shower chair. Bedside commode. Raised toilet seat. Cane. Grab bars. FWW. HHC/SNF: Denies Hx or needs Pt?s goal: Home Plan: Home, anticipate no additional needs. Pt denies the need for HH, OP Tx, or CCN. Pt states that his son and daughter come to his home everyday to check on him. Pt states that his son plans to stay with him after he gets home. PT eval is pending, CM to follow. Pt denies further concerns at this time. Sophia Duque RN, CM
[2024-08-07 19:14] LABS: Bedside Glucose 157 mg/dL (74-106)
[2024-08-07 23:41] LABS: Bedside Glucose 140 mg/dL (74-106)
[2024-08-08] VITALS (8 sets, daily range): BP systolic 139–170; BP diastolic 74–91; PULSE 54–82; RESP 15–20; TEMP 36.3–37.4; O2SAT 95–99; BMI 28.3
[2024-08-08] MEDS: 0.9% Normal Saline (1000mL) 1,000 ML 75 ML IV (02:46)
--- NOTE | 2024-08-08 04:05 | NURSING ---
Noted tele leads off on monitor, entered patient room to find patient sitting on edge of bed. Patient removed one PIV, fecal management system, disconnected all leads/monitors and was attempting to pull out pang catheter. Patient easily reoriented to situation then began telling nursing staff that since his removal of his pituitary tumor several years ago, he finds himself in odd situations and does not know what he is doing. Patient said his family has also brought to his attention that his behavior seems off. Removed pang catheter. Educated on POC for the rest of this shift. Patient denies additional needs at this time. Bed alarm set. Will continue to monitor.
[2024-08-08] MEDS: Levothyroxine 100 MCG Tablet PO (05:47)
[2024-08-08] MEDS: Hydrocortisone Sod Succinate 100 MG/2 ML Vial 50 MG IV ×2 (05:47→21:03)
[2024-08-08] MEDS: Heparin Injection (Vial) 5,000 UNIT/ML VIAL 5000 UNIT SC ×3 (05:47→21:03)
[2024-08-08 06:38] LABS: Bedside Glucose 131 mg/dL (74-106)
[2024-08-08 08:06] LABS: Anion Gap 5 (5-15); BUN 35 mg/dL (7-18); BUN/Creat Ratio 25.4 RATIO (10-20); Calcium,Total 8.3 mg/dL (8.5-10.1); Chloride 118 mmol/L (98-107); Creatinine, Serum 1.38 mg/dL (0.70-1.30); EST Glomerular Filtration Rate 52 mL/min (>60); Est Glom Filt Rate - Afr Amer 63 mL/min (>60); Estimated Creatinine Clearance 45.76 ml/min; Glucose 146 mg/dL (74-106); Sodium Level 143 mmol/L (136-145)
[2024-08-08] MEDS: Pramipexole Di-HCl 1 MG Tablet PO (09:43)
[2024-08-08] MEDS: Famotidine 200 MG/20 ML MDV 20 MG in 0.9% Normal Saline (Pres. free 8 ML 300 MG IV (09:43)
--- NOTE | 2024-08-08 11:13 | PN.HOSP_ITS ---
Subjective Subjective Feeling much better, rectal tube is out and he is no longer having any significant diarrhea Objective Data Objective Data Vital Signs: Vital Signs Temp Pulse Resp BP Pulse Ox O2 Del Method O2 Flow Rate 97.4 F L 62 20 H 139/91 H 97 Room Air 1 08/08/24 08:14 08/08/24 10:38 08/08/24 08:14 08/08/24 08:14 08/08/24 08:14 08/08/24 08:14 08/06/24 23:00 FiO2 21 08/06/24 22:59 Oxygen Flow Rate (L/min) 1 Oxygen Delivery Method Room Air Weight: 198 lb 3.2 oz Body Mass Index (BMI) 28.3 Intake & Output: Intake and Output for Last 24 Hours 08/07/24 08/08/24 08/09/24 03:59 03:59 03:59 Intake Total 5267.5 / 5267.5 2009 712.5 / 712.5 Output Total 850 / 850 2950 / 3470 670 / 670 Balance 4417.5 / 4417.5 -940 / -1460 42.5 / 42.5 Lab / Micro Data 08/07/24 03:55 08/08/24 07:13 Labs: Laboratory Results - last 24 hr 08/07/24 03:55: TSH 0.011 L 08/07/24 12:46: POC Glucose 163 H 08/07/24 18:53: POC Glucose 157 H 08/07/24 23:04: POC Glucose 140 H 08/08/24 05:48: POC Glucose 131 H 08/08/24 07:13: Sodium 143, Potassium 4.0, Chloride 118 H, Carbon Dioxide 20.0 L , Anion Gap 5, BUN 35 H, Creatinine 1.38 H, Estim Creat Clear Calc 45.76, Est GFR (MDRD) Af Amer 63, Est GFR (MDRD) Non-Af 52 L, BUN/Creatinine Ratio 25.4 H, Glucose 146 H, Calcium 8.3 L Micro: Microbiology 08/06/24 11:19 Urine, Catheterized Urine Culture - Preliminary 08/06/24 15:20 Stool Enteric Bacteriology - Final Norovirus 08/06/24 15:20 Stool Clostridioides difficile (PCR) - Final 08/06/24 10:50 Mucosa - Nose SARS-CoV-2, Influenza & RSV (PCR) - Final Rhythm Strip Rhythm Strip: Sinus Tach Rate: 109 Ectopy: None Physical Exam Narrative General: Sleepy, Oriented x2, Cooperative, No apparent distress HEENT: Atraumatic, PERRLA, EOMI, Normocephalic Oral: Moist mucosa Neck: Supple, No JVD Lungs: Diminished, Normal air movement, No rhonchi, No wheeze, No rales Cardiovascular: Regular rate, Regular Rhythm, Normal S1, Normal S2, No murmurs Abdomen: Soft, Non Tender, Non-Distended, No Hepato-splenomegaly Extremities: No edema, Capillary Refill Less than 3 Seconds Skin: No rashes, No breakdown Musculoskeletal: No Tenderness to Palpation of Joints or Extremities Neurological: No focal neurological deficits, moves all extremities Psych/Mental Status: Normal affect Assessment & Plan Assessment/Plan (1) Altered level of consciousness: (2) Acute kidney injury: (3) Sepsis: (4) Adrenal insufficiency: PLAN: Plan 1. Acute metabolic encephalopathy secondary to sepsis from gastroenteritis/J CARLOS ? Ultrasound demonstrates sludge in the gallbladder but no acute signs of cholecystitis, advance diet ? Stool sample indicates positive norovirus, will not provide any antidiarrheal medications as this can worsen symptoms ? Urine culture is negative as is C. difficile, will stop antibiotics ? Continue with IV fluids, renal function is improving 2. History of adrenal insufficiency ? He is currently on hydrocortisone at home ?Will decrease to twice daily dosing and then resume his oral home hydrocortisone tomorrow 3. Hypothyroidism ? Stable ? On Synthroid ? Will check TSH 4. DM2 ? Hold his oral medications ? Accu-Cheks ACHS ? Sliding scale insulin ? Will monitor make adjustments as necessary 5. Essential HTN ? Hold his home medications, hydralazine as needed ? Will monitor make adjustments as necessary DVT: Heparin Charges/Coding Visit Charges Inpatient E&M: 48951 Subs Hosp L2
[2024-08-08 11:34] LABS: Free T3 0.8 pg/mL (2.18-3.98); T4 Free Direct 1.04 ng/dL (0.76-1.46)
[2024-08-08] MEDS: Insulin Lispro 100 UNIT/ML INSULN.PEN SC (11:38)
[2024-08-08 11:50] LABS: Absolute Lymphocyte Count 1.71 X10^3/uL (0.83-4.51); Absolute Neutrophil Count 8.7 X10^3/uL (2.0-7.7); Basophil# 0.01 X10^3/uL; Basophil% 0.1 % (0-1); Hematocrit 37.8 % (40-54); Hemoglobin 12.2 g/dL (13.0-16.5); Lymphocyte # 1.71 X10^3/ul (0.83-4.51); Lymphocyte % 15.5 % (19-41); Mean Corp Hgb Conc 32.3 g/dL (32-36); Mean Corpuscular Hgb 29.2 pg (27.0-32.0); Mean Corpuscular Volume 90.4 fL (80-94); Mean Platelet Vol. 10.1 fl (6.2-12.0); Monocyte# 0.55 X10^3/uL; NRBC Flagged by Analyzer 0 % (0-5); Neutrophil % 78.8 % (47-70); Platelet Count 114 K/mm3 (150-450); RBC Distribution Width CV 14.5 % (11.6-14.6); RBC Distribution Width SD 47.9 fl (35.1-43.9); Red Blood Count 4.18 M/mm3 (4.6-6.2)
[2024-08-08 12:00] LABS: Bedside Glucose 158 mg/dL (74-106)
--- NOTE | 2024-08-08 12:56 | CASEMGMT ---
RN CM to pt room at this time. Pt states that he talked to his daughter and confirms that the preferred Pharmacy is [facility] in [place] on [facility]. Pt preferred pharmacy updated.
[2024-08-08 18:03] LABS: Bedside Glucose 142 mg/dL (74-106)
[2024-08-08 21:25] LABS: Bedside Glucose 106 mg/dL (74-106)
--- NOTE | 2024-08-08 21:55 | CPS ---
Patient refused PAP therapy for night time use.
[2024-08-09 02:00] VITALS: BP 154/109; PULSE 73; RESP 16; TEMP 36.6; O2SAT 95
[2024-08-09] MEDS: Heparin Injection (Vial) 5,000 UNIT/ML VIAL 5000 UNIT SC ×2 (05:18→14:56)
[2024-08-09] MEDS: Levothyroxine 100 MCG Tablet PO (05:18)
[2024-08-09 06:00] VITALS: BMI 27.8
[2024-08-09 06:18] LABS: Absolute Lymphocyte Count 2.36 X10^3/uL (0.83-4.51); Absolute Neutrophil Count 9.9 X10^3/uL (2.0-7.7); Basophil# 0.02 X10^3/uL; Basophil% 0.2 % (0-1); Hematocrit 34.6 % (40-54); Hemoglobin 11.5 g/dL (13.0-16.5); Lymphocyte # 2.36 X10^3/ul (0.83-4.51); Lymphocyte % 18.3 % (19-41); Mean Corp Hgb Conc 33.2 g/dL (32-36); Mean Corpuscular Hgb 29.8 pg (27.0-32.0); Mean Corpuscular Volume 89.6 fL (80-94); Mean Platelet Vol. 10.3 fl (6.2-12.0); Monocyte# 0.52 X10^3/uL; NRBC Flagged by Analyzer 0 % (0-5); Neutrophil # 9.94 X10^3/uL (2.7-7.7); Platelet Count 115 K/mm3 (150-450); RBC Distribution Width CV 14.3 % (11.6-14.6); RBC Distribution Width SD 46.4 fl (35.1-43.9); Red Blood Count 3.86 M/mm3 (4.6-6.2); White Blood Count 12.9 K/mm3 (4.4-11.0)
[2024-08-09 06:41] LABS: Anion Gap 5 (5-15); BUN 31 mg/dL (7-18); BUN/Creat Ratio 24.4 RATIO (10-20); Calcium,Total 8.5 mg/dL (8.5-10.1); Chloride 118 mmol/L (98-107); Creatinine, Serum 1.27 mg/dL (0.70-1.30); EST Glomerular Filtration Rate 58 mL/min (>60); Est Glom Filt Rate - Afr Amer 70 mL/min (>60); Glucose 135 mg/dL (74-106); Potassium 3.8 mmol/L (3.5-5.1); Sodium Level 145 mmol/L (136-145)
[2024-08-09 08:00] VITALS: BP 164/90; PULSE 74; RESP 16; TEMP 36.7; O2SAT 96
--- NOTE | 2024-08-09 08:57 | DCINST_ITS ---
Discharge Instructions Diet Discharge Diet: Carb Control Diet DC O2, CPAP, BIPAP needs Home O2 Discharge instructions: No Dressing / Incision Discharge Activity: Return to Normal Activity Dressing / Incision Call your doctor if you observe: Fever of 101 or Higher, Shortness of breath, Dizziness, Fainting spells, Swelling in the ankles, Chest pain and Increased palpitations (irregular heartbeat) Follow Up Care Test Results: Test results from this visit will be discussed in further detail at your follow- up appointment, if applicable. Discharge Plan Admission Admit Date/Time: 08/06/24 15:16 Attending Provider: Martir Bhakta Primary Care Provider: Montana Lucas Consulting Providers: Sandra Escobar Discharge Orders/Prescriptions Prescriptions: Continued pregabalin [Lyrica] 150 MG capsule 150 cap PO BID Patient Comments: lisinopril 20 mg tablet 20 mg PO PRN hydrocortisone 5 mg tablet 7.5 mg PO Q12H Patient Comments: TAKE 3 TABLETS BY MOUTH EVERY MORNING AND 1 TABLET EVERY EVENING. DOUBLE DOSE WHEN SICK DIRECTED; takes 5mg normally but double when he gets sick desmopressin 0.1 mg tablet 0.5 tab PO QHS Patient Comments: take 1/2 tablet by mouth every evening Jardiance 10 mg tablet 10 mg PO DAILY Patient Comments: has not been taking because of episodes of hypoglycemia ferrous sulfate [FeroSul] 325 mg (65 mg iron) tablet 325 mg PO DAILY Patient Comments: take 1 tablet by mouth once daily with breakfast Januvia 100 mg tablet 100 mg PO DAILY amlodipine 5 mg tablet 5 mg PO DAILY Patient Comments: HAS NOT BEEN TAKING BECAUSE OF NORMOTENSIVE AT HOME levothyroxine [Euthyrox] 100 mcg tablet 100 mcg PO DAILY glimepiride 2 mg tablet 2 mg PO DAILY pramipexole 1 mg tablet 1 mg PO DAILY ascorbic acid (vitamin C) 500 mg capsule 400 mg PO Discontinued hydrocortisone 5 mg tablet 3 tab PO DAILY Patient Comments: TAKE 3 TABLETS BY MOUTH EVERY MORNING AND 1 TABLET EVERY EVENING. DOUBLE DOSE WHEN SICK DIRECTED levothyroxine 100 mcg tablet 100 mcg PO DAILY@0600 Patient Comments: TAKE ONE TABLET BY MOUTH EVERY MORNING BEFORE BREAKFAST pramipexole 1 mg tablet 1 mg PO BID Patient Comments: take 1 tablet by mouth twice a day oseltamivir 75 mg Capsule 75 mg PO BID Qty: 6 0RF Referrals / Follow Up: Montana Lucas MD [Primary Care Provider] - Within 1 Week Disposition Disposition (needs filled in before D/C Order can be placed): Home, Self Care
--- NOTE | 2024-08-09 09:37 | CASEMGMT ---
Addendum entered by Prasanna Duque 08/09/24 12:02: Therapy is recommending SNF for the pt, see note. RN CM to pt room at this time. Pt displays confusion and is slow to respond to this RN CM. However, pt states that he is agreeable to a short term SNF stay at this time. SW notified and will provide the pt with a list of SNF options. Dr. Bhakta updated. Original Note: Pt has an order for DC placed. Originally, the pt refused the need for HH, OP Tx, or CCN. Pt stated that his son plans to stay with him after DC. However, per ICU rounds, therapy needs to work with the pt one more time prior to DC. Will await PT to help finalize DC plans.
[2024-08-09] MEDS: Hydrocortisone Sod Succinate 100 MG/2 ML Vial 50 MG IV (10:50)
[2024-08-09] MEDS: 0.9% Saline Lock 10 ML Syringe IV (10:51)
[2024-08-09] MEDS: Pramipexole Di-HCl 1 MG Tablet PO (10:51)
[2024-08-09] MEDS: Famotidine 200 MG/20 ML MDV 20 MG in 0.9% Normal Saline (Pres. free 8 ML 300 MG IV (10:51)
[2024-08-09 11:34] LABS: Bedside Glucose 107 mg/dL (74-106)
[2024-08-09 11:34] LABS: Bedside Glucose 120 mg/dL (74-106)
[2024-08-09 11:34] LABS: Bedside Glucose 115 mg/dL (74-106)
[2024-08-09 11:34] LABS: Bedside Glucose 79 mg/dL (74-106)
--- NOTE | 2024-08-09 12:20 | CASEMGMT ---
Discharge Planning A list of SNF providers including quality and resource use data and consistent with the patient's preferred geographic region, medical needs, and insurance network was created in [facility] [facility].? This list was provided to the SW. Codi Zheng Discharge Planning Asst.
[2024-08-09 12:37] LABS: Bedside Glucose 105 mg/dL (74-106)
--- NOTE | 2024-08-09 12:43 | CASEMGMT ---
Addendum entered by Amber Denis 08/09/24 15:07: Social Work DC orders faxed to TCU. SW met with pt and dgt in room and informed of dc plan. RN notified. Disposition: TCU ART Lauren Addendum entered by Amber Denis 08/09/24 14:25: Soical Work TCU is able to accept pt and precert has been obtained. VM left for pt's dgt. Physician updated. TCU aware pt will be admitted today. Disposition: TCU, skilled level of care ART Lauren Addendum entered by Amber Denis 08/09/24 13:33: Social Work Return call from pt dgt Alicia. Alicia is agreeable to SNF placement for pt. RIK reviewed list of SNF options and star ratings with dgt. Preferred providers are [facility]. [facility]. [facility]. [facility]. Referral made to TCU. Will await determination of acceptance. ART Lauren Original Note: Social Work Referral from [facility] for SNF placement. RIK met with pt and introduced self and role of SW. RIK spoke with pt regarding discharge plan and recommendations for short term SNF. Pt is agreeable to go to SNF. SW offered to review list of options with pt and pt denied stating, let me dgt take care of it. Phone call to pt faisal Vargas and message left requesting return call. RIK will await return call from Alicia. ART Lauren
--- NOTE | 2024-08-09 13:38 | PCM.PN.HOSP ---
Subjective Subjective Feeling much better, no issues overnight Objective Data Objective Data Vital Signs: Vital Signs Temp Pulse Resp BP Pulse Ox O2 Del Method O2 Flow Rate 98.0 F 74 16 164/90 H 96 Room Air 1 08/09/24 08:00 08/09/24 08:00 08/09/24 08:00 08/09/24 08:00 08/09/24 08:00 08/09/24 09:01 08/06/24 23:00 FiO2 21 08/06/24 22:59 Oxygen Flow Rate (L/min) 1 Oxygen Delivery Method Room Air Weight: 194 lb 7.163 oz Body Mass Index (BMI) 27.8 Intake & Output: Intake and Output for Last 24 Hours 08/08/24 08/09/24 08/10/24 03:59 03:59 03:59 Intake Total 2009 1620.0 / 1620.0 Output Total 2950 / 3470 1195 / 1195 400 / 400 Balance -940 / -1460 425.0 / 425.0 -390 / -390 Lab / Micro Data 08/09/24 05:44 08/09/24 05:44 Labs: Laboratory Results - last 24 hr 08/06/24 16:08: POC Glucose 115 H 08/06/24 16:21: POC Glucose 79 08/06/24 16:54: POC Glucose 120 H 08/06/24 17:09: POC Glucose 107 H 08/08/24 17:44: POC Glucose 142 H 08/08/24 21:00: POC Glucose 106 08/09/24 05:44: WBC 12.9 H, RBC 3.86 L, Hgb 11.5 L, Hct 34.6 L, MCV 89.6, MCH 29.8, MCHC 33.2, RDW Std Deviation 46.4 H, RDW Coeff of Florian 14.3, Plt Count 115 L, MPV 10.3, Immature Gran % (Auto) 0.500, Neut % (Auto) 77.0 H, Lymph % (Auto) 18.3 L, [place] % (Auto) 4.0, Eos % (Auto) 0.0, Baso % (Auto) 0.2, Absolute Neuts (auto) 9.9 H, Absolute Lymphs (auto) 2.36, Nucleated RBC % 0, Sodium 145, Potassium 3.8, Chloride 118 H, Carbon Dioxide 22.0, Anion Gap 5, BUN 31 H, Creatinine 1.27, Estim Creat Clear Calc 49.30, Est GFR (MDRD) Af Amer 70, Est GFR (MDRD) Non-Af 58 L, BUN/Creatinine Ratio 24.4 H, Glucose 135 H, Calcium 8.5 08/09/24 12:06: POC Glucose 105 Micro: Microbiology 08/06/24 11:15 Blood Culture (Wb) - Right Forearm Blood Culture - Preliminary No growth in 48 hours. 08/06/24 11:36 Blood Culture (Wb) - Left Hand Blood Culture - Preliminary No growth in 48 hours. 08/06/24 11:19 Urine, Catheterized Urine Culture - Preliminary 08/06/24 15:20 Stool Enteric Bacteriology - Final Norovirus 08/06/24 15:20 Stool Clostridioides difficile (PCR) - Final 08/06/24 10:50 Mucosa - Nose SARS-CoV-2, Influenza & RSV (PCR) - Final Rhythm Strip Rhythm Strip: Sinus Tach Rate: 109 Ectopy: None Physical Exam Narrative General: Sleepy, Oriented x2, Cooperative, No apparent distress HEENT: Atraumatic, PERRLA, EOMI, Normocephalic Oral: Moist mucosa Neck: Supple, No JVD Lungs: Diminished, Normal air movement, No rhonchi, No wheeze, No rales Cardiovascular: Regular rate, Regular Rhythm, Normal S1, Normal S2, No murmurs Abdomen: Soft, Non Tender, Non-Distended, No Hepato-splenomegaly Extremities: No edema, Capillary Refill Less than 3 Seconds Skin: No rashes, No breakdown Musculoskeletal: No Tenderness to Palpation of Joints or Extremities Neurological: No focal neurological deficits, moves all extremities Psych/Mental Status: Normal affect Assessment & Plan Assessment/Plan (1) Altered level of consciousness: (2) Acute kidney injury: (3) Sepsis: (4) Adrenal insufficiency: PLAN: Plan 1. Acute metabolic encephalopathy secondary to sepsis from gastroenteritis/J CARLOS ? Ultrasound demonstrates sludge in the gallbladder but no acute signs of cholecystitis, advance diet ? Stool sample indicates positive norovirus, will not provide any antidiarrheal medications as this can worsen symptoms ? Urine culture is negative as is C. difficile, will stop antibiotics ? Continue with IV fluids, renal function is improving ? PT/OT is recommending SNF placement 2. History of adrenal insufficiency ? He is currently on hydrocortisone at home ?Will decrease to twice daily dosing and then resume his oral home hydrocortisone tomorrow 3. Hypothyroidism ? Stable ? On Synthroid ?TSH is low, T4 is normal and T3 is low indicating some issue with peripheral conversion continue with his current Synthroid dosing will monitor 4. DM2 ? Hold his oral medications ? Accu-Cheks ACHS ? Sliding scale insulin ? Will monitor make adjustments as necessary 5. Essential HTN ? Hold his home medications, hydralazine as needed ? Will monitor make adjustments as necessary DVT: Heparin Charges/Coding Visit Charges Inpatient E&M: 17466 Subs Hosp L2
[2024-08-09 14:00] VITALS: BP 158/90; PULSE 68; RESP 16; TEMP 36.7; O2SAT 96
--- NOTE | 2024-08-09 14:20 | PCM.TXEXTCAR ---
Diet Diet Order/Speech Therapy: 08/08/24 08:46 Diet: Regular - General Routine Orders/Code Status Routine Lab Work: CBC and BMP Code Status: Full Code DC O2, CPAP, BIPAP needs Home O2 Discharge instructions: No Therapies Physical Therapy: Eval and Treat Occupational Therapy: Eval and Treat Problem/Diagnosis (1) Altered level of consciousness: Status: Acute Code(s): R40.4 - Transient alteration of awareness (2) Acute kidney injury: Status: Acute Code(s): N17.9 - Acute kidney failure, unspecified (3) Sepsis: Status: Acute Code(s): A41.9 - Sepsis, unspecified organism (4) Adrenal insufficiency: Status: Acute Code(s): E27.40 - Unspecified adrenocortical insufficiency Plan 1. Acute metabolic encephalopathy secondary to sepsis from gastroenteritis/J CARLOS ? Ultrasound demonstrates sludge in the gallbladder but no acute signs of cholecystitis, advance diet ? Stool sample indicates positive norovirus, will not provide any antidiarrheal medications as this can worsen symptoms ? Urine culture is negative as is C. difficile, will stop antibiotics ? Continue with IV fluids, renal function is improving ? PT/OT is recommending SNF placement 2. History of adrenal insufficiency ? He is currently on hydrocortisone at home ?Will decrease to twice daily dosing and then resume his oral home hydrocortisone tomorrow 3. Hypothyroidism ? Stable ? On Synthroid ?TSH is low, T4 is normal and T3 is low indicating some issue with peripheral conversion continue with his current Synthroid dosing will monitor 4. DM2 ? Hold his oral medications ? Accu-Cheks ACHS ? Sliding scale insulin ? Will monitor make adjustments as necessary 5. Essential HTN ? Hold his home medications, hydralazine as needed ? Will monitor make adjustments as necessary DVT: Heparin Allergies/Procedures Done in Hospital Allergies Penicillins (PCN) Allergy (Verified 09/02/23 17:17) Rash terazosin Allergy (Verified 09/02/23 17:17) PT UNSURE OF REACTION Procedures: None Type of Care/Length of Stay Estimated LOS: Convalescent Care Less Than 30 days Type of Care Needed: Skilled Rehab Potential: Fair Prognosis: Fair Additional Orders/Day of Discharge Day of Discharge: 08/09/24 Dietary and Speech Recommendations Dietitian Recommendations/Changes: As medically able, rec AJ to CHO Controlled, No Added Salt As medically able, rec 4 oz glucerna shake tid w/ medpass for increased nutrition if consumed. Discharge Plan Admission Admit Date/Time: 08/06/24 15:16 Attending Provider: Martir Bhakta Primary Care Provider: Montana Lucas Consulting Providers: Sandra Escobar Instructions Additional Instructions / Restrictions: Follow-up with your PCP to monitor your thyroid function. Discharge Orders/Prescriptions Prescriptions: Continued pregabalin [Lyrica] 150 MG capsule 150 cap PO BID Patient Comments: lisinopril 20 mg tablet 20 mg PO PRN hydrocortisone 5 mg tablet 7.5 mg PO Q12H Patient Comments: TAKE 3 TABLETS BY MOUTH EVERY MORNING AND 1 TABLET EVERY EVENING. DOUBLE DOSE WHEN SICK DIRECTED; takes 5mg normally but double when he gets sick desmopressin 0.1 mg tablet 0.5 tab PO QHS Patient Comments: take 1/2 tablet by mouth every evening Jardiance 10 mg tablet 10 mg PO DAILY Patient Comments: has not been taking because of episodes of hypoglycemia ferrous sulfate [FeroSul] 325 mg (65 mg iron) tablet 325 mg PO DAILY Patient Comments: take 1 tablet by mouth once daily with breakfast Januvia 100 mg tablet 100 mg PO DAILY amlodipine 5 mg tablet 5 mg PO DAILY Patient Comments: HAS NOT BEEN TAKING BECAUSE OF NORMOTENSIVE AT HOME levothyroxine [Euthyrox] 100 mcg tablet 100 mcg PO DAILY glimepiride 2 mg tablet 2 mg PO DAILY pramipexole 1 mg tablet 1 mg PO DAILY ascorbic acid (vitamin C) 500 mg capsule 400 mg PO Discontinued hydrocortisone 5 mg tablet 3 tab PO DAILY Patient Comments: TAKE 3 TABLETS BY MOUTH EVERY MORNING AND 1 TABLET EVERY EVENING. DOUBLE DOSE WHEN SICK DIRECTED levothyroxine 100 mcg tablet 100 mcg PO DAILY@0600 Patient Comments: TAKE ONE TABLET BY MOUTH EVERY MORNING BEFORE BREAKFAST pramipexole 1 mg tablet 1 mg PO BID Patient Comments: take 1 tablet by mouth twice a day oseltamivir 75 mg Capsule 75 mg PO BID Qty: 6 0RF Referrals / Follow Up: Montana Lucas MD [Primary Care Provider] - Within 1 Week Disposition Disposition (needs filled in before D/C Order can be placed): Long Term Facility
--- NOTE | 2024-08-09 15:21 | PCM.DC.SUM ---
Providers Date of Admission: 08/06/24 Primary Care Physician: Dr. 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 / Pulmonary Medicine Routine Consulting Provider: Intensivists/Pulmonary Med Reason for Consult: sepsis EMERGENT Consult: No MD Notified: No Date Notified: 08/06/24 Time Notified: 15:18 Reason For Visit: SEPSIS, ACUTE GASTROENTERITIS Diagnosis Discharge Diagnosis (1) Altered level of consciousness: Status: Acute Code(s): R40.4 - Transient alteration of awareness (2) Acute kidney injury: Status: Acute Code(s): N17.9 - Acute kidney failure, unspecified (3) Sepsis: Status: Acute Code(s): A41.9 - Sepsis, unspecified organism (4) Adrenal insufficiency: Status: Acute Code(s): E27.40 - Unspecified adrenocortical insufficiency Medications at Discharge Home Medications pregabalin 150 mg capsule (Lyrica) 150 cap PO BID pain 06/22/16 lisinopril 20 mg tablet 20 mg PO PRN blood pressure 08/07/21 desmopressin 0.1 mg tablet 0.5 tab PO QHS pituitary supplement 12/21/21 hydrocortisone 5 mg tablet 7.5 mg PO Q12H steroid 12/21/21 amlodipine 5 mg tablet 5 mg PO DAILY HTN 09/02/23 empagliflozin 10 mg tablet (Jardiance) 10 mg PO DAILY blood sugar 09/02/23 ferrous sulfate 325 mg (65 mg iron) tablet (FeroSul) 325 mg PO DAILY anemia 09/02/23 sitagliptin phosphate 100 mg tablet (Januvia) 100 mg PO DAILY blood sugar 09/02/23 ascorbic acid (vitamin C) 500 mg capsule 400 mg PO 08/06/24 glimepiride 2 mg tablet 2 mg PO DAILY 08/06/24 levothyroxine 100 mcg tablet (Euthyrox) 100 mcg PO DAILY 08/06/24 pramipexole 1 mg tablet 1 mg PO DAILY 08/06/24 Hospital Course Operations None Procedures None Summary of Care Provided Minutes Spent on Discharge: 33 Hospital Course: Per HPI: BETTYE BARNETT, is a 84 M with a PMH as outlined who presents via the ED on 08/06/2024 with a complaint of nausea, vomiting and dark colored emesis which starte don the day of admission. He was also noted to be confused so family sent him to the ED. Unable to get any further history due to confusion. Patient was very weak and lethargic and just moaning, though he was able to say he was having diarrhea. Vitals in the ED were temp of 103F, [place] of 106, BP was initiall 84/59 and came up to 117/63.He was initially on room air but subsequently required 2L of oxygen. CBC showed WBC of 14.2 with hemoglobin of 16.7 and platelets of 183. INR is 1.4. Chemistry shows sodium of 140 with bicarb of 16 and creatinine of 2.56. Anion gap was 12. Lactic acid was 4.6. Total bilirubin 0.5 with AST mildly elevated at 50. ALT was normal but ALP was also mildly elevated at 120. Urinalysis showed 1+ bacteria with 0-5 WBC and 25 leukocyte esterase. CXR showed no acute cardiopulmonary pathology. Hospital Course: 1. Acute metabolic encephalopathy secondary to sepsis from gastroenteritis/J CARLOS ? Ultrasound demonstrates sludge in the gallbladder but no acute signs of cholecystitis, advance diet ? Stool sample indicates positive norovirus, will not provide any antidiarrheal medications as this can worsen symptoms ? Urine culture is negative as is C. difficile, will stop antibiotics ? Continue with IV fluids, renal function is improving ? PT/OT is recommending SNF placement 08/09/2019 discussed with him the plan for discharge today he expressed understanding of the risk benefits of going to the longterm and would like to go today. His diarrhea has resolved from his norovirus as has his J CARLOS. 2. History of adrenal insufficiency ? He is currently on hydrocortisone at home ?Will decrease to twice daily dosing and then resume his oral home hydrocortisone tomorrow 08/09/2024: Resume his home hydrocortisone dosing 3. Hypothyroidism ? Stable ? On Synthroid ?TSH is low, T4 is normal and T3 is low indicating some issue with peripheral conversion continue with his current Synthroid dosing will monitor 4. DM2 ? Hold his oral medications ? Accu-Cheks ACHS ? Sliding scale insulin ? Will monitor make adjustments as necessary 5. Essential HTN ? Hold his home medications, hydralazine as needed ? Will monitor make adjustments as necessary Physical Exam Narrative General: Sleepy, Oriented x2, Cooperative, No apparent distress HEENT: Atraumatic, PERRLA, EOMI, Normocephalic Oral: Moist mucosa Neck: Supple, No JVD Lungs: Diminished, Normal air movement, No rhonchi, No wheeze, No rales Cardiovascular: Regular rate, Regular Rhythm, Normal S1, Normal S2, No murmurs Abdomen: Soft, Non Tender, Non-Distended, No Hepato-splenomegaly Extremities: No edema, Capillary Refill Less than 3 Seconds Skin: No rashes, No breakdown Musculoskeletal: No Tenderness to Palpation of Joints or Extremities Neurological: No focal neurological deficits, moves all extremities Psych/Mental Status: Normal affect Weight / BMI Weight Weight: 194 lb 7.163 oz Body Mass Index (BMI) 27.8 ABG / Lab / Microbiology Data 08/09/24 05:44 08/09/24 05:44 Laboratory: Laboratory Results - last 24 hr 08/06/24 16:08: POC Glucose 115 H 08/06/24 16:21: POC Glucose 79 08/06/24 16:54: POC Glucose 120 H 08/06/24 17:09: POC Glucose 107 H 08/08/24 17:44: POC Glucose 142 H 08/08/24 21:00: POC Glucose 106 08/09/24 05:44: WBC 12.9 H, RBC 3.86 L, Hgb 11.5 L, Hct 34.6 L, MCV 89.6, MCH 29.8, MCHC 33.2, RDW Std Deviation 46.4 H, RDW Coeff of Florian 14.3, Plt Count 115 L, MPV 10.3, Immature Gran % (Auto) 0.500, Neut % (Auto) 77.0 H, Lymph % (Auto) 18.3 L, [place] % (Auto) 4.0, Eos % (Auto) 0.0, Baso % (Auto) 0.2, Absolute Neuts (auto) 9.9 H, Absolute Lymphs (auto) 2.36, Nucleated RBC % 0, Sodium 145, Potassium 3.8, Chloride 118 H, Carbon Dioxide 22.0, Anion Gap 5, BUN 31 H, Creatinine 1.27, Estim Creat Clear Calc 49.30, Est GFR (MDRD) Af Amer 70, Est GFR (MDRD) Non-Af 58 L, BUN/Creatinine Ratio 24.4 H, Glucose 135 H, Calcium 8.5 08/09/24 12:06: POC Glucose 105 Microbiology: Microbiology 08/06/24 11:15 Blood Culture (Wb) - Right Forearm Blood Culture - Preliminary No growth in 48 hours. 08/06/24 11:36 Blood Culture (Wb) - Left Hand Blood Culture - Preliminary No growth in 48 hours. 08/06/24 11:19 Urine, Catheterized Urine Culture - Preliminary 08/06/24 15:20 Stool Enteric Bacteriology - Final Norovirus 08/06/24 15:20 Stool Clostridioides difficile (PCR) - Final 08/06/24 10:50 Mucosa - Nose SARS-CoV-2, Influenza & RSV (PCR) - Final D/C Instructions Discharge Diet: Carb Control Diet Call your doctor if you observe: Fever of 101 or Higher, Shortness of breath, Dizziness, Fainting spells, Swelling in the ankles, Chest pain and Increased palpitations (irregular heartbeat) DC O2, CPAP, BIPAP Needs PSN CPAP & BiPAP: BiPAP & CPAP Settings per PSN Mode CPAP 08/06/24 22:59 Bipap Delivery Device Face Mask 08/06/24 22:59 BiPAP Expiratory Pressure 10 08/06/24 22:59 Fraction of Inspired Oxygen ( 21 08/06/24 22:59 FIO2) Home O2 Discharge instructions: No Meaningful Use Info Meaningful Use Meaningful Use Diagnoses (Choose all that apply): None applicable Ischemic Stroke Statin Dosing Therapy Reference: STATIN DOSE THERAPY REFERENCE: * Patients > 75 years receive moderate or high dose statin therapy. * Patients 75 years or YOUNGER should receive HIGH intensity statin dose unless contraindicated. You will be required to document reason for non-treatment if statin daily dose does not meet guidelines. HIGH DOSE STATIN THERAPY DAILY Atorvastatin > than or = to 40 mg Rosuvastatin > than or = to 20 mg Amlodipine + Atorvastatin > than or = to 2.5/40 mg Ezetimibe + Simvastatin 10/80 mg Simvastatin 80mg Discharge Plan Admission Admit Date/Time: 08/06/24 15:16 Attending Provider: Martir Bhakta Primary Care Provider: Montana Lucas Consulting Providers: Sandra Escobar Instructions Additional Instructions / Restrictions: Follow-up with your PCP to monitor your thyroid function. Discharge Orders/Prescriptions Prescriptions: Continued pregabalin [Lyrica] 150 MG capsule 150 cap PO BID Patient Comments: lisinopril 20 mg tablet 20 mg PO PRN hydrocortisone 5 mg tablet 7.5 mg PO Q12H Patient Comments: TAKE 3 TABLETS BY MOUTH EVERY MORNING AND 1 TABLET EVERY EVENING. DOUBLE DOSE WHEN SICK DIRECTED; takes 5mg normally but double when he gets sick desmopressin 0.1 mg tablet 0.5 tab PO QHS Patient Comments: take 1/2 tablet by mouth every evening Jardiance 10 mg tablet 10 mg PO DAILY Patient Comments: has not been taking because of episodes of hypoglycemia ferrous sulfate [FeroSul] 325 mg (65 mg iron) tablet 325 mg PO DAILY Patient Comments: take 1 tablet by mouth once daily with breakfast Januvia 100 mg tablet 100 mg PO DAILY amlodipine 5 mg tablet 5 mg PO DAILY Patient Comments: HAS NOT BEEN TAKING BECAUSE OF NORMOTENSIVE AT HOME levothyroxine [Euthyrox] 100 mcg tablet 100 mcg PO DAILY glimepiride 2 mg tablet 2 mg PO DAILY pramipexole 1 mg tablet 1 mg PO DAILY ascorbic acid (vitamin C) 500 mg capsule 400 mg PO Discontinued hydrocortisone 5 mg tablet 3 tab PO DAILY Patient Comments: TAKE 3 TABLETS BY MOUTH EVERY MORNING AND 1 TABLET EVERY EVENING. DOUBLE DOSE WHEN SICK DIRECTED levothyroxine 100 mcg tablet 100 mcg PO DAILY@0600 Patient Comments: TAKE ONE TABLET BY MOUTH EVERY MORNING BEFORE BREAKFAST pramipexole 1 mg tablet 1 mg PO BID Patient Comments: take 1 tablet by mouth twice a day oseltamivir 75 mg Capsule 75 mg PO BID Qty: 6 0RF Referrals / Follow Up: Montana Lucas MD [Primary Care Provider] - Within 1 Week Disposition Disposition (needs filled in before D/C Order can be placed): [facility] Facility Charges/Coding Visit Charges Inpatient E&M: 69635 Disch Hosp >30min
== END 2024-08-09 16:00 | disposition skilled nursing facility (03) | DRG 871 ==
LOC: ED 13:29 → ICU 08-07 07:40
PROVIDERS: Internal Medicine Critical Care Medicine; Physician Assistant; Admitting Provider Student in an Organized Health Care Education/Training Program; Emergency Provider Emergency Medicine; PCP Family Medicine; Visit Provider Family Medicine
DX: A41.89 Other specified sepsis (principal); G93.41 Metabolic encephalopathy; E27.40 Unspecified adrenocortical insufficiency; N17.9 Acute kidney failure, unspecified; A08.11 Acute gastroenteropathy due to Norwalk agent; E11.9 Type 2 diabetes mellitus without complications; I10 Essential (primary) hypertension; K76.0 Fatty (change of) liver, not elsewhere classified; E03.9 Hypothyroidism, unspecified; E86.0 Dehydration; K52.9 Noninfective gastroenteritis and colitis, unspecified; R65.20 Severe sepsis without septic shock; G47.33 Obstructive sleep apnea (adult) (pediatric); Z11.52 Encounter for screening for COVID-19; Z79.890 Hormone replacement therapy; Z79.84 Long term (current) use of oral hypoglycemic drugs; Z79.899 Other long term (current) drug therapy; Z87.891 Personal history of nicotine dependence; Z88.0 Allergy status to penicillin
CPT/HCPCS: 36415; 51702; 70450; 71045; 71250; 74176; 76705; 80048; 80053; 80076; 81001; 82962; 83605; 84439; 84443; 84481; 85025; 85610; 85730; 87040; 87077; 87086; 87088; 87186; 87493; 87506; 87631; 93005; 94660; 97162; 97166; 97530; 97535; 99285; P9612; A4216; J2405

== ENCOUNTER 2024-08-09 16:25 | Inpatient (IN) | payer MEDICARE, SELFPAY ==
[2024-08-09 16:58] VITALS: BP 143/79; PULSE 66; RESP 18; TEMP 36.8; O2SAT 96
[2024-08-09 18:04] VITALS: BMI 28.2
[2024-08-09] MEDS: Lisinopril 20 MG Tablet PO (18:47)
--- NOTE | 2024-08-09 19:43 | PCM.HP.STD ---
HPI - General General Date of Admission: 08/09/24 Date of Service: 08/09/24 Chief Complaint: Here for rehabilitation. HPI Narrative BETTYE BARNETT, is a 84 Male who presents with followin08/06/2024 [facility] ED with altered mental status. Vomited dark colored emesis, diarrhea, confused. 3 liters IV fluids given, Blood pressure improved to 117/63. WBC 14.2, Creatinine 2.56, BUN 49, Lactate 4.6. Urinalysis negative, Chest X-ray negative, covid/flu/rsv negative, blood cultures sent. CT C/A/P showed gallstones, left ureteral stone, mesenteric adenitis versus panniculitis. Rocephin IV given. 08/06/2024 Admit [facility]. Hold Lyrica, Hold Tramadol 07/30 encephalopathy, lethargy. Cefepime, Vancomycin, check c. diff, enteric panel for sepsis, diarrhea. IV fluids for J CARLOS. IV hydrocortisone for panhypopituitarism. 08/06/2024 Enteric panel positive Norovirus, C. Diff negative. Continue antibiotics until UTI ruled out. 08/07/2024 No acute events overnight, rectal tube for loose stools. RUQ ultrasound showed gallstones, negative cholecystitis. Urine culture negative, stop antibiotics. Hydrocortisone 50mg iv q6 for adrenal insufficiency. 08/08/2024 Feeling better, rectal tube out, diarrhea improving. Continue IV fluids, J CARLOS improving. Decrease Hydrocortisone to bid, then po tomorrow. 08/09/2024 Feeling better, no acute events overnight. PT/OT recommended SNF. 08/09/2024 Admit to TCU with debility, here for rehabilitation, strengthening, prior to discharge home alone. [facility] Medical History (Updated 08/09/24 @ 19:[address] Basim Paz MD) Hypothyroidism ESSENCE treated with BiPAP History of pituitary tumor New onset type 2 diabetes mellitus GI bleed Anemia Former smoker HTN (hypertension) Raynaud disease Home Medications ?Medication ?Instructions ?Recorded ?Last Taken ?Type pregabalin 150 mg capsule (Lyrica) 150 cap PO BID pain 06/22/16 12/22/21 History lisinopril 20 mg tablet 20 mg PO DAILY blood pressure 08/07/21 12/24/21 History desmopressin 0.1 mg tablet 0.5 tab PO QHS pituitary supplement 12/21/21 12/23/21 History hydrocortisone 5 mg tablet 7.5 mg PO Q12H steroid 12/21/21 12/23/21 History amlodipine 5 mg tablet 5 mg PO DAILY HTN 09/02/23 Unknown History empagliflozin 10 mg tablet 10 mg PO DAILY blood sugar 09/02/23 Unknown History (Jardiance) ferrous sulfate 325 mg (65 mg 325 mg PO DAILY anemia 09/02/23 Unknown History iron) tablet (FeroSul) sitagliptin phosphate 100 mg 100 mg PO DAILY blood sugar 09/02/23 Unknown History tablet (Januvia) ascorbic acid (vitamin C) 500 mg 400 mg PO DAILY supplement 08/06/24 Unknown History capsule glimepiride 2 mg tablet 2 mg PO DAILY diabetes 08/06/24 Unknown History levothyroxine 100 mcg tablet 100 mcg PO DAILY thyroid 08/06/24 Unknown History (Euthyrox) pramipexole 1 mg tablet 1 mg PO DAILY tremors 08/06/24 Unknown History Allergy/AdvReac Type Severity Reaction Status Date / Time Penicillins (PCN) Allergy Rash Verified 09/02/23 17:17 terazosin Allergy PT UNSURE Verified 09/02/23 17:17 OF REACTION Family History Mother Multiple myeloma Father Cancer Surgical History History of surgical removal of pituitary gland History of appendectomy Social History (Updated 08/09/24 @ 19:[address] Basim Paz MD) household members: none and other details: 8 cats, recently placed at [facility]. housing: house Smoking Status: Former smoker alcohol intake: never substance use type: does not use ROS Constitutional Constitutional: Reports weakness; Denies chills, fever(s) or weight gain ENT HEENT: Denies headache(s), nasal congestion or nasal discharge Cardiovascular Cardiovascular: Denies chest pain or palpitations Respiratory/Chest Respiratory/Chest: Denies cough, excessive phlegm production or shortness of breath with exertion Gastrointestinal Gastrointestinal: Denies abdominal pain, nausea or vomiting Genitourinary Genitourinary: Denies dysuria Musculoskeletal Musculoskeletal: Denies joint pain or joint swelling Integumentary Integumentary: Denies rash or wounds Neurologic Neurologic: Reports confusion; Denies focal weakness, numbness or tingling Psychiatric Psychiatric: Denies anxiety, auditory hallucinations, depression, homicidal ideation or suicidal ideation Vital Signs Vital Signs Vital Signs: 08/09/24 16:58 Temperature 98.2 F Temperature Source Oral Pulse Rate 66 Respiratory Rate 18 Blood Pressure 143/79 H Blood Pressure Mean 100 Blood Pressure Source Monitor Blood Pressure Position Semi-Fowlers Blood Pressure Location Right Arm Pulse Ox 96 Oxygen Delivery Method Room Air Weight Weight: 89.267 kg Body Mass Index (BMI) 28.2 Physical Exam Const alert General Appearance: cooperative HEENT normocephalic Eyes PERRL and EOMs intact bilaterally Neck supple, no JVD and no carotid bruits Resp normal respiratory effort, normal air movement and clear to auscultation bilaterally Cardio regular rate and regular rhythm GI normal to inspection, nondistended, normoactive bowel sounds, non-tender and non-distended Extremity normal capillary refill General Extremity: Negative for edema Skin no rashes or lesions noted General Skin Exam: no breakdown Psych affect normal Appearance: appropriate Assessment & Plan Assessment/Plan (1) Debility: (2) Encephalopathy acute: (3) Sepsis: (4) Norovirus: (5) Acute kidney injury: (6) Dehydration: (7) Diarrhea: (8) Type 2 diabetes mellitus with hyperglycemia: (9) Essential (primary) hypertension: (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 Debility - PT/OT. Pain - Tylenol 1000mg q6 prn pain (1-10). Bowel - senna/colace 1 tablet bid prn, Magnesium citrate 300mL daily prn. Adult immunization - Administer pneumonia vaccine, covid vaccine, flu vaccine as appropriate. DVT prophylaxis - Lovenox 40mg sc daily. Hypertension - Lisinopril 20mg daily, Amlodipine 5mg daily. Iron deficiency anemia - Ferrous sulfate 325mg daily, Vitamin C 500mg daily. Panhypopituitarism - DDAVP 0.5mg qhs, Cortef 15mg qam, 7.5mg 4:30PM. Diabetes Mellitus II - Glimepiride 2mg daily, Jardiance 10mg daily, Tradjenta 5mg daily, monitor blood sugars. Hypothyroidism - Levothyroxine 100mcg daily. Restless Leg syndrome - Mirapex 1mg daily. Diabetic polyneuropathy - Lyrica 150mg bid.
[2024-08-09] MEDS: Pregabalin 75 MG Capsule 150 MG PO (22:05)
[2024-08-09] MEDS: DESMOPRESSIN ACETATE 0.1 MG TABLET 0.05 MG PO (22:05)
[2024-08-09 22:48] VITALS: PULSE 70
[2024-08-10] MEDS: Levothyroxine 100 MCG Tablet PO (05:19)
[2024-08-10] MEDS: Enoxaparin 40 MG/0.4 ML Syringe SC (05:19)
[2024-08-10 05:50] LABS: Absolute Lymphocyte Count 3.64 X10^3/uL (0.83-4.51); Absolute Neutrophil Count 6.4 X10^3/uL (2.0-7.7); Basophil# 0.04 X10^3/uL; Basophil% 0.4 % (0-1); Eosinophil# 0.07 X10^3/uL; Eosinophils% 0.6 % (0-5); Hematocrit 32.4 % (40-54); Hemoglobin 10.6 g/dL (13.0-16.5); Lymphocyte # 3.64 X10^3/ul (0.83-4.51); Mean Corp Hgb Conc 32.7 g/dL (32-36); Mean Corpuscular Hgb 29.4 pg (27.0-32.0); Mean Platelet Vol. 10.5 fl (6.2-12.0); Monocyte# 0.88 X10^3/uL; NRBC Flagged by Analyzer 0 % (0-5); Neutrophil # 6.35 X10^3/uL (2.7-7.7); Neutrophil % 57.5 % (47-70); Platelet Count 117 K/mm3 (150-450); RBC Distribution Width SD 45.6 fl (35.1-43.9)
[2024-08-10 06:17] LABS: Anion Gap 7 (5-15); BUN 24 mg/dL (7-18); BUN/Creat Ratio 21.6 RATIO (10-20); Calcium,Total 7.7 mg/dL (8.5-10.1); Chloride 119 mmol/L (98-107); Creatinine, Serum 1.11 mg/dL (0.70-1.30); EST Glomerular Filtration Rate 67 mL/min (>60); Est Glom Filt Rate - Afr Amer 81 mL/min (>60); Estimated Creatinine Clearance 56.71 ml/min; Glucose 96 mg/dL (74-106); Potassium 3.4 mmol/L (3.5-5.1); Sodium Level 146 mmol/L (136-145)
[2024-08-10 06:17] LABS: Bedside Glucose 138 mg/dL (74-106)
[2024-08-10] MEDS: Glimepiride 2 MG Tablet PO (08:11)
[2024-08-10] MEDS: Pregabalin 75 MG Capsule 150 MG PO ×2 (08:11→19:50)
[2024-08-10] MEDS: Potassium Chloride Oral Tablet 20 MEQ 40 MEQ PO (08:12)
[2024-08-10] MEDS: Empagliflozin 10 MG Tablet PO (08:15)
[2024-08-10] MEDS: amLODIPine 5 MG Tablet PO (08:15)
[2024-08-10] MEDS: Lisinopril 20 MG Tablet PO (08:17)
[2024-08-10] MEDS: LINAGLIPTIN 5 MG TABLET PO (08:17)
[2024-08-10] MEDS: Pramipexole Di-HCl 0.5 MG Tablet PO ×2 (09:07→16:52)
[2024-08-10] MEDS: Hydrocortisone 10 MG Tablet 30 MG PO (09:07)
[2024-08-10 10:28] LABS: Iron 48 ug/dL (65-175); Iron Binding Capacity,Total 134 ug/dL (250-450); PERCENT IRON SATURATION 35.8 % (15.0-55.0)
--- NOTE | 2024-08-10 13:49 | CASEMGMT ---
Social Work SW met with pt and completed assessment. SW explained [employer] benefit and that continued stay is not guaranteed during each stay. Pt dgt and pt neighbor present for assessment. Pt currently with coginitive impairment (score 10/15 on BIMS). Pt dgt reports this is very unlike pt's baseline, but when pt does get sick cognition is usually impacted. Per dgt pt's baseline is A&0x4, very active and independent. Pt lives alone, works outside and around the house and barn independently, drives, visits at SNF daily and takes out of facility for drives. Pt is independent with all ADLS and IADLs except pts dgt sets up meds. Discharge plan is for pt to return home alone. Dgt, son and neighbors check on pt daily and assist as needed. Pt plans to move in with his dgt later this year, but arrangements for this have not been made yet and pt will be going home at time of discharge. SW will continue to follow for dc planning. ART Lauren
[2024-08-10] MEDS: Hydrocortisone 10 MG Tablet PO (16:53)
[2024-08-10] MEDS: Ferrous Sulfate 325 MG Tablet PO (16:54)
[2024-08-10] MEDS: Ascorbic Acid 500 MG Tablet PO (16:55)
[2024-08-10] MEDS: Tuberculin,Purif.prot.deriv. 50 TU/ML Vial 0.1 ML ID (16:58)
--- NOTE | 2024-08-10 17:27 | PCM.PN.DRR ---
Documented by User: Jim Elkins 08/10/24 17:46 TCU RX Drug Regimen Review Subjective/Objective Subjective/Objective Subjective: TCU admission note. 84 year old male with below past medical history hospitalized for acute encephalopathy 2/2 sepsis, norovirus, acute kidney injury, dehydration, diarrhea, admitted to TCU with debility, here for rehabilitation, prior to discharge home alone. Objective: Allergies Penicillins (PCN) Allergy (Verified 09/02/23 17:17) Rash terazosin Allergy (Verified 09/02/23 17:17) PT UNSURE OF REACTION Current Medications Generic Name Dose Route Start Last Admin Trade Name Freq PRN Reason Stop Dose Admin Acetaminophen 1,000 mg 08/09/24 19:56 Acetaminophen 500 Mg Tablet PO Q6H PRN PRN Pain Score 1-10 Amlodipine Besylate 5 mg 08/10/24 10:00 08/10/24 08:15 Amlodipine 5 Mg Tablet PO 5 mg DAILY GILDARDO Administration Protocol Ascorbic Acid 500 mg 08/10/24 16:00 08/10/24 16:55 Ascorbic Acid 500 Mg Tablet PO 500 mg 1600 GILDARDO Administration Desmopressin Acetate 0.05 mg 08/09/24 22:00 08/09/24 22:05 Desmopressin Acetate 0.1 Mg Tablet PO 0.05 mg QHS GILDARDO Administration Empagliflozin 10 mg 08/10/24 10:00 08/10/24 08:15 Empagliflozin 10 Mg Tablet PO 10 mg DAILY GILDARDO Administration Ferrous Sulfate 325 mg 08/10/24 16:00 08/10/24 16:54 Ferrous Sulfate 325 Mg Tablet PO 325 mg 1600 GILDARDO Administration Glimepiride 2 mg 08/10/24 08:00 08/10/24 08:11 Glimepiride 2 Mg Tablet PO 2 mg DAILYCM GILDARDO Administration Hydrocortisone 30 mg 08/10/24 10:00 08/10/24 09:07 Hydrocortisone 10 Mg Tablet PO 30 mg DAILY GILDARDO Administration Hydrocortisone 10 mg 08/10/24 16:30 08/10/24 16:53 Hydrocortisone 10 Mg Tablet PO 10 mg 1630 GILDARDO Administration Levothyroxine Sodium 100 mcg 08/10/24 06:00 08/10/24 05:19 Levothyroxine 100 Mcg Tablet PO 100 mcg 0600 GILDARDO Administration Linagliptin 5 mg 08/10/24 10:00 08/10/24 08:17 Linagliptin 5 Mg Tablet PO 5 mg DAILY GILDARDO Administration Lisinopril 20 mg 08/09/24 18:00 08/10/24 08:17 Lisinopril 20 Mg Tablet PO 20 mg DAILY GILDARDO Administration Protocol Magnesium Citrate 300 ml 08/09/24 16:59 Magnesium Citrate 300 Ml PO X1 PRN Constipation Pramipexole Dihydrochloride 0.5 mg 08/10/24 08:00 08/10/24 16:52 Pramipexole Di-Hcl 0.5 Mg Tablet PO 0.5 mg 0800,1630 GILDARDO Administration Pregabalin 150 mg 08/09/24 22:00 08/10/24 08:11 Pregabalin 75 Mg Capsule PO 150 mg BID GILDARDO Administration Senna/Docusate Sodium 1 tablet 08/09/24 19:56 Senna/Docusate Sodium 1 Tablet PO BID PRN Constipation Sodium Chloride 10 - 40 ml 08/09/24 18:36 0.9% Saline Lock 10 Ml Syringe IV UD PRN SALINE FLUSH Tuberculin PPD 0.1 ml 08/17/24 10:00 Tuberculin,Purif.Prot.Deriv. 50 Tu/Ml Vial ID 08/17/24 10:01 X1 ONE Problem List Restless leg syndrome (Acute) Iron deficiency anemia (Acute) Hypothyroidism (Acute) Diabetic polyneuropathy (Acute) Obstructive sleep apnea (Acute) Panhypopituitarism (Acute) Essential (primary) hypertension (Acute) Type 2 diabetes mellitus with hyperglycemia (Acute) Diarrhea (Acute) Dehydration (Acute) Norovirus (Acute) Acute kidney injury (Acute) Sepsis (Acute) Debility (Acute) Vital Signs Temp Pulse Resp BP Pulse Ox O2 Del Method 98.2 F 70 18 143/79 H 96 Room Air 08/09/24 16:58 08/09/24 22:48 08/09/24 16:58 08/09/24 16:58 08/09/24 16:58 08/09/24 22:48 Oxygen Delivery Method Room Air Weight: 89.267 kg Body Mass Index (BMI) 28.2 Sodium 146 mmol/L (136-145) H 08/10/24 05:20 Potassium 3.4 mmol/L (3.5-5.1) L 08/10/24 05:20 Chloride 119 mmol/L (98-107) H 08/10/24 05:20 Carbon Dioxide 21.0 mmol/L (21.0-32.0) 08/10/24 05:20 Anion Gap 7 (5-15) 08/10/24 05:20 BUN 24 mg/dL (7-18) H 08/10/24 05:20 Creatinine 1.11 mg/dL (0.70-1.30) 08/10/24 05:20 Est GFR (MDRD) Af Amer 81 mL/min (>60) 08/10/24 05:20 Est GFR (MDRD) Non-Af 67 mL/min (>60) 08/10/24 05:20 BUN/Creatinine Ratio 21.6 RATIO (10-20) H 08/10/24 05:20 Glucose 96 mg/dL (74-106) 08/10/24 05:20 Assessment/Plan: 1. Pain: acetaminophen 1000 mg PO Q6H PRN pain 1-10. The patient has not required any PRN doses of acetaminophen so far this admission. Please continue to monitor pain levels, PRN medication usage and LFTs (AST/ALT = 68/46 U/L on 08/07/24). 2. Bowel: senna/docusate 1 tablet PO BID PRN constipation, magnesium citrate 300 mL PO daily PRN constipation. The patient has not required any PRN doses of senna/docusate or magnesium citrate so far this admission, and the patient's last bowel movement was 08/08/24. Please continue to monitor for bowel movements, constipation, diarrhea, and PRN medication usage. 3. Hypertension: amlodipine 5 mg PO daily, lisinopril 20 mg PO daily. Please continue to monitor blood pressures (recent range = 91-170/70-109 mmHg), leg swelling, renal function (serum creatinine = 1.11 mg/dL with creatinine clearance ~ 57 mL/min on 08/10/24), potassium levels (K = 3.4 mmol/L on 08/10/24), sodium levels (Na = 146 mmol/L on 08/10/24), for dry cough and for s/s of angioedema. The patients blood pressures have for the most part been elevated over the last few days. Please consider increasing the patient's amlodipine to 10 mg PO daily. 4. Diabetes Mellitus II: empagliflozin 10 mg PO daily, glimepiride 2 mg PO daily with a meal, linagliptin 5 mg PO daily. Please continue to monitor blood glucose levels (recent range = 105-163 mg/dL), hemoglobin A1C levels (A1C = 7.2% on 09/03/23), renal function (serum creatinine = 1.11 mg/dL with creatinine clearance ~ 57 mL/min on 08/10/24), for s/s of a UTI, for s/s of hypo/hyperglycemia, for arthralgia, and myalgias. 5. Hypothyroidism: levothyroxine 100 mcg PO daily. Please continue to monitor thyroid hormone levels (TSH = 0.011 uIU/mL with Free T4 = 1.04 ng/dL on 08/08/24), and for s/s of hypo/hyperthyroidism. 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 Please continue to monitor cortisol levels (no recent cortisol level documented), blood pressures (recent range = 91-170/70-109 mmHg), glucose levels (recent range = 105-163 mg/dL), dry mouth, sodium levels (Na = 146 mmol/L on 08/10/24), and potassium levels (K = 3.4 mmol/L on 08/10/24), as well as for fatigue. 7. Diabetic polyneuropathy: pregabalin 150 mg PO BID. Please continue to monitor for leg pain/numbness/tingling, and for leg swelling as well as for drowsiness/dizziness, and syncope/ataxia/falls. 8. Restless leg syndrome: pramipexole 1 mg PO daily. Please continue to monitor for restless legs, for s/s of orthostasis, constipation, nausea, asthenia, dizziness/drowsiness, insomnia, and peripheral edema. 9. Iron deficiency anemia: ferrous sulfate 325 mg PO daily, ascorbic acid 500 mg PO at 1600. Pleas continue to monitor hemoglobin levels (Hgb = 10.6 g/dL on 08/10/24), and iron levels (iron = 48 ug/dL on 08/10/24), as well as for GI distress with iron administration. Assessment/Plan for indications treated with psychotropic medications: NA Medical chart and medication regimen reviewed. The following medication irregularities or issues were identified: 1. Hypertension: amlodipine 5 mg PO daily, lisinopril 20 mg PO daily. The patients blood pressures have for the most part been elevated over the last few days. Please consider increasing the patient's amlodipine to 10 mg PO daily. Date Date of Note: 08/10/24 Documented by User: Dr. Basim Paz MD 08/10/24 17:53 TCU RX Drug Regimen Review Provider Comments Provider responsibility Provider Comments to Recommendations by Pharmacy Agree
[2024-08-10] MEDS: DESMOPRESSIN ACETATE 0.1 MG TABLET 0.05 MG PO (19:47)
[2024-08-11] MEDS: Levothyroxine 100 MCG Tablet PO (05:25)
[2024-08-11 06:15] LABS: Bedside Glucose 66 mg/dL (74-106)
[2024-08-11 06:46] LABS: Bedside Glucose 76 mg/dL (74-106)
[2024-08-11 07:33] LABS: Anion Gap 4 (5-15); BUN 19 mg/dL (7-18); BUN/Creat Ratio 17.3 RATIO (10-20); Calcium,Total 8.2 mg/dL (8.5-10.1); Chloride 114 mmol/L (98-107); EST Glomerular Filtration Rate 68 mL/min (>60); Est Glom Filt Rate - Afr Amer 82 mL/min (>60); Estimated Creatinine Clearance 57.22 ml/min; Glucose 85 mg/dL (74-106); Potassium 3.3 mmol/L (3.5-5.1); Sodium Level 142 mmol/L (136-145)
--- NOTE | 2024-08-11 07:48 | NURSING ---
pt K- 3.3- dr ibarra notified
[2024-08-11 10:00] VITALS: BP 150/76; PULSE 63
[2024-08-11] MEDS: Potassium Chloride Oral Tablet 20 MEQ 40 MEQ PO (10:30)
[2024-08-11] MEDS: Pramipexole Di-HCl 0.5 MG Tablet PO ×2 (10:30→16:25)
[2024-08-11] MEDS: Hydrocortisone 10 MG Tablet 30 MG PO (10:30)
[2024-08-11] MEDS: Empagliflozin 10 MG Tablet PO (10:30)
[2024-08-11] MEDS: Pregabalin 75 MG Capsule 150 MG PO ×2 (10:31→21:08)
[2024-08-11] MEDS: amLODIPine 10 MG Tablet PO (10:31)
[2024-08-11] MEDS: Lisinopril 20 MG Tablet PO (10:31)
[2024-08-11] MEDS: LINAGLIPTIN 5 MG TABLET PO (10:32)
--- NOTE | 2024-08-11 13:25 | NURSING ---
Bread Jockey Note; Activity Asset: Marcio Noriega prefers to be called Jerry. He is independent in his choice of daily activities, tv, reading, word puzzles and smartphone. He was admitted on isolation and will do in room activities till off isolation. Staff will remind him of daily activities and respect his right to say no.
--- NOTE | 2024-08-11 15:01 | CHAPLAIN ---
Type of Pastoral Visit _x__ Initial Visit ___ Follow-up Visit ___ On-call Visit ___ General Patient Visit ___ Spiritual Assessment ___ Family Conference ___ Bereavement ___ Rapid Response ___ Code Blue ___ Other (describe below) Pastoral Care Referral From _x__ Patient ___ Family ___ Nurse ___ Physician ___ Boom Stick Man ___ Dinking Machine Operator ___ Other (describe below) Sacrament/Intervention _x__ Active listening ___ Anointing ___ Samaritan ___ Bereavement ___ Communion _x__ Chiqui exploration ___ _x__ Life review _x__ Prayer ___ Reconciliation ___ Sacrament of Sick _x_ Supportive presence ___ Wedding ___ Other (describe below) Pastoral Comments patient is welcoming; pt speaks of his career and having no regrets in life, being blessed; pt speaks of being away from his who has dementia and in an ECF; pt acknowledges that her decline is real and unpredictable; explored how he is handling his situation and his 's dementia; pt is asked about his coping resources and his spiritual life; pt is able to acknowledge that he has beliefs but maybe I didn't do as well in leading my /family as a good example; pt welcomes prayer and presence and expresses appreciation for the visit
[2024-08-11 16:00] VITALS: TEMP 36.2; O2SAT 94
[2024-08-11] MEDS: Ascorbic Acid 500 MG Tablet PO (16:24)
[2024-08-11] MEDS: Ferrous Sulfate 325 MG Tablet PO (16:24)
[2024-08-11] MEDS: Hydrocortisone 10 MG Tablet PO (16:24)
[2024-08-11] MEDS: DESMOPRESSIN ACETATE 0.1 MG TABLET 0.05 MG PO (21:08)
[2024-08-11] MEDS: Nystatin Powder 15gm Bottle 1 APPLIC TOPICAL (21:08)
[2024-08-12 05:20] LABS: Anion Gap 6 (5-15); BUN 16 mg/dL (7-18); BUN/Creat Ratio 15.1 RATIO (10-20); Calcium,Total 8.3 mg/dL (8.5-10.1); Chloride 111 mmol/L (98-107); Creatinine, Serum 1.06 mg/dL (0.70-1.30); EST Glomerular Filtration Rate 71 mL/min (>60); Est Glom Filt Rate - Afr Amer 86 mL/min (>60); Estimated Creatinine Clearance 59.38 ml/min; Glucose 85 mg/dL (74-106); Potassium 3.7 mmol/L (3.5-5.1); Sodium Level 140 mmol/L (136-145)
--- NOTE | 2024-08-12 05:40 | NURSING ---
Enteric precautions continue as ordered for norovirus, no c/o n/v/d this shift
[2024-08-12 06:21] LABS: Bedside Glucose 153 mg/dL (74-106)
[2024-08-12] MEDS: Levothyroxine 100 MCG Tablet PO (06:30)
[2024-08-12 09:53] VITALS: BP 116/61; PULSE 80; RESP 17; TEMP 36.2; O2SAT 93
[2024-08-12] MEDS: Potassium Chloride Oral Tablet 20 MEQ PO (10:28)
[2024-08-12] MEDS: Pramipexole Di-HCl 0.5 MG Tablet PO ×2 (10:28→17:12)
[2024-08-12] MEDS: Lisinopril 20 MG Tablet PO (10:29)
[2024-08-12] MEDS: Empagliflozin 10 MG Tablet PO (10:29)
[2024-08-12] MEDS: Hydrocortisone 10 MG Tablet 30 MG PO (10:29)
[2024-08-12] MEDS: LINAGLIPTIN 5 MG TABLET PO (10:29)
[2024-08-12] MEDS: amLODIPine 10 MG Tablet PO (10:29)
[2024-08-12] MEDS: Pregabalin 75 MG Capsule 150 MG PO ×2 (10:29→21:31)
[2024-08-12] MEDS: Nystatin Powder 15gm Bottle 1 APPLIC TOPICAL ×2 (10:29→21:31)
[2024-08-12] MEDS: Ascorbic Acid 500 MG Tablet PO (17:12)
[2024-08-12] MEDS: Ferrous Sulfate 325 MG Tablet PO (17:12)
[2024-08-12] MEDS: Hydrocortisone 10 MG Tablet PO (17:12)
[2024-08-12] MEDS: DESMOPRESSIN ACETATE 0.1 MG TABLET 0.05 MG PO (21:29)
[2024-08-13] MEDS: Levothyroxine 100 MCG Tablet PO (05:23)
[2024-08-13 06:21] LABS: Bedside Glucose 94 mg/dL (74-106)
[2024-08-13 07:04] LABS: Anion Gap 6 (5-15); BUN 16 mg/dL (7-18); Calcium,Total 8.3 mg/dL (8.5-10.1); Chloride 110 mmol/L (98-107); Creatinine, Serum 1.14 mg/dL (0.70-1.30); EST Glomerular Filtration Rate 65 mL/min (>60); Est Glom Filt Rate - Afr Amer 79 mL/min (>60); Estimated Creatinine Clearance 55.21 ml/min; Glucose 105 mg/dL (74-106); Potassium 3.5 mmol/L (3.5-5.1); Sodium Level 140 mmol/L (136-145)
[2024-08-13] MEDS: LINAGLIPTIN 5 MG TABLET PO (09:42)
[2024-08-13] MEDS: Pramipexole Di-HCl 0.5 MG Tablet PO ×2 (09:42→16:35)
[2024-08-13] MEDS: Potassium Chloride Oral Tablet 20 MEQ PO (09:42)
[2024-08-13] MEDS: Pregabalin 75 MG Capsule 150 MG PO ×2 (09:42→20:49)
[2024-08-13] MEDS: Hydrocortisone 10 MG Tablet 30 MG PO (09:42)
[2024-08-13] MEDS: Lisinopril 20 MG Tablet PO (09:42)
[2024-08-13] MEDS: Nystatin Powder 15gm Bottle 1 APPLIC TOPICAL ×2 (09:42→20:52)
[2024-08-13] MEDS: amLODIPine 10 MG Tablet PO (09:42)
[2024-08-13] MEDS: Empagliflozin 10 MG Tablet PO (09:42)
[2024-08-13 10:00] VITALS: BP 110/54; PULSE 75; RESP 17; TEMP 36.8; O2SAT 94
[2024-08-13] MEDS: Ascorbic Acid 500 MG Tablet PO (16:35)
[2024-08-13] MEDS: Ferrous Sulfate 325 MG Tablet PO (16:35)
[2024-08-13] MEDS: Hydrocortisone 10 MG Tablet PO (16:35)
[2024-08-13] MEDS: DESMOPRESSIN ACETATE 0.1 MG TABLET 0.05 MG PO (20:49)
[2024-08-14] MEDS: Levothyroxine 100 MCG Tablet PO (06:23)
[2024-08-14 06:33] LABS: Bedside Glucose 87 mg/dL (74-106)
[2024-08-14] MEDS: Pramipexole Di-HCl 0.5 MG Tablet PO ×2 (09:01→18:43)
[2024-08-14] MEDS: Potassium Chloride Oral Tablet 20 MEQ PO (09:01)
[2024-08-14] MEDS: Pregabalin 75 MG Capsule 150 MG PO ×2 (09:02→22:03)
[2024-08-14] MEDS: LINAGLIPTIN 5 MG TABLET PO (09:02)
[2024-08-14] MEDS: Nystatin Powder 15gm Bottle 1 APPLIC TOPICAL ×2 (09:02→22:03)
[2024-08-14] MEDS: Lisinopril 20 MG Tablet PO (09:02)
[2024-08-14] MEDS: amLODIPine 10 MG Tablet PO (09:02)
[2024-08-14] MEDS: Empagliflozin 10 MG Tablet PO (09:02)
[2024-08-14] MEDS: Hydrocortisone 10 MG Tablet 30 MG PO (09:02)
--- NOTE | 2024-08-14 09:02 | CASEMGMT ---
Social Work Received update from that pt is wanting to DC home to handle his bills, as they are not conducted online. - Pt is notably confused and per IDT, not ready to DC home alone. SW phoned dtr to inquire about her assistance with bill pay and explained above. Dtr agreed pt is not ready for DC and is able to assist with bills. Dtr stated she will call pt and was already planning to visit this date. RIK appreciative. Lula Romo HAT FORMING MACHINE OPERATOR HOT STRIP MILL INSPECTOR
[2024-08-14 10:00] VITALS: BP 106/63; PULSE 83; RESP 16; TEMP 36.6; O2SAT 94
--- NOTE | 2024-08-14 11:34 | NURSING ---
Offered covid vaccine, VIS provided. Resident declines at a time.
--- NOTE | 2024-08-14 15:40 | CASEMGMT ---
Social Work RIK notified by several staff members and Dr. Paz that pt is requesting to speak with pt to DC home in order to pay bills. Given pt's current cognitive impairment, SW phoned dtr to inquired about ability to assist with bill pay. Dtr aware of pt's request, and pt handles his bills by hand, not electronically, and can assist pt. However, dtr stated pt is fixated on discharging home this date to pay bills. Dtr agrees that pt is not ready to be home alone, as he is planning on discharging to his home and not dtr's. SW reviewed notes and had spoken with treating SEMAJ, that pt has made improvements since admission, but per IDT, pt is not independent physically (CGA) and currently needs supervision with bill pay, given cognitive assessment score. Dtr expressed understanding and stated pt is stubborn and will listen to staff better than her. SW agreed to speak with pt to offer a resolution, but pt is not ready to DC this date. Dtr offered to bring bills into pt. SW to offer to pt. Will update dtr with outcome. - SW spoke with pt at bedside. Inquired about pt's wishes. Pt reiterated his wish to go home today and pay bills, as they are not done electronically. SW inquired if there is a specific bill that needs paid today or in the near future. Pt replied, well I have to see. that's the problem. I don't know what's coming out and what's going in. I just need to look at them. SW explored further and pt denied having an imminent due date to pay bills; this appears to be a pt preference to ease his anxiety. SW expressed understanding to this importance to pt. SW offered for dtr to bring in bills to sort out. Pt adamantly denied, she doesn't know what to bring or where things are at or what she is doing. I just need to get home. SW explained although pt has made progress since admission, IDT agrees pt is not ready to DC home independently at this time, citing CGA, safety concerns and cognitive concerns. SW offered IDT is not planning for a long LOS, but pt is not ready to DC home today. educated to risks of discharging too soon. Pt still struggling with acceptance and remains fixated on bill pay. SW offered for Dr to allow an JAKY for pt to go home and manage bills, then return for continued therapy in the same day. Pt interested in that solution. RIK explained further that pt could not be out longer than 4 hours, dtr would need to be with him for physical assistance and bill pay oversight, pt still needs to have both sessions of therapy, and pt needs to be agreeable to return. Pt considered idea and did agree to JAKY. Pt appreciative of option. SW to update dtr and coordinate date/time, then Dr will need to give approval. Pt expressed understanding and will speak with dtr also. - RIK phoned dtr to provide update on above. Dtr agreeable to take pt on JAKY and discussed different scheduling options. Dtr to discuss with pt on date/time and notify this worker for the coordination. RIK updated pt's RN. - Dtr contacted this worker can take pt this date on JAKY. VP [employer] updated. Received Dr's order. Lula Romo ACTION INSTALLER GEAR DESIGN ENGINEER
--- NOTE | 2024-08-14 17:18 | NURSING ---
pt left unit with daughter for JAKY at 1600
[2024-08-14] MEDS: Hydrocortisone 10 MG Tablet PO (18:43)
[2024-08-14] MEDS: Ferrous Sulfate 325 MG Tablet PO (18:43)
[2024-08-14] MEDS: Ascorbic Acid 500 MG Tablet PO (18:43)
--- NOTE | 2024-08-14 19:51 | NURSING ---
pt returned from [facility] at 1840
[2024-08-14 20:36] LABS: Hemoglobin A1c 7.8 % (3.8-5.6)
[2024-08-14 22:00] VITALS: PULSE 70; RESP 16; O2SAT 97
[2024-08-14] MEDS: DESMOPRESSIN ACETATE 0.1 MG TABLET 0.05 MG PO (22:03)
[2024-08-15 04:48] VITALS: PULSE 71; RESP 16; O2SAT 96
[2024-08-15] MEDS: Levothyroxine 100 MCG Tablet PO (05:36)
--- NOTE | 2024-08-15 07:00 | NURSING ---
C/o pain to right foot pain/ redness observed to right hallux area, non-pitting edema to right foot, written communication left for Dr. Paz
[2024-08-15] MEDS: Empagliflozin 10 MG Tablet PO (08:49)
[2024-08-15] MEDS: Potassium Chloride Oral Tablet 20 MEQ PO (08:49)
[2024-08-15] MEDS: Hydrocortisone 10 MG Tablet 30 MG PO (08:50)
[2024-08-15] MEDS: Pregabalin 75 MG Capsule 150 MG PO ×2 (08:50→20:02)
[2024-08-15] MEDS: Pramipexole Di-HCl 0.5 MG Tablet PO ×2 (08:50→16:25)
[2024-08-15] MEDS: amLODIPine 10 MG Tablet PO (08:50)
[2024-08-15] MEDS: Pantoprazole Sodium 40 MG Tablet PO (08:50)
[2024-08-15] MEDS: Lisinopril 20 MG Tablet PO (08:50)
[2024-08-15] MEDS: Nystatin Powder 15gm Bottle 1 APPLIC TOPICAL (08:50)
[2024-08-15] MEDS: LINAGLIPTIN 5 MG TABLET PO (08:50)
[2024-08-15] MEDS: Colchicine 0.6 MG TABLET PO (08:52)
[2024-08-15 08:55] VITALS: BP 127/71; PULSE 74
[2024-08-15 09:07] LABS: Erythrocyte Sedimentation Rate 9 mm/hr (0-20)
[2024-08-15 09:21] LABS: Absolute Lymphocyte Count 3.37 X10^3/uL (0.83-4.51); Basophil# 0.06 X10^3/uL; Basophil% 0.5 % (0-1); Eosinophil# 0.28 X10^3/uL; Eosinophils% 2.4 % (0-5); Hematocrit 37.1 % (40-54); Hemoglobin 12.2 g/dL (13.0-16.5); Lymphocyte # 3.37 X10^3/ul (0.83-4.51); Lymphocyte % 28.7 % (19-41); Mean Corp Hgb Conc 32.9 g/dL (32-36); Mean Corpuscular Hgb 29.5 pg (27.0-32.0); Mean Corpuscular Volume 89.6 fL (80-94); Monocyte# 0.86 X10^3/uL; Monocyte% 7.3 % (0-10); NRBC Flagged by Analyzer 0 % (0-5); Neutrophil # 6.97 X10^3/uL (2.7-7.7); Neutrophil % 59.5 % (47-70); Platelet Count 364 K/mm3 (150-450); RBC Distribution Width CV 14.1 % (11.6-14.6); RBC Distribution Width SD 45.8 fl (35.1-43.9); Red Blood Count 4.14 M/mm3 (4.6-6.2); White Blood Count 11.7 K/mm3 (4.4-11.0)
[2024-08-15 09:51] LABS: Anion Gap 9 (5-15); BUN 18 mg/dL (7-18); BUN/Creat Ratio 15.9 RATIO (10-20); Calcium,Total 8.4 mg/dL (8.5-10.1); Chloride 109 mmol/L (98-107); Creatinine, Serum 1.13 mg/dL (0.70-1.30); EST Glomerular Filtration Rate 66 mL/min (>60); Est Glom Filt Rate - Afr Amer 80 mL/min (>60); Glucose 128 mg/dL (74-106); Potassium 3.3 mmol/L (3.5-5.1); Sodium Level 142 mmol/L (136-145); Uric Acid 4.3 mg/dL (3.5-7.2)
[2024-08-15 11:32] VITALS: BMI 27.7
[2024-08-15] MEDS: Potassium Chloride Oral Tablet 20 MEQ 40 MEQ PO (11:35)
--- NOTE | 2024-08-15 15:25 | CASEMGMT ---
Social Work IDT met with patient at bedside and dtr via conference call for care plan meeting. Discussed patient's progress in PT/OT/ST/SN. Educated to [facility] insurance with NRD 08/16 and continued stay is not guaranteed with each review. However, pt is anxious to DC home. SW clarified the DC plan, as IDT is recommending / care d/t pt's impulsiveness, losses of balance, poor safety insight, and being CGA. Pt/dtr confirmed pt will be home to dtr's house, as pt was planning to move in with dtr in several months anyhow. family will always be with pt at home. SW and therapy stating pt will need to use F[facility] for safety 18/01. Pt agreed and agreed to follow directions from dtr at home. Dtr agreeable to set DC date for pt. SW offered DC 08/17 or 08/20 and pt/dtr prefer 08/17. SW offered HHC vs OP therapy. After discussion, both agreed to OP therapy at [facility]. SW to send referral for PT. Denied any DME needs. Dtr to transport home at 1630. No other needs noted. SW faxed referral to [facility] outpatient PT. Plan: DC home to dtr's house for 247 care 08/17, [facility] Lula Romo SECURITY SYSTEMS INTEGRATOR AIRCRAFT SKIN BURNISHER
[2024-08-15 16:00] VITALS: BP 119/66; PULSE 71; RESP 18; TEMP 36.1; O2SAT 97
[2024-08-15] MEDS: Ascorbic Acid 500 MG Tablet PO (16:25)
[2024-08-15] MEDS: Hydrocortisone 10 MG Tablet PO (16:25)
[2024-08-15] MEDS: Ferrous Sulfate 325 MG Tablet PO (16:25)
--- NOTE | 2024-08-15 19:16 | PCM.DC.SUM ---
Providers Date of Admission: 08/09/24 Primary Care Physician: Dr. Montana Lucas MD Reason For Visit: SEPSIS, ACUTE GASTROENTERITIS Diagnosis Discharge Diagnosis (1) Debility: Status: Acute Code(s): R53.81 - Other malaise (2) Encephalopathy acute: Status: Resolved Code(s): G93.40 - Encephalopathy, unspecified (3) Sepsis: Status: Acute Code(s): A41.9 - Sepsis, unspecified organism (4) Norovirus: Status: Acute Code(s): A08.11 - Acute gastroenteropathy due to Sullivan agent (5) Acute kidney injury: Status: Acute Code(s): N17.9 - Acute kidney failure, unspecified (6) Dehydration: Status: Acute Code(s): E86.0 - Dehydration (7) Diarrhea: Status: Acute Code(s): R19.7 - Diarrhea, unspecified (8) Type 2 diabetes mellitus with hyperglycemia: Status: Acute Code(s): E11.65 - Type 2 diabetes mellitus with hyperglycemia (9) Essential (primary) hypertension: Status: Acute Code(s): I10 - Essential (primary) hypertension (10) Panhypopituitarism: Status: Acute Code(s): E23.0 - Hypopituitarism (11) Obstructive sleep apnea: Status: Acute Code(s): G47.33 - Obstructive sleep apnea (adult) (pediatric) (12) Diabetic polyneuropathy: Status: Acute Code(s): E11.42 - Type 2 diabetes mellitus with diabetic polyneuropathy (13) Hypothyroidism: Status: Acute Code(s): E03.9 - Hypothyroidism, unspecified (14) Iron deficiency anemia: Status: Acute Code(s): D50.9 - Iron deficiency anemia, unspecified (15) Restless leg syndrome: Status: Acute Code(s): G25.81 - Restless legs syndrome Plan 84 year old male with below past medical history hospitalized for acute encephalopathy 2/2 sepsis, norovirus, acute kidney injury, dehydration, diarrhea, admitted to TCU with debility, here for rehabilitation, prior to discharge home alone. Debility - PT/OT. Pain - Tylenol 1000mg q6 prn pain (1-10). Bowel - senna/colace 1 tablet bid prn, Magnesium citrate 300mL daily prn. Adult immunization - Administer pneumonia vaccine, covid vaccine, flu vaccine as appropriate. DVT prophylaxis - Lovenox 40mg sc daily. Hypertension - Lisinopril 20mg daily, Amlodipine 5mg daily. Iron deficiency anemia - Ferrous sulfate 325mg daily, Vitamin C 500mg daily. Panhypopituitarism - DDAVP 0.5mg qhs, Cortef 15mg qam, 7.5mg 4:30PM. Diabetes Mellitus II - Glimepiride 2mg daily, Jardiance 10mg daily, Tradjenta 5mg daily, monitor blood sugars. Hypothyroidism - Levothyroxine 100mcg daily. Restless Leg syndrome - Mirapex 1mg daily. Diabetic polyneuropathy - Lyrica 150mg bid. Medications at Discharge Home Medications pregabalin 150 mg capsule (Lyrica) 150 cap PO BID pain 06/22/16 lisinopril 20 mg tablet 20 mg PO DAILY blood pressure 08/07/21 desmopressin 0.1 mg tablet 0.5 tab PO QHS pituitary supplement 12/21/21 empagliflozin 10 mg tablet (Jardiance) 10 mg PO DAILY blood sugar 09/02/23 ferrous sulfate 325 mg (65 mg iron) tablet (FeroSul) 325 mg PO DAILY anemia 09/02/23 sitagliptin phosphate 100 mg tablet (Januvia) 100 mg PO DAILY blood sugar 09/02/23 ascorbic acid (vitamin C) 500 mg capsule 400 mg PO DAILY supplement 08/06/24 levothyroxine 100 mcg tablet (Euthyrox) 100 mcg PO DAILY thyroid 08/06/24 amlodipine 10 mg tablet 10 mg PO DAILY 30 days #30 tabs 08/15/24 colchicine 0.6 mg capsule 0.6 mg PO DAILY 4 days #4 caps 08/15/24 diclofenac sodium 50 mg tablet,delayed release 50 mg PO BIDCM 4 days #8 tabs 08/15/24 hydrocortisone 10 mg tablet 10 mg PO 1630 30 days #30 tabs 08/15/24 hydrocortisone 10 mg tablet 30 mg (3 x 10 mg) PO DAILY 30 days #90 tabs 08/15/24 pantoprazole 40 mg tablet,delayed release 40 mg PO DAILY 4 days #4 tabs 08/15/24 potassium chloride 20 mEq tablet,extended release(part/cryst) 20 meq PO DAILYCM 30 days #30 tabs 08/15/24 pramipexole 0.5 mg tablet 0.5 mg PO 0800,1630 #0 tabs 08/15/24 Hospital Course Operations None Procedures None Summary of Care Provided Minutes Spent on Discharge: 35 Hospital Course: 84 year old male with below past medical history hospitalized for acute encephalopathy 2/2 sepsis, norovirus, acute kidney injury, dehydration, diarrhea, admitted to TCU with debility, here for rehabilitation, prior to discharge home alone. 08/15/2024 Gout - right foot, cbcd, bmp, uric acid, esr, crp. Colchicine 0.6mg daily x 7 days, diclofenac 50mg bidcm x 7 days, Pantoprazole 40mg daily x 7 day stomach protection. <del>Discharge</del> <del>home</del> <del>to</del> <del>dtr's</del> <del>house</del> <del>for</del> <del>18/01</del> <del>care</del> <del>08/17/2024,</del> <del>Starla</del> <del>Ortho</del> <del>PT.</del> Physical Exam Const alert General Appearance: cooperative HEENT normocephalic Eyes PERRL and EOMs intact bilaterally Neck supple, no JVD and no carotid bruits Resp normal respiratory effort, normal air movement and clear to auscultation bilaterally Cardio regular rate and regular rhythm GI normal to inspection, nondistended, normoactive bowel sounds, non-tender and non-distended Extremity normal capillary refill General Extremity: Negative for edema Skin no rashes or lesions noted General Skin Exam: no breakdown Psych affect normal Appearance: appropriate Weight / BMI Weight Weight: 87.725 kg Body Mass Index (BMI) 27.7 ABG / Lab / Microbiology Data 08/15/24 08:33 08/15/24 08:33 Laboratory: Laboratory Results - last 24 hr 08/14/24 19:28: Hemoglobin A1c 7.8 H 08/15/24 08:33: WBC 11.7 H, RBC 4.14 L, Hgb 12.2 L, Hct 37.1 L, MCV 89.6, MCH 29.5, MCHC 32.9, RDW Std Deviation 45.8 H, RDW Coeff of Florian 14.1, Plt Count 364, MPV 10.0, Immature Gran % (Auto) 1.600 H, Neut % (Auto) 59.5, Lymph % (Auto) 28.7, [place] % (Auto) 7.3, Eos % (Auto) 2.4, Baso % (Auto) 0.5, Absolute Neuts (auto) 7.0, Absolute Lymphs (auto) 3.37, Nucleated RBC % 0, ESR 9, Sodium 142, Potassium 3.3 L, Chloride 109 H, Carbon Dioxide 24.0, Anion Gap 9, BUN 18, Creatinine 1.13, Estim Creat Clear Calc 55.70, Est GFR (MDRD) Af Amer 80, Est GFR (MDRD) Non-Af 66, BUN/Creatinine Ratio 15.9, Glucose 128 H, Uric Acid 4.3, Calcium 8.4 L, C-React Prot Ext Range 28.30 H Microbiology: Microbiology 08/11/24 08:30 Stool Stool Occult Blood (FREDERIC) - Final D/C Instructions Discharge Diet: No restrictions Discharge Activity: Return to Normal Activity, May Shower and Use Walker Weight Bearing Status: Weight bearing as tolerated Call your doctor if you observe: Fever of 101 or Higher, Inability to urinate, Inability to have a bowel movement, Shortness of breath, Dizziness, Fainting spells, Swelling in the ankles, Chest pain and Uncontrolled pain DC O2, CPAP, BIPAP Needs Home O2 Discharge instructions: No Additional Instructions: Discharge home to dtr's house for 18/01 care 08/17/2024, Starla Fuller PT. Meaningful Use Info Meaningful Use Meaningful Use Diagnoses (Choose all that apply): None applicable Ischemic Stroke Statin Dosing Therapy Reference: STATIN DOSE THERAPY REFERENCE: * Patients > 75 years receive moderate or high dose statin therapy. * Patients 75 years or YOUNGER should receive HIGH intensity statin dose unless contraindicated. You will be required to document reason for non-treatment if statin daily dose does not meet guidelines. HIGH DOSE STATIN THERAPY DAILY Atorvastatin > than or = to 40 mg Rosuvastatin > than or = to 20 mg Amlodipine + Atorvastatin > than or = to 2.5/40 mg Ezetimibe + Simvastatin 10/80 mg Simvastatin 80mg Discharge Plan Admission Admit Date/Time: 08/09/24 16:25 Primary Reason for Your Visit: Debility. Attending Provider: Jackson,Basim Chi Primary Care Provider: Montana Lucas Instructions Additional Instructions / Restrictions: Discharge home to [facility]'s house for 18/01 care 08/17/2024, Starla Fuller PT. Discharge Orders/Prescriptions Prescriptions: New pramipexole 0.5 mg Tablet 0.5 mg PO 0800,1630 Qty: 0 0RF potassium chloride 20 mEq Tablet,Er Particles/Crystals 20 meq PO DAILYCM 30 Days Qty: 30 0RF amlodipine 10 mg Tablet 10 mg PO DAILY 30 Days Qty: 30 0RF pantoprazole 40 mg Tablet,Delayed Release (Dr/Ec) 40 mg PO DAILY 4 Days Qty: 4 0RF diclofenac sodium 50 mg Tablet,Delayed Release (Dr/Ec) 50 mg PO BIDCM 4 Days Qty: 8 0RF hydrocortisone 10 mg Tablet 10 mg PO 1630 30 Days Qty: 30 0RF hydrocortisone 10 mg Tablet 30 mg PO DAILY 30 Days Qty: 90 0RF colchicine 0.6 mg Capsule 0.6 mg PO DAILY 4 Days Qty: 4 0RF Continued pregabalin [Lyrica] 150 MG capsule 150 cap PO BID Patient Comments: lisinopril 20 mg tablet 20 mg PO DAILY desmopressin 0.1 mg tablet 0.5 tab PO QHS Patient Comments: take 1/2 tablet by mouth every evening Jardiance 10 mg tablet 10 mg PO DAILY Patient Comments: has not been taking because of episodes of hypoglycemia ferrous sulfate [FeroSul] 325 mg (65 mg iron) tablet 325 mg PO DAILY Patient Comments: take 1 tablet by mouth once daily with breakfast Januvia 100 mg tablet 100 mg PO DAILY levothyroxine [Euthyrox] 100 mcg tablet 100 mcg PO DAILY ascorbic acid (vitamin C) 500 mg capsule 400 mg PO DAILY Discontinued hydrocortisone 5 mg tablet 7.5 mg PO Q12H Patient Comments: TAKE 3 TABLETS BY MOUTH EVERY MORNING AND 1 TABLET EVERY EVENING. DOUBLE DOSE WHEN SICK DIRECTED; takes 5mg normally but double when he gets sick amlodipine 5 mg tablet 5 mg PO DAILY Patient Comments: HAS NOT BEEN TAKING BECAUSE OF NORMOTENSIVE AT HOME glimepiride 2 mg tablet 2 mg PO DAILY pramipexole 1 mg tablet 1 mg PO DAILY Referrals / Follow Up: Montana Lucas MD [Primary Care Provider] - Disposition Disposition (needs filled in before D/C Order can be placed): Home, Self Care
[2024-08-15] MEDS: DESMOPRESSIN ACETATE 0.1 MG TABLET 0.05 MG PO (20:03)
[2024-08-16 05:13] LABS: Bedside Glucose 122 mg/dL (74-106)
[2024-08-16] MEDS: Levothyroxine 100 MCG Tablet PO (05:22)
[2024-08-16 06:47] LABS: Anion Gap 4 (5-15); BUN 18 mg/dL (7-18); BUN/Creat Ratio 16.2 RATIO (10-20); Calcium,Total 8.5 mg/dL (8.5-10.1); Chloride 115 mmol/L (98-107); Creatinine, Serum 1.11 mg/dL (0.70-1.30); EST Glomerular Filtration Rate 67 mL/min (>60); Est Glom Filt Rate - Afr Amer 81 mL/min (>60); Estimated Creatinine Clearance 56.27 ml/min; Glucose 127 mg/dL (74-106); Potassium 4.6 mmol/L (3.5-5.1); Sodium Level 142 mmol/L (136-145)
[2024-08-16] MEDS: Potassium Chloride Oral Tablet 20 MEQ PO (08:11)
[2024-08-16] MEDS: Pramipexole Di-HCl 0.5 MG Tablet PO ×2 (08:11→16:30)
[2024-08-16] MEDS: Colchicine 0.6 MG TABLET PO (08:12)
[2024-08-16] MEDS: Hydrocortisone 10 MG Tablet 30 MG PO (08:12)
[2024-08-16] MEDS: Pantoprazole Sodium 40 MG Tablet PO (08:13)
[2024-08-16] MEDS: Empagliflozin 10 MG Tablet PO (08:13)
[2024-08-16] MEDS: amLODIPine 10 MG Tablet PO (08:13)
[2024-08-16] MEDS: Nystatin Powder 15gm Bottle 1 APPLIC TOPICAL ×2 (08:13→21:55)
[2024-08-16] MEDS: LINAGLIPTIN 5 MG TABLET PO (08:13)
[2024-08-16] MEDS: Lisinopril 20 MG Tablet PO (08:14)
[2024-08-16 08:23] VITALS: BP 137/69; PULSE 55; RESP 18; O2SAT 98
[2024-08-16] MEDS: Pregabalin 75 MG Capsule 150 MG PO ×2 (08:31→21:53)
--- NOTE | 2024-08-16 08:35 | NURSING ---
[employer] Supervisor Note; MDS for 08/16/2024 Complete
--- NOTE | 2024-08-16 12:47 | CASEMGMT ---
Social Work SW completed BIMS () and PHQ-2 () for MDS assessment. Lula Romo [employer]
[2024-08-16 13:30] VITALS: PULSE 63; RESP 18; O2SAT 97
[2024-08-16 16:00] VITALS: TEMP 36.7
[2024-08-16] MEDS: Ascorbic Acid 500 MG Tablet PO (16:31)
[2024-08-16] MEDS: Hydrocortisone 10 MG Tablet PO (16:31)
[2024-08-16] MEDS: Ferrous Sulfate 325 MG Tablet PO (16:31)
[2024-08-16] MEDS: DESMOPRESSIN ACETATE 0.1 MG TABLET 0.05 MG PO (21:54)
[2024-08-17] MEDS: Levothyroxine 100 MCG Tablet PO (05:05)
[2024-08-17 05:47] LABS: Absolute Lymphocyte Count 3.92 X10^3/uL (0.83-4.51); Absolute Neutrophil Count 7.5 X10^3/uL (2.0-7.7); Basophil# 0.11 X10^3/uL; Basophil% 0.9 % (0-1); Eosinophil# 0.24 X10^3/uL; Eosinophils% 1.9 % (0-5); Hematocrit 34.9 % (40-54); Hemoglobin 11.5 g/dL (13.0-16.5); Lymphocyte # 3.92 X10^3/ul (0.83-4.51); Lymphocyte % 30.5 % (19-41); Mean Corpuscular Hgb 29.5 pg (27.0-32.0); Mean Corpuscular Volume 89.5 fL (80-94); Mean Platelet Vol. 9.8 fl (6.2-12.0); Monocyte# 0.88 X10^3/uL; Monocyte% 6.9 % (0-10); NRBC Flagged by Analyzer 0 % (0-5); Neutrophil # 7.51 X10^3/uL (2.7-7.7); Neutrophil % 58.4 % (47-70); Platelet Count 347 K/mm3 (150-450); RBC Distribution Width SD 45.7 fl (35.1-43.9); White Blood Count 12.8 K/mm3 (4.4-11.0)
[2024-08-17 06:12] LABS: Anion Gap 5 (5-15); BUN 21 mg/dL (7-18); BUN/Creat Ratio 18.9 RATIO (10-20); Calcium,Total 8.2 mg/dL (8.5-10.1); Chloride 113 mmol/L (98-107); Creatinine, Serum 1.11 mg/dL (0.70-1.30); EST Glomerular Filtration Rate 67 mL/min (>60); Est Glom Filt Rate - Afr Amer 81 mL/min (>60); Estimated Creatinine Clearance 56.27 ml/min; Glucose 135 mg/dL (74-106); Potassium 3.8 mmol/L (3.5-5.1); Sodium Level 142 mmol/L (136-145)
[2024-08-17 06:15] LABS: Bedside Glucose 147 mg/dL (74-106)
[2024-08-17 06:42] VITALS: PULSE 64; RESP 18; O2SAT 93
[2024-08-17] MEDS: Pramipexole Di-HCl 0.5 MG Tablet PO ×2 (08:47→16:00)
[2024-08-17] MEDS: Potassium Chloride Oral Tablet 20 MEQ PO (08:47)
[2024-08-17] MEDS: Empagliflozin 10 MG Tablet PO (08:48)
[2024-08-17] MEDS: Colchicine 0.6 MG TABLET PO (08:48)
[2024-08-17] MEDS: Hydrocortisone 10 MG Tablet 30 MG PO (08:48)
[2024-08-17] MEDS: Pantoprazole Sodium 40 MG Tablet PO (08:49)
[2024-08-17] MEDS: Nystatin Powder 15gm Bottle 1 APPLIC TOPICAL (08:49)
[2024-08-17] MEDS: amLODIPine 10 MG Tablet PO (08:49)
[2024-08-17] MEDS: Lisinopril 20 MG Tablet PO (08:50)
[2024-08-17] MEDS: LINAGLIPTIN 5 MG TABLET PO (08:50)
[2024-08-17] MEDS: Pregabalin 75 MG Capsule 150 MG PO (08:54)
[2024-08-17 08:59] VITALS: BP 105/60; PULSE 72; RESP 18; O2SAT 98
[2024-08-17 14:38] VITALS: BP 102/55; PULSE 64; RESP 16; TEMP 36.1; O2SAT 98
[2024-08-17] MEDS: Ascorbic Acid 500 MG Tablet PO (16:00)
[2024-08-17] MEDS: Ferrous Sulfate 325 MG Tablet PO (16:00)
[2024-08-17] MEDS: Hydrocortisone 10 MG Tablet PO (16:00)
--- NOTE | 2024-08-22 12:49 | MDS.RN ---
Information for the MDS was obtained from review of the clinical record, interview of resident, staff, and direct observation of resident?s care
== END 2024-08-17 16:30 | disposition home or self-care (01) | DRG 392 ==
PROVIDERS: Admitting Provider Family Medicine Geriatric Medicine; PCP Family Medicine; Visit Provider Family Medicine Geriatric Medicine
DX: A08.11 Acute gastroenteropathy due to Norwalk agent (principal); E23.0 Hypopituitarism; E11.42 Type 2 diabetes mellitus with diabetic polyneuropathy; D50.9 Iron deficiency anemia, unspecified; E03.9 Hypothyroidism, unspecified; E11.65 Type 2 diabetes mellitus with hyperglycemia; G25.81 Restless legs syndrome; I10 Essential (primary) hypertension; G47.33 Obstructive sleep apnea (adult) (pediatric); M10.071 Idiopathic gout, right ankle and foot; Z87.891 Personal history of nicotine dependence; Z79.899 Other long term (current) drug therapy; Z79.890 Hormone replacement therapy; Z79.52 Long term (current) use of systemic steroids; Z79.84 Long term (current) use of oral hypoglycemic drugs
CPT/HCPCS: 36415; 80048; 82274; 82962; 83036; 83540; 83550; 84550; 85025; 85652; 86140; 87811; 92523; 97110; 97116; 97129; 97130; 97162; 97166; 97530; 97535

== ENCOUNTER → 2024-09-27 | Outpatient (CLI) | payer MEDICARE, SELFPAY ==
[2024-09-27 13:40] LABS: Magnesium 2.4 mg/dL (1.5-2.2)
== END | disposition home or self-care (01) ==
LOC: LAB 12:11
PROVIDERS: PCP Family Medicine; Referring Provider Internal Medicine Cardiovascular Disease; Visit Provider Internal Medicine Cardiovascular Disease
DX: I49.8 Other specified cardiac arrhythmias (principal)
CPT/HCPCS: 36415; 83735

== ENCOUNTER → 2024-10-02 | Outpatient (CLI) | payer MEDICARE, SELFPAY | END | disposition home or self-care (01) | LOC: PSN 06:56 | PROVIDERS: PCP Family Medicine; Referring Provider Internal Medicine Cardiovascular Disease; Visit Provider Internal Medicine Cardiovascular Disease | DX: I49.8 Other specified cardiac arrhythmias (principal) | CPT/HCPCS: 93225; 93226 ==

== ENCOUNTER 2025-06-04 16:40 | Inpatient (IN) | payer MEDICARE, SELFPAY ==
[2025-06-04 17:11] VITALS: BP 177/82; PULSE 66; PULSE 67; RESP 16; RESP 17; TEMP 36.2; O2SAT 97
--- NOTE | 2025-06-04 18:38 | PCM.HP.STD ---
HPI - General General Date of Admission: 06/04/25 Date of Service: 06/05/25 Chief Complaint: Here for rehabilitation. HPI Narrative BETTYE BARNETT, is a 85 Male who presents with followin05/31/2025 Admit [facility]. 05/31/2025 Dr. Currie performed right total knee arthroplasty. 06/01/2025 Pain well controlled, tolerating diet, passing flatus. Good urine output. Hoping to go to SNF, patient lives alone. A1c 5.8 for Diabetes Mellitus II, on Jardiance, on Glimepiride. Lisinopril for HTN. IV steroids, then resume home dose Cortef for panhypopituitarism. scd's/ambulation for dvt prophylaxis. 06/02/2025 Pain well controlled, tolerating diet, passing flatus. Continue Lyrica, Mirapex for restless leg syndrome. 06/04/2025 Admit to TCU with debility, here for rehabilitation, strengthening, prior to discharge home alone. [facility], [facility] Medical History Balanitis Wheezing Osteoarthritis of knee Diverticular hemorrhage Type II diabetes mellitus Sebaceous cyst Actinic keratosis Myalgia Idiopathic progressive neuropathy ESSENCE on CPAP Ventricular bigeminy Hyperlipidemia LDL goal <100 Acquired hypothyroidism Hypogonadism male Benign prostatic hyperplasia without lower urinary tract symptoms Bradycardia Primary insomnia Pituitary adenoma Hypopituitarism Type 2 diabetes mellitus with hyperosmolarity without coma, without long-term current use of insulin Vasovagal episode Carotid bruit Hypothyroidism ESSENCE treated with BiPAP History of pituitary tumor New onset type 2 diabetes mellitus GI bleed Anemia Former smoker HTN (hypertension) Raynaud disease Home Medications ?Medication ?Instructions ?Recorded ?Last Taken ?Type pregabalin 150 mg capsule (Lyrica) 150 cap PO BID pain 06/22/16 06/04/25 History lisinopril 20 mg tablet 20 mg PO DAILY blood pressure 08/07/21 06/04/25 History desmopressin 0.1 mg tablet 0.5 tab PO QHS pituitary supplement 12/21/21 12/23/21 History ferrous sulfate 325 mg (65 mg 325 mg PO DAILY anemia 09/02/23 06/04/25 History iron) tablet (FeroSul) ascorbic acid (vitamin C) 500 mg 500 mg PO DAILY supplement 08/06/24 06/04/25 History capsule levothyroxine 100 mcg tablet 112 mcg PO DAILY thyroid 08/06/24 06/04/25 History (Euthyrox) potassium chloride 20 mEq 20 meq PO DAILYCM 30 days #30 tabs 08/15/24 Unknown Rx tablet,extended release(part/cryst) empagliflozin 25 mg tablet 25 mg PO QDAY Diabetes 09/20/24 06/04/25 History glimepiride 2 mg tablet 2 mg PO QDAY Diabetes 09/20/24 06/04/25 History hydrocortisone 5 mg tablet 15 mg PO 0900 ask primary doctor 09/20/24 06/04/25 History tramadol 50 mg tablet 50 mg PO Q6H PRN for severe pain 09/20/24 Unknown History Held on 06/04/25. (7-10) Instructions: Hold while taking Percocet trazodone 50 mg tablet 50 mg PO QHS PRN insomnia 09/20/24 06/03/25 History aspirin 81 mg tablet,delayed 81 mg PO BID Heart 06/04/25 06/04/25 History release (Adult Low Dose Aspirin) hydrocortisone 5 mg tablet (Cortef) 5 mg PO QHS ask your primary doctor 06/04/25 06/03/25 History oxycodone-acetaminophen 5 mg-325 1 - 2 tab PO Q6H PRN PRN pain 06/04/25 06/04/25 History mg tablet pramipexole 0.25 mg tablet 0.25 mg PO 0700 Restless leg 06/04/25 06/04/25 History pramipexole 0.5 mg tablet 0.5 mg PO 1600 Restless Leg 06/04/25 06/04/25 History pramipexole 1 mg tablet PO Restless leg 06/04/25 Unknown History Allergy/AdvReac Type Severity Reaction Status Date / Time Penicillins (PCN) Allergy Rash Verified 09/27/24 11:18 terazosin Allergy PT UNSURE Verified 09/27/24 11:18 OF REACTION Family History Mother Multiple myeloma Father Cancer Surgical History (Updated 06/04/25 @ 18:[address] Basim Paz MD) History of total right knee replacement History of tonsillectomy History of shoulder surgery History of arthroscopic knee surgery History of surgical removal of pituitary gland History of appendectomy Social History (Updated 06/05/25 @ 07:[address] Basim Paz MD) household members: children, none and other details: Lives with daughter who works during day, 2 cats. placed in [employer] housing: house Smoking Status: Former smoker alcohol intake: never substance use type: does not use ROS Constitutional Constitutional: Reports weakness; Denies chills, fever(s) or weight gain ENT HEENT: Denies headache(s), nasal congestion or nasal discharge Cardiovascular Cardiovascular: Denies chest pain or palpitations Respiratory/Chest Respiratory/Chest: Denies cough, excessive phlegm production or shortness of breath with exertion Gastrointestinal Gastrointestinal: Denies abdominal pain, nausea or vomiting Genitourinary Genitourinary: Denies dysuria Musculoskeletal Musculoskeletal: Denies joint pain or joint swelling Integumentary Integumentary: Denies rash or wounds Neurologic Neurologic: Denies focal weakness, numbness or tingling Psychiatric Psychiatric: Denies anxiety, auditory hallucinations, depression, homicidal ideation or suicidal ideation Vital Signs Vital Signs Vital Signs: 06/04/25 17:11 Temperature 97.2 F L Temperature Source Oral Pulse Rate 67 Respiratory Rate 17 Blood Pressure 177/82 H Blood Pressure Mean 113 Blood Pressure Source Monitor Blood Pressure Position Semi-Fowlers Blood Pressure Location Right Arm Pulse Ox 97 Oxygen Delivery Method Room Air Physical Exam Const alert General Appearance: cooperative HEENT normocephalic Eyes PERRL and EOMs intact bilaterally Neck supple, no JVD and no carotid bruits Resp normal respiratory effort, normal air movement and clear to auscultation bilaterally Cardio regular rate and regular rhythm GI normal to inspection, nondistended, normoactive bowel sounds, non-tender and non-distended Extremity normal capillary refill General Extremity: Negative for edema Skin no rashes or lesions noted General Skin Exam: no breakdown Psych affect normal Appearance: appropriate Results Lab / Micro Data 06/05/25 05:09 06/05/25 05:09 Assessment & Plan Assessment/Plan (1) Debility: (2) Status post total right knee replacement: (3) Essential (primary) hypertension: (4) Iron deficiency anemia: (5) Panhypopituitarism: (6) Type 2 diabetes mellitus with hyperglycemia: (7) Hypothyroidism: (8) Restless leg syndrome: (9) Diabetic polyneuropathy: PLAN: Plan 85 year old male with below past medical history underwent right total knee replacement 05/31/[address] Currie, postoperative course uncomplicated, admitted to TCU with debility, here for rehabilitation, strengthening, prior to discharge home alone. Debility - PT/OT. Pain - Tylenol 1000mg q8, Oxycodone 5mg q4 prn pain (1-10). Bowel - senna/colace 2 tablets bid, Magnesium citrate 300mL daily prn. Adult immunization - Administer pneumonia vaccine, covid vaccine, flu vaccine as appropriate. DVT prophylaxis - Aspirin 81mg po bid thru 07/01/2025. Vitamin C deficiency - Vitamin C 500mg daily. Diabetes Mellitus II - Glimepiride 2mg daily, Jardiance 25mg daily. Iron deficiency anemia - Ferrous sulfate 325mg daily. 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 Hypothyroidism - Levothyroxine 112mcg daily. Hypertension - Lisinopril 20mg daily. Restless leg syndrome - Mirapex 025mg qam, 0.5mg qpm. Diabetic polyneuropathy - Lyrica 150mg po bid. The following psychotropic medication was present on admission: Trazodone 100mg qhs prn. Psychotropic medication therapy is indicated for a diagnosis of: Insomnia. Based on my clinical evaluation, continuation of the medication is necessary at this time. Gradual dose reduction plan (select one): ____ GDR will be attempted. Will monitor patient symptoms and behaviors in response to GDR. __x__ GRD contraindicated. Reason contraindicated: stable chronic senior living use.
[2025-06-04 19:09] VITALS: BMI 27.7
[2025-06-04] MEDS: Aspirin E.C. 81 MG Tablet PO (21:13)
[2025-06-04] MEDS: Senna/Docusate Sodium 1 Tablet 2 TABLET PO (21:21)
[2025-06-05 06:03] LABS: Hematocrit 36.5 % (40-54); Hemoglobin 11.9 g/dL (13.0-16.5); Immature Granulocytes Count 0.190 X10^3/uL (0.0-0.0); Mean Corp Hgb Conc 32.6 g/dL (32-36); Mean Corpuscular Volume 92.2 fL (80-94); Mean Platelet Vol. 10.1 fl (6.2-12.0); NRBC Flagged by Analyzer 0 % (0-5); Platelet Count 226 K/mm3 (150-450); RBC Distribution Width CV 13.6 % (11.6-14.6); RBC Distribution Width SD 46.1 fl (35.1-43.9); Red Blood Count 3.96 M/mm3 (4.6-6.2); White Blood Count 9.7 K/mm3 (4.4-11.0)
[2025-06-05 06:04] LABS: Anion Gap 10 (5-15); BUN 23 mg/dL (4-19); BUN/Creat Ratio 20.3 RATIO (10-20); Calcium,Total 8.7 mg/dL (7.6-11.0); Carbon Dioxide 26.0 mmol/L (21.0-32.0); Chloride 105 mmol/L (98-108); Estimated Creatinine Clearance 52.29 ml/min (50-250); Glucose 88 mg/dL (70-99); Potassium 4.4 mmol/L (3.3-5.1)
--- NOTE | 2025-06-05 07:49 | PCM.PN.DRR ---
TCU RX Drug Regimen Review Subjective/Objective Subjective/Objective Subjective: TCU admission note. 85 year old male with below past medical history underwent right total knee replacement 05/31/[address] Currie, postoperative course uncomplicated, admitted to TCU with debility, here for rehabilitation, strengthening, prior to discharge home alone. Objective: Allergies Penicillins (PCN) Allergy (Verified 09/27/24 11:18) Rash terazosin Allergy (Verified 09/27/24 11:18) PT UNSURE OF REACTION Current Medications Generic Name Dose Route Start Last Admin Trade Name Freq PRN Reason Stop Dose Admin Acetaminophen 1,000 mg 06/04/25 22:00 06/05/25 06:07 Acetaminophen 500 Mg Tablet PO 1,000 mg Q8 GILDARDO Administration Ascorbic Acid 500 mg 06/05/25 10:00 Ascorbic Acid 500 Mg Tablet PO DAILY GILDARDO Aspirin 81 mg 06/04/25 22:00 06/04/25 21:13 Aspirin E.C. 81 Mg Tablet PO 07/01/25 23:59 81 mg BID GILDARDO Administration Empagliflozin 25 mg 06/04/25 18:00 06/04/25 21:12 Empagliflozin 25 Mg Tablet PO 25 mg DAILY GILDARDO Administration Ferrous Sulfate 325 mg 06/05/25 12:00 Ferrous Sulfate 325 Mg Tablet PO DAILY@1200 [facility] Glimepiride 2 mg 06/04/25 18:00 06/04/25 21:11 Glimepiride 2 Mg Tablet PO 2 mg DAILYCM GILDRADO Administration Hydrocortisone 15 mg 06/05/25 09:00 Hydrocortisone 10 Mg Tablet PO 0900 [facility] Hydrocortisone 5 mg 06/04/25 22:00 06/04/25 21:12 Hydrocortisone 10 Mg Tablet PO 5 mg QHS GILDARDO Administration Levothyroxine Sodium 112 mcg 06/05/25 06:00 06/05/25 06:07 Levothyroxine 112 Mcg Tablet PO 112 mcg DAILY@0600 GILDARDO Administration Lisinopril 20 mg 06/05/25 10:00 Lisinopril 20 Mg Tablet PO DAILY [facility] Protocol Magnesium Citrate 300 ml 06/04/25 18:57 Magnesium Citrate 300 Ml PO DAILY PRN Constipation Oxycodone HCl 5 mg 06/04/25 18:58 06/04/25 21:22 Oxycodone 5 Mg Tablet PO 5 mg Q4H PRN PRN Administration Pain Score 1-10 or Pre PT/OT Pramipexole Dihydrochloride 0.5 mg 06/05/25 16:00 06/04/25 21:45 Pramipexole Di-Hcl 0.5 Mg Tablet PO 0.5 mg 1600 GILDARDO Administration Pramipexole Dihydrochloride 0.25 mg 06/05/25 07:00 06/05/25 06:07 Pramipexole Di-Hcl 0.25 Mg Tablet PO 0.25 mg 0700 GILDARDO Administration Pregabalin 150 mg 06/04/25 22:00 06/04/25 21:22 Pregabalin 75 Mg Capsule PO 150 mg BID GILDARDO Administration Senna/Docusate Sodium 2 tablet 06/04/25 22:00 06/04/25 21:21 Senna/Docusate Sodium 1 Tablet PO 2 tablet BID GILDARDO Administration Trazodone HCl 100 mg 06/04/25 22:00 06/04/25 21:34 Trazodone 100 Mg Tablet PO 100 mg QHS GILDARDO Administration Tuberculin PPD 0.1 ml 06/05/25 10:00 Tuberculin,Purif.Prot.Deriv. 50 Tu/Ml Vial ID 06/05/25 10:01 X1 ONE Tuberculin PPD 0.1 ml 06/12/25 10:00 Tuberculin,Purif.Prot.Deriv. 50 Tu/Ml Vial ID 06/12/25 10:01 X1 ONE Problem List Status post total right knee replacement (Acute) Restless leg syndrome (Acute) Iron deficiency anemia (Acute) Hypothyroidism (Acute) Diabetic polyneuropathy (Acute) Panhypopituitarism (Acute) Essential (primary) hypertension (Acute) Type 2 diabetes mellitus with hyperglycemia (Acute) Debility (Acute) Vital Signs Temp Pulse Resp BP Pulse Ox O2 Del Method 97.2 F L 66 16 177/82 H 97 Room Air 06/04/25 17:11 06/04/25 17:11 06/04/25 17:11 06/04/25 17:11 06/04/25 17:11 06/04/25 17:11 Oxygen Delivery Method Room Air Weight: 90.293 kg Body Mass Index (BMI) 27.7 Sodium 141 mmol/L (133-145) 06/05/25 05:09 Potassium 4.4 mmol/L (3.3-5.1) 06/05/25 05:09 Chloride 105 mmol/L (98-108) 06/05/25 05:09 Carbon Dioxide 26.0 mmol/L (21.0-32.0) 06/05/25 05:09 Anion Gap 10 (5-15) 06/05/25 05:09 BUN 23 mg/dL (4-19) H 06/05/25 05:09 Creatinine 1.12 mg/dL (0.70-1.20) 06/05/25 05:09 Est GFR (MDRD) Non-Af 65 (>60) 06/05/25 05:09 BUN/Creatinine Ratio 20.3 RATIO (10-20) H 06/05/25 05:09 Glucose 88 mg/dL (70-99) 06/05/25 05:09 Assessment/Plan: 1. Pain: acetaminophen 1000 mg PO Q8, oxycodone 5 mg PO Q4H PRN pain (1-10). The patient has required x1 dose of oxycodone 5 mg so far this admission. Please continue to monitor pain levels, PRN medication usage, LFTs (AST/ALT = 68/46 U/L on 08/07/24), for constipation, respiratory depression, dizziness/drowsiness, and for syncope/ataxia/falls. 2. Bowel: senna/docusate 2 tablets PO BID, magnesium citrate 300 mL PO daily PRN constipation. The patient has not required any PRN doses of magnesium citrate so far this admission, and the patient's last bowel movement was documented on 06/04/25. Please continue to monitor for PRN medication administration, bowel movements, for constipation and for diarrhea. 3. DVT prophylaxis: aspirin 81 mg PO BID through 07/01/25. Please continue to monitor for s/s of a DVT such as pain/erythema/edema in an extremity, for GI distress with aspirin administration, for bleeding/excessive bruising, hemoglobin levels (Hgb = 11.9 g/dL on 06/05/25), and platelet counts (Plt = 226 K/mm3 on 06/05/25). 4. Diabetes Mellitus II: glimepiride 2 mg PO daily with meals, empagliflozin 25 mg PO daily. Please continue to monitor blood glucose levels (recent range of BG = 76-110 mg/dL), hemoglobin A1C levels (A1C = 7.8% on 08/14/24), renal function (serum creatinine = 1.12 mg/dL with creatinine clearance ~ 52 mL/min on 06/05/25), for s/s of hypoglycemia, and for s/s of genitourinary infections and for dehydration. 5. Panhypopituitarism: hydrocortisone 15 mg PO QAM, hydrocortisone 5 mg PO QHS. Please continue to monitor for fatigue, blood pressures (recent BP = 177/82), heart rates (recent range = 66-67 beats/min), for photosensitivity, for s/s of infection, for sodium (NA = 141 mmol/L on 06/05/25), potassium (K = 4.4 mmol/L on 06/05/25), and calcium levels (Ca = 8.7 mg/dL on 06/05/25). 6. Hypothyroidism: levothyroxine 112 mcg PO daily. Please continue to monitor thyroid hormone levels (TSH = 0.011 uIU/mL with T4 = 1.04 ng/dL on 08/08/24), and for s/s of hypo/hyperthyroidism. 7. Hypertension: lisinopril 20 mg PO daily. Please continue to monitor blood pressures (recent BP = 177/82), renal function (serum creatinine = 1.12 mg/dL with creatinine clearance ~ 52 mL/min on 06/05/25), for sodium (NA = 141 mmol/L on 06/05/25), potassium (K = 4.4 mmol/L on 06/05/25) levels, for cough, and for angioedema. The patient has x1 high BP documented. If the patient continues to exhibit high blood pressures please consider increasing the patient's lisinopril to 30 mg PO daily. 8. Diabetic polyneuropathy: pregabalin 150 mg PO BID. Please continue to monitor for nerve pain, for lower extremity edema, renal function (serum creatinine = 1.12 mg/dL with creatinine clearance ~ 52 mL/min on 06/05/25), and for dizziness/drowsiness and syncope/ataxia/falls. 9. Restless leg syndrome: pramipexole 0.25 mg PO @ 0700, pramipexole 0.5 mg PO @ 1600. Please continue to monitor for restless legs, for dizziness/drowsiness, insomnia, confusion, and hallucinations. 10. Iron deficiency anemia: ferrous sulfate 325 mg PO daily. Please continue to monitor hemoglobin levels (Hgb = 11.9 g/dL on 06/05/25), and iron levels (iron = 48 ug/dL on 08/10/24), and for GI distress with iron administration. 11. Vitamin C deficiency: ascorbic acid 500 mg PO daily. Please continue to monitor for s/s of vitamin C deficiency. Assessment/Plan for indications treated with psychotropic medications: 1. Insomnia: trazodone 100 mg PO QHS. Please see provider note regarding stable long-term therapy GDR not recommended. Monitor for efficacy including resident symptoms, behaviors and indications of distress. Monitor for insomnia, drowsiness, and dizziness. Monitor for tolerability including mental status, cognition, excessive sleepiness, withdrawal or decreased participation in activities and decline in physical functioning. Maximize use of nonpharmacologic/behavioral interventions to facilitate dose reduction or discontinuation as appropriate. Please evaluate the appropriateness of GDR unless contraindicated. If appropriate, GDR should be attempted in 2 separate quarters within the first year of use or admission to TCU. If GDR attempted, monitor resident symptoms/behaviors. Monitor for diarrhea, nausea, headache, anxiety or drowsiness, suicidal thoughts or behaviors (Boxed Warning), symptoms of bleeding, symptoms of serotonin syndrome (including agitation, confusion, hyperreflexia, rigidity/myoclonus, tremor, tachycardia, tachypnea), sodium levels (last Na =141 mmol/L on 06/05/25). Medical chart and medication regimen reviewed. The following medication irregularities or issues were identified: 1. Hypertension: lisinopril 20 mg PO daily. The patient has x1 high BP documented. If the patient continues to exhibit high blood pressures please consider increasing the patient's lisinopril to 30 mg PO daily. Date Date of Note: 06/05/25
[2025-06-05] MEDS: Aspirin E.C. 81 MG Tablet PO ×2 (09:11→21:18)
[2025-06-05] MEDS: Senna/Docusate Sodium 1 Tablet 2 TABLET PO (09:20)
[2025-06-05 09:39] VITALS: BP 172/69; PULSE 72; RESP 18; TEMP 36.7; O2SAT 96
--- NOTE | 2025-06-05 10:51 | CASEMGMT ---
Social Work SW met w/pt and completed assessment, introduced self and role. SW verified contacts. SW reviewed code status, for now pt would like to remain a full code, though will discuss w/daughter and let his RN know should he want to change this. Pt states daughter is HCPOA, pt states she is going to bring in the documents. Educated pt to next review date w/[employer] Medicare as 06/08 with continued stay not guaranteed. Pt states understanding. Pt's goal is to return home at discharge w/daughter and son-in-law. Pt does not anticipate needing HHC, may be open to outpt PT. SW will continue to follow with discharge planning. CLEMENCIA White
[2025-06-05] MEDS: Tuberculin,Purif.prot.deriv. 50 TU/ML Vial 0.1 ML ID (11:51)
[2025-06-05 13:20] VITALS: PULSE 72; RESP 18; O2SAT 96
--- NOTE | 2025-06-05 13:40 | NURSING ---
WALKED IN TO PT ROOM AND BUSINESS CONTINUITY ANALYST/PT STATED TO THIS NURSE THAT PT HAS A SKIN TEAR TO RT HAND. ASKED WHAT HAPPENED PT AND BUSINESS CONTINUITY ANALYST STATED THERE WAS A ZIP TIE ON WALKER WITH A SHARP END.BUSINESS CONTINUITY ANALYST SHOWED THIS NURSE. THIS NURSE NOTIFIED THERAPY AND THERAPY STATED THEY WOULD REMOVE ALL ZIP TIES ON WALKERS. RN AWARE
[2025-06-05 15:01] VITALS: BMI 27.4
[2025-06-06 09:02] VITALS: BP 100/51; PULSE 60; RESP 18; TEMP 36.2; O2SAT 96
[2025-06-06] MEDS: Aspirin E.C. 81 MG Tablet PO ×2 (09:04→21:34)
--- NOTE | 2025-06-06 09:34 | CASEMGMT ---
Social Work Pt scored 8/[address] consulted. Lula Romo [employer] PHYSICIAN MASONRY INSTRUCTOR
--- NOTE | 2025-06-06 12:13 | NURSING ---
Reproduction Production Manager Note; Activity Asset: Marcio Noriega is independent in his choice of daily activities. He prefers to be called Jerry. Jerry will watch tv, read, has smartphone word puzzles and his daughters will bring in the dog for visits. He welcomes visits from the junior electrical engineer and therapy dog when available. Staff will remind him of weekly activities and respect his right to say no.
[2025-06-06 20:36] VITALS: PULSE 92; O2SAT 98
[2025-06-06] MEDS: Senna/Docusate Sodium 1 Tablet 2 TABLET PO (21:31)
[2025-06-07 09:35] VITALS: BP 99/61; PULSE 89; RESP 18; TEMP 36.3; O2SAT 96
[2025-06-07] MEDS: Aspirin E.C. 81 MG Tablet PO ×2 (09:36→21:28)
[2025-06-07] MEDS: Senna/Docusate Sodium 1 Tablet 2 TABLET PO ×2 (09:37→21:28)
--- NOTE | 2025-06-07 11:23 | NURSING ---
Dressing to right knee removed per order, no drainage noted. Open to air. Tolerated well.
[2025-06-08 09:16] VITALS: BP 140/88; PULSE 66; RESP 18; TEMP 36.1; O2SAT 99
[2025-06-08] MEDS: Aspirin E.C. 81 MG Tablet PO ×2 (09:20→20:18)
[2025-06-08] MEDS: Senna/Docusate Sodium 1 Tablet 2 TABLET PO ×2 (09:23→20:18)
--- NOTE | 2025-06-08 12:40 | CASEMGMT ---
Social Work Received from event attendant requesting to speak with pt on code status. SW spoke with pt and educated to different levels of code status'. Pt elected to be DNR-CCA, no intubation. Nursing updated. Lula Romo ORTHODONTIC BAND MAKER REVIEW ENGINEER
[2025-06-08 20:14] VITALS: PULSE 77; O2SAT 93
--- NOTE | 2025-06-08 20:20 | NURSING ---
Administered HS medications at this time per pt request
[2025-06-09 00:17] VITALS: PULSE 66; O2SAT 99
--- NOTE | 2025-06-09 04:04 | NURSING ---
Written communication left for Dr. Paz regarding pt complaints of difficulty sleeping despite Trazodone administration @ .
[2025-06-09] MEDS: Aspirin E.C. 81 MG Tablet PO ×2 (09:15→20:59)
[2025-06-09] MEDS: Senna/Docusate Sodium 1 Tablet 2 TABLET PO ×2 (09:20→20:58)
[2025-06-09 09:23] VITALS: BP 124/71; PULSE 73; RESP 18; TEMP 37.1; O2SAT 98
--- NOTE | 2025-06-10 06:23 | NURSING ---
Attempt to obtain covid test at this time per order x3 attempts despite education, patient states I'm not going to get into it, all I'm going to say is I think covid is silly. Patient educated on covid and outbreak status and routine testing to be offered during that time, patient continues to decline. Written communication left for Dr. Paz
[2025-06-10] MEDS: Aspirin E.C. 81 MG Tablet PO ×2 (09:26→21:15)
[2025-06-10] MEDS: Senna/Docusate Sodium 1 Tablet 2 TABLET PO ×2 (09:34→21:13)
[2025-06-10 09:42] VITALS: BP 107/59; PULSE 71; RESP 18; TEMP 36.3; O2SAT 97
--- NOTE | 2025-06-10 09:42 | NURSING ---
THIS NURSE STATED TO PT THAT THE SAND SLINGER RN RECEIVED A COMMUNICATION BACK STATING THAT SENSE HE REFUSED THE COVID SWAB THAT HE IS NOT ALLOWED OUT OF HIS ROOM. PT STATED WELL I THINK ITS BULLSHIT THIS HOLE COVID THING AND KEEP TESTING. THIS NURSE STATED SHE UNDER STOOD BUT STAFF HAS TO FOLLOW THE RULES MADE BY THE STATE AND IT IS HIS RIGHT TO REFUSE. PT STATED WELL NOT TO BE A BUTT ,BUT YOU ALL SHOULD BE WEARING GLOVES AND CLEANING THE EQUIPMENT OFF THAT YOU STICK ON MY FINGER ETC. THIS NURSE STATED TO PT THAT WE CLEAN EVERY THING OFF AFTER EACH PT,YOU MAY NOT SEE IT BUT WE DO AND WASH AND SANITIZE OUR HANDS. PT STATED WELL WHATS GOING TO HAPPEN WITH THERAPY. STATED TO PT THAT THEY WILL FIGURE THAT OUT TOMORROW. ASKED PT IF HE NEEDED ANY THING BEFORE I LEFT PT STATED NO. RN AWARE
--- NOTE | 2025-06-10 15:43 | NURSING ---
pt had been reporting difficulty sleeping despite trazadone order, new order doxepin 10mg HS and DC Trazadone.
--- NOTE | 2025-06-10 15:53 | NURSING ---
PT ASKING IF HE COULD GO ON A WALK WHEN SOME ONE IS AVAILABLE. THIS NURSE REMINDED PT THAT HE CAN NOT GO OUT OF THE ROOM DUE TO REFUSING THE COVID SWAB TEST. PT STATED OH THATS RIGHT. THEN HOW ABOUT IN THE ROOM. STATED TO PT THAT I WOULD LET THE SALES AND MARKETING PROFESSIONAL KNOW.
[2025-06-10 16:45] VITALS: PULSE 71; RESP 18; O2SAT 97
--- NOTE | 2025-06-10 16:49 | NURSING ---
UPDATED PT ON NEW MED ORDERS.
[2025-06-10] MEDS: Doxepin Hydrochloride 10 MG Capsule PO (21:16)
[2025-06-11 04:33] VITALS: PULSE 65; RESP 16; O2SAT 95
[2025-06-11] MEDS: Aspirin E.C. 81 MG Tablet PO ×2 (08:06→21:04)
[2025-06-11] MEDS: Senna/Docusate Sodium 1 Tablet 2 TABLET PO ×2 (08:12→21:07)
[2025-06-11 09:00] VITALS: BP 159/81; PULSE 75; RESP 16; TEMP 36.6; O2SAT 96
--- NOTE | 2025-06-11 09:39 | NURSING ---
Owner/Operator Note; MDS for 06/11/2025 Complete
--- NOTE | 2025-06-11 12:39 | CASEMGMT ---
Social Work Received nursing requesting to DC. - Received call from dtr requesting to set DC date. SW acknowledged message and was going to talk with therapy after session today. Dtr stated she has seen pt and has no concerns with caring for him at home. SW noted pt is SBA-CGA, not independent. Dtr stated, well I know he can be. I've seen him do that. He will be fine. SW inquired about needs at needs - HHC vs OP, and PT recommending FWW. Dtr confirmed need for FWW and prefers HHC. SW offered to set DC date - as early as Wed. Dtr stated she works during the day and has a at night. SW recommended then to allow for a smooth transition. Dtr agreed and stated her will be home on Wednesday all day. SW agreed to DC 06/14. SW provided list of skilled HHC agencies within geographical area, INN with insurance, that include quality and resource data via [employer] text link to dtr. SW printed list to provide to pt. [place] [facility] [place] Dtr can transport pt home about 1530. - RIK spoke with pt at bedside. Discussed DC. Pt agreeable to DC 06/14 with skilled HHC and FWW. SW provided printed HHC list. Pt expressed no other needs. SW completed BIMS () and PHQ-2 () for MDS assessment. - SW received HHC preferences - first choice is [facility]. RIK phoned referral to [facility] PT/OT. Plan: DC home with dtr and family 06/14, [facility] PT/OT, FWW Lula CORDOVA
[2025-06-11] MEDS: Doxepin Hydrochloride 10 MG Capsule PO (21:03)
--- NOTE | 2025-06-12 05:13 | NURSING ---
Patient refused COVID test this AM. Patient educated on COVID protocols, continues to deny testing. Patient is asymptomatic. RN aware.
[2025-06-12 05:50] LABS: Hematocrit 38.7 % (40-54); Hemoglobin 12.6 g/dL (13.0-16.5); Immature Granulocytes Count 0.090 X10^3/uL (0.0-0.0); Mean Corp Hgb Conc 32.6 g/dL (32-36); Mean Corpuscular Volume 91.5 fL (80-94); Mean Platelet Vol. 9.8 fl (6.2-12.0); NRBC Flagged by Analyzer 0 % (0-5); Platelet Count 276 K/mm3 (150-450); RBC Distribution Width CV 13.9 % (11.6-14.6); RBC Distribution Width SD 46.5 fl (35.1-43.9); Red Blood Count 4.23 M/mm3 (4.6-6.2); White Blood Count 9.2 K/mm3 (4.4-11.0)
[2025-06-12 06:09] LABS: Anion Gap 11 (5-15); BUN 23 mg/dL (4-19); BUN/Creat Ratio 22.2 RATIO (10-20); Calcium,Total 9.2 mg/dL (7.6-11.0); Carbon Dioxide 22.7 mmol/L (21.0-32.0); Chloride 106 mmol/L (98-108); Estimated Creatinine Clearance 56.31 ml/min (50-250); Glucose 118 mg/dL (70-99); Potassium 4.0 mmol/L (3.3-5.1)
[2025-06-12] MEDS: Aspirin E.C. 81 MG Tablet PO ×2 (08:38→20:45)
[2025-06-12] MEDS: Senna/Docusate Sodium 1 Tablet 2 TABLET PO ×2 (08:38→20:45)
[2025-06-12 08:44] VITALS: BP 138/83; PULSE 79; RESP 15; TEMP 36.7; O2SAT 97
[2025-06-12 11:22] VITALS: BMI 26.6
[2025-06-12] MEDS: Tuberculin,Purif.prot.deriv. 50 TU/ML Vial 0.1 ML ID (12:13)
--- NOTE | 2025-06-12 19:14 | PCM.DC.SUM ---
Providers Date of Admission: 06/04/25 Primary Care Physician: Dr. Montana Lucas MD Reason For Visit: R TKA Diagnosis Discharge Diagnosis (1) Debility: Status: Acute Code(s): R53.81 - Other malaise (2) Status post total right knee replacement: Status: Acute Code(s): Z96.651 - Presence of right artificial knee joint (3) Essential (primary) hypertension: Status: Acute Code(s): I10 - Essential (primary) hypertension (4) Iron deficiency anemia: Status: Acute Code(s): D50.9 - Iron deficiency anemia, unspecified (5) Panhypopituitarism: Status: Acute Code(s): E23.0 - Hypopituitarism (6) Type 2 diabetes mellitus with hyperglycemia: Status: Acute Code(s): E11.65 - Type 2 diabetes mellitus with hyperglycemia (7) Hypothyroidism: Status: Acute Code(s): E03.9 - Hypothyroidism, unspecified (8) Restless leg syndrome: Status: Acute Code(s): G25.81 - Restless legs syndrome (9) Diabetic polyneuropathy: Status: Acute Code(s): E11.42 - Type 2 diabetes mellitus with diabetic polyneuropathy Plan 85 year old male with below past medical history underwent right total knee replacement 05/31/[address] Currie, postoperative course uncomplicated, admitted to TCU with debility, here for rehabilitation, strengthening, prior to discharge home alone. Debility - PT/OT. Pain - Tylenol 1000mg q8, Oxycodone 5mg q4 prn pain (1-10). Bowel - senna/colace 2 tablets bid, Magnesium citrate 300mL daily prn. Adult immunization - Administer pneumonia vaccine, covid vaccine, flu vaccine as appropriate. DVT prophylaxis - Aspirin 81mg po bid thru 07/01/2025. Vitamin C deficiency - Vitamin C 500mg daily. Diabetes Mellitus II - Glimepiride 2mg daily, Jardiance 25mg daily. Iron deficiency anemia - Ferrous sulfate 325mg daily. 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 Hypothyroidism - Levothyroxine 112mcg daily. Hypertension - Lisinopril 20mg daily. Restless leg syndrome - Mirapex 025mg qam, 0.5mg qpm. Diabetic polyneuropathy - Lyrica 150mg po bid. The following psychotropic medication was present on admission: Trazodone 100mg qhs prn. Psychotropic medication therapy is indicated for a diagnosis of: Insomnia. Based on my clinical evaluation, continuation of the medication is necessary at this time. Gradual dose reduction plan (select one): ____ GDR will be attempted. Will monitor patient symptoms and behaviors in response to GDR. __x__ GRD contraindicated. Reason contraindicated: stable chronic longterm use. Medications at Discharge Home Medications pregabalin 150 mg capsule (Lyrica) 150 cap PO BID pain 06/22/16 lisinopril 20 mg tablet 20 mg PO DAILY blood pressure 08/07/21 ferrous sulfate 325 mg (65 mg iron) tablet (FeroSul) 325 mg PO DAILY anemia 09/02/23 ascorbic acid (vitamin C) 500 mg capsule 500 mg PO DAILY supplement 08/06/24 levothyroxine 100 mcg tablet (Euthyrox) 112 mcg PO DAILY thyroid 08/06/24 empagliflozin 25 mg tablet 25 mg PO QDAY Diabetes 09/20/24 glimepiride 2 mg tablet 2 mg PO QDAY Diabetes 09/20/24 hydrocortisone 5 mg tablet 15 mg PO 0900 ask primary doctor 09/20/24 hydrocortisone 5 mg tablet (Cortef) 5 mg PO QHS ask your primary doctor 06/04/25 pramipexole 0.25 mg tablet 0.25 mg PO 0700 Restless leg 06/04/25 pramipexole 0.5 mg tablet 0.5 mg PO 1600 Restless Leg 06/04/25 acetaminophen 500 mg tablet 1,000 mg (2 x 500 mg) PO Q8 #0 tabs 06/12/25 aspirin 81 mg tablet,delayed release 81 mg PO BID 17 days #0 tabs 06/12/25 doxepin 10 mg capsule 10 mg PO QHS 30 days #30 caps 06/12/25 oxycodone 5 mg tablet 5 mg PO Q4H PRN PRN Pain Score 1-10 Or Pre Pt/Ot 7 days #42 tabs 06/12/25 sennosides 8.6 mg-docusate sodium 50 mg tablet (Stimulant Laxative Plus) 2 tab PO BID 30 days #120 tabs 06/12/25 Hospital Course Operations total knee replacement (Right.) Procedures None Summary of Care Provided Minutes Spent on Discharge: 35 Hospital Course: 85 year old male with below past medical history underwent right total knee replacement 05/31/[address] Currie, postoperative course uncomplicated, admitted to TCU with debility, here for rehabilitation, strengthening, prior to discharge home alone. Discharge home with daughter and family 06/14/2025, [facility] PT/OT, FWW. FWW: Patient is unsafe to use a cane and requires a walker for ambulation in the home and the community. Physical Exam Const alert General Appearance: cooperative HEENT normocephalic Eyes PERRL and EOMs intact bilaterally Neck supple, no JVD and no carotid bruits Resp normal respiratory effort, normal air movement and clear to auscultation bilaterally Cardio regular rate and regular rhythm GI normal to inspection, nondistended, normoactive bowel sounds, non-tender and non-distended Extremity normal capillary refill General Extremity: Negative for edema Skin no rashes or lesions noted General Skin Exam: no breakdown Psych affect normal Appearance: appropriate Weight / BMI Weight Weight: 86.545 kg Body Mass Index (BMI) 26.6 ABG / Lab / Microbiology Data 06/12/25 05:22 06/12/25 05:22 Laboratory: Laboratory Results - last 24 hr 06/12/25 05:22: WBC 9.2, RBC 4.23 L, Hgb 12.6 L, Hct 38.7 L, MCV 91.5, MCH 29.8, MCHC 32.6, RDW Std Deviation 46.5 H, RDW Coeff of Florian 13.9, Plt Count 276, MPV 9.8, Immature Gran % (Auto) 1.000 H, Neut % (Auto) 46.9 L, Lymph % (Auto) 37.7, Highland % (Auto) 7.5, Eos % (Auto) 5.7 H, Baso % (Auto) 1.2 H, Absolute Neuts (auto) 4.3, Absolute Lymphs (auto) 3.46, Nucleated RBC % 0, Sodium 140, Potassium 4.0, Chloride 106, Carbon Dioxide 22.7, Anion Gap 11, BUN 23 H, Creatinine 1.04, Estim Creat Clear Calc 56.31, Est GFR (MDRD) Non-Af 71, BUN/Creatinine Ratio 22.2 H, Glucose 118 H, Calcium 9.2 06/12/25 05:57: POC Glucose 112 H Microbiology: Microbiology 06/08/25 05:41 Nasal Secretion SARS-CoV-2 Antigen (Rapid) - Final D/C Instructions Discharge Activity: Return to Normal Activity, May Shower and Use Walker Weight Bearing Status: Weight bearing as tolerated Call your doctor if you observe: Fever of 101 or Higher, Inability to urinate, Inability to have a bowel movement, Shortness of breath, Dizziness, Fainting spells, Swelling in the ankles, Chest pain and Uncontrolled pain DC O2, CPAP, BIPAP Needs Home O2 Discharge instructions: No Additional Instructions: Discharge home with daughter and family 06/14/2025, [facility] PT/OT, FWW. FWW: Patient is unsafe to use a cane and requires a walker for ambulation in the home and the community. Please Follow Up With: Chris Currie MD When: As scheduled. Meaningful Use Info Meaningful Use Meaningful Use Diagnoses (Choose all that apply): None applicable Discharge Plan Admission Admit Date/Time: 06/04/25 16:40 Primary Reason for Your Visit: Debility. Attending Provider: Basim Paz Chi Primary Care Provider: Montana Lucas Instructions Additional Instructions / Restrictions: Discharge home with daughter and family 06/14/2025, [facility] PT/OT, FWW. FWW: Patient is unsafe to use a cane and requires a walker for ambulation in the home and the community. Discharge Orders/Prescriptions Prescriptions: New sennosides-docusate sodium [Stimulant Laxative Plus] 8.6-50 mg Tablet 2 tab PO BID 30 Days Qty: 120 0RF doxepin 10 mg Capsule 10 mg PO QHS 30 Days Qty: 30 0RF aspirin 81 mg Tablet,Delayed Release (Dr/Ec) 81 mg PO BID 17 Days Qty: 0 0RF acetaminophen 500 mg Tablet 1,000 mg PO Q8 Qty: 0 0RF oxycodone 5 mg Tablet 5 mg PO Q4H PRN PRN (Reason: Pain Score 1-10 Or Pre Pt/Ot) 7 Days Qty: 42 0RF Continued empagliflozin 25 mg tablet 25 mg PO QDAY glimepiride 2 mg tablet 2 mg PO QDAY hydrocortisone 5 mg tablet 15 mg PO 0900 pregabalin [Lyrica] 150 MG capsule 150 cap PO BID Patient Comments: lisinopril 20 mg tablet 20 mg PO DAILY ferrous sulfate [FeroSul] 325 mg (65 mg iron) tablet 325 mg PO DAILY Patient Comments: take 1 tablet by mouth once daily with breakfast pramipexole 0.5 mg tablet 0.5 mg PO 1600 pramipexole 0.25 mg tablet 0.25 mg PO 0700 hydrocortisone [Cortef] 5 mg tablet 5 mg PO QHS levothyroxine [Euthyrox] 100 mcg tablet 112 mcg PO DAILY ascorbic acid (vitamin C) 500 mg capsule 500 mg PO DAILY Discontinued tramadol 50 mg tablet 50 mg PO Q6H PRN (Reason: for severe pain (7-10)) trazodone 50 mg tablet 50 mg PO QHS PRN (Reason: insomnia) desmopressin 0.1 mg tablet 0.5 tab PO QHS Patient Comments: take 1/2 tablet by mouth every evening pramipexole 1 mg tablet PO oxycodone-acetaminophen 5-325 mg tablet 1 - 2 tab PO Q6H PRN PRN (Reason: pain) aspirin [Adult Low Dose Aspirin] 81 mg tablet,delayed release (DR/EC) 81 mg PO BID potassium chloride 20 mEq Tablet,Er Particles/Crystals 20 meq PO DAILYCM 30 Days Qty: 30 0RF Referrals / Follow Up: Montana Lucas MD [Primary Care Provider, Family Practice] - Within 1 Week Referral Note: Transition Care Management (TCM) appointment. Disposition Disposition (needs filled in before D/C Order can be placed): Home Health Service
[2025-06-12] MEDS: Doxepin Hydrochloride 10 MG Capsule PO (20:46)
--- NOTE | 2025-06-12 22:40 | NURSING ---
Pt requesting baclofen and oxy to be administered at the same time. Education provided related to increased risk of sedation when taking these medications together. Pt still requesting both medications despite education. Administered oxy and baclofen per orders and pt request.
--- NOTE | 2025-06-13 06:14 | NURSING ---
Pt continues to refuse covid swab despite education
[2025-06-13] MEDS: Aspirin E.C. 81 MG Tablet PO ×2 (09:11→22:47)
[2025-06-13] MEDS: Senna/Docusate Sodium 1 Tablet 2 TABLET PO ×2 (09:11→22:47)
[2025-06-13 09:20] VITALS: BP 125/73; PULSE 101; RESP 16; TEMP 36.4; O2SAT 96
--- NOTE | 2025-06-13 09:34 | NURSING ---
Discussed covid testing with resident on Wednesday. He continued to decline, saying he's going to stick with his beliefs. He also noted he didn't want or receive any of the covid vaccines.
[2025-06-13] MEDS: Doxepin Hydrochloride 10 MG Capsule PO (22:48)
[2025-06-14 06:42] VITALS: PULSE 90; O2SAT 98
[2025-06-14] MEDS: Aspirin E.C. 81 MG Tablet PO (08:15)
[2025-06-14] MEDS: Senna/Docusate Sodium 1 Tablet 2 TABLET PO (08:18)
[2025-06-14 08:21] VITALS: BP 120/79; PULSE 76; RESP 18; TEMP 36.5; O2SAT 98
--- NOTE | 2025-06-14 13:24 | MDS.RN ---
Information for the MDS was obtained from review of the clinical record, interview of resident, staff, and direct observation of resident?s care.
== END 2025-06-14 16:00 | disposition home health service (06) | DRG 560 ==
PROVIDERS: Admitting Provider Family Medicine Geriatric Medicine; PCP Family Medicine; Referring Provider Family Medicine Geriatric Medicine; Visit Provider Family Medicine Geriatric Medicine
DX: Z47.1 Aftercare following joint replacement surgery (principal); E23.0 Hypopituitarism; D50.9 Iron deficiency anemia, unspecified; E11.65 Type 2 diabetes mellitus with hyperglycemia; E03.9 Hypothyroidism, unspecified; E11.42 Type 2 diabetes mellitus with diabetic polyneuropathy; G25.81 Restless legs syndrome; I10 Essential (primary) hypertension; E54 Ascorbic acid deficiency; Z96.651 Presence of right artificial knee joint; Z87.891 Personal history of nicotine dependence; Z79.84 Long term (current) use of oral hypoglycemic drugs; Z79.899 Other long term (current) drug therapy; G47.00 Insomnia, unspecified; Z79.82 Long term (current) use of aspirin; Z79.52 Long term (current) use of systemic steroids; Z79.890 Hormone replacement therapy
CPT/HCPCS: 36415; 80048; 82962; 85025; 87811; 92507; 92523; 97110; 97116; 97162; 97166; 97530; 97535; 97802